=== PATIENT | female | born 1980 | race Caucasian/White ===

== ENCOUNTER 2016-06-08 21:18 | Emergency (ER) | payer MEDICARE, MEDICAID ==
[2016-02-28 06:45] VITALS: BMI 26.1
[~2016-06-08 21:18] MED LIST: ACETAMINOPHEN325 MG PO; COLACE100 MG PO; COZAAR50 MG PO; FERROUS SULFAT325 MG PO; FUROSEMIDE40 MG PO; LEVAQUIN250 MG PO; MACRODANTIN50 MG PO; METOPROLOL TAR100 M1 PO; METOPROLOL TART50 MG PO; NEURONTIN 300300 MG PO; NORCO 7.5/325 T1 TA1 PO; NORVASC10 MG PO; PROAIR HFA8.5 GM INH; PROZAC10 MG PO; PROZAC20 MG PO; RENVELA800 MG PO; SOMA350 MG PO; SYMBICORT 80-10.2 GM INH; TUMS500 MG PO; TYLENOL PM1 TAB PO; ULTRAM50 MG PO; ZESTORETIC 20-1 EACH PO
== END 2016-06-09 02:40 | disposition home or self-care (01) ==
LOC: D.ER 21:18
DX: M25.552 Pain in left hip (principal); F31.9 Bipolar disorder, unspecified; N18.9 Chronic kidney disease, unspecified

== ENCOUNTER 2016-08-01 19:16 | Inpatient (IN) | payer MEDICARE, MEDICAID ==
[~2016-08-01] VITALS: Ht 160 cm; Wt 75.6 kg
[2016-08-01 20:44] LABS: BASOPHILS 0.1 % (0-2); HEMATOCRIT 37.9 % (36.0-48.0); HEMOGLOBIN 12.6 g/dL (12-16); IMMATURE GRANULOCYTES 0.2 % (0-5); LYMPHOCYTES 10.1 % (15-50); MCH 33.8 pg (26.0-34.0); MCHC 33.2 g/dL (31.0-37.0); MCV 101.6 fL (80.0-100.0); MEAN PLATELET VOLUME 9.4 fL (7.4-10.4); MONOCYTES 6.6 % (2-11); PLATELET COUNT 221 10x3/uL (130-400); RBC 3.73 10x6/uL (4.00-5.40); WBC 10.8 10x3/uL (4.8-10.8)
[2016-08-01 20:58] LABS: ALBUMIN 2.5 g/dL (3.4-5.0); ANION GAP 15.9 mmol/L (8-16); BILIRUBIN - TOTAL 0.26 mg/dL (0.2-1.3); CALCIUM 8.1 mg/dL (8.5-10.1); CARBON DIOXIDE 28.2 mmol/L (21.0-32.0); CREATININE - SERUM 6.1 mg/dL (0.6-1.3); POTASSIUM - SERUM 3.1 mmol/L (3.5-5.1)
[2016-08-01 22:15] LABS: APPEARANCE HAZY (CLEAR); BILIRUBIN NEGATIVE (NEGATIVE); COLOR YELLOW (YELLOW); GLUCOSE NEGATIVE (NEGATIVE); KETONE NEGATIVE (NEGATIVE); LEUKOCYTE ESTERASE TRACE (NEGATIVE); NITRITE NEGATIVE (NEGATIVE); PROTEIN 1+ mg/dL (NEGATIVE); SPECIFIC GRAVITY 1.015 (1.005-1.020); UROBILINOGEN NORMAL (NORMAL)
[2016-08-01 22:16] LABS: AMORPHOUS SEDIMENT <1+ /lpf (NONE SEEN); BACTERIA FEW /hpf (NONE SEEN); EPITHELIAL CELLS 0-5 /hpf (0-5); RED CELLS - URINE 0-5 /hpf (0-5); WHITE CELLS - URINE 0-5 /hpf (0-5)
[2016-08-02 02:26] LABS: LYMPH - BF 58 %; NEUT - BF 42 %
--- NOTE | 2016-08-02 03:58 | NUR ---
RECIEVED TO 2111 FROM ER, AAOX3, SKIN WARM AND DRY, RESP UNLABORED, IV PATENT TO LEFT HAND, EATING TAKE OUT FOOD, VERY DEMANDING, NO DISTRESS NOTED
[2016-08-02 04:15] VITALS: BP 97/48
[2016-08-02 04:23] VITALS: BP 109/66; BMI 27.1
--- NOTE | 2016-08-02 06:00 | NUR ---
INSTILLED 2000CC OF 1.5% PD FLUID WITH 2000UNITS OF HEPARIN INTO PD CATH
[2016-08-02 07:23] VITALS: BP 106/60
[2016-08-02 12:09] VITALS: BP 120/55
[2016-08-02 16:10] VITALS: BP 104/54
--- NOTE | 2016-08-02 17:48 | NUR ---
ALERT AND ORIENTED X4. INITIATE PD ORDERED. PAIN MANAGEMENT CONTINUED. STANDING SCALE WEIGHT BEFORE PD 168.4lbs. DENIES ANY NEEDS. FAMILY AT BEDSIDE. CONTINUE PLAN OF CARE AND SAFETY PRECAUTIONS.
[2016-08-02 21:38] VITALS: BP 120/73
--- NOTE | 2016-08-02 22:55 | NUR ---
INITIAL ROUNDS COMPELTED AT 1914 HRS. PT IN SHOWER. PT'S CHILDREN DEMANDING TOWELS FOR MOTHER. OUT OF SHOWER AT 1930. PT DEMANDING IV BE CHECKED FOR PATENTCY AND NEW DRESSING APPLIED TO PD CATH. SUPPLIES GIVNE TO PT AND SHE APPLIED NEW DRESSING. IV FLUSHED AND PT STATED IT WAS VERY PAINFUL AND WANTED A NEW IV. ASSESSMETN COMPETED AT 2034 HRS. LUNGS CTA. VSS. ABD WITH PD DWELLING. UP AD ABISAI. IV TO L HAND DC'S WITH CATHETER INTACT. NEW IV STARTED #22 TO LFA WITH ATTEMPT X2. PT TOLERATED ACTIVITY WELL. PM MEDS GIVEN. WILL CONTINUE TO MONITOR. SR UP X2, CALL LIGHT WITHIN REACH.
--- NOTE | 2016-08-03 00:18 | NUR ---
PD EXCHANGE COMPLETED AT 2350 HRS WITH 1650CC RETURN. PT TOLERATED WEELL. WILL CONTINUE TO MONITOR.
--- NOTE | 2016-08-03 02:33 | NUR ---
BP RECHECKED PRIOR TO DILAUDID ADMINISTRATION. BP 126/78. PT AWAKWN AT THAT TIME AND PT STATES PAIN IS 10/10. DILAUDID 2MG SIVP GIVEN. IVAB ADMINISTERED ORDERED. WILL CONTINUE TO MONITOR. SR UP X2, CALL LIGHT WITHIN REACH.
[2016-08-03 03:13] VITALS: BP 98/56
--- NOTE | 2016-08-03 04:44 | NUR ---
PT RESTING WITH EYES CLOSED. RESP EVEN AND REGULAR. SR UP X2, CALL LIGHT WITHIN REACH.
--- NOTE | 2016-08-03 05:59 | NUR ---
PD EXCHANGE 1.5% 2000 CC COMPLETED BY 0535 HRS WITH 2450 CC RETURN. FLUID YELLOW AND SLIGHTY CLOUDY. BP 114/73. PT TOLERATED ACTIVITY WELL. WILL CONTINUE TO MONITOR.
[2016-08-03 06:46] VITALS: BP 127/82
[2016-08-03 08:25] VITALS: BP 95/60
[2016-08-03 12:18] VITALS: Ht 160 cm; Wt 75.6 kg
[2016-08-03 13:03] VITALS: BP 133/89
--- NOTE | 2016-08-03 14:36 | NUR ---
SPOKE WITH MICHAEL CORNELL AT [facility] PER . KRAIG STATES, "I WILL CALL FOR DIRECT ORDERS TO WHAT HE WANTS DONE." ALERT AND ORIENTED X4. PAIN MANAGEMENT CONTINUED. CONTINUE PLAN OF CARE AND SAFETY PRECAUTIONS.
[2016-08-03 17:08] VITALS: BP 130/80
--- NOTE | 2016-08-03 19:33 | NUR ---
LYING ON LEFT SIDE. OPENED EYES AND NODDED "NO" TO INQUIRY ABOUT ANY NEEDS OR DISCOMFORTS. IV IN LT FA INTACT SL. ORDERS FOR PD NOTED. BED IS LOW WITH SR UP X2. CALL LIGHT AND BEDSIDE TABLE WITH PERSONAL ITEMS IN REACH.
[2016-08-03 21:27] VITALS: BP 119/79
--- NOTE | 2016-08-03 23:15 | NUR ---
STARTED PD. RATES PAIN LEVEL DOWN TO A 5 ON NUMBER SCALE.
[2016-08-04 01:46] VITALS: BP 117/58
[2016-08-04 06:03] LABS: BASOPHILS 0.2 % (0-2); EOSINOPHILS 2.6 % (0-7); HEMATOCRIT 34.6 % (36.0-48.0); IMMATURE GRANULOCYTES 0.2 % (0-5); LYMPHOCYTES 24.5 % (15-50); MCHC 31.8 g/dL (31.0-37.0); MCV 103.9 fL (80.0-100.0); MEAN PLATELET VOLUME 9.1 fL (7.4-10.4); MONOCYTES 7.8 % (2-11); NEUTROPHILS 64.7 % (40-80); PLATELET COUNT 205 10x3/uL (130-400); RBC 3.33 10x6/uL (4.00-5.40); RDW 12.9 % (11.5-14.5)
--- NOTE | 2016-08-04 06:20 | NUR ---
ADMIN DILAUDID 4MG IV PER REQUEST FOR C/O ABD PAIN LEVEL 10 ON NUMBER SCALE. REQUESTED CUP OF ICE.
[2016-08-04 06:24] VITALS: BP 130/81
[2016-08-04 06:26] LABS: ANION GAP 11.8 mmol/L (8-16); CALCIUM 8.2 mg/dL (8.5-10.1); CARBON DIOXIDE 27.3 mmol/L (21.0-32.0); CREATININE - SERUM 4.6 mg/dL (0.6-1.3); PHOSPHOROUS 5.3 mg/dL (2.5-4.9); POTASSIUM - SERUM 4.1 mmol/L (3.5-5.1)
[2016-08-04 08:00] VITALS: BP 149/91
[2016-08-04 11:59] VITALS: BP 119/68
--- NOTE | 2016-08-04 15:27 | NUR ---
DIALYSIS COORDINATOR: PATHWAYS: [facility] Department. Patient is a PD patient. Medical records have been forwarded to the clinic for their records. Attempted to meet with the patient but was unable to wake her. NOVA ESPANA.
[2016-08-04 15:53] VITALS: BP 140/78
--- NOTE | 2016-08-04 19:45 | NUR ---
DENIES ANY NEEDS. IV IN L FA INTACT SL. BED IS LOW WITH SR UP X2. ORIENTED TO CALL LIGHT FOR ANY NEEDS.
[2016-08-04 21:07] VITALS: BP 117/77
--- NOTE | 2016-08-04 23:05 | NUR ---
ALERT/AWAKE SITTING UP IN BED. STARTED PD. ADDED 1000 UNITS HEPARIN TO PD BAG PER ORDER.
[2016-08-05 01:38] VITALS: BP 137/79
--- NOTE | 2016-08-05 04:35 | NUR ---
AWAKE DENIES ANY NEEDS. RATES PAIN LEVEL OF ABD AT 8 ON NUMBER SCALE.
[2016-08-05 04:39] LABS: BASOPHILS 0.4 % (0-2); HEMATOCRIT 35.5 % (36.0-48.0); HEMOGLOBIN 11.2 g/dL (12-16); IMMATURE GRANULOCYTES 0.2 % (0-5); LYMPHOCYTES 26.3 % (15-50); MCH 32.6 pg (26.0-34.0); MCHC 31.5 g/dL (31.0-37.0); MCV 103.2 fL (80.0-100.0); MEAN PLATELET VOLUME 9.2 fL (7.4-10.4); MONOCYTES 7.9 % (2-11); NEUTROPHILS 62.2 % (40-80); PLATELET COUNT 201 10x3/uL (130-400); RBC 3.44 10x6/uL (4.00-5.40); RDW 12.6 % (11.5-14.5); WBC 5.7 10x3/uL (4.8-10.8)
[2016-08-05 05:09] LABS: ANION GAP 11.4 mmol/L (8-16); CALCIUM 8.1 mg/dL (8.5-10.1); CARBON DIOXIDE 28.8 mmol/L (21.0-32.0); CREATININE - SERUM 4.3 mg/dL (0.6-1.3); PHOSPHOROUS 5.5 mg/dL (2.5-4.9); POTASSIUM - SERUM 4.2 mmol/L (3.5-5.1)
[2016-08-05 05:32] VITALS: BP 102/54
--- NOTE | 2016-08-05 06:28 | NUR ---
DID NOT ADMIN SCHED DILAUDID IV. PATIENT SLEEPING AND DOES NOT APPEAR IN ANY PAIN OR DISCOMFORT. RETURNING DILAUDID TO [facility].
--- NOTE | 2016-08-05 07:45 | NUR ---
PATIENT IS RESTING QUIETLY WITH EYES CLOSED. AWOKE TO MY VOICE. STATES THAT HER PAIN LEVEL REMAINS AT A 10 DESPITE THE IV DILAUDID. SUGGESTED THAT PERHAPS WE NEEDED TO TRY ANOTHER MEDICATION IF IT WASN'T WORKING. SHE QUICKLY REFUSED. STATES THAT MORPHINE MAKES HER CHEST TIGHT AND NOTHING ELSE WORKS FOR HER. ENCOURAGED HER TO REST. SHE DENIES OTHER NEEDS AT THIS TIME. DISCUSSED THE PLAN FOR THE DAY, INCLUDING HER PD.
[2016-08-05 08:00] VITALS: BP 105/59
--- NOTE | 2016-08-05 08:30 | NUR ---
PATIENT GIVEN HER MEDICATIONS. FRESH WATER GIVEN. SHE QUESTIONED WHEN SHE CAN HAVE MEDICATION AGAIN AND BECAME UPSET WHEN TOLD THERE IS A 6 HOUR WAIT BETWEEN DOSES. DISCUSSED DR. BAPTISTE'S NOTE REGARDING HER IMPROVEMENT AND NEED TO TAPER THE PAIN MEDICATION. SHE STATES THAT SHE DOESN'T UNDERSTAND THAT AND WANTS ME TO CALL THE PHYSICIAN OCCUPANCY SPECIALIST. WHEN I ENTERED THE ROOM SHE WAS ASLEEP AND REQUIRED A FEW MINUTES TO GET HER EYES FOCUSED ON MY FACE DURING CONVERSATION. SHE IS ABLE TO SIT UP IN HER BED TO TAKE MEDICATIONS INDEPENDENTLY. SHE IS NOT GUARDING HER ABDOMEN OR GRIMACING. WILL MONITOR CLOSELY.
--- NOTE | 2016-08-05 11:30 | NUR ---
PATIENT AGAIN ASLEEP WHEN I ENTERED HER ROOM. WE DISCUSSED THE PERITONEAL DIALYSIS AND HER COMPOUNDER FLAVORINGS AT HOME. SHE KEEPS HER OWN RECORDS FOR I/O'S.
[2016-08-05 12:00] VITALS: BP 110/68
--- NOTE | 2016-08-05 15:17 | NUR ---
RECEIVED CALL BACK FROM CHAN GRANT FOR THE NEPHROLOGY CLINIC. WE ARE TO DIRECT PATIENT TO DISCUSS HER PAIN MEDICATION NEEDS WITH DR. BAPTISTE IN THE MORNING.
--- NOTE | 2016-08-05 15:36 | NUR ---
ANSWERED CALL LIGHT AND REPORTED WHAT JUANITA SAID. SHE STATED THAT SHE WANTED TO GO HOME AND SHE WONT BE HERE TO TALK WITH DR. BAPTISTE TOMORROW. I OFFERED TO FETCH THE NANCY PAPERWORK AND REMOVE HER IV. DISCUSSED AMA BRIEFLY. SHE STATED THAT SHE WASNT LEAVING UNDER ANYONES MEDICAL ADVICE AND TURNED TO HER CELL PHONE. LEFT HER TO MAKE HER PHONE CALL.
--- NOTE | 2016-08-05 15:44 | NUR ---
ANSWERED CALL LIGHT. SHE HAS SPOKEN WITH SOMEONE AT DR. BAPTISTE'S OFFICE WHO TOLD HER THAT HE IS ON VACATION UNTIL WEDNESDAY. REQUESTS THAT I CALL THE PHYSICIAN FERMENTER HELPER. PAGED CHAN AGAIN TO RUN THIS BY HER BEFORE TALKING WITH A DIFFERENT PRESCRIBER.
[2016-08-05 15:59] VITALS: BP 112/64
[2016-08-05 20:44] VITALS: BP 106/70
--- NOTE | 2016-08-05 23:40 | NUR ---
PD EXCHANGE IN PROGRESS. NORCO FOR BREAKTHROUGH PAIN GIVEN.
--- NOTE | 2016-08-06 02:00 | NUR ---
PT WITH C/O FULLNESS IN HER BLADDER AND INABILITY TO VOID. STRAIGHT CATHED PATIENT AND HER OUTPUT WAS 500ML. NO FURTHER C/O. MEDICATED WITH REQUESTED DILAUDID IV FOR PAIN. MONITOR AND CPOC.
[2016-08-06 03:47] VITALS: BP 105/58
[2016-08-06 05:38] LABS: BASOPHILS 0.6 % (0-2); EOSINOPHILS 3.8 % (0-7); HEMATOCRIT 33.5 % (36.0-48.0); HEMOGLOBIN 10.5 g/dL (12-16); IMMATURE GRANULOCYTES 0.2 % (0-5); LYMPHOCYTES 35.7 % (15-50); MCH 32.5 pg (26.0-34.0); MCHC 31.3 g/dL (31.0-37.0); MCV 103.7 fL (80.0-100.0); MEAN PLATELET VOLUME 9.1 fL (7.4-10.4); MONOCYTES 6.9 % (2-11); NEUTROPHILS 52.8 % (40-80); PLATELET COUNT 183 10x3/uL (130-400); RBC 3.23 10x6/uL (4.00-5.40); RDW 12.6 % (11.5-14.5)
[2016-08-06 06:27] LABS: ANION GAP 14.5 mmol/L (8-16); CALCIUM 7.9 mg/dL (8.5-10.1); CARBON DIOXIDE 26.5 mmol/L (21.0-32.0); GENTAMICIN - TROUGH 2.7 ug/mL (0.5-2.0); PHOSPHOROUS 5.1 mg/dL (2.5-4.9)
[2016-08-06 08:34] VITALS: BP 111/67
--- NOTE | 2016-08-06 09:09 | NUR ---
AM ROUNDS - PT APPEARS TO BE SLEEPING WITH EQUAL AND NON LABORED BREATHS. WILL CONTINUE TO MONITOR
[2016-08-06 11:53] VITALS: BP 103/53
[2016-08-06 15:32] VITALS: BP 105/58
[2016-08-06 20:00] VITALS: BP 118/77
[2016-08-07] VITALS: BP 146/83
--- NOTE | 2016-08-07 02:07 | NUR ---
PD PERFORMED @ 00:45 - 2800 REMOVED, 2000 OF 2.5% REPLACED. PT DENIES ANY NEEDS OTHER THAN PRN PAIN MEDICATION AND ZOFRAN. CONTINUE TO MONITOR CLOSELY. BED LOW, CALL LIGHT IN REACH, SIDE RAILS X 2, HOB 15 DEGREES.
[2016-08-07 04:00] VITALS: BP 132/73
--- NOTE | 2016-08-07 06:05 | NUR ---
PT LYING IN BED ON LEFT SIDE, EYES CLOSED, RESPIRATIONS EVEN AND UNLABORED. CONTINUE TO MONITOR CLOSELY. WAITING FOR PD TO WARM UP FOR ADMINISTRATION.
[2016-08-07 08:03] VITALS: BP 114/61
--- NOTE | 2016-08-07 08:20 | NUR ---
AM ROUNDS - PT IS AWAKE IN BED. RESERVE RUE. LEFT FA, SL. NO NEEDS AT THIS TIME. WILL CONTINUE TO MONITOR.
[2016-08-07 11:48] VITALS: BP 110/66
--- NOTE | 2016-08-07 15:37 | NUR ---
Nutrition Follow Up: Pt is eating 67% meal avg on a renal diet. Wt gain since admit noted. +BM 08/07/16. Meds and labs reviewed. Rec continue current diet. RD following.
[2016-08-07 15:38] VITALS: BP 114/71
--- NOTE | 2016-08-07 19:35 | NUR ---
AWAKE TALKING TO FAMILY MEMBERS AND CHILDREN PRESENT IN ROOM. RATES PAIN LEVEL AT 9 ON 0-10 SCALE OF ABDOMEN. IV IN L FA INTACT SL. REQUESTED CUP OF ICE.
[2016-08-07 20:00] VITALS: BP 121/66
--- NOTE | 2016-08-07 20:10 | NUR ---
ADMIN NORCO PO PER REQUEST FOR C/O ABD PAIN LEVEL 9 ON 0-10 NUMBER SCALE.
--- NOTE | 2016-08-07 23:40 | NUR ---
PD FINISHED. TALKING ON PHONE. NO NEEDS VOICED.
[2016-08-08] VITALS: BP 126/89
--- NOTE | 2016-08-08 01:50 | NUR ---
RETURNING TO BED FROM BATHROOM. ADMIN NORCO PO AND SOMA PO PER REQUEST.
[2016-08-08 04:00] VITALS: BP 125/75
--- NOTE | 2016-08-08 05:40 | NUR ---
PD FINISHED. RATES PAIN LEVEL AT 6 ON 0-10 NUMBER SCALE AFTER GIVING DILAUDID 1MG IV 30 MIN AGO.
[2016-08-08 08:00] VITALS: BP 104/62
--- NOTE | 2016-08-08 08:03 | NUR ---
AM ROUNDS - PT APPEARS TO BE SLEEPING WITH EQUAL AND NON LABORED BREATHS. WILL CONTINUE TO MONITOR.
[2016-08-08 12:00] VITALS: BP 151/88
[2016-08-08 16:00] VITALS: BP 126/78
--- NOTE | 2016-08-08 18:41 | NUR ---
PT HAD FAMILY AT BEDSIDE. PD EXCHANGE FINNISHED. SHE IS EATING DINNER. WILL CONITUE TO MONITOR
--- NOTE | 2016-08-08 20:17 | NUR ---
RESTING IN BED WITH AND CHILD IN ROOM. ALERT/ORIENTED. C/O PAIN. HS MEDS PLUS PAIN PILL GIVEN. PT ALSO WANTING IV EVER. ADMINISTERED ZOFRAN VIA LFA PIV. MONITOR AND CPOC.
[2016-08-09] VITALS: BP 110/72
--- NOTE | 2016-08-09 00:48 | NUR ---
PD EXCHANGE COMPLETED. 2600 OUTPUT/CLEAR FLUID. LIDOCAINE AND HEPARIN ADDED TO 2.5% PD SOLUTION. PT THEN WANTING PAIN PILL, MUSCLE RELAXER AND IV NAUSEA MEDS. ADMINISTERED IV ZOFRAN, AND GAVE ONE NORCO AND ONE SOMA. MONITOR AND CPOC.
--- NOTE | 2016-08-09 02:36 | NUR ---
SPOKE WITH RAMÓN IN LAB. SHE STATES THE PD SPECIMEN WAS COLLECTED AND IS IN LAB AWAITING THE CYTOLOGY TEST TO BE DONE AND IT WILL NOT BE DONE UNTIL WEDNESDAY.
[2016-08-09 04:00] VITALS: BP 134/69
--- NOTE | 2016-08-09 06:12 | NUR ---
PT PERFORMED PD EXCHANGE. PT ALSO MEDICATED WITH SOMA, NORCO AND IV ZOFRAN. MONITOR AND CPOC.
[2016-08-09 08:00] VITALS: BP 121/71
[2016-08-09 12:00] VITALS: BP 151/98
--- NOTE | 2016-08-09 14:11 | NUR ---
ALERT AND ORIENTED X4. DISCHARGE INSTRUCTIONS GIVEN VERBALLY AND WRITTEN. DISCHARGE PAPERS SIGNED ON CHART. DC LT FA IV TIP INTACT. AMBULATES TO RIDE. REFUSES WHEELCHAIR. REMAINS FREE FROM INJURY.
== END 2016-08-09 14:12 | disposition home or self-care (01) | DRG 867 ==
LOC: D.ER 19:16 → D.M2 08-02 02:11
PROVIDERS: Emergency Medicine; ADMIT Internal Medicine Nephrology
DX: T80.29XA Infection following other infusion, transfusion and therapeutic injection, initial encounter (principal); K65.9 Peritonitis, unspecified; N18.6 End stage renal disease; Q61.3 Polycystic kidney, unspecified; I12.0 Hypertensive chronic kidney disease with stage 5 chronic kidney disease or end stage renal disease; Z99.2 Dependence on renal dialysis; I95.9 Hypotension, unspecified; B95.7 Other staphylococcus as the cause of diseases classified elsewhere

== ENCOUNTER 2017-02-13 07:21 | Inpatient (IN) | payer MEDICARE, MEDICAID ==
[~2017-02-13] VITALS: Ht 160 cm; Wt 79.4 kg
[2017-02-13 07:50] LABS: APPEARANCE HAZY (CLEAR); BILIRUBIN NEGATIVE (NEGATIVE); COLOR YELLOW (YELLOW); GLUCOSE NEGATIVE (NEGATIVE); KETONE NEGATIVE (NEGATIVE); NITRITE NEGATIVE (NEGATIVE); PROTEIN 1+ mg/dL (NEGATIVE); UROBILINOGEN NORMAL (NORMAL)
[2017-02-13 07:57] LABS: BACTERIA MODERATE /hpf (NONE SEEN); RED CELLS - URINE 0-5 /hpf (0-5); YEAST >1+ /hpf (NONE SEEN)
[2017-02-13 08:09] LABS: BASOPHILS 0.3 % (0-2); EOSINOPHILS 3.2 % (0-7); HEMATOCRIT 24.8 % (36.0-48.0); HEMOGLOBIN 8.4 g/dL (12-16); IMMATURE GRANULOCYTES 0.3 % (0-5); LYMPHOCYTES 22.3 % (15-50); MCH 32.4 pg (26.0-34.0); MCHC 33.9 g/dL (31.0-37.0); MCV 95.8 fL (80.0-100.0); MEAN PLATELET VOLUME 9.2 fL (7.4-10.4); MONOCYTES 9.1 % (2-11); NEUTROPHILS 64.8 % (40-80); PLATELET COUNT 285 10x3/uL (130-400); RBC 2.59 10x6/uL (4.00-5.40); RDW 11.8 % (11.5-14.5); WBC 10.9 10x3/uL (4.8-10.8)
[2017-02-13 08:28] LABS: ALBUMIN 2.5 g/dL (3.4-5.0); ANION GAP 18.2 mmol/L (8-16); BILIRUBIN - TOTAL 0.24 mg/dL (0.2-1.3); CALCIUM 8.7 mg/dL (8.5-10.1); CARBON DIOXIDE 25.2 mmol/L (21.0-32.0); CREATININE - SERUM 7.3 mg/dL (0.6-1.3); POTASSIUM - SERUM 3.4 mmol/L (3.5-5.1); PROTEIN - SERUM 7.1 g/dL (6.4-8.2)
--- NOTE | 2017-02-13 10:12 | NUR ---
transfer from er by w/c. crissyinted to room. call light in reach. will cont. plan of care.
[2017-02-13] MEDS ORDERED: AMITRIPTYLINE H50 MG PO (10:18)
[2017-02-13] MEDS ORDERED: RENVELA2.4 GM PO (10:18)
[2017-02-13 10:35] VITALS: BP 128/88; BMI 31.0
[2017-02-13 12:18] VITALS: Ht 160 cm; Wt 79.4 kg
[2017-02-13 12:30] VITALS: BP 122/81; BP 145/55
--- NOTE | 2017-02-13 14:18 | NUR ---
UNABLE TO ACCESS DIALYSIS CATHETER. EXTENTION DOES NOT FIT OUR PRODUCTS. RAUL JAIMES.
[2017-02-13 15:49] VITALS: BP 135/49
--- NOTE | 2017-02-13 16:00 | NUR ---
DIALYSIS ACCESED WITH EXTENTION TUBING USING STERILE TECHNIQE.
--- NOTE | 2017-02-13 16:45 | NUR ---
PD DIALYSIS COMPLETED WITH 950CC TOTAL OP. WILL CONT. PLAN OF CARE.
--- NOTE | 2017-02-13 17:58 | NUR ---
I&O CATH DONE WITH 600CC RESIDULE NOTED.
--- NOTE | 2017-02-13 19:35 | NUR ---
PT IN BED RESTING QUIELTY. BREATHING EVEN AND UNLABORED. BED IN LOW POSITION, CALL LIGHT WITHIN REACH. WILL CTM.
[2017-02-13 20:00] VITALS: BP 143/93
--- NOTE | 2017-02-13 21:00 | NUR ---
PD DIALYSIS COMPLETED WITH 1500 OP. VSS. BREATHING EVEN AND UNLABORED. DENIES ANY OTHER NEEDS AT THIS TIME WILL CTM.
[2017-02-14] VITALS: BP 138/85
--- NOTE | 2017-02-14 01:25 | NUR ---
IV INFILTRATED AND HAD TO BE RESITED TO UPPER RIGHT ARM. 22G. TWO ATTEMPTS. IV ABX NOW INFUSING. PRN PAIN MEDICATION GIVEN. PERITONEAL DIALYSIS COMPLETE WITH 2100 OP. DENIES ANY OTHER NEEDS AT THIS TIME. BED IN LOW POSITION, CALL LIGHT WITHIN REACH. WILL CTM.
[2017-02-14 04:00] VITALS: BP 109/62
[2017-02-14 04:06] LABS: BASOPHILS 0.5 % (0-2); EOSINOPHILS 3.5 % (0-7); IMMATURE GRANULOCYTES 0.1 % (0-5); MCH 32.2 pg (26.0-34.0); MCHC 33.1 g/dL (31.0-37.0); MCV 97.3 fL (80.0-100.0); MEAN PLATELET VOLUME 9.5 fL (7.4-10.4); MONOCYTES 10.8 % (2-11); NEUTROPHILS 65.1 % (40-80); RDW 11.8 % (11.5-14.5)
[2017-02-14 04:09] LABS: RBC 3.32 10x6/uL (4.00-5.40); WBC 7.7 10x3/uL (4.8-10.8)
[2017-02-14 04:10] LABS: HEMATOCRIT 32.3 % (36.0-48.0); HEMOGLOBIN 10.7 g/dL (12-16); PLATELET COUNT 181 10x3/uL (130-400)
[2017-02-14 04:24] LABS: CARBON DIOXIDE 26.2 mmol/L (21.0-32.0); CREATININE - SERUM 6.5 mg/dL (0.6-1.3); POTASSIUM - SERUM 3.2 mmol/L (3.5-5.1)
--- NOTE | 2017-02-14 04:30 | NUR ---
PD COMPLETED WITH 1800 OP. BREATHING EVEN AND UNLABORED. BED IN LOW POSITION, CALL LIGHT WITHIN REACH. WILL CTM.
--- NOTE | 2017-02-14 07:54 | NUR ---
AM ROUNDS - PT IN BED AND APPEARS TO BE SLEEPING WITH EQUAL AND NON LABORED BREATHING. LEFT UPPER FA, SL. BED AT LOWEST POSITION. CALL GALEANA IN USE/REACH. SIDE RAILS UP X2. WILL CONTINUE TO MONITOR
[2017-02-14 08:00] VITALS: BP 96/53
[2017-02-14 12:00] VITALS: BP 114/68
[2017-02-14 16:00] VITALS: BP 114/67
--- NOTE | 2017-02-14 19:10 | NUR ---
ASKING FOR DIDAULID, ADAM WAS GIVEN AT 1805, EXPLAINED NEEDS TO BE 2HRS IN BETWEEN PAIN MEDS
--- NOTE | 2017-02-14 19:46 | NUR ---
RECEIVED REPORT, WILL ASSUME CARE OF PT, COMPLAINS OF PAIN, WILL GIVE DILAUDID WHEN ITS TIME, FAMILY IN ROOM, BED IS LOW, SRX2, CALL LIGHT IN REACH, WILL CONTINUE PLAN OF CARE
--- NOTE | 2017-02-14 20:55 | NUR ---
COMPLAINS OF DIARRHEA, GAVE IMODIUM 2MG, SHE ASK COMMUNITY AFFAIRS MANAGER FOR 3 APPLE JUICE, WAS TOLD THAT WOULDN'T HELP HER DIARRHEA, SHE SAID I ALWAYS DRINK APPLE JUICE
[2017-02-14 21:01] VITALS: BP 159/98
--- NOTE | 2017-02-14 22:07 | NUR ---
COMPLAINS OF ABDOMEN PAIN 8 ON SCALE, GAVE NORCO 7.5 ORDER
--- NOTE | 2017-02-15 00:11 | NUR ---
STARTED PD, ASKING FOR PAIN MEDS, WILL GIVE DIDULID ORDER
[2017-02-15 00:52] VITALS: BP 123/92
[2017-02-15 05:04] LABS: BASOPHILS 0.5 % (0-2); EOSINOPHILS 6.2 % (0-7); HEMATOCRIT 32.7 % (36.0-48.0); IMMATURE GRANULOCYTES 0.3 % (0-5); LYMPHOCYTES 25.4 % (15-50); MCH 32.4 pg (26.0-34.0); MCHC 33.6 g/dL (31.0-37.0); MCV 96.2 fL (80.0-100.0); MEAN PLATELET VOLUME 9.2 fL (7.4-10.4); MONOCYTES 8.4 % (2-11); NEUTROPHILS 59.2 % (40-80); PLATELET COUNT 156 10x3/uL (130-400); RDW 11.8 % (11.5-14.5); WBC 6.6 10x3/uL (4.8-10.8)
[2017-02-15 05:35] LABS: ANION GAP 11.4 mmol/L (8-16); CARBON DIOXIDE 28.1 mmol/L (21.0-32.0); CREATININE - SERUM 5.9 mg/dL (0.6-1.3); POTASSIUM - SERUM 3.5 mmol/L (3.5-5.1)
[2017-02-15 05:36] VITALS: BP 110/74
--- NOTE | 2017-02-15 07:38 | NUR ---
ADMINISTERED NORCO 7.5 FOR PAIN LEVEL OF 8/10. PT ASKING WHEN SHE CAN HAVE HER DILAUDID, INFORMED PT THAT THE DOCTOR CHANGED IT TO Q6HR, SO SHE WILL NOT BE ABLE TO HAVE UNTIL ABOUT 1050. PT DENIES ANY OTHER NEEDS AT THIS TIME. CALL LIGHT IN REACH, NAD NOTED, WILL CONTINUE PLAN OF CARE.
[2017-02-15 08:42] VITALS: BP 142/71
--- NOTE | 2017-02-15 08:53 | NUR ---
AM MEDS GIVEN AT THIS TIME. PD STARTED AT THIS TIME. PT DENIES ANY NEEDS AT THIS TIME. STILL RATES HER PAIN 10/22 STATES THAT THE NORCO DOES NOT HELP AT ALL. CALL LIGHT IN REACH, NAD NOTED, WILL CONTINUE PLAN OF CARE.
--- NOTE | 2017-02-15 10:55 | NUR ---
ADMINISTERED 1MG OF DILAUDID FOR PAIN LEVEL OF 8/10. PT IN BED, WATCHING TV, DENIES ANY OTHER NEEDS AT THIS TIME. CALL LIGHT IN REACH, NAD NOTED.
--- NOTE | 2017-02-15 12:28 | NUR ---
Nutrition follow-up: Diet: Renal PO intake 100% of meals Labs reviewed RDN visited with pt during meal rounds. Pt is happy with meals being provided and is getting ordered foods. RDN following.
[2017-02-15 13:41] VITALS: BP 102/60
--- NOTE | 2017-02-15 14:12 | NUR ---
ADMINISTERED NORCO 7.5MG FOR PAIN LEVEL OF 8/10. PT IN BED, DENIES ANY OTHER NEEDS AT THIS TIME. CALL LIGHT IN REACH, NAD NOTED.
--- NOTE | 2017-02-15 17:03 | NUR ---
STARTED PD DIALYSIS. ALSO ADMINISTERED 1MG OF DIALUDID FOR PAIN LEVEL OF 8/10. PT DENIES ANY OTHER NEEDS AT THIS TIME. CALL LIGHT IN REACH, NAD NOTED.
[2017-02-15 17:42] VITALS: BP 112/70
--- NOTE | 2017-02-15 19:25 | NUR ---
RECEIVED REPORT, WILL ASSUME CARE OF PT, PT PULLED IV OUT WHILE SLEEPING, BED IS LOW, SRX2, CALL LIGHT IN REACH, WILL CONTINUE PLAN OF CARE
[2017-02-15 20:53] VITALS: BP 116/59
[2017-02-16 00:37] VITALS: BP 110/50
--- NOTE | 2017-02-16 02:44 | NUR ---
ASSESSMENT COMPLETE, SEE FLOWSHEET, BED IS LOW, SRX1, CALL LIGHT IN REACH, WILL CONTINUE PLAN OF CARE
[2017-02-16 04:20] VITALS: BP 103/63
[2017-02-16 05:09] LABS: BASOPHILS 0.4 % (0-2); EOSINOPHILS 5.3 % (0-7); HEMATOCRIT 35.6 % (36.0-48.0); IMMATURE GRANULOCYTES 0.1 % (0-5); MCH 32.4 pg (26.0-34.0); MCHC 33.7 g/dL (31.0-37.0); MCV 96.2 fL (80.0-100.0); MONOCYTES 8.9 % (2-11); NEUTROPHILS 67.3 % (40-80); PLATELET COUNT 187 10x3/uL (130-400); RDW 11.6 % (11.5-14.5)
[2017-02-16 05:13] LABS: WBC 8.3 10x3/uL (4.8-10.8)
[2017-02-16 05:22] LABS: ANION GAP 12.4 mmol/L (8-16); CALCIUM 8.6 mg/dL (8.5-10.1); CARBON DIOXIDE 28.2 mmol/L (21.0-32.0); CREATININE - SERUM 6.4 mg/dL (0.6-1.3); POTASSIUM - SERUM 3.6 mmol/L (3.5-5.1)
[2017-02-16 08:00] VITALS: BP 103/65
--- NOTE | 2017-02-16 08:40 | NUR ---
AM MEDS GIVEN AT THIS TIME. ALSO ADMINISTERED NORCO 7.5MG FOR PAIN LEVEL OF 8/10. PD DIALYSIS STARTED AT THIS TIME. PT DENIES ANY OTHER NEEDS AT THIS TIME. CALL LIGHT IN REACH, NAD NOTED, WILL CONTINUE PLAN OF CARE.
[2017-02-16 12:00] VITALS: BP 100/64
--- NOTE | 2017-02-16 12:50 | NUR ---
ADMINISRERED 1MG OF DILAUDID FOR PAIN LEVEL OF 8/10. PD DIALYSIS STARTED. PT REQUESTING APPLE JUICE, WILL PROVIDED PT WITH APPLE JUICE. PT DENIES ANY OTHER NEEDS AT THIS TIME. CALL LIGHT IN REACH, NAD NOTED, WILL CONTINUE PLAN OF CARE.
[2017-02-16 16:00] VITALS: BP 114/70
--- NOTE | 2017-02-16 19:23 | NUR ---
Patient Name: PARISH KWAN Admission Status: ER Accout number: [id number] Admission Date: 02-13-2017 : 1980 Admission Diagnosis: Attending: Romeo Murray Current LOS: 3 Anticipated DC Date: 02-17-2017 Planned Disposition: Home Primary Insurance: [employer] MEDICARE ADV Discharge Planning Comments: * Is the patient Alert and Oriented? Yes 0 * How many steps to enter\exit or inside your home? 3 0 * PCP DR. BAPTISTE 0 * Pharmacy [facility] IN [place] 0 * Preadmission Environment Home with Family 0 * ADLs Independent 0 * Equipment Other 0 * Other Equipment HOME DIALYSIS (PD) FROM [facility] 0 * List name and contact numbers for known caregivers / representatives who currently or will assist patient after discharge: BARON BURK, 0 * Community resources currently utilized None 0 * Please name any agencies selected above. NONE 0 * Additional services required to return to the preadmission environment? No 0 * Can the patient safely return to the preadmission environment? Yes 0 * Has this patient been hospitalized within the prior 30 days at any hospital? No 0 CM RECEIVED ORDER FOR DISCHARGE PLANNING. CM MET WITH PT IN ROOM TO DISCUSS DISCHARGE PLANNING AND NEEDS. PT REPORTS LIVING AT HOME INDEPENDENTLY WITH FIANCE AND CHILDREN. PT HAS HOME PD- DIALYSIS EQUIPMENT FROM [facility], HAS NO OUTSIDE SERVICES ASSISTING IN THE HOME. CM DISCUSSED AVAILABILITY OF HOME HEALTH, REHAB SERVICES AND MEDICAL EQUIPMENT. PT DENIES DISCHARGE NEEDS, REPORTS HER SPOUSE WILL PICK HER UP FOR DISCHARGE HOME. IMPORTANT MESSAGE FROM MEDICARE PROVIDED AND EXPLAINED. PT DENIES DISCHARGE NEEDS. CM TO FOLLOW AND ASSIST IF NEEDED. Calender Operator: Kaz Araya
[2017-02-16 20:00] VITALS: BP 99/63
--- NOTE | 2017-02-16 20:08 | NUR ---
PT IN BED RESTING AROUSES TO VOICE. DENIES NEEDS AT THIS TIME.
[2017-02-17] VITALS: BP 115/72
--- NOTE | 2017-02-17 03:53 | NUR ---
PT IN BED. PROVIDED PAIN MED PER REQUEST. DENIES FURTHER NEEDS AT THIS TIME.
[2017-02-17 04:00] VITALS: BP 91/53
--- NOTE | 2017-02-17 05:15 | NUR ---
PT RESTING COMFORTABLY, NO NEEDS AT THIS TIME. CONTINUE TO MONITOR CLOSELY.
[2017-02-17 05:37] LABS: BASOPHILS 0.3 % (0-2); EOSINOPHILS 3.3 % (0-7); HEMATOCRIT 38.6 % (36.0-48.0); HEMOGLOBIN 13.3 g/dL (12-16); IMMATURE GRANULOCYTES 0.3 % (0-5); LYMPHOCYTES 17.2 % (15-50); MCH 33.1 pg (26.0-34.0); MCHC 34.5 g/dL (31.0-37.0); MEAN PLATELET VOLUME 8.8 fL (7.4-10.4); MONOCYTES 8.8 % (2-11); NEUTROPHILS 70.1 % (40-80); RBC 4.02 10x6/uL (4.00-5.40); RDW 11.7 % (11.5-14.5); WBC 8.9 10x3/uL (4.8-10.8)
[2017-02-17 05:46] LABS: PLATELET COUNT 229 10x3/uL (130-400)
[2017-02-17 05:57] LABS: ANION GAP 15.3 mmol/L (8-16); CALCIUM 8.8 mg/dL (8.5-10.1); CARBON DIOXIDE 27.7 mmol/L (21.0-32.0); CREATININE - SERUM 6.2 mg/dL (0.6-1.3); PHOSPHOROUS 4.8 mg/dL (2.5-4.9)
--- NOTE | 2017-02-17 08:13 | NUR ---
AM ROUNDS COMPLETED. INTRODUCED MYSELF TO PT PRIMARY RN FOR TODAYS SHIFT BUT PT IS ANXIOUS TO BE DISCHARGED. REFUSED 800AM PD AND STATES SHE WILL DO IT AT HOME OUR SCHEDULE IS OFF ANYWAYS. SHIFT ASSESSMENT COMPLETED. PT HAS A L.FA PIV WITH DRSG CDI AND SWAB CAPS IN USE. D/C WITH CATH TIP FULLY INTACT. PT SITTING UP EATING BREAKFAST AND REQUESTED PRN PAIN MEDICATION AND WAS PROVIDED WITH IT. PT COLLECTING BELONGINGS AND WILL CALL HER FOR TRANSPORTATION. CL IN REACH, BED IN LOWEST, SIDE RAILS X2 AND WILL CPOC.
[2017-02-17] MEDS ORDERED: LINEZOLID600 MG PO (08:27)
--- NOTE | 2017-02-17 10:10 | NUR ---
PTS HERE TO PICK HER UP. DISCHARGE TEACHING PROVIDED AND PAPERS SIGNED. PT DENIES ANY FURTHER QUESTIONS OR NEEDS. HARD SCRIPT GIVEN FOR ANBX. PT VERBALIZED UNDERSTANDING. LEAVING UNIT NOW.
--- NOTE | 2017-02-17 13:30 | NUR ---
PTS PHONE EMBOSSING CALENDER OPERATOR WAS FOUND, PURPLE LINE WITH WHITE PLUG IN. CALLED NUMBER ON CHART HOWEVER NO ANSWER OR PLACE FOR VOICEMAIL. PLACED IN LOST AND FOUND DRAWER WITH NAME/NOTE.
--- NOTE | 2017-02-18 07:10 | DS ---
PATIENT:PARISH MILLER :[birth year] MEDICAL RECORD: [id number] DISCHARGE SUMMARY ADMISSION DATE: 02/13/17 DISCHARGE DATE: 02/17/17 HISTORY OF PRESENT ILLNESS: Ms. Miller is a 36-year-old white female with end-stage renal disease due to polycystic kidney disease, on home peritoneal dialysis, has had 1 previous episode of peritonitis, has been having cloudy fluid as an outpatient, unresponsive to antibiotic therapy. Due to increasing pain and cloudy peritoneal fluid was admitted for the above. HOSPITAL COURSE: Due to her ALLERGY TO VANCOMYCIN, was begun on Zyvox. Her cultures from outpatient eventually returned and the Staph epi that was present was sensitive to Zyvox, her fluid cleared. Her pain improved and at the time of discharge, she was back to baseline. Lab, blood pressure, etc., were stable and she will continue Zyvox as an outpatient. DISCHARGE DIAGNOSES: 1. Staphylococcus epidermidis peritonitis. 2. End-stage renal disease, on chronic dialysis. 3. Hypotension, on Midodrine therapy. 4. Chronic pain syndrome. PLAN: The patient will be discharged today. She will resume her home peritoneal dialysis schedule. Her peritoneal dialysis nurse is Al. Her home pain medications, I have signed them on a regular basis. I have not written her any today. She will be discharged on her home medications plus Zyvox 600 mg b.i.d. for 5 more days. She will resume her home medications, which are Midodrine 2.5 t.i.d., lactobacillus p.r.n., Imodium p.r.n., potassium chloride b.i.d. 10. She will have Renvela 2 t.i.d., Lasix p.r.n., Neurontin 300 t.i.d., Prozac 60 mg daily, Elavil 50 mg h.s., Soma q.i.d. I will see her in the office in the next 1-2 weeks. TRANSINT:[id number] Voice Confirmation ID: [id number] DOCUMENT ID: [id number] PEBBLES BAPTISTE MD at 0710 CC: [id number] DICTATION DATE: 02/17/17 0746 AUTOMATIC TELLER MACHINE SERVICER: 02/17/17 2246 DIS IN 02/17/17 [facility] [address] [facility] [place] [address]
== END 2017-02-17 10:12 | disposition home or self-care (01) | DRG 919 ==
LOC: D.ER 07:21 → D.M2 09:36
PROVIDERS: Emergency Medicine; ADMIT Internal Medicine Nephrology
DX: T85.71XA Infection and inflammatory reaction due to peritoneal dialysis catheter, initial encounter (principal); K65.9 Peritonitis, unspecified; N18.6 End stage renal disease; I12.0 Hypertensive chronic kidney disease with stage 5 chronic kidney disease or end stage renal disease; B95.7 Other staphylococcus as the cause of diseases classified elsewhere; Y83.8 Other surgical procedures as the cause of abnormal reaction of the patient, or of later complication, without mention of misadventure at the time of the procedure; Z99.2 Dependence on renal dialysis; E83.39 Other disorders of phosphorus metabolism; E87.6 Hypokalemia; G89.29 Other chronic pain; G62.9 Polyneuropathy, unspecified; R19.7 Diarrhea, unspecified

== ENCOUNTER 2017-02-18 18:00 | Inpatient (IN) | payer MEDICARE, MEDICAID ==
[~2017-02-18] VITALS: Ht 160 cm; Wt 84.9 kg
[~2017-02-18 18:00] MED LIST changes: +AMITRIPTYLINE H50 MG PO; +LINEZOLID600 MG PO; +RENVELA2.4 GM PO
--- NOTE | 2017-02-18 18:29 | NUR ---
RECEIVED PATIENT VIA EMS TRANSPORT FROM [facility]. NO COMPLAINTS OF PAIN OR DISCOMFORT AND NO SIGNS OF DISTRESS NOTED AT THIS TIME. ADMISSION ASSESSMENT PER RN.
[2017-02-18 18:57] VITALS: BP 128/73
--- NOTE | 2017-02-18 19:35 | NUR ---
PT IN BED. REQUESTS SANDWICH AND PAIN MED. EXPLAINED WHAT PAIN MEDS SHE WILL RECIEVE AND PT IS UNHAPPY ABOUT THIS. PT IS ALSO UNHAPPY WITH ADMITTING MD (EYAL) AND REQUESTS TO SEE WOOL GROWER.
[2017-02-18 22:42] VITALS: BP 123/82
--- NOTE | 2017-02-19 01:00 | NUR ---
PT IN BED. PROVIDED PAIN MEDICATION PER REQUEST. DENIES FURTHER NEEDS
--- NOTE | 2017-02-19 02:01 | NUR ---
LYING IN BED WITH EYES CLOSED, CALL LIGHT IN REACH. WILL CONTINUE WITH PLAN OF CARE.
[2017-02-19 05:19] VITALS: BP 100/69
[2017-02-19 05:53] LABS: BASOPHILS 0.2 % (0-2); EOSINOPHILS 1.5 % (0-7); HEMATOCRIT 31.6 % (36.0-48.0); HEMOGLOBIN 10.5 g/dL (12-16); IMMATURE GRANULOCYTES 0.3 % (0-5); LYMPHOCYTES 8.1 % (15-50); MCH 32.1 pg (26.0-34.0); MCHC 33.2 g/dL (31.0-37.0); MCV 96.6 fL (80.0-100.0); MEAN PLATELET VOLUME 9.1 fL (7.4-10.4); MONOCYTES 4.6 % (2-11); NEUTROPHILS 85.3 % (40-80); PLATELET COUNT 154 10x3/uL (130-400); RBC 3.27 10x6/uL (4.00-5.40); RDW 11.8 % (11.5-14.5); WBC 10.9 10x3/uL (4.8-10.8)
[2017-02-19 05:56] LABS: ANION GAP 14.9 mmol/L (8-16); CARBON DIOXIDE 24.7 mmol/L (21.0-32.0); CREATININE - SERUM 6.2 mg/dL (0.6-1.3); PHOSPHOROUS 4.3 mg/dL (2.5-4.9); POTASSIUM - SERUM 4.6 mmol/L (3.5-5.1)
--- NOTE | 2017-02-19 08:14 | NUR ---
AM ROUNDS - PT IN BED AND AWAKE AT THIS TIME. PT IS UP AD ABISAI. IV TO LEFT ARM, SL. BED AT LOWEST POSITION. CALL GALEANA IN USE/REACH. SIDE RAILS UP X2. WILL CONTINUE TO MONITOR
[2017-02-19 10:27] VITALS: BP 117/73
[2017-02-19 11:56] VITALS: BP 118/71
[2017-02-19 13:03] VITALS: Ht 160 cm; Wt 84.9 kg
--- NOTE | 2017-02-19 14:06 | NUR ---
IV TO LEFT UPPER ARM INFILRARATED. D/C, 2X2 DRESSING APPLIED AND SECURED WITH TAPE. CATH TIP INTACT. 20G IV PLACED TO RIGTH HAND, 1 STICK. WILL CONITNUE TO MONITOR
[2017-02-19 15:53] VITALS: BP 126/79
--- NOTE | 2017-02-19 17:33 | NUR ---
Patient Name: PARISH KWAN Admission Status: CO Accout number: [id number] Admission Date: 02-18-2017 : 1980 Admission Diagnosis: Attending: ANTONIO BIRCH Current LOS: 1 Anticipated DC Date: Planned Disposition: Primary Insurance: [employer] MEDICARE ADV Discharge Planning Comments: CM RECEIVED ORDER FOR OUTPATIENT DIALYSIS CLINIC ARRANGEMENT. CM SPOKE TO RENAL NURSE HENRY WHO ADVISED CM THAT SHE WILL CALL PATIENT PATHWAYS COORDINATOR SIXTO TO BEGIN ARRANGEMENT. CM TO ASSESS PT FOR DISCHARGE NEEDS AT A LATER TIME / DATE. Workers Compensation Administrator: Kaz Araya
--- NOTE | 2017-02-19 20:36 | NUR ---
PATIENT REPORTS JONY. CALLED DR FOR ZOFRAN. ORDER PLACED FOR 8MG ZOFRAN Q4.
[2017-02-19 21:46] VITALS: BP 113/69
[2017-02-20 01:22] VITALS: BP 110/66
--- NOTE | 2017-02-20 02:50 | NUR ---
PT RESTING COMFORTABLY, NO NEEDS AT THIS TIME. CONTINUE TO MONITOR CLOSELY.
[2017-02-20 04:54] VITALS: BP 123/76
[2017-02-20 05:25] LABS: BASOPHILS 0.1 % (0-2); EOSINOPHILS 2.9 % (0-7); HEMATOCRIT 28.3 % (36.0-48.0); HEMOGLOBIN 9.5 g/dL (12-16); IMMATURE GRANULOCYTES 0.3 % (0-5); LYMPHOCYTES 14.5 % (15-50); MCH 32.4 pg (26.0-34.0); MCHC 33.6 g/dL (31.0-37.0); MCV 96.6 fL (80.0-100.0); MEAN PLATELET VOLUME 8.2 fL (7.4-10.4); MONOCYTES 7.4 % (2-11); NEUTROPHILS 74.8 % (40-80); PLATELET COUNT 148 10x3/uL (130-400); RBC 2.93 10x6/uL (4.00-5.40); RDW 11.5 % (11.5-14.5)
[2017-02-20 05:40] LABS: WBC 7.2 10x3/uL (4.8-10.8)
[2017-02-20 05:45] LABS: ALBUMIN 1.6 g/dL (3.4-5.0); ANION GAP 12.7 mmol/L (8-16); BILIRUBIN - TOTAL 0.16 mg/dL (0.2-1.3); CALCIUM 8.3 mg/dL (8.5-10.1); CARBON DIOXIDE 27.8 mmol/L (21.0-32.0); CREATININE - SERUM 6.8 mg/dL (0.6-1.3); POTASSIUM - SERUM 4.5 mmol/L (3.5-5.1); PROTEIN - SERUM 5.3 g/dL (6.4-8.2)
[2017-02-20 05:48] LABS: PHOSPHOROUS 5.5 mg/dL (2.5-4.9)
[2017-02-20 07:57] VITALS: BP 104/63
--- NOTE | 2017-02-20 08:04 | NUR ---
AM ROUNDS COMPLETED. INTRODUCED MYSELF TO PT PRIMARY RN FOR TODAYS SHIFT. PT A&O AND IN SEVERE PAIN DILAUDID 1MG Q4H IS NOT RELIEVING PAIN AND SHE STATES TRAMADOL DOESNT EVEN TOUCH IT AND SHE'D LIKE IT D/C AND TO TRY SOMETHING ELSE. PT ALSO STATES THAT THE RENAL EPIC PRELUDE ANALYST SAID WE ARE NOT USING HER PD R/T THE YEAST INFECTION AND THAT THE FISTULA IS TO BE USED HOWEVER NOTE STATES TO USE IF AVAILABLE AND NEEDS A PD CX COLLECTION, WILL DISCUSS WITH RENAL AND CPOC, ALSO INQUIRE ABOUT ZYVOX NEEDING TO BE VIA IV VS ORAL THEIR NOTE STATES WELL. PT VOICED THANKS AND DENIES ANY FURTHER NEEDS AT THIS TIME. CL IN REACH, BED IN LOWEST, SIDE RAILS X2. WILL CPOC.
--- NOTE | 2017-02-20 11:26 | NUR ---
SPOKE WITH RENAL JUANITA FIGUEROA AND GOT PAIN MEDICATIONS INCREASED PT STATES NOTHING WAS RELIEVING IT. DISCUSSED WITH PT AND SHE VOICED THANKS AND VERBALIZED UNDERSTANDING.
[2017-02-20 11:44] VITALS: BP 97/54
--- NOTE | 2017-02-20 13:02 | NUR ---
PT C/O NAUSEA AND STATES ZOFRAN DOESNT HELP. SPOKE WITH HENRY GRANT AND VERBAL ORDERS GIVEN FOR ORAL PHENERGAN TO TRY TO SEE IF HELPS. PT VOICED THANKS AND WILL TRY IT.
[2017-02-20 13:30] VITALS: BP 118/88
--- NOTE | 2017-02-20 14:48 | NUR ---
AT BEDSIDE DISCUSSING SITUATION AND OPERATION PLANS. CURRENT PLAN IS REMOVAL OF PD CATHETER TOMORROW AROUND 10AM IN THE OR. SPOUSE AT BEDSIDE AND HIM AND PT VERBALIZED UNDERSTANDING AND DENY ANY QUESTIONS OR CONCERNS.
[2017-02-20 15:08] VITALS: BP 105/64
--- NOTE | 2017-02-20 17:18 | NUR ---
UPON GOING TO ADMINSTER PAIN MEDICATION I HAD DROPPED THE BOTTLE AND HAD TO WASTE THE MED. THEN PULLED A NEW ONE AND L.WRIST PIV INFILTRATED. NEW 20 GUAGE STARTED TO L.AC X2 STICKS. PAIN MEDICATION GIVEN, PT VOICED THANKS AND DENIES ANY FURTHER NEEDS AT THIS TIME. CL IN REACH. WILL CPOC.
--- NOTE | 2017-02-20 18:12 | NUR ---
PT BEING CALLED FOR DIALYSIS WILL TRANSPORT DOWN NOW. PT DENIES ANY CURRENT NEEDS.
--- NOTE | 2017-02-20 20:12 | NUR ---
PATIENT IS CURRENTLY DOWNSTAIRS RECIEVING DYALASIS. SHE WILL BE NOP AFTER MIDNIGHT, AND WILL BE GOING TO HAVE HER ABDOMINAL PERITONEAL DIALYSIS CATHETER REMOVED TOMORROW AROUND 10 AM.
--- NOTE | 2017-02-20 21:46 | NUR ---
PATIENT IS STILL HAVING DIALYSIS.
--- NOTE | 2017-02-20 21:47 | NUR ---
PAIN MEDICATIONS ADMINISTERED DURING DIALYSIS TREATMENT. OTHER MEDS WILL BE ADMINISTERED WHEN PATIENT RETURNS TO THE FLOOR.
--- NOTE | 2017-02-20 23:50 | NUR ---
PATIENT CAME BACK FROM DIALYSIS DURING WHICH 3 LITERS OF FLUID WERE PULLED OFF. PAIN MANAGEMENT REMAINS THE MAIN GOAL. RESING IN DARK ROOM, ALERT AND AWAKE. BED LOW, CALL LIGHT IN REACH.
[2017-02-21 00:19] VITALS: BP 108/66
[2017-02-21 05:16] VITALS: BP 106/71
--- NOTE | 2017-02-21 09:20 | NUR ---
PT NPO FOR PROCEDURE TODAY. CONSENTS OBTAINED FOR REMOVAL OF PD CATHETER PT VERBALIZED UNDERSTANDING AND DENIES ANY QUESTIONS OR CONCERNS. WILL WAIT FOR ANESTHESIA TO CALL FOR PRE-OP.
[2017-02-21 11:42] VITALS: BP 99/55
--- NOTE | 2017-02-21 11:52 | NUR ---
PRE-OP COMPLETED AND PT LEAVING FOR SURGERY WITH OR TEAM NOW. NO CURRENT NEEDS.
--- NOTE | 2017-02-21 13:34 | NUR ---
PT RECEIVED TO ROOM FROM PROCEDURE. 2L NC ON PT, VSS EXCEPT FOR HR WHICH IS SLIGHTLY ELEVATED. BP 120/78, SPO2 96% ON 2L, HR 116, T - 98.2 TEMPORAL. PT AROUSES EASILY TO VOICE, SLIGHTLY DROWSY. DENIES NEEDS AT THIS TIME. PLACED ON FREQUENT VS. WILL CTM PT CONDITION POST OP.
--- NOTE | 2017-02-21 14:00 | NUR ---
VSS AND BEING MONITERED. PT SITTING UP IN BED RESTING QUIETLY WITH FAMILY AT BEDSIDE. 4X4 TO ABDOMEN CDI, NO S/S OF BLEEDING OR DRAINAGE NOTED. PT DENIES ANY CURRENT NEEDS. WILL CPOC.
--- NOTE | 2017-02-21 15:37 | NUR ---
PT C/O PAIN AND REQUESTED HER PRN DILAUDID. PROVIDED PT WITH PRN MED. PT VOICED THANKS AND DENIES ANY FURTHER NEEDS AT THIS TIME. CL IN REACH. WILL CPOC.
[2017-02-21 16:07] VITALS: BP 120/78
[2017-02-21 20:00] VITALS: BP 116/68
--- NOTE | 2017-02-21 20:17 | NUR ---
PATIENT IS RESTING ON LEFT SIDE IN DARK ROOM.
[2017-02-22] VITALS: BP 132/63
--- NOTE | 2017-02-22 01:00 | NUR ---
IV IN LEFT FOREARM HAS BECOME OCCLUDED.
--- NOTE | 2017-02-22 01:44 | NUR ---
TWO ATTEMPTS BY DANA, AND ONE ATTEMPT BY YOUSUF TO START A NEW IV WERE UNSUCCESSFUL. CALLED ICU TO SEND A NURSE OVER TO ATTEMPT IV START. PATIENT IS TOLERATING.
--- NOTE | 2017-02-22 02:51 | NUR ---
ICU NURSE UNSUCCESSFUL AT STARTING IV AFTER 2 STICKS. MARGARETTE OBTAINED IV IN LEFT WRIST AFTER ONE STICK. PAIN MED ADMINISTERED. PATIENT HAS A LOW TEMP OF 99.5 F ORALLY. HER ABDOMEN IS TIGHT AND DISTENDED AND SHE REPORTS ABDOMINAL PAIN. BED IN LOW POSITION, CALL LIGHT IN REACH.
[2017-02-22 04:00] VITALS: BP 117/80
[2017-02-22 06:06] LABS: BASOPHILS 0.3 % (0-2); EOSINOPHILS 2.1 % (0-7); HEMATOCRIT 27.3 % (36.0-48.0); HEMOGLOBIN 9.2 g/dL (12-16); IMMATURE GRANULOCYTES 0.3 % (0-5); LYMPHOCYTES 14.9 % (15-50); MCH 32.6 pg (26.0-34.0); MCHC 33.7 g/dL (31.0-37.0); MCV 96.8 fL (80.0-100.0); MEAN PLATELET VOLUME 8.2 fL (7.4-10.4); NEUTROPHILS 73.4 % (40-80); PLATELET COUNT 157 10x3/uL (130-400); RBC 2.82 10x6/uL (4.00-5.40); RDW 11.6 % (11.5-14.5); WBC 7.9 10x3/uL (4.8-10.8)
[2017-02-22 06:25] LABS: ANION GAP 15.5 mmol/L (8-16); CALCIUM 8.3 mg/dL (8.5-10.1); CARBON DIOXIDE 27.1 mmol/L (21.0-32.0); CREATININE - SERUM 5.8 mg/dL (0.6-1.3); POTASSIUM - SERUM 4.6 mmol/L (3.5-5.1)
--- NOTE | 2017-02-22 07:28 | NUR ---
REPORT RECEIVED ON PATIENT. MORNING ROUNDS CHECKED. PATIENT LAYING IN BED, EYES CLOSED. SHE OPENED EYES WHEN SPOKEN TO. PATIENT ASKED WHEN SHE WOULD BE GETTING A MIDLINE OR PICC LINE PUT IN, SHE'D LIKE IT IN SOON POSSIBLE SINCE THEY HAD SUCH A HARD TIME GETTING IV PLACEMENT LAST NIGHT. ADVISED I WOULD CONSULT HER MD. VOICED UNDERSTANDING. PT ALSO ASKED WHEN SHE WAS SCHEDULED FOR DIALYSIS. INFORMED THEY HAVE HER SCHEDULED FOR TTS. SHE STATES THOSE DAYS WILL NOT WORK FOR HER ONCE SHE IS RELEASED DUE TO HER 6 CHILDREN. STATES SHE NEEDS MWF. ADVISED I WOULD CHECK IN TO THAT AND SEE HOW WE CAN CHANGE IT. VOICED UNDERSTANDING. SHE C/O PAIN, "8" ON 0-10 SCALE AT ABD. NORCO GIVEN. BED IN LOWEST POSITION, SR UP X 2, CL IN REACH. WILL CONTINUE TO MONITOR. CPOC. WILL CONTINUE TO MONITOR.
[2017-02-22 08:18] VITALS: BP 134/87
--- NOTE | 2017-02-22 10:35 | NUR ---
PATIENT LAYING IN BED, EYES CLOSED. OPENED EYES WHEN I CAME IN THE ROOM. C/O PAIN, "10" ON 0-10 SCALE IN HER ABD. ASKED IF SHE WAS DUE TO HAVE DILAUDID. ADVISED IT HAS BEEN 4 HOURS SINCE LAST DONE. 4MG OF DILAUDID GIVEN IVP. DENIES ANY OTHER NEEDS AT THIS TIME. ASKED IF I'VE HEARD ABOUT THE CENTRAL LINE, ADVISED IT IS BEING SCHEDULED AND I'LL LET HER KNOW SOON I FIND OUT MORE. VOICED UNDERSTANDING. CPOC.
--- NOTE | 2017-02-22 11:06 | NUR ---
RECIEVED CALL FROM DR. BLANKENSHIP. ADVISED PATIENT IS SCHEDULED FOR CVL AT 1230 IN OR. HE ORDERED FOR HER TO HAVE 1MG ATIVAN PO AT NOON. REPEATED BACK INSTRUCTIONS AND HE AGREED. WILL PREOP PATIENT.
--- NOTE | 2017-02-22 12:00 | NUR ---
PATIENT RESTING IN BED, WATCHING TV. ADVISED SHE WAS SCHEDULED TO HAVE CVL AT 1230. GAVE 1MG ATIVAN PO. ALL QUESTIONS ANSWERED. CONSENT SIGNED AND PLACED IN CHART. ALL NEEDS MET. CPOC.
[2017-02-22 12:27] VITALS: BP 110/84
--- NOTE | 2017-02-22 12:27 | NUR ---
PATIENT TRANSPORTED TO OR VIA STRETCHER BY OR TRANSPORT. SHE TOOK HER CELL PHONE WITH HER AND GAVE ME 2 RINGS; ONE IS GOLD IN COLOR WITH A SMALL BACK STONE IN THE MIDDLE AND SIX SMALL CLEAR STONES AROUND IT & THE SECOND RING IS SILVER IN COLOR WITH THREE CLEAR ROUND STONES AND SIX SMALLER STONES GOING DOWN THE SIDES. I HAVE PLACED THEM IN A SMALL CLEAR PLASTIC BAG WITH HER PATIENT LABEL ON THEM. SHE ASKED ME TO PLACE HER TABLET IN THE TOP DRAWER OF THE BEDSIDE TABLE.
--- NOTE | 2017-02-22 12:40 | NUR ---
PATIENT IS GONE FOR PROCEDURE AT THIS TIME. CPOC
--- NOTE | 2017-02-22 12:56 | NUR ---
RECEIVED CALL FROM PREOP AREA IN OR. STATES THEY DO NOT HAVE AN ANESTHESIA CONSENT OR BLOOD TRANSFUSION CONSENT. PAPERWORK FILLED OUT AND TAKEN TO PATIENT IN PREOP HOLDING AREA. PATIENT SIGNED ALL PAPERWORK AND PAPERWORK GIVEN TO DR. CONTRERAS AT BEDSIDE.
--- NOTE | 2017-02-22 13:22 | NUR ---
NS AT [facility] STARTED TO IV IN LEFT WRIST FLUSH PATENT NO SWELLING. BRUSING AND SWELLING NOTED ON UPPER ARM. ANESTHESIA CONSTENT SIGNED. GOWN PROVIDED. NURSE HEALTH AND FITNESS PROFESSOR FROM FLOOR TOOK PHONE AND CLOTHS BACK TO PT. ROOM WELL AT [facility]. ALLERGY BAND PLACED. PATIENT STATES HOME MED METOPOROL HAS NOT TAKEN IN TWO WEEKS OR SO.
--- NOTE | 2017-02-22 13:50 | NUR ---
Patient Name: PARISH KWAN Encounter No: [id number] : 1980 Primary Insurance: [employer] ADV Anticipated DC Date: 02-23-2017 Planned Disposition: Home DCP follow-up note: * Is the patient Alert and Oriented? Yes 0 * How many steps to enter\exit or inside your home? 3 0 * PCP DR. BAPTITSE 0 * Pharmacy [facility] IN [place] 0 * Preadmission Environment Home with Family 0 * ADLs Independent 0 * Equipment None 0 * Other Equipment WAS DOING HOME DIALYSIS - TRANSITION TO OUTPATIENT CLINIC HEMODILAYSIS 0 * List name and contact numbers for known caregivers / representatives who currently or will assist patient after discharge: BARBARA BURK, 0 * Community resources currently utilized None 0 * Please name any agencies selected above. NONE 0 * Additional services required to return to the preadmission environment? Yes * Can the patient safely return to the preadmission environment? Yes 0 * Has this patient been hospitalized within the prior 30 days at any hospital? Yes 0 CM MET WITH PT IN ROOM TO DISCUSS DISCHARGE PLANNING AND NEEDS. PT REPORTS LIVING AT HOME INDEPENDENTLY WITH BARON. PT HAS BEEN DOING HOME PERITNEAL DIALYSIS BUT HAD YEAST IN HER BELLY TUBE; THE TUBE WAS REMOVED, THEY ARE PUTTING AND ACCESS IN HER NECK AND WILL SEND HER HOME ON CLINIC DIALYSIS. PT REQUESTING DIALYSIS ON MWF IF AT ALL POSSIBLE SHE HAS SIX KIDS AND NO ONE TO WATCH THEM ON SATURDAYS. PT HAS NO MEDICAL EQUIPMENT AND NO OUTSIDE SERVICES ASSISTING IN THE HOME. CM DISCUSSED AVAILABILITY OF HOME HEALTH, REHAB SERVICES AND MEDICAL EQUIPMENT. PT DENIES DISCHARGE NEEDS OTHER THAN HAVING OUTPATIENT DIALYSIS SET UP. PT REPORTS HER FIANCE WILL PICK HER UP FOR DISCHARGE HOME. IMPORTANT MESSAGE FROM MEDICARE PROVIDED AND EXPLAINED. CM CALLED PATIENT PATHWAYS COORDINATOR, ROSIBEL, AT [phone], NOTIFIED OF ORDER FOR OUTPATIENT CLINIC ARRANGEMENT AT [facility] ALONG WITH PT REQUEST FOR MWF SCHEDULE. ROSIBEL WILL WORK ON THE ORDER FOR PLACEMENT AND INFORMED CM THAT THERE IS NO GUARANTEE THAT SHE CAN SECURE PT'S DESIRED SCHEDULE. CM NOTIFIED PT. CM WAITING OUTPATIENT DIALYSIS CLINIC SCHEDULE FOR [facility]. Kaz Araya, CASE MANAGEMENT
--- NOTE | 2017-02-22 14:31 | NUR ---
RECEIVED REPORT FROM OR. PATIENT HAD CENTRAL LINE PLACED IN RIGHT NECK. THEY HAVE APPLIED ICE, NEEDS TO STAY ON 30 MINUTES. PATIENT C/O PAIN. STATES MD SAID SHE COULD HAVE REGULAR SCHEDULED PAIN MEDS ONCE SHE GOT BACK TO THE FLOOR. HOB NEEDS TO STAY ELEVATED FOR THE NEXT HOUR. NO MEDS GIVEN IN OR.
--- NOTE | 2017-02-22 14:47 | NUR ---
RECEIVED PATIENT FROM POST OP VIA STRETCHER. SHE COMPLAINS OF PAIN, "10" ON A 0-10 SCALE IN HER NECK AND ABN. 4MG DILAUDID GIVEN IVP. REMOVED ICE PACK FROM NECK TO ASSESS IJ CL. BIO PATCH IN PLACE, DRESSING CLEAN & DRY. CALL LIGHT IN REACH & SR UP X 2. CPOC.
[2017-02-22 16:38] VITALS: BP 146/98
--- NOTE | 2017-02-22 17:03 | NUR ---
PATIENT RESTING IN BED, WATCHING TV. C/O PAIN, "9" ON A 0-10 SCALE. NORCO 10MG GIVEN PO. CHANGED DRESSING ON LOWER ABDOMEN. SHE HAS ONE VERTICLE INCISION WITH 5 FLAQUITA PRESENT AND ONE SMALL HORIZONTAL INCISION, NO FLAQUITA OR SUTURES. FOLDED ABN IN HALF AND LAID ACROSS INCISION, COVERED WITH MEDIPORE TAPE, DATED & INITIALED DRESSING. PATIENT STATES DR. BLANKENSHIP TOLD HER THE DRESSING NEEDED TO BE CHANGED DAILY. ADVISED I WILL PASS THAT ALONG AND MAKE A NOTE IN HER CHART. CPOC.
--- NOTE | 2017-02-22 17:19 | NUR ---
PATIENT LAYING IN BED, EYES CLOSED. SHE OPENED EYES WHEN SPOKEN TO. RETURNED BOTH OF HER RINGS TO HER AND WATCHED HER PUT THEM ON HER FINGERS.
--- NOTE | 2017-02-22 19:21 | NUR ---
EVENING ROUNDS MADE. PATIENT LAYING IN BED, EYES CLOSED. OPENED EYES WHEN SPOKEN TO. DENIES ANY NEEDS AT THIS TIME. BED IN LOWEST POSITION, CL IN REACH, SR UP X 2. REPORT GIVEN.
[2017-02-22 21:06] VITALS: BP 131/92
[2017-02-23 00:58] VITALS: BP 130/86
--- NOTE | 2017-02-23 05:08 | NUR ---
PT RESTING WELL IN BED, CALL LIGHT IN REACH. RESPIRATIONS EVEN AND UNLABORED, WILL CONTINUE TO MONITOR.
[2017-02-23 06:25] LABS: BASOPHILS 0.5 % (0-2); EOSINOPHILS 3.3 % (0-7); HEMATOCRIT 26.4 % (36.0-48.0); HEMOGLOBIN 8.5 g/dL (12-16); IMMATURE GRANULOCYTES 0.3 % (0-5); LYMPHOCYTES 20.5 % (15-50); MCH 31.4 pg (26.0-34.0); MCHC 32.2 g/dL (31.0-37.0); MCV 97.4 fL (80.0-100.0); MEAN PLATELET VOLUME 8.1 fL (7.4-10.4); NEUTROPHILS 66.4 % (40-80); PLATELET COUNT 154 10x3/uL (130-400); RBC 2.71 10x6/uL (4.00-5.40); RDW 11.8 % (11.5-14.5); WBC 6.3 10x3/uL (4.8-10.8)
[2017-02-23 06:32] VITALS: BP 124/79
[2017-02-23 06:36] LABS: ANION GAP 14.9 mmol/L (8-16); CALCIUM 8.8 mg/dL (8.5-10.1); CARBON DIOXIDE 25.8 mmol/L (21.0-32.0); PHOSPHOROUS 5.6 mg/dL (2.5-4.9); POTASSIUM - SERUM 4.7 mmol/L (3.5-5.1)
[2017-02-23 06:37] LABS: CREATININE - SERUM 7.3 mg/dL (0.6-1.3)
--- NOTE | 2017-02-23 07:15 | NUR ---
RECEIVED BEDSIDE REPORT. PATIENT RESTING IN BED WITH EYES CLOSED. EASILY AROUSED. RESP EVEN AND UNLABORED. PATIENT REQUESTING PAIN MEDICATION AT THIS TIME. CALL LIGHT WITHIN REACH. INFORMED PATIENT IS WAS TOO EARLY FOR DILAUDID BUT NORCO WAS AVAILABLE. PATIENT STATES SHE WILL WAIT UNTIL TIME FOR HER DILAUDID. NO DISTRESS.
--- NOTE | 2017-02-23 07:52 | NUR ---
MEDICATED FOR PAIN AT THIS TIME. NO DISTRESS.
--- NOTE | 2017-02-23 07:58 | NUR ---
CALLED DIALYSIS AND SPOKE TO MICHA. PER APPLY EMULA CREAM ONE HOUR PRIOR TO AV FISTULA BEING ACCESSED. INSTRUCTED MICHA TO CALL ONE HOUR PRIOR TO PATIENTS TREATMENT TIME.
[2017-02-23 08:22] VITALS: BP 130/98
--- NOTE | 2017-02-23 10:03 | NUR ---
MEDICATED FOR PAIN AT THIS TIME. NO DISTRESS.
--- NOTE | 2017-02-23 11:44 | NUR ---
SHENG BUSTAMANTE TO RENEW PATIENTS ORDER FOR DILAUDID AT IT FELL OFF THE MAR AT 1129.
--- NOTE | 2017-02-23 12:00 | OP ---
PATIENT NAME: PARISH MILLER MEDICAL RECORD: [id number] :84 LOCATION:D. D.2137 ADMISSION DATE:02/19/17 SURGEON: ABRAHAM BLANKENSHIP MD DATE OF OPERATION: 02/22/2017 REFERRED BY: Dr. Conteh. PREOPERATIVE DIAGNOSES: Yeast peritonitis secondary to infected peritoneal dialysis catheter, also end-stage renal disease and dependence on hemodialysis. POSTOPERATIVE DIAGNOSES: Yeast peritonitis secondary to infected peritoneal dialysis catheter, also end-stage renal disease and dependence on hemodialysis. OPERATION PERFORMED: Insertion of right internal jugular triple lumen ARROWgard central venous line non-tunneled. ANESTHESIA: Local and monitoring per Dr. Hraris. SURGEON: Abraham Blankenship MD PREOPERATIVE NOTE: Ms. Miller is a 36-year-old white female patient with end-stage renal disease due to polycystic kidneys and now yeast peritonitis from complication of peritoneal dialysis. I removed her peritoneal dialysis catheter yesterday. She continues to have abdominal pain, though it is slowly abating. She continues to require parenteral antibiotics and analgesics as well as other medications and Dr. Conteh asked that I provide a central venous line due to paucity of venous access sites. With the patient monitored by Dr. Harris and administered oxygen, she was placed in supine position and the neck and chest were prepped and draped in a sterile manner. I used ultrasound to locate the right internal jugular vein which was of normal caliber and fully compressible with no abnormalities sonographically. I infiltrated local anesthetic 1% lidocaine without epinephrine into the overlying skin and subcutaneous tissues, made a small incision with an 11-blade knife at the base of the neck on the right and then with continuous ultrasound guidance, inserted a needle and subsequently a guidewire directly into the internal jugular vein and under fluoroscopy advanced the guidewire into the inferior vena cava. The dilator was passed under fluoroscopy over the wire and lastly the ARROWgard triple lumen catheter was inserted with its tip reaching into the inferior vena cava. All 3 lumens were accessed and aspirated, free return of blood confirmed. They were then flushed with saline and then heparin lock solution, clamped and capped. The catheter was sutured to the skin near the entry site with 2-0 Prolene and a sterile dressing applied. The patient was then placed in a reverse Trendelenburg position and taken from the operating room back to her room on med 2. She is to keep the head of the bed elevated and will use ice on the base of her neck for a little while. She will resume her preoperative orders, meds, diet, etc., all per Dr. Conteh. TRANSINT:[id number] Voice Confirmation ID: [id number] DOCUMENT ID: [id number] OPERATIVE REPORT [id number] PARISH MILLER JAMES MD at 1200 CC: PEBBLES CONTEH MD [id number] DICTATION DATE: 02/22/17 1417 APPLICATION SUPPORT ADMINISTRATOR: 02/22/17 1614 ADM IN [facility] [address] [place] [address]
--- NOTE | 2017-02-23 12:00 | NUR ---
RAUL PAGED FOR MEDICATION ORDERS. AWAITING CALL BACK.
--- NOTE | 2017-02-23 12:00 | OP ---
PATIENT NAME: PARISH MILLER MEDICAL RECORD: [id number] :84 LOCATION:D. D.2137 ADMISSION DATE:02/19/17 SURGEON: ABRAHAM BLANKENSHIP MD DATE OF OPERATION: 02/21/2017 REFERRED BY: Dr. Bates. PREOPERATIVE DIAGNOSES: Peritonitis and infected peritoneal dialysis catheter. POSTOPERATIVE DIAGNOSES: Peritonitis and infected peritoneal dialysis catheter. ADDITIONAL DIAGNOSIS: End-stage renal disease and dependence on hemodialysis. OPERATION PERFORMED: Removal of peritoneal dialysis catheter. ANESTHESIA: General with LMA per FRONT SERVICES AGENT. PREOPERATIVE NOTE: Ms. Miller is a 36-year-old white female patient with end-stage renal disease, who fortunately has a functioning AV fistula in her right arm. She has been on peritoneal dialysis for about a year, but now has peritonitis with persistent abdominal pain, which has not resolved with antibiotic therapy. Dr. Bates has requested that I remove the catheter. Under general anesthesia in supine position, the patient's abdomen was prepped and draped in sterile manner. The peritoneal catheter exit site was located in the right lower quadrant just below the level of the umbilicus. I freed the superficial cuff by blunt dissection with a hemostat through the exit site. I then made a vertical incision medially over the palpable catheter and dissected down to the deeper Dacron felt cuff and freed it from the surrounding tissue with electrocautery dissection. The catheter was then removed and a section of the tip of the catheter was sent for culture for aerobic and anaerobic organisms. The patient's wound was irrigated with Ancef/gentamicin solution and infiltrated with 0.5% Marcaine with epinephrine. The hemostasis was obtained with electrocautery. The skin was closed with irwin and a sterile dry dressing applied. She was then awakened and taken to the recovery room. Blood loss during the procedure was insignificant and unreplaced and all sponges, instruments, and needles were accounted for. No drain was used. No surgical specimen was submitted for histopathology. PLAN: The patient will likely be able to go home within the next day or two. Continue her antibiotic course. Resume her outpatient routine hemodialysis schedule. She can have her irwin removed at dialysis in [place] in about a week or she can return to see me or my nurse in my office for that. TRANSINT:[id number] Voice Confirmation ID: [id number] DOCUMENT ID: [id number] ABRAHAM BLANKENSHIP MD at 1200 CC: ANTONIO BATES MD [id number] DICTATION DATE: 02/21/17 1241 COMB WINDER: 02/21/17 1421 ADM IN [facility] [address] [place] [address]
--- NOTE | 2017-02-23 12:09 | NUR ---
SPOKE WITH RAUL AND RECEIVED NEW ORDERS FOR DILAUDID BUT RAUL CHANGED THE FREQUENCY FROM EVERY 4 HOURS TO EVERY 6 HOURS. THANKED RAUL FOR THE MEDICATION ORDERS.
--- NOTE | 2017-02-23 12:19 | NUR ---
MEDICATED FOR PAIN AT THIS TIME. NO DISTRESS.
[2017-02-23 12:37] VITALS: BP 114/84
--- NOTE | 2017-02-23 13:30 | NUR ---
EMLA CREAM APPLIED TO RIGHT AV FISTULA SITE AT THIS TIME AND PATIENT ARM IS WRAPPED IN CLEAR TEGADERM. PATIENT TO GO TO DIALYSIS SUIT ABOUT 220.
--- NOTE | 2017-02-23 14:10 | NUR ---
CENTRAL LINE DRESSING CHANGED AT THIS TIME VIA STERILE TECHNIQUE. BIOPATCH VISIBLE IN WINDOW OF DRESSING. SUTURES IN TACT. PATIENT TOLERATED DRESSING CHANGE WELL.
--- NOTE | 2017-02-23 14:33 | NUR ---
1425 PATIENT LEFT UNIT VIA WHEELCHAIR AT THIS TIME FOR DILAYSIS. NO DISTRESS UPON LEAVING UNIT.
--- NOTE | 2017-02-23 15:56 | NUR ---
PATIENT RETURNED FROM DIALYSIS DUE TO INFILTRATION OF FISTULA. NO DISTRESS UPON RETURNING. CALL LIGHT WITHIN REACH.
[2017-02-23 16:28] VITALS: BP 123/78
--- NOTE | 2017-02-23 16:55 | NUR ---
MEDICATED FOR PAIN AT THIS TIME. ICE TO RIGHT ARM FISTULA. NO DISTRESS.
[2017-02-23 17:11] LABS: HEPATITIS C ANTIBODY <0.1 (0.0-0.9)
[2017-02-23 21:26] VITALS: BP 132/85
[2017-02-24] VITALS: BP 138/86
--- NOTE | 2017-02-24 01:41 | NUR ---
PT RESTING WELL IN BED, RESPIRATIONS EVEN AND UNLABORED. CALL LIGHT IN REACH, WILL CONTINUE PLAN OF CARE.
--- NOTE | 2017-02-24 03:23 | NUR ---
PT IN BED RESTING QUIETLY. BREATHING EVEN AND UNLABORED. BED IN LOW POSITION, CALL LIGHT WITHIN REACH. WILL CTM.
[2017-02-24 04:39] LABS: BASOPHILS 0.3 % (0-2); EOSINOPHILS 4.7 % (0-7); HEMATOCRIT 27.1 % (36.0-48.0); HEMOGLOBIN 8.9 g/dL (12-16); IMMATURE GRANULOCYTES 0.4 % (0-5); LYMPHOCYTES 27.5 % (15-50); MCHC 32.8 g/dL (31.0-37.0); MCV 97.5 fL (80.0-100.0); MEAN PLATELET VOLUME 8.2 fL (7.4-10.4); MONOCYTES 8.1 % (2-11); PLATELET COUNT 184 10x3/uL (130-400); RBC 2.78 10x6/uL (4.00-5.40); RDW 11.9 % (11.5-14.5)
[2017-02-24 05:05] LABS: CALCIUM 8.7 mg/dL (8.5-10.1); CARBON DIOXIDE 27.3 mmol/L (21.0-32.0); CREATININE - SERUM 7.7 mg/dL (0.6-1.3); PHOSPHOROUS 5.8 mg/dL (2.5-4.9); POTASSIUM - SERUM 5.3 mmol/L (3.5-5.1)
[2017-02-24 06:27] VITALS: BP 125/93
--- NOTE | 2017-02-24 07:15 | NUR ---
REPORT RECEIVED. PT RESTING QUILETY, DENIES NEEDS AT THIS TIME. RR EVEN AND UNLABORED. WILL CTM.
[2017-02-24 07:31] VITALS: BP 132/89
--- NOTE | 2017-02-24 08:30 | NUR ---
SPOKE TO MATERIALS ABOUT KPAD ORDER. WILL INTIATE WHEN AVAILABLE FROM CENTRAL SUPPLY.
--- NOTE | 2017-02-24 09:04 | NUR ---
MORNING MEDS GIVEN. KPAD THERAPY INTIATED TO RIGHT ARM PER ORDERS. EDUCATED PT ON KPAD THERAPY.
[2017-02-24 11:41] VITALS: BP 101/66
--- NOTE | 2017-02-24 13:34 | NUR ---
ADMINISTERED NORCO 10MG FOR PAIN LEVEL OF 8/10.
--- NOTE | 2017-02-24 14:30 | NUR ---
PT VERY AGITATED REGARDING CARE. SPOKE TO PT ABOUT REQUESTING A NEW NURSE. VERBALIZED THAT SHE DID NOT WANT A NEW NURSE, BUT JUST WANTED HER DRESSING CHANGED. WILL CHANGE DRESSING. PT ALSO REQUESTED THAT HER PAIN MEDICINE BE INCREASED TO Q6HRS HOURS. WILL SPEAK TO GREENHOUSE WORKER ABOUT PT REQUEST.
--- NOTE | 2017-02-24 15:24 | NUR ---
CHANGED PTS CENTRAL LINE DRESSING AND ABDOMINAL DRESSING. SPOKE TO RENAL BACK END WEB DEVELOPER ABOUT PT REQUEST, GAVE NO ORDER TO INCREASE TIME OF PRN PAIN MEDS. WILL CTM.
[2017-02-24 16:37] VITALS: BP 132/88
--- NOTE | 2017-02-24 18:34 | NUR ---
PT RESTING QUILETY, RR EVEN AND UNLABORED. REQUESTED PRN HYDROCODONE AT 1900. WILL GIVE PRIOR TO END OF SHIFT. WILL GIVE REPORT ON PT CONDITION FOR THE DAY.
[2017-02-24 21:03] VITALS: BP 142/93
--- NOTE | 2017-02-25 04:40 | NUR ---
LINING CLEANER AT BEDSIDE TO OBTAIN VITALS, CALL LIGHT IN REACH. WILL CONTINUE WITH PLAN OF CARE.
[2017-02-25 05:40] VITALS: BP 139/93
[2017-02-25 06:00] LABS: BASOPHILS 0.5 % (0-2); EOSINOPHILS 3.6 % (0-7); IMMATURE GRANULOCYTES 0.3 % (0-5); LYMPHOCYTES 27.3 % (15-50); MCH 32.6 pg (26.0-34.0); MCHC 33.3 g/dL (31.0-37.0); MCV 97.8 fL (80.0-100.0); MONOCYTES 7.9 % (2-11); NEUTROPHILS 60.4 % (40-80); PLATELET COUNT 201 10x3/uL (130-400); RBC 2.76 10x6/uL (4.00-5.40); RDW 12.1 % (11.5-14.5); WBC 6.3 10x3/uL (4.8-10.8)
[2017-02-25 06:38] LABS: ANION GAP 16.7 mmol/L (8-16); CALCIUM 8.7 mg/dL (8.5-10.1); CARBON DIOXIDE 24.2 mmol/L (21.0-32.0); CREATININE - SERUM 8.4 mg/dL (0.6-1.3); PHOSPHOROUS 5.7 mg/dL (2.5-4.9); POTASSIUM - SERUM 5.9 mmol/L (3.5-5.1)
--- NOTE | 2017-02-25 07:30 | NUR ---
REPORT RECIEVED. RR EVEN AND UNLABORED, PT REQUESTING PRN NORCO. WILL GIVE. PT ALSO REQUESTED THAT HER SOMA BE CHANGED TO QID INSTEAD OF BID. SPOKE TO DR. BAPTISTE ABOUT PT REQUEST, GAVE ORDER TO INCREASE TO QID. WILL CTM.
[2017-02-25 08:34] VITALS: BP 130/80
--- NOTE | 2017-02-25 09:54 | NUR ---
CALLED [facility] ABOUT EMLA CREAM NOT BEING AVAILABLE. WILL APPLY WHEN AVAILABLE PRIOR TO DIALYSIS.
--- NOTE | 2017-02-25 11:06 | NUR ---
Nutrition Follow Up: Pt is eating 94% meal avg on a renal diet. +BM 02/24/17. Wt stable. Meds and labs reviewed. Rec continue current diet. RD following.
--- NOTE | 2017-02-25 11:15 | NUR ---
PT TRANSFERRED TO DIALYSIS.
--- NOTE | 2017-02-25 15:00 | NUR ---
PT BACK FROM DIALYSIS. REQUESTING PRN PAIN MEDS, WILL GIVE. RR EVEN AND UNLABORED. WILL CTM.
[2017-02-25 16:35] VITALS: BP 119/82
--- NOTE | 2017-02-25 17:00 | NUR ---
PT CALLED REQUESTING PRN PAIN MEDS. WILL GIVE AND CTM.
--- NOTE | 2017-02-25 17:39 | NUR ---
Patient Name: PARISH KWAN Encounter No: [id number] : 1980 Primary Insurance: [employer]IC[employer] ADV Anticipated DC Date: 02-23-2017 Planned Disposition: Home DCP follow-up note: CM SPOKE TO SIXTO OF PATIENT PATHWAYS, PT HAS DIALYSIS SCHEDULE AT [facility], TTS, 1130, FIRST APPOINTMENT AT 1100, PT CAN ADMIT 02-27-17. CM MET WITH PT IN ROOM, PROVIDED WELCOME LETTER, DISCUSSED SCHEDULE. PT REPORTED UNDERSTANDING, FAMILY TO TRANSPORT HOME AT DISCHARGE, IMPORTANT MESSAGE FROM MEDICARE PROVIDED AND DISCUSSED. PT DENIES FURTHER DISCHARGE NEEDS. Kaz Araya, CASE MANAGEMENT
--- NOTE | 2017-02-25 18:30 | NUR ---
PT RESTING QUIETLY, RR EVEN AND UNLABORED, PT DENIES NEEDS AT THIS TIME. WILL GIVE REPORT ON PT CONDITION FOR THE DAY.
[2017-02-25 21:56] VITALS: BP 107/69
--- NOTE | 2017-02-26 00:41 | NUR ---
PT IS ALERT, ASKING FOR PAIN MEDICATION. NORCO 10 MG GIVEN, RESPIRATIONS EVEN AND UNLABORED. CALL LIGHT IN REACH, WILL CONTINUE PLAN OF CARE.
[2017-02-26 05:55] LABS: BASOPHILS 0.3 % (0-2); EOSINOPHILS 2.4 % (0-7); HEMATOCRIT 29.9 % (36.0-48.0); HEMOGLOBIN 9.8 g/dL (12-16); IMMATURE GRANULOCYTES 0.4 % (0-5); LYMPHOCYTES 24.9 % (15-50); MCH 32.1 pg (26.0-34.0); MCHC 32.8 g/dL (31.0-37.0); MONOCYTES 9.4 % (2-11); NEUTROPHILS 62.6 % (40-80); PLATELET COUNT 220 10x3/uL (130-400); RBC 3.05 10x6/uL (4.00-5.40); RDW 12.2 % (11.5-14.5); WBC 7.5 10x3/uL (4.8-10.8)
[2017-02-26 06:09] VITALS: BP 117/78
[2017-02-26 06:21] LABS: ANION GAP 14.8 mmol/L (8-16); CALCIUM 8.9 mg/dL (8.5-10.1); CARBON DIOXIDE 27.7 mmol/L (21.0-32.0); CREATININE - SERUM 6.5 mg/dL (0.6-1.3); POTASSIUM - SERUM 5.5 mmol/L (3.5-5.1)
--- NOTE | 2017-02-26 07:33 | NUR ---
AM ROUNDING- RECEIVED REPORT FROM MANAGER METROLOGY NURSE HALIE. PT IS CURRENTLY LAYING IN BED ON LEFT SIDE WITH EYES OPEN RESTING. ON ROOM AIR. NO MONITOR. IV SEEN TO RIGHT NECK CVL THAT IS CURRENTLY SALINE LOCKED. RESERVE RIGHT ARM FOR AVF. NO NEED AT THIS CURRENT TIME. WILL CONTINUE TO MONITOR AND CONTINUE WITH PLAN OF CARE.
[2017-02-26 08:43] VITALS: BP 110/60
[2017-02-26] MEDS ORDERED: DIFLUCAN100 MG PO (08:56)
[2017-02-26] MEDS ORDERED: EMLA CREAM 30 G30 G1 TOPICAL (08:56)
--- NOTE | 2017-02-26 09:48 | NUR ---
SPOKE WITH PATIENT REGARDING SUTURES TO ADVISE PER DR. BLANKENSHIP THE SUTURES MAY BE REMOVED BY DIALYSIS NURSE ON WEDNESDAY. VERBAL ACKNOWLEDGEMENT RETURNED
--- NOTE | 2017-02-26 10:13 | NUR ---
AM MEDICATIONS GIVEN AND SHIFT ASSESSMENT DONE. PT HAS D/C ORDERS. PT IS AWARE AND HAS CALLED TO COME GET HER. WILL CONTINUE TO MONITOR AND D/C PT ONCE GETS HERE.
--- NOTE | 2017-02-26 11:20 | NUR ---
D/C INSTRUCTIONS EXPLAINED TO PT. D/C PAPERWORK SIGNED BY PT AND PLACED IN CHART. PT GIVEN SUPPLIES TO CHANGE ABDOMINAL DRESSING. THIS NURSE ASKED PT IF SHE WOULD LIKE ME TO GO AHEAD AND CHANGE DRESSING NOW AND PT STATES SHE WILL DO IT WHEN SHE GETS HOME. RIGHT SUBCLAVIAN CVL REMOVED TO PTS RIGHT NECK AREA. STITCHES REMOVED AND CATH TIP INTACT. HELD FIRM PRESSURE FOR APPRX 5 MIN. PRESSURE DRESSING (TEGADERM) PLACED ON SITE. PT INSTRUCTED TO LIE FLAT FOR 15 MIN. PT AGREES. IS AT BEDSIDE. WILL CONTINUE TO MONITOR.
--- NOTE | 2017-02-26 11:32 | NUR ---
CHECKED ON PTS CVL SITE. DRESSING IS CLEAN, DRY, AND INTACT WITH SCANT AMOUNT OF BLOOD ON DRESSING. PT INSTRUCTED TO HOLD SITE OVER SITE IF BLEEDING OCCURS AND CALL 911. PT AGREES.
--- NOTE | 2017-02-26 11:41 | NUR ---
PT D/C VIA WHEELCHAIR.
--- NOTE | 2017-03-01 07:09 | DS ---
PATIENT:PARISH MILLER :[birth year] MEDICAL RECORD: [id number] DISCHARGE SUMMARY ADMISSION DATE: 02/19/17 DISCHARGE DATE: 02/26/17 HOSPITAL COURSE: Ms. Miller is a 36-year-old white female with a recent admission with end-stage renal disease, chronic peritoneal dialysis with a recent admission due to peritonitis that was a Staph epi. She was discharged on Zyvox therapy p.o. since she is allergic to VANCOMYCIN. At home, did fine for the first 48 hours and then developed a cloudy fluid and abdominal pain, readmitted with culture result done as an outpatient revealing yeast, which was confirmed here in this hospitalization, taken to surgery by Dr. Narvaez where PD catheter was removed and she was switched to hemodialysis. Her PD catheter grew Deena also. She was begun on fluconazole, continued on Zyvox, but with removal of her catheter, antibiotic therapy, her abdominal pain improved and she was stable on hemo at the time of discharge and her wound was also stable. She will now be maintained on outpatient hemodialysis. At the time of discharge, she was ambulatory and eating and was otherwise back to baseline. DISCHARGE DIAGNOSES: 1. Fungal peritonitis requiring peritoneal dialysis catheter removal. 2. Status post staph peritonitis with ongoing oral antibiotic therapy. 3. End-stage renal disease. 4. Polycystic kidney disease. 5. Chronic abdominal pain due to polycystic kidney disease. 6. History of hypertension. PLAN: The patient will be discharged today. She will be in [place] dialysis tomorrow. She will see me in the office in 2-4 weeks. She will continue her renal diet, ambulation as tolerated. Follow up with Dr. Narvaez for staple removal. DISCHARGE MEDICATIONS: Will be Soma 350 q.i.d. She will be on Diflucan 100 mg daily for 2 weeks, Nephro-Luly 1 daily, Lasix 40 mg on nondialysis days, Emla cream to her access, Zyvox 600 b.i.d. for 7 days. She will receive Epogen as an outpatient, Prozac 20 mg daily, Elavil 20 mg h.s., hydrocodone APAP 10/325 one q.6 hours p.r.n. with no refills. She will be on Renvela 2.4 t.i.d. No smoking. TRANSINT:[id number] Voice Confirmation ID: [id number] DOCUMENT ID: [id number] CC: [facility] PEBBLES BAPTISTE MD at 0709 CC: [id number] DICTATION DATE: 02/26/17806 SAFETY ENGINEER: 02/26/17 1230 DIS IN 02/26/17 [facility] [address] [id number]
== END 2017-02-26 11:42 | disposition home or self-care (01) | DRG 356 ==
LOC: D.M2 18:00 → OBSVTIME 18:00 → D.M2 18:00 → D.SDCHOLD 02-25 15:23 → D.M2 02-25 15:27
PROVIDERS: Internal Medicine Nephrology; Surgery; ADMIT Internal Medicine
PROC: 5A1D70Z Performance of Urinary Filtration, Intermittent, Less than 6 Hours Per Day (ICD-10-PCS; 2017-02-20)
PROC: 0WPG03Z Removal of Infusion Device from Peritoneal Cavity, Open Approach (ICD-10-PCS; principal; 2017-02-21 10:00)
PROC: 02H633Z Insertion of Infusion Device into Right Atrium, Percutaneous Approach (ICD-10-PCS; 2017-02-22)
PROC: B244ZZZ Ultrasonography of Right Heart (ICD-10-PCS; 2017-02-22)
DX: K65.9 Peritonitis, unspecified (principal); N18.6 End stage renal disease; T85.71XA Infection and inflammatory reaction due to peritoneal dialysis catheter, initial encounter; B37.89 Other sites of candidiasis; Q61.3 Polycystic kidney, unspecified; I12.0 Hypertensive chronic kidney disease with stage 5 chronic kidney disease or end stage renal disease; Y84.1 Kidney dialysis as the cause of abnormal reaction of the patient, or of later complication, without mention of misadventure at the time of the procedure; Z99.2 Dependence on renal dialysis; F41.8 Other specified anxiety disorders; D63.1 Anemia in chronic kidney disease; E83.39 Other disorders of phosphorus metabolism

== ENCOUNTER 2017-04-27 20:36 | Emergency (ER) | payer MEDICARE, MEDICAID ==
[2017-02-19 13:03] VITALS: BMI 34.9
[~2017-04-27 20:36] MED LIST changes: +DIFLUCAN100 MG PO; +EMLA CREAM 30 G30 G1 TOPICAL
[2017-04-27 23:51] LABS: HEMATOCRIT 32.9 % (36.0-48.0); LYMPHOCYTES 22.8 % (15-50); MCH 32.2 pg (26.0-34.0); MCHC 33.4 g/dL (31.0-37.0); MCV 96.2 fL (80.0-100.0); MEAN PLATELET VOLUME 8.3 fL (7.4-10.4); NEUTROPHILS 66.7 % (40-80); PLATELET COUNT 245 10x3/uL (130-400); RBC 3.42 10x6/uL (4.00-5.40); RDW 12.4 % (11.5-14.5); WBC 10.3 10x3/uL (4.8-10.8)
[2017-04-27 23:58] LABS: ALBUMIN 3.3 g/dL (3.4-5.0); ANION GAP 18.9 mmol/L (8-16); BILIRUBIN - TOTAL 0.38 mg/dL (0.2-1.3); CALCIUM 9.2 mg/dL (8.5-10.1); CARBON DIOXIDE 25.1 mmol/L (21.0-32.0); CREATININE - SERUM 9.1 mg/dL (0.6-1.3); PROTEIN - SERUM 7.4 g/dL (6.4-8.2)
[2017-04-28 00:33] LABS: HCG URINE NEGATIVE (NEGATIVE)
[2017-04-28 00:35] LABS: APPEARANCE HAZY (CLEAR); BILIRUBIN NEGATIVE (NEGATIVE); COLOR YELLOW (YELLOW); GLUCOSE NEGATIVE (NEGATIVE); KETONE NEGATIVE (NEGATIVE); NITRITE NEGATIVE (NEGATIVE); PROTEIN 2+ mg/dL (NEGATIVE); SPECIFIC GRAVITY 1.005 (1.005-1.020); UROBILINOGEN NORMAL (NORMAL)
[2017-04-28 00:37] LABS: BACTERIA MODERATE /hpf (NONE SEEN); EPITHELIAL CELLS 0-5 /hpf (0-5); RED CELLS - URINE 0-5 /hpf (0-5)
== END 2017-04-28 01:51 | disposition home or self-care (01) ==
LOC: D.ER 20:36
PROVIDERS: Emergency Medicine
DX: R19.7 Diarrhea, unspecified (principal); N39.0 Urinary tract infection, site not specified; I12.0 Hypertensive chronic kidney disease with stage 5 chronic kidney disease or end stage renal disease; N18.6 End stage renal disease; F17.200 Nicotine dependence, unspecified, uncomplicated

== ENCOUNTER 2017-04-29 16:55 | Emergency (ER) | payer MEDICARE, MEDICAID | END 2017-04-29 20:30 | disposition home or self-care (01) | LOC: D.ER 16:55 | DX: R11.10 Vomiting, unspecified (principal); N39.0 Urinary tract infection, site not specified; Z20.828 Contact with and (suspected) exposure to other viral communicable diseases; Z99.2 Dependence on renal dialysis ==

== ENCOUNTER 2017-05-29 12:53 | Emergency (ER) | payer MEDICARE, MEDICAID ==
[2017-02-19 13:03] VITALS: BMI 34.9
== END 2017-05-29 15:38 | disposition home or self-care (01) ==
LOC: D.ER 12:53
DX: S82.831D Other fracture of upper and lower end of right fibula, subsequent encounter for closed fracture with routine healing (principal); X58.XXXD Exposure to other specified factors, subsequent encounter; N18.9 Chronic kidney disease, unspecified; Z99.2 Dependence on renal dialysis

== ENCOUNTER 2017-06-25 17:17 | Emergency (ER) | payer MEDICARE, MEDICAID ==
[2017-02-19 13:03] VITALS: BMI 34.9
== END 2017-06-25 19:03 | disposition home or self-care (01) ==
LOC: D.ER 17:17
DX: S16.1XXA Strain of muscle, fascia and tendon at neck level, initial encounter (principal); V43.52XA Car driver injured in collision with other type car in traffic accident, initial encounter; Y93.89 Activity, other specified; Y92.410 Unspecified street and highway as the place of occurrence of the external cause; S33.5XXA Sprain of ligaments of lumbar spine, initial encounter; R51 Headache; I12.0 Hypertensive chronic kidney disease with stage 5 chronic kidney disease or end stage renal disease; N18.6 End stage renal disease

== ENCOUNTER 2017-10-25 19:10 | Emergency (ER) | payer MEDICARE, MEDICAID ==
[~2017-10-25] VITALS: Ht 160 cm; Wt 88.5 kg
[2017-10-25 19:56] VITALS: Ht 160 cm; Wt 88.5 kg
[2017-10-25] MEDS ORDERED: [UNRECOGNIZED DRUG - REMARK] (19:59)
[2017-10-25] MEDS ORDERED: NORCO 7.5/325 T1 TA1 PO (19:59)
[2017-10-25 23:09] LABS: APPEARANCE CLEAR (CLEAR); BILIRUBIN NEGATIVE (NEGATIVE); COLOR YELLOW (YELLOW); GLUCOSE NEGATIVE (NEGATIVE); KETONE NEGATIVE (NEGATIVE); NITRITE NEGATIVE (NEGATIVE); PROTEIN TRACE mg/dL (NEGATIVE); UROBILINOGEN NORMAL (NORMAL)
[2017-10-25 23:10] LABS: BACTERIA FEW /hpf (NONE SEEN); EPITHELIAL CELLS 0-5 /hpf (0-5); RED CELLS - URINE 0-5 /hpf (0-5)
[2017-10-25] MEDS ORDERED: MACROBID100 MG PO (23:30)
[2017-10-25 23:48] VITALS: BP 144/93
== END 2017-10-26 02:49 | disposition home or self-care (01) ==
LOC: D.ER 19:10
PROVIDERS: Family Medicine
DX: R10.9 Unspecified abdominal pain (principal); Q61.3 Polycystic kidney, unspecified; I12.0 Hypertensive chronic kidney disease with stage 5 chronic kidney disease or end stage renal disease; N18.5 Chronic kidney disease, stage 5

== ENCOUNTER 2017-11-08 18:59 | Emergency (ER) | payer MEDICARE, MEDICAID ==
[~2017-11-08] VITALS: Ht 160 cm; Wt 72.7 kg
[~2017-11-08 18:59] MED LIST changes: +MACROBID100 MG PO; +[UNRECOGNIZED DRUG - REMARK]
[2017-11-08 19:20] VITALS: Ht 160 cm; Wt 72.7 kg
[2017-11-08 20:50] LABS: APPEARANCE CLEAR (CLEAR); BACTERIA MODERATE /hpf (NONE SEEN); BILIRUBIN NEGATIVE (NEGATIVE); COLOR YELLOW (YELLOW); GLUCOSE NEGATIVE (NEGATIVE); KETONE NEGATIVE (NEGATIVE); NITRITE NEGATIVE (NEGATIVE); PROTEIN TRACE mg/dL (NEGATIVE); RED CELLS - URINE 0-5 /hpf (0-5); SPECIFIC GRAVITY 1.005 (1.005-1.020); UROBILINOGEN NORMAL (NORMAL); WHITE CELLS - URINE 0-5 /hpf (0-5)
[2017-11-08 22:34] VITALS: BP 159/90
== END 2017-11-08 21:30 | disposition home or self-care (01) ==
LOC: D.ER 18:59
PROVIDERS: Family Medicine
DX: G43.909 Migraine, unspecified, not intractable, without status migrainosus (principal); I12.0 Hypertensive chronic kidney disease with stage 5 chronic kidney disease or end stage renal disease; N18.5 Chronic kidney disease, stage 5; J45.909 Unspecified asthma, uncomplicated

== ENCOUNTER 2018-01-03 10:50 | Day surgery (SDC) | payer MEDICARE, MEDICAID ==
[~2018-01-03] VITALS: Ht 160 cm; Wt 87.0 kg
--- NOTE | ~2018-01-03 | OP ---
PATIENT NAME: PARISH KWAN MEDICAL RECORD: [id number] :84 LOCATION:DOG ADMISSION DATE: SURGEON: EPIFANIO HERNANDEZ DO DATE OF OPERATION: 01/03/2018 PROCEDURE: EGD with biopsies. INDICATIONS FOR PROCEDURE: GERD, nausea with vomiting, generalized abdominal tenderness. SCOPE: Vuze video gastroscope. MEDICATIONS: Propofol 350 mg IV per anesthesia. ESTIMATED BLOOD LOSS: Minimal. COMPLICATIONS: None. FINDINGS: Informed consent was given. The patient was made comfortable with the above medication. After reaching an adequate level of sedation by slow IV push, the patient was placed on her left side. The endoscope was then advanced under direct visualization through the mouth to the third portion of the duodenum. The upper, middle, and lower thirds of the esophagus appeared normal. At the GE junction, there were minor changes from reflux, consistent with LA class A reflux-induced esophagitis. The endoscope was advanced beyond the GE junction into the stomach where a small amount of bilious fluid was present in the fundus. The endoscope was retroflexed to view the cardia and fundus. There was a small sliding type hiatal hernia present. The mucosa of the cardia and fundus appeared normal. In the antrum and prepyloric region, there was some patchy erythema and granularity consistent with gastritis. Cold forceps biopsies were taken to submit for histopathology and to rule out the presence of H. pylori. The endoscope was advanced beyond the pylorus into the duodenum where the entire examined duodenum appeared normal. The endoscope was then withdrawn from the patient. The patient tolerated the procedure well and there were no complications. IMPRESSION: 1. LA class A reflux-induced esophagitis. 2. Small sliding hiatal hernia. 3. Gastritis involving the antrum and prepyloric regions of the stomach. Biopsies pending. PLAN AND RECOMMENDATIONS: 1. Discharge home when recovery parameters are met. 2. Follow up biopsy specimen results. 3. Continue current medications. 4. Add omeprazole 40 mg daily times 30 days, then may reduce to 20 mg of Pepcid daily if antacids are helping symptoms. 5. Schedule gastric emptying scan. 6. Consider a right upper quadrant ultrasound and PIPIDA pending results of gastric emptying scan. 7. Proceed with colonoscopy as scheduled. TRANSINT:[id number] Voice Confirmation ID: [id number] DOCUMENT ID: [id number] OPERATIVE REPORT [id number] PARISH KWAN NATHAN A DO at 1600 CC: [id number] DICTATION DATE: 01/03/18 1244 EXPERIMENTAL PREFLIGHT MECHANIC: 01/03/18 1316 [facility] 01/03/18 [facility] [address] [place] [address]
[2018-01-03 11:04] LABS: HEMATOCRIT 38.5 % (36.0-48.0); HEMOGLOBIN 12.8 g/dL (12-16); MCH 32.9 pg (26.0-34.0); MCHC 33.2 g/dL (31.0-37.0); MEAN PLATELET VOLUME 8.7 fL (7.4-10.4); RBC 3.89 10x6/uL (4.00-5.40); RDW 12.6 % (11.5-14.5); WBC 8.2 10x3/uL (4.8-10.8)
[2018-01-03 11:16] LABS: ANION GAP 11.9 mmol/L (8-16); CALCIUM 9.1 mg/dL (8.5-10.1); CARBON DIOXIDE 32.9 mmol/L (21.0-32.0); CREATININE - SERUM 4.5 mg/dL (0.6-1.3); POTASSIUM - SERUM 3.8 mmol/L (3.5-5.1)
[2018-01-03 12:08] VITALS: BP 143/96; Ht 160 cm; Wt 87.0 kg
[2018-01-03] MEDS ORDERED: TOPROL XL50 MG PO (12:12)
[2018-01-03] MEDS ORDERED: PHENERGAN25 M1 PO (12:12)
== END 2018-01-03 13:30 | disposition home or self-care (01) ==
LOC: D.OPS 10:50
PROVIDERS: Anesthesiology
DX: K21.0 Gastro-esophageal reflux disease with esophagitis (principal); K44.9 Diaphragmatic hernia without obstruction or gangrene; K29.70 Gastritis, unspecified, without bleeding; Z01.812 Encounter for preprocedural laboratory examination

== ENCOUNTER 2018-01-10 10:58 | Day surgery (SDC) | payer MEDICARE, MEDICAID ==
[~2018-01-10] VITALS: Ht 160 cm; Wt 86.8 kg
--- NOTE | ~2018-01-10 | OP ---
PATIENT NAME: PARISH KWAN MEDICAL RECORD: [id number] :84 LOCATION:D.OPS ADMISSION DATE: SURGEON: EPIFANIO HERNANDEZ DO DATE OF OPERATION: 01/10/2018 PROCEDURE: Colonoscopy. INDICATIONS FOR PROCEDURE: Chronic constipation, generalized abdominal tenderness, and nausea and vomiting. SCOPE: Olympus video pediatric colonoscope. MEDICATIONS: Propofol 600 mg IV per anesthesia. WITHDRAWAL TIME: 6 minutes. ESTIMATED BLOOD LOSS: None. COMPLICATIONS: None. FINDINGS: Informed consent was given. The patient was made comfortable with the above medication. After reaching an adequate level of sedation by slow IV push, the patient was placed on her left side. A digital rectal examination was performed and it was normal. The endoscope was then advanced under direct visualization through the rectum to the cecum, confirmed by the presence of the appendiceal orifice. The endoscope was slowly withdrawn and the mucosa was carefully examined. The prep quality was inadequate. There was still a significant amount of stool throughout the majority of the colon, which limited visualization. That being said, there were no obvious masses or polyps visualized. Retroflexion was performed in the rectum with visualization of a normal appearing rectal wall. The endoscope was then withdrawn from the patient. The patient tolerated the procedure well and there were no complications. IMPRESSION: Normal colonoscopy other than a moderate amount of stool still within the colon that could not be removed through the endoscope channel. This limited visualization. PLAN AND RECOMMENDATIONS: 1. Discharge home when recovery parameters are met. 2. High fiber diet. 3. Supplement diet with 1 tablespoon of fiber daily. 4. Okay to use MiraLax 1 cap daily p.r.n. constipation. 5. Can repeat colonoscopy at the patient's convenience if wished. TRANSINT:[id number] Voice Confirmation ID: [id number] DOCUMENT ID: [id number] OPERATIVE REPORT [id number] PARISH KWAN EPIFANIO HERNANDEZ DO at 1300 CC: [id number] DICTATION DATE: 01/10/18 1411 REAL ESTATE FINANCIAL ANALYST: 01/10/18 1527 [facility] 01/10/18 [place] [address]
[~2018-01-10 10:58] MED LIST changes: +PHENERGAN25 M1 PO; +TOPROL XL50 MG PO
[2018-01-10 11:20] LABS: HEMATOCRIT 35.6 % (36.0-48.0); HEMOGLOBIN 11.8 g/dL (12-16); MCH 32.7 pg (26.0-34.0); MCHC 33.1 g/dL (31.0-37.0); MCV 98.6 fL (80.0-100.0); MEAN PLATELET VOLUME 9.3 fL (7.4-10.4); RBC 3.61 10x6/uL (4.00-5.40); RDW 12.4 % (11.5-14.5); WBC 6.7 10x3/uL (4.8-10.8)
[2018-01-10 11:39] LABS: INR 1.04 (0.85-1.17); PROTIME 13.2 SECONDS (11.6-15.0)
[2018-01-10 11:41] LABS: ANION GAP 15.5 mmol/L (8-16); CALCIUM 9.3 mg/dL (8.5-10.1); CARBON DIOXIDE 29.3 mmol/L (21.0-32.0); CREATININE - SERUM 3.6 mg/dL (0.6-1.3); POTASSIUM - SERUM 3.8 mmol/L (3.5-5.1)
[2018-01-10 12:53] VITALS: BP 137/86; Ht 160 cm; Wt 86.8 kg
== END 2018-01-10 14:50 | disposition home or self-care (01) ==
LOC: D.OPS 10:58
PROVIDERS: Anesthesiology
DX: K59.00 Constipation, unspecified (principal); R10.9 Unspecified abdominal pain; R11.2 Nausea with vomiting, unspecified

== ENCOUNTER 2018-03-21 16:11 | Emergency (ER) | payer MEDICARE, MEDICAID ==
[~2018-03-21] VITALS: Ht 160 cm; Wt 85.9 kg
[2018-03-21 16:23] VITALS: Ht 160 cm; Wt 85.9 kg
[2018-03-21 18:45] LABS: APPEARANCE CLEAR (CLEAR); BILIRUBIN NEGATIVE (NEGATIVE); COLOR STRAW (YELLOW); EPITHELIAL CELLS 0-5 /hpf (0-5); GLUCOSE 100 mg/dL (NEGATIVE); KETONE NEGATIVE (NEGATIVE); NITRITE NEGATIVE (NEGATIVE); PROTEIN TRACE mg/dL (NEGATIVE); RED CELLS - URINE 0-5 /hpf (0-5); UROBILINOGEN NORMAL (NORMAL); WHITE CELLS - URINE 0-5 /hpf (0-5)
[2018-03-21 19:34] LABS: BASOPHILS 0.4 % (0-2); EOSINOPHILS 2.8 % (0-7); HEMATOCRIT 29.9 % (36.0-48.0); HEMOGLOBIN 9.7 g/dL (12-16); IMMATURE GRANULOCYTES 0.2 % (0-5); MCH 32.3 pg (26.0-34.0); MCHC 32.4 g/dL (31.0-37.0); MCV 99.7 fL (80.0-100.0); MONOCYTES 7.2 % (2-11); NEUTROPHILS 63.4 % (40-80); PLATELET COUNT 214 10x3/uL (130-400); WBC 5.7 10x3/uL (4.8-10.8)
[2018-03-21 19:47] LABS: ALBUMIN 3.1 g/dL (3.4-5.0); ANION GAP 16.3 mmol/L (8-16); BILIRUBIN - TOTAL 0.54 mg/dL (0.2-1.3); CARBON DIOXIDE 27.1 mmol/L (21.0-32.0); POTASSIUM - SERUM 4.4 mmol/L (3.5-5.1); PROTEIN - SERUM 6.8 g/dL (6.4-8.2)
[2018-03-21] MEDS ORDERED: PHENERGAN25 M1 PO (20:27)
[2018-03-21 20:56] VITALS: BP 161/99
== END 2018-03-21 20:56 | disposition home or self-care (01) ==
LOC: D.ER 16:11
PROVIDERS: Family Medicine
DX: R31.9 Hematuria, unspecified (principal); R10.9 Unspecified abdominal pain; Z99.2 Dependence on renal dialysis; Q61.3 Polycystic kidney, unspecified

== ENCOUNTER 2018-04-27 15:45 | Emergency (ER) | payer MEDICARE, MEDICAID ==
[~2018-04-27] VITALS: Ht 160 cm; Wt 80.9 kg
[2018-04-27 15:52] VITALS: Ht 160 cm; Wt 80.9 kg
[2018-04-27 17:04] LABS: BASOPHILS 0.5 % (0-2); EOSINOPHILS 3.6 % (0-7); HEMATOCRIT 41.5 % (36.0-48.0); HEMOGLOBIN 13.6 g/dL (12-16); IMMATURE GRANULOCYTES 0.2 % (0-5); LYMPHOCYTES 34.7 % (15-50); MCH 33.4 pg (26.0-34.0); MCHC 32.8 g/dL (31.0-37.0); MEAN PLATELET VOLUME 9.7 fL (7.4-10.4); MONOCYTES 9.2 % (2-11); NEUTROPHILS 51.8 % (40-80); RBC 4.07 10x6/uL (4.00-5.40); RDW 14.1 % (11.5-14.5); WBC 5.9 10x3/uL (4.8-10.8)
[2018-04-27 17:05] LABS: PLATELET COUNT 163 10x3/uL (130-400)
[2018-04-27 17:28] LABS: ALBUMIN 3.3 g/dL (3.4-5.0); ANION GAP 14.7 mmol/L (8-16); BILIRUBIN - TOTAL 0.27 mg/dL (0.2-1.3); CARBON DIOXIDE 27.5 mmol/L (21.0-32.0); CREATININE - SERUM 4.7 mg/dL (0.6-1.3); POTASSIUM - SERUM 4.2 mmol/L (3.5-5.1); PROTEIN - SERUM 7.1 g/dL (6.4-8.2)
[2018-04-27] MEDS ORDERED: AMOXICILLIN500 M1 PO (20:41)
[2018-04-27] MEDS ORDERED: PHENERGAN DM SYR5 ML PO (20:41)
[2018-04-27 21:30] VITALS: BP 141/86
== END 2018-04-27 21:30 | disposition home or self-care (01) ==
LOC: D.ER 15:45
PROVIDERS: Family Medicine
DX: J06.9 Acute upper respiratory infection, unspecified (principal); J40 Bronchitis, not specified as acute or chronic; R09.89 Other specified symptoms and signs involving the circulatory and respiratory systems; M79.18 Myalgia, other site

== ENCOUNTER 2018-05-11 14:50 | Inpatient (IN) | payer MEDICARE, MEDICAID ==
[~2018-05-11] VITALS: Ht 160 cm; Wt 80.6 kg
[~2018-05-11 14:50] MED LIST changes: +AMOXICILLIN500 M1 PO; +HYDROCODON-ACE1 EA10 PO; +PHENERGAN DM SYR5 ML PO
[2018-05-13] VITALS (14 sets, daily range): BP systolic 97–170; BP diastolic 52–109; BMI 31.9; BMI 34.4
[2018-05-13 06:34] LABS: BASOPHILS 0.6 % (0-2); EOSINOPHILS 1.5 % (0-7); HEMATOCRIT 39.7 % (36.0-48.0); HEMOGLOBIN 12.6 g/dL (12-16); IMMATURE GRANULOCYTES 0.2 % (0-5); MCH 32.9 pg (26.0-34.0); MCHC 31.7 g/dL (31.0-37.0); MCV 103.7 fL (80.0-100.0); MEAN PLATELET VOLUME 10.6 fL (7.4-10.4); MONOCYTES 10.3 % (2-11); NEUTROPHILS 56.4 % (40-80); PLATELET COUNT 147 10x3/uL (130-400); RBC 3.83 10x6/uL (4.00-5.40); RDW 13.3 % (11.5-14.5); WBC 5.4 10x3/uL (4.8-10.8)
[2018-05-13 07:03] LABS: ANION GAP 14.3 mmol/L (8-16); CALCIUM 9.1 mg/dL (8.5-10.1); CARBON DIOXIDE 27.9 mmol/L (21.0-32.0); CREATININE - SERUM 5.1 mg/dL (0.6-1.3); INR 1.02 (0.85-1.17); POTASSIUM - SERUM 4.2 mmol/L (3.5-5.1); PROTIME 12.9 SECONDS (11.6-15.0)
[2018-05-13] MEDS ORDERED: ULTRAM50 MG PO (07:34)
[2018-05-13] MEDS ORDERED: PROZAC40 MG PO (07:35)
[2018-05-13 13:00] LABS: BASOPHILS 0.1 % (0-2); EOSINOPHILS 0.1 % (0-7); HEMATOCRIT 35.1 % (36.0-48.0); HEMOGLOBIN 11.2 g/dL (12-16); IMMATURE GRANULOCYTES 0.2 % (0-5); LYMPHOCYTES 7.9 % (15-50); MCH 32.3 pg (26.0-34.0); MCHC 31.9 g/dL (31.0-37.0); MEAN PLATELET VOLUME 10.7 fL (7.4-10.4); MONOCYTES 6.6 % (2-11); NEUTROPHILS 85.1 % (40-80); PLATELET COUNT 138 10x3/uL (130-400); RBC 3.47 10x6/uL (4.00-5.40); RDW 14.9 % (11.5-14.5)
[2018-05-13 13:02] LABS: MCV 101.2 fL (80.0-100.0); WBC 13.9 10x3/uL (4.8-10.8)
--- NOTE | 2018-05-13 13:08 | NUR ---
AT 1145 EMPTIED 50ML OR BLOOD FROM TEODORA #1 AND 50ML FROM TEODORA #2. WILL CONTINUE TO MONITOR.
[2018-05-13 13:22] LABS: ALBUMIN 2.5 g/dL (3.4-5.0); ANION GAP 14.1 mmol/L (8-16); BILIRUBIN - TOTAL 0.42 mg/dL (0.2-1.3); CALCIUM 7.4 mg/dL (8.5-10.1); CARBON DIOXIDE 23.1 mmol/L (21.0-32.0); CREATININE - SERUM 5.2 mg/dL (0.6-1.3); POTASSIUM - SERUM 4.2 mmol/L (3.5-5.1)
--- NOTE | 2018-05-13 13:58 | NUR ---
DR TRIPLETT GIVEN UDPATE REGAURDING PT STATUS H&H ORDER TO CANCEL 1 U PRBC.
--- NOTE | 2018-05-13 14:48 | NUR ---
AT BEDSIDE UPDATE GIVEN.
--- NOTE | 2018-05-13 15:40 | NUR ---
PRN ULTRAM ADM FOR 10/10 PAIN RADIATING FROM STOMACH.
--- NOTE | 2018-05-13 16:20 | NUR ---
DR TRIPLETT CALLED GIVEN UDPATE PT AGGITATED STATING SHE WANTED TO LEAVE AT THIS TIME AND WOULD REMOVE EPIDURAL AND WALK OUT R/T PAIN MEDICATION NOT WORKING AND UNABLE TO EAT. NPO AT THIS TIME REMAINS WITH ICE CHIPS AND HARD CANDY, WILL REASSESS WITH DR CHUNG IN AM. T ORDER FOR BUPRENEX VIA SCRAP BURNER ORDERED. PHARMACY CALLED DOSING ADJUSTED. WILL ADM.
--- NOTE | 2018-05-13 17:16 | NUR ---
OT NOTE : PT COMPLETED GROOMING TASKS WITH SET UP IN BED. THANK YOU, PRASAD DILLON
--- NOTE | 2018-05-13 17:51 | NUR ---
PT AT BEDSIDE GIVEN UDPATE. PT DENIES NEEDS WILL CONTINUE TO MNITOR
--- NOTE | 2018-05-13 19:09 | NUR ---
PATIENT CARE RECEIVED PATIENT REQUESTED PRN ATIVAN - SEE EMAR FOR ADMINISTRATION, SHIFT ASSESSMENT COMPLETED SEE FLOWSHEET. CPOC
--- NOTE | 2018-05-13 20:45 | NUR ---
DR BLANKENSHIP AT BEDSIDE, RT TEODORA DRAINED AND COMPRESSED. PT ENCOURAGED TO DEEP BREATHE AND COUGH, WEAK EFFORT CPOC
[2018-05-13 20:51] LABS: BASOPHILS 0.1 % (0-2); EOSINOPHILS 0 % (0-7); HEMATOCRIT 31.3 % (36.0-48.0); IMMATURE GRANULOCYTES 0.2 % (0-5); LYMPHOCYTES 8.1 % (15-50); MCH 32.3 pg (26.0-34.0); MCHC 31.9 g/dL (31.0-37.0); MEAN PLATELET VOLUME 10.9 fL (7.4-10.4); MONOCYTES 4.8 % (2-11); NEUTROPHILS 86.8 % (40-80); PLATELET COUNT 130 10x3/uL (130-400); RDW 15.6 % (11.5-14.5); WBC 13.8 10x3/uL (4.8-10.8)
--- NOTE | 2018-05-13 23:02 | NUR ---
REASSESSMENT COMPLETED SEE FLOWSHEET. PT DENIES NEEDS, CPOC
--- NOTE | 2018-05-13 23:50 | NUR ---
PAGED ANESTHESIA REGARDING PATIENT EPIDURAL - HE IS GOING TO COME CHANGE THE BAG
[2018-05-14] VITALS (21 sets, daily range): BP systolic 99–180; BP diastolic 57–111; Ht 160 cm; Wt 80.6 kg
--- NOTE | 2018-05-14 01:10 | NUR ---
ADMINISTRATIVE COORDINATOR AT BEDSIDE TO CHANGE EPIDURAL BAG.
--- NOTE | 2018-05-14 03:52 | NUR ---
PATIENT HAVING BREAK THROUGH PAIN, PATIENT CRYING, HR 135 - BP 155/92 PAGED ANESTHESIA, CALL BACK RECEIVED. NO NEW ORDERS AT THIS TIME. TOLD TO PAGE ANESTHESIOLOGIST PAPER TESTER
--- NOTE | 2018-05-14 04:06 | NUR ---
DR. BRET JAIMES GAVE PERMISSION TO GIVE EXSISTING PAIN MED ORDERS ,SEE EMAR FOR ADMINISTATION - CALL BACK IF PT CONTINUES TO EXPERIENCE SEVERE PAIN.
--- NOTE | 2018-05-14 05:37 | NUR ---
PAGED DR QUEEN REGARDING PAIN MANAGEMENT. HE WILL COME IN TO SEE THE PATIENT
--- NOTE | 2018-05-14 05:45 | NUR ---
DR QUEEN AT BEDSIDE
[2018-05-14 06:30] LABS: BASOPHILS 0.1 % (0-2); EOSINOPHILS 0.1 % (0-7); HEMATOCRIT 32.1 % (36.0-48.0); HEMOGLOBIN 10.1 g/dL (12-16); IMMATURE GRANULOCYTES 0.2 % (0-5); LYMPHOCYTES 13.9 % (15-50); MCH 32.2 pg (26.0-34.0); MCHC 31.5 g/dL (31.0-37.0); MCV 102.2 fL (80.0-100.0); MEAN PLATELET VOLUME 11.2 fL (7.4-10.4); MONOCYTES 7.6 % (2-11); NEUTROPHILS 78.1 % (40-80); PLATELET COUNT 121 10x3/uL (130-400); RBC 3.14 10x6/uL (4.00-5.40); RDW 15.6 % (11.5-14.5); WBC 11.4 10x3/uL (4.8-10.8)
[2018-05-14 06:47] LABS: ANION GAP 18.1 mmol/L (8-16); CALCIUM 8.2 mg/dL (8.5-10.1); CARBON DIOXIDE 20.7 mmol/L (21.0-32.0); CREATININE - SERUM 6.5 mg/dL (0.6-1.3); POTASSIUM - SERUM 4.8 mmol/L (3.5-5.1)
--- NOTE | 2018-05-14 08:06 | NUR ---
ASSESSMENT COMPLETE - PT C/O PAIN - WINDOW AIR CONDITIONER INSTALLER/EPIDURAL IN PLACE - PUC IN PT'S REACH - SLIGHT EXUDATE NOTED ON BANDAGE - MARKED FOR MD'S REVIEW. CPOC
--- NOTE | 2018-05-14 08:27 | NUR ---
PATIENT ASKED FOR WATER - REIVEWED CHART - DIET NPO EXCEPT ICE CHIPS - TOOK ICE CHIPS TO PT - HOB ~ 10 DEGREES - EXPLAINED TO PATIETN THE NEED TO PULL PT UP IN BED AND RAISE HOB TO 30 DEGREES - PT STATED SHE DID NOT WANT TO BE MOVED DUE TO PAIN - INSTRUCTED PT TO HIT PAIN MED PUCK PRIOR TO MOVEMENT - PT REFUSED TO BE MOVED - EXCLAINED PATIENT COULD NOT HAVE ICE CHIPS UNTIL WHE WAS REPOSSIONED. PATIENT STATED SHE DID NOT WANT ICE CHIPS AND "I WANT ANOTHER NURSE. GET THE FUCK OUT OF MY ROOM." INFORMED CHARGE NURSE OF ABOVE PATIENT CONCERNS. CONTINUE TO MONITOR AND REPORT FINDINGS
--- NOTE | 2018-05-14 09:00 | NUR ---
PER RN - DR. BLANKENSHIP ORDERD NPO UNTIL KUB COMPLETE - MICHAEL BANG INFORMED PT OF ABOVE. CPOC
--- NOTE | 2018-05-14 09:54 | NUR ---
DR. BLANKENSHIP AT BEDSIDE FOR ASSESSMENT - ODERS TO PROVIDE CHEWING GUM AND LIFESAVERS FOR PT - CONTACT DIEATARY TO INFORM OF REQUEST - TOV - CPOC
--- NOTE | 2018-05-14 09:58 | NUR ---
MR. CLARKE, CCRN, ON UNIT TO REFILL BURPRENEX TOWER ERECTOR HELPER. INSTRUCTED ANY PAIN MEDICATION ODERS must COME FROM DR. QUEEN (ANESTHEOLOGIST) AND not TO CALL mR. CLARKE. MD IS THE CORRECT DISCIPLINE TO ADDRESS PT'S PAIN CONCERNS. WILL NOTIFY John RODRIGUEZ OF ABOVE. CPOC
--- NOTE | 2018-05-14 10:30 | NUR ---
PATED DR. QUEEN TO DISCUSS PLAN OF CARE TO CONTROL PT' PAIN. dR. QUEEN ASKED TO SPEAK TO RENAL AND SURGERY TO DISCUSS IF MD AGREED TO CHANGE OF PAIN MEDICATION. CPOC
--- NOTE | 2018-05-14 10:47 | NUR ---
PAGED DR. MARQUIS - WHO AGREED TO CHANGE OF PAIN PRESCRIPTIONS PER DR. QUENE RECOMMENDATION - CPOC
--- NOTE | 2018-05-14 10:56 | NUR ---
INFORMED DR. QUEEN OF AGREED PLAN OF CARE FROM DR. MARQUIS - ORDERS RECIEVED & TOV INSTUCTED not TO GIVE ATIVAN WITH DILAUDID.
--- NOTE | 2018-05-14 11:00 | NUR ---
X-RAY TECH CALLED TO ASK IF 2ND KUB AND CXR IS NEEDED - INFORMED THE REPEAT KUB IS AFTER NG TUBE PLACEMENT TO CONFIRM CORRECT PLACEMENT AND CXR FOR HTN AND TACHYCARDIA. VERBALIZED UNDERSTANDING.
--- NOTE | 2018-05-14 12:10 | NUR ---
PLACED RIGHT ARM RESERVE SIGN ON DOOR AND OVER PT'S BED - PT RESTING WITH EYES CLOSED - RESPIRATIONS REG RATE AND RHYTHM
--- NOTE | 2018-05-14 13:54 | NUR ---
CALLED DIETARY - WAS TOLD DIETARY SUPERVIORKOFFI INFORMED STAFF, LIFESAVERS AND GUM IS NOT PROVIDED BY DIETARY. THIS WAS COMMUNITCATED TO ICU STAFF - HOWEVER, NEITHER FURNACE LINER/FIELD IRRIGATION WORKER, NOR THIS RN WAS NOTIFIED OF ABOVE.
--- NOTE | 2018-05-14 14:25 | NUR ---
PT AWAKE ATTEMPTED TO PULL OUT NGT. PT IS EASILY ACCLIMATED TO TO SITUATION AND AGREED TO LEAVE NGT IN PLACE. PT'S FAMILY CALLED - ASKED FAMILY TO BRING LIFESAVERS AND GUM FOR PT. FAMILY AGREED TO BRING TO HOSPIAL. ICE CHIPS GIVEN TO PT.
--- NOTE | 2018-05-14 15:00 | NUR ---
ASSESSMENT COMPLETE - PT AWAKEN - ASKED TO TAKE OUT NG TUBE - REMINDED PATIENT THE NEED FOR NG TUBE TO EXPELL AIR IN STOMACH - PT AGREED TO LEAVE IN A LITTLE LONGER. PT TOOK CALL FROM FAMILY - ASKED FAMILY TO BRING LIFE SAVERS AND GUM - PT FELL ASLEEP SHORTLY AFTER ABOVE - RESTING WITH EYES CLOSED - RESPIRATIONS REGULAR RATE AND RH YTHM
--- NOTE | 2018-05-14 15:52 | NUR ---
PT RESTING WITH EYES CLOSED - RESPIRATIONS REG RATE AND RHYTHM
--- NOTE | 2018-05-14 16:23 | NUR ---
DIALYSIS NURSE AT BEDSIDE FOR TREATMENT
--- NOTE | 2018-05-14 19:50 | NUR ---
RECEIVED PATIENT CARE, SHIFT ASSESSMENT COMPLETED SEE FLOWSHEET. VSS, DIALYSIS NURSE AT BEDSIDE, CPOC
--- NOTE | 2018-05-14 19:56 | NUR ---
PATIENT REQUESTING NG TUBE REMOVAL, EXPLAINED THAT THE NG TUBE COULD BE HELPING TO DECREASE THE ABDOMINAL PAIN SHE IS EXPERIENCING, SHE STATED "IT'S TIME TO COME OUT" I INFORMED HER THAT I WILL TAKE IT OUT SOON POSSIBLE THAT I NEEDED TO CHECK ON ONE OTHER PATIENT AND WOULD BE RIGHT WITH HER. PATIENT WENT BACK TO SLEEP. WILL REMOVE NG TUBE ONCE PATIENT REQUESTS AND IS AWAKE ALERT AND ORIENTED
--- NOTE | 2018-05-14 20:44 | NUR ---
PT TX COMPLETE. 2.5L FLUID OFF. PT DROWSY, BUT DID WELL. B/P DID DROP TO 99/59, SO UF GOAL WAS DECREASED.
--- NOTE | 2018-05-14 21:45 | NUR ---
DR QUEEN AT BEDSIDE - PT REPOSITIONED FOR COMFORT AND SKIN INTEGRITY. RECEIVED ICE CHIPS PER REQUEST. SYSTOLIC BP ELEVATED AND TACHYCARDIA NOTED AT THIS TIME. DR. QUEEN AWARE - CPOC
--- NOTE | 2018-05-14 23:00 | NUR ---
REASSESSMENT COMPLETED. PT TEMP 100.3 - DECREASED ROOM TEMPERATURE AND REMOVED LAYERS OF BLANKETS, WILL CONTINUE TO MONITOR SEE FLOWSHEET FOR ASSESSMENT
[2018-05-15] VITALS (20 sets, daily range): BP systolic 135–184; BP diastolic 85–101
--- NOTE | 2018-05-15 00:23 | NUR ---
PT REQUESTING PRN DILUADID - SEE EMAR FOR ADMINISTRATION
--- NOTE | 2018-05-15 03:12 | NUR ---
REASSESSMENT COMPLETED SEE FLOWSHEET TEMP HAS DECREASED ELEVATED SYSTOLIC BP AND TACHYCARDIC AT THIS TIME. CPOC
--- NOTE | 2018-05-15 07:00 | NUR ---
REC'ED REPORT FROM OUT GOING RN - PT RESTING WITH EYES CLOSED EAASILY AWAKENED BY VERBAL STIMULI - ASKED FOR PAIN MEDICATION - CPOC
--- NOTE | 2018-05-15 07:01 | NUR ---
PATIENT RECEIVED ICE CHIPS PER REQUEST
--- NOTE | 2018-05-15 07:45 | NUR ---
ASSESSMENT COMPLETE - C/O BACK ITCHING - WILL BATHE THIS A.M.
--- NOTE | 2018-05-15 09:00 | NUR ---
BATHED PT WITH ASSISTANCE X 2 - PT NOT ABLE TO MOVE BLE (EPIDURAL) - CHANGED BED LINENS AND CLOTHES - PT REFUSED SHAMPOO - ART LINE IS NOT FUNCIONING - INFORMED DONAL CARTER, RENAL - AGREED TO REMOVE - CPOC
--- NOTE | 2018-05-15 09:15 | NUR ---
INFORMED DONAL CARTER, JARON OF ELEVATED H.R. AT 120+ - ORDER FOR HYDRALIZINE RECIEVED FOR H.R. GREATER THAN 160 - CPOC
[2018-05-15 10:08] LABS: BASOPHILS 0.2 % (0-2); EOSINOPHILS 1.3 % (0-7); HEMATOCRIT 29.1 % (36.0-48.0); HEMOGLOBIN 9.3 g/dL (12-16); IMMATURE GRANULOCYTES 0.3 % (0-5); LYMPHOCYTES 11.3 % (15-50); MCH 32.2 pg (26.0-34.0); MCV 100.7 fL (80.0-100.0); MEAN PLATELET VOLUME 10.4 fL (7.4-10.4); MONOCYTES 8.5 % (2-11); NEUTROPHILS 78.4 % (40-80); PLATELET COUNT 117 10x3/uL (130-400); RBC 2.89 10x6/uL (4.00-5.40); RDW 14.3 % (11.5-14.5); WBC 10.8 10x3/uL (4.8-10.8)
[2018-05-15 10:39] LABS: ALBUMIN 2.2 g/dL (3.4-5.0); ANION GAP 15.4 mmol/L (8-16); BILIRUBIN - TOTAL 0.42 mg/dL (0.2-1.3); CALCIUM 8.4 mg/dL (8.5-10.1); CARBON DIOXIDE 23.6 mmol/L (21.0-32.0); CREATININE - SERUM 5.4 mg/dL (0.6-1.3); PROTEIN - SERUM 5.6 g/dL (6.4-8.2)
--- NOTE | 2018-05-15 10:58 | NUR ---
ANSWERED CALL LIGHT - PT EAGER TO GET ART LINE REMOVED - INFORMED PT WILL DO AFTER THE NEXT ASSESSMENT -PT VERBALIZED UNDERSTANDING
--- NOTE | 2018-05-15 12:15 | NUR ---
ANSWERED CALL LIGHT. PT FEELS LIKE HER FEET ARE TOUCHING THE BED FOOT BOARD - ASSURED PT HER FEET WAS SIXTO NO BORAD - PULLED PT UP IN BED HOB UP TO 40 DEGREES - CPOUC
--- NOTE | 2018-05-15 14:10 | NUR ---
CALLED DIETARY FOR CHANGE FROM NPO TO CLEAR LIQUID DIET - ICE GIVEN TO PT
--- NOTE | 2018-05-15 15:00 | NUR ---
REMOVED ART LINE WITH TIP INTACT - HELD FOR 5 MINTUES - DRESSING C/D/I - CPOC
--- NOTE | 2018-05-15 16:00 | NUR ---
FAMILY IN PT' ROOM - PT CONTINUES TO BE MORE ANXIOUS - ANSWERED ALL QUESTION TO FAMILY'S STATISFATCTION - CPOC
--- NOTE | 2018-05-15 18:16 | NUR ---
PT RESTING WITH EYES CLOSED - RESPIRATIONS REG RATE AND RHYTHM - CPOC
--- NOTE | 2018-05-15 18:45 | NUR ---
ASWERED CALL LIGHT - PT STATED SHE IS HALLUCIATING - ASKED TO D/C ONE OF THE TWO PAIN MEDICATIONS. - INFORMED PT THIS RN WOULD NOTIFY DOCTOR - PAGED DR. QUEEN. AWAITING CALL BACK
--- NOTE | 2018-05-15 19:15 | NUR ---
Pt resting in bed - upright position, said she has been having problems, seeing things every time she closes her eyes, dreams are too vivid and she gets confused when she wakes up. patient is agitated stating she "wants us to reverse the pain meds so she can get right." pulling at ecg leads. i explained to her that she is experiencing side effects from the amount of medications she is on and we will speak with dr. tyler about side effects. she requested we not speak with the dr. off going nurse has already paged dr tyler at this time. reoriented patient to time and situation. provided patient bible per request. suggested patient to write scriptures for diversional activity. vss cpoc
--- NOTE | 2018-05-15 19:56 | NUR ---
Reserve CONFERENCE SERVICE COORDINATOR at bedside for eipidural bag change, informed of patient status - he is going to call Dr. Harris and notify of mental status change. patient continues to pull at central line and ecg leads patient room in sight of nurses station, door is open for close observation
--- NOTE | 2018-05-15 20:12 | NUR ---
Mr. Epperson SHIP PROPELLER FINISHER AT BEDSIDE, SPOKE WITH AND RECEIVED ORDERS FROM DR. QUEEN. EPIDURAL CONTINUOUS RATE DECREASED AT THIS TIME.
--- NOTE | 2018-05-15 20:44 | NUR ---
DR. TRIPLETT PAGED REGARDING ALTERED MENTAL STATUS, ORDERS RECEIVED FOR RESTRAINTS IF NEEDED
--- NOTE | 2018-05-15 23:58 | NUR ---
BILAT SOFT WRIST RESTRAINTS PLACED ON PATIENT AT THIS TIME. PT INCREASINGLY AGITATED, ATTEMPTING TO PULL CORDS FROM THE WALL AND MONITORS, PULLING ON CENTRAL LINE AND DRESSING, WILL CHANGE DRESSING WHEN PATIENT IS CALM AND ABLE TO FOLLOW COMMANDS
[2018-05-16] VITALS (20 sets, daily range): BP systolic 133–173; BP diastolic 76–114
--- NOTE | 2018-05-16 00:53 | NUR ---
PT AWAKE, ORIENTED TO PERSON, PLACE, TIME, AND SITUATION. VERBALLY DISRUPTIVE AND DEMANDING. PATIENT ALTERNATES BETWEEN CUSSING STAFF AND APOLOGIZING. SHE STATES "I DON'T WANT TO FEEL LIKE THIS ANYMORE" PATIENT IS RESTRAINED AT THIS TIME FOR SAFETY. HOOKED UP TO ICU MONITORS. VSS CPOC
--- NOTE | 2018-05-16 01:12 | NUR ---
FOUND PATIENT UNRESTRAINED - PT CALM, COOPERATIVE. RESTRAINTS REMAIN OFF AT THIS TIME.
--- NOTE | 2018-05-16 02:28 | NUR ---
PT CALLING OUT FOR HELP. UPON ENTERING ROOM, PATIENT OPENS EYES AND ASKS FOR HELP, UNABLE TO COMMUNICATE NEEDS AT THIS TIME. PT BECAME INCREASINGLY AGITATED, PULLING ON CENTRAL LINE AND DRESSING. ATTEMPTED TO REORIENT PATIENT. BILAT SOFT WRIST RESTRAINTS PLACED ON PATIENT AT THIS TIME.
--- NOTE | 2018-05-16 03:03 | NUR ---
REASSESSMENT COMPLETED SEE FLOWSHEET
[2018-05-16 06:30] LABS: BASOPHILS 0.2 % (0-2); HEMATOCRIT 26.3 % (36.0-48.0); HEMOGLOBIN 8.6 g/dL (12-16); IMMATURE GRANULOCYTES 0.2 % (0-5); LYMPHOCYTES 11.2 % (15-50); MCH 32.6 pg (26.0-34.0); MCHC 32.7 g/dL (31.0-37.0); MCV 99.6 fL (80.0-100.0); MEAN PLATELET VOLUME 11.2 fL (7.4-10.4); MONOCYTES 8.6 % (2-11); NEUTROPHILS 77.8 % (40-80); PLATELET COUNT 117 10x3/uL (130-400); RBC 2.64 10x6/uL (4.00-5.40); RDW 14.1 % (11.5-14.5); WBC 8.4 10x3/uL (4.8-10.8)
[2018-05-16 07:08] LABS: ANION GAP 17.6 mmol/L (8-16); BILIRUBIN - TOTAL 0.32 mg/dL (0.2-1.3); CALCIUM 8.6 mg/dL (8.5-10.1); CARBON DIOXIDE 23.4 mmol/L (21.0-32.0); PROTEIN - SERUM 5.5 g/dL (6.4-8.2)
[2018-05-16 07:10] LABS: CREATININE - SERUM 7.1 mg/dL (0.6-1.3)
--- NOTE | 2018-05-16 08:00 | NUR ---
REPORT RECEIVED AND CARE ASSUMED. PATIENT AWAKE CALLING FOR HELP. SHE WANTS RESTRAINTS REMOVE. REORIENTED AND REASSURED HER. RESTRAINTS CHECKED ND LOOSENED FOR COMFORT AND RESECURED. ABDOMINAL INCISION CLEAN AND DRY WITH SMALL AMOUNT OF DRIED DRAINAGE ON UPPER PORTION. TEODORA DRAINS X 2 ON RIGHT AND LEFT LOWER SIDES COMPRESSED WITH SMALL AMONT OF SEROUS DRAINAGE. EPIDURAL IN USE WITH LINES SECURED AND BAND LEADER BUPRENEX IN USE WITH BUTTONS IN EASY REACH. WILL CONTINUE TO MONITOR.
--- NOTE | 2018-05-16 09:25 | NUR ---
NUTRITION F/U PT TOLERATING CLEAR LIQUID DIET PER NURSING REPORT. WILL CONTINUE TO MONITOR DIET ADVANCEMENT, PO INTAKE. RD FOLLOWING
--- NOTE | 2018-05-16 11:00 | NUR ---
REASSESSMENT COMPLETED PER FLOW SHEET.
--- NOTE | 2018-05-16 14:30 | NUR ---
COMPLETE BEDBATH AND LINEN CHANGE DONE PER NURSE AND STUDENT NURSE. TOLERATED WELL.
--- NOTE | 2018-05-16 15:12 | NUR ---
COMPLAINING OF GENERALIZED PAIN ND IN ABDOMINAL AREA. DILAUDID 2 MG IVP GIVEN.
[2018-05-17] VITALS (11 sets, daily range): BP systolic 125–167; BP diastolic 84–104
[2018-05-17 04:15] LABS: BASOPHILS 0.2 % (0-2); HEMATOCRIT 28.2 % (36.0-48.0); HEMOGLOBIN 9.4 g/dL (12-16); IMMATURE GRANULOCYTES 0.2 % (0-5); LYMPHOCYTES 16.7 % (15-50); MCHC 33.3 g/dL (31.0-37.0); MCV 98.9 fL (80.0-100.0); MEAN PLATELET VOLUME 10.2 fL (7.4-10.4); MONOCYTES 6.4 % (2-11); NEUTROPHILS 70.5 % (40-80); RBC 2.85 10x6/uL (4.00-5.40); RDW 13.8 % (11.5-14.5); WBC 8.4 10x3/uL (4.8-10.8)
[2018-05-17 04:28] LABS: PLATELET COUNT 148 10x3/uL (130-400)
[2018-05-17 04:54] LABS: ANION GAP 14.4 mmol/L (8-16); BILIRUBIN - TOTAL 0.37 mg/dL (0.2-1.3); CALCIUM 8.4 mg/dL (8.5-10.1); POTASSIUM - SERUM 3.4 mmol/L (3.5-5.1); PROTEIN - SERUM 5.8 g/dL (6.4-8.2)
[2018-05-17 05:06] LABS: CREATININE - SERUM 5.1 mg/dL (0.6-1.3)
--- NOTE | 2018-05-17 07:00 | NUR ---
REC'D RPORT AND RESUMED CARE, AAO, UP IN CHAIR, WATCHING TV, ASSESSMENT COMPLETED PER FLOWSHEET, VSS, AWAITING BREAKFAST TRAY, DENIES ANY OTHER NEEDS AT THIS TIME, CALL LIGHT IN REACH
--- NOTE | 2018-05-17 07:30 | NUR ---
CL BREAKFAST TRAY TO CHAIR SIDE, INDEPENDENT WITH SET UP AND DRINKING
--- NOTE | 2018-05-17 09:00 | NUR ---
MORNING MEDS GIVEN PER MAY FLOWSHEET, BTB WITH STAND BY ASSIST, TOLERATED TRANSFER WITHOUT DIFFICULTY, NO OTHER NEEDS AT THIS TIME, CALL LIGHT IN REACH
--- NOTE | 2018-05-17 10:30 | NUR ---
CALLED TO ROOM, C/O OF PAIN /10 IN ABDOMEN, BACK TO BEDSIDE TO GIVE DILAUDID 2MG, HELD, PATIENT SLEEPING WITH NO SIGN OF DISTRESS, VSS WILL CONTINUE TO MONITOR
--- NOTE | 2018-05-17 11:00 | NUR ---
SLEEING WITH NO SIGN OF DISTRESS, VSS, NO ACUTE CHANGE FROM PREVIOUS ASSESSMENT
--- NOTE | 2018-05-17 13:30 | NUR ---
KUB COMPLETED, OOB TO CHAIR WITH STANDBY ASSIST, TOLERATED WITHOUT DIFFICULTY
--- NOTE | 2018-05-17 15:00 | NUR ---
TRANSFERRED TO 2138 VIA WHEELCHAIR, DENA, PRIMARTY NURSE AT BEDSIDE
--- NOTE | 2018-05-17 15:08 | NUR ---
ARRIVE TO ROOM VIA WHEELCHAIR FROM ICU. REPORT FROM MICHAEL DELGADO. AMBULATES FROM WHEELCHAIR TO BED. GAIT STEADY. BILATERAL ABDOMEN TEODORA DRAINS EMPTIED BEFORE ARRIVING TO UNIT. RT IJ TRIPLE LUMEN CLEAN DRY INTACT WITH SWAB CAPS ON. WAITING FOR TO CALL BACK REGARDING ADVANCING DIET. KUB COMPLETE BEFORE ARRIVING TO UNIT. CONTINUE PLAN OF CARE. BED LOCKED AND LOW. CALL LIGHT IN REACH. TWO SIDERAILS UP.
--- NOTE | 2018-05-18 03:56 | NUR ---
RN NOTE: PATIENT RESTING COMFORTABLY. RESPIRATIONS ARE EVEN AND UNLABORED.NO S/S OF DISTRESS. NO C/O PAIN. CALL LIGHT WITHIN REACH. WILL CPOC.
[2018-05-18 04:00] VITALS: BP 150/76
[2018-05-18 06:48] LABS: BASOPHILS 0.3 % (0-2); EOSINOPHILS 7.6 % (0-7); HEMOGLOBIN 8.7 g/dL (12-16); IMMATURE GRANULOCYTES 0.4 % (0-5); LYMPHOCYTES 20.4 % (15-50); MCH 32.2 pg (26.0-34.0); MCHC 32.2 g/dL (31.0-37.0); MEAN PLATELET VOLUME 10.4 fL (7.4-10.4); MONOCYTES 10.6 % (2-11); NEUTROPHILS 60.7 % (40-80); PLATELET COUNT 176 10x3/uL (130-400); RDW 13.7 % (11.5-14.5); WBC 7.1 10x3/uL (4.8-10.8)
--- NOTE | 2018-05-18 06:51 | NUR ---
BILATERAL TEODORA DRAINS DC'D.DRAIN SITES COVERED WITH 4X4'S CASA. WELL. WILL CONTINUE TO MONITOR AND FOLLOW CURRENT PLAN OF CARE.
[2018-05-18 07:22] LABS: ALBUMIN 1.9 g/dL (3.4-5.0); ANION GAP 15.4 mmol/L (8-16); BILIRUBIN - TOTAL 0.27 mg/dL (0.2-1.3); CALCIUM 8.1 mg/dL (8.5-10.1); CARBON DIOXIDE 25.5 mmol/L (21.0-32.0); POTASSIUM - SERUM 3.9 mmol/L (3.5-5.1); PROTEIN - SERUM 5.1 g/dL (6.4-8.2)
[2018-05-18 07:33] LABS: CREATININE - SERUM 7.6 mg/dL (0.6-1.3)
--- NOTE | 2018-05-18 07:43 | NUR ---
ROUNDING DONE WITH PATIENT LAYING ON RIGHT SIDE ON ROOM AIR. IN REPORT, PATIENT WATCHES THE CLOCK ON PAIN MEDS. RIGHT TRIPLE LUMEN IJ SEEN WITH C/D/I DRESSING. RESEV. RIGHT ARM WITH AVF, + BRUIT AND THRILL. FOR DIALYSIS TODAY. PATIENT IS REQUESTING PAIN AND NAUSEA MEDS, IT IS NOT TIME FOR PAIN MEDS YET. SHE IS TO BE UP IN CHAIR FOR MEALS.
--- NOTE | 2018-05-18 08:19 | NUR ---
SITTING IN CHAIR FOR BREAKFAST. DILAUDID AND PHENERGAN GIVEN PER REQUEST.
--- NOTE | 2018-05-18 08:52 | NUR ---
PATIENT IS BACK IN THE BED LAYING ON LEFT SIDE. MIDLINE ABDOMNIAL DRESSING DATED 04/18/18 AND DRY DRESSINGS SEEN ON EITHER SIDE OF ABDOMEN WHERE TEODORA SITES WERE. INFORMED PATIENT THAT ALL DRESSINGS AND RIGHT IJ WILL BE CHANGED TODAY PAST DIALYSIS.
[2018-05-18 09:34] VITALS: BP 156/94
--- NOTE | 2018-05-18 10:34 | NUR ---
PATIENT TO FINSIH UP HER SHOWER, REFUSES BED LINEN CHANGE WHEN ASKED.
--- NOTE | 2018-05-18 10:53 | NUR ---
MIDLINE ABDOMINAL DRESSING CHANGED. INCISION IS SEEN WITH FLAQUITA INTACT. HEALING. COVERED WITH CLEAN AIRSTIP DRESSING AND DATED. BILATERAL TEODORA DRAIN SITE HOLES COVERED WITH CLEAN 2 X 2 AND TAPE. DID NOT CHANGE RIGHT IJ DRESSING YET PATIENT MAY BE DISCHARGED.
--- NOTE | 2018-05-18 10:54 | NUR ---
TRYING TO CALL DIALYSIS SUITE TO SEE WHEN SHE WILL HAVE TREATEMENT. LINE IS BUSY EACH TIME.
[2018-05-18 12:13] VITALS: BP 141/90
--- NOTE | 2018-05-18 12:13 | NUR ---
INFORMED AILYN THAT SHE IS BEING DISCHARGED. SHE IS ASKING FOR SOMETHING FOR PAIN, I TOLD HER THAT I CAN NOT GIVE HER THE DIALUDID. I CALLED AND SPOKE WITH HENRY MACE APN FOR NEW ORDERS.
--- NOTE | 2018-05-18 13:07 | NUR ---
SPOKE WITH MICHAEL AMBROSE, AT DR. BLANKENSHIP'S OFFICE. THEY WILL SEE HER WEDNESDAY AT 3:30 FOR POST OP AND STAPLE REMOVAL. WILL HAVE PT CONTINUE DAILY DRESSING CHANGE TO ABDOMINAL DRESSING.
--- NOTE | 2018-05-18 13:37 | NUR ---
TO DIALYSIS VIA BED.
--- NOTE | 2018-05-18 14:33 | NUR ---
STILL OFF FLOOR IN DIALYSIS.
--- NOTE | 2018-05-18 15:41 | NUR ---
DIALYSIS TO CALL AND ASK ME FOR PAIN MEDICATION FOR LETYT. I TOLD OSEI THAT HER NORCO WAS GIVEN AT 1220 AND IT WAS EVERY 6 HOURS. HE SAID OKAY.
--- NOTE | 2018-05-18 16:32 | NUR ---
1630-TO RETURN FROM DIALYSIS VIA BED. RIGHT IJ REMOVED WITH TIP INTACT. TO LAY FLAT X 15 MIN. CLEAN 2 X 2 AND OPSITE PLACED. CALL LIGHT IS IN USE.
--- NOTE | 2018-05-18 17:06 | MORECARE ---
CASE MANAGEMENT DISCHARGE SUMMARY PATIENT: PARISH KWAN UNIT: [id number] ADM DATE: 05/13/18 AGE: 37 : [birth year] SEX: F ROOM/BED: D.5786 AUTHOR: JOHN,DOC PHYSICIAN: REFERRING PHYSICIAN: PEBBLES BAPTISTE MD DATE OF SERVICE: 05/18/18 Discharge Plan Patient Name: PARISH KWAN Facility: [facility]:[place] : 1980 Planned Disposition: Home Anticipated Discharge Date: 05/18/18 Discharge Date: Expected LOS: 5 Initial Reviewer: [email or web address] Initial Review Date: 05/18/2018 Generated: 05/18/18 6:05 pm Comments DCP- Discharge Planning Updated by [email or web address]: Kaz Araya on 05/18/18 4:[address] Patient Name: PARISH KWAN Admission Status: Elective Accout number: [id number] Admission Date: 05-13-2018 : 1980 Admission Diagnosis:POLYCYSTIC KIDNEY, UNSPECIFIED Attending: PEBBLES BAPTISTE Current LOS: 5 Anticipated DC Date: 05-18-2018 Planned Disposition: Home Primary Insurance: [email or web address] MEDICARE ADV Discharge Planning Comments: CM MET WITH PT AND FIANCE IN ROOM TO DISCUSS DISCHARGE PLANNING AND NEEDS. PARISH KWAN provided verbal consent to discuss current and ongoing needs with/in the presence of: BARON BRANTLEY. PT REPORTS LIVING AT HOME INDEPENDENTLY WITH HER FIHEVER. PT HAS NO MEDICAL EQUIPMENT AND NO OUTSIDE SERVICES ASSISTING IN THE HOME. PT HAS OUTPATIENT DIALYSIS IN [place] ON MWF, 0600 AM SCHEDULE AND DRIVES SELF. CM DISCUSSED AVAILABILITY OF HOME HEALTH, REHAB SERVICES AND MEDICAL EQUIPMENT. PT DENIES DISCHARGE NEEDS, REPORTS HER FIANCE IS HERE TO PICK HER UP FOR DISCHARGE HOME TONIGHT. IMPORTANT MESSAGE FROM MEDICARE PROVIDED AND EXPLAINED. Mold Filling Operator: Kaz Araya DCPIA - Discharge Planning Initial Assessment Updated by [email or web address]: Kaz Araya on 05/18/18 5:05 pm * Is the patient Alert and Oriented? Yes * How many steps to enter\exit or inside your home? * PCP DR. BAPTISTE * Pharmacy [facility] IN [place] * Preadmission Environment Home with Family * ADLs Independent * Equipment None * Other Equipment NO MEDICAL EQUIPMENT PROVIDER PREFERENCE * List name and contact numbers for known caregivers / representatives who currently or will assist patient after discharge: BARON BRANTLEY, * Verbal permission to speak to the caregivers and representatives has been obtained from the patient. Yes * Community resources currently utilized Other * Please name any agencies selected above. OUTPATIENT DIALYSIS, [facility], MWF, 0600AM, PT DRIVES SELF * Additional services required to return to the preadmission environment? No * Can the patient safely return to the preadmission environment? Yes * Has this patient been hospitalized within the prior 30 days at any hospital? No Coverage Notice Reviewer: [email or web address] Kalani Araya Notice Issued Date-Time: 05/18/2018 16:58 Notice Type: IM Discharge Notice Notice Delivered To: Patient Relationship to Patient: French Professor Name: Delivery Method: HAND - Hand Delivered Magda Days: Prior Verbal Notification: Recipient Understood Notice: Yes Recipient Signature: Yes Med Rec Note Co-signed by Attending: Coverage Notice Comment: Patient Name: PARISH KWAN Page [phone] at 1706 All edits/amendments must be made on the electronic document DICTATION DATE: 05/18/18 170 RADIATOR SPECIALIST: DIAMANTE 05/18/18 170 RPT#: [id number] DC DATE: STATUS: ADM IN [facility] [address] [place] [address] END OF REPORT
--- NOTE | 2018-05-18 17:24 | NUR ---
VERBAL AND WRITTEN DISCHARGE INSTRUCIONS GIVEN TO PATIENT ALONG WITH WRITTEN SCRIPT FOR NORCO 10 MG #60 WITH NO REFILLS. VERBAL AND WRITTEN DISCHARGE INSTRUCTIONS GIVEN TO PATIENT. DISCHARGED HOME VIA WHEELCHAIR.
--- NOTE | 2018-05-20 11:03 | OP ---
PATIENT NAME: PARISH KWAN MEDICAL RECORD: [id number] :[birth year] LOCATION:D.M2 D.2139 ADMISSION DATE:05/13/18 SURGEON: PEBBLES CARMONA MD DATE OF OPERATION: 05/13/2018 PREOPERATIVE DIAGNOSES: 1. Pain secondary to huge bilateral polycystic kidneys. 2. End-stage renal disease. POSTOPERATIVE DIAGNOSES: 1. Pain secondary to huge bilateral polycystic kidneys. 2. End-stage renal disease. PROCEDURE: Bilateral open simple nephrectomies. This is an assistance note. Dr. Blankenship was the operative surgeon. I was the care team assistant. DESCRIPTION OF PROCEDURE: My involvement in the operation included scrubbing in during the midline exposure. Some dissection over the convexity of both kidneys after releasing the white line of Toldt on the right and the left. Some isolation of blood vessels. Ligation of some vascular structures as well as division of some vascular structures. Some assistance with isolation of ureters. Irrigation and suctioning. Packing the cavities. Some assistance with removal of the operative specimen. I was present throughout the entire operation. I was present for the closure as well. I assisted Dr. Blankenship with the fascial closure as well as with the cutaneous closure. It was necessary for 2 attending operative surgeons be presence throughout this operation due to the complexity of the procedure. TRANSINT:[id number] Voice Confirmation ID: [id number] DOCUMENT ID: [id number] PEBBLES CARMONA MD at 1103 CC: ABRAHAM BLANKENSHIP and PEBBLES BAPTISTE MD [id number] DICTATION DATE: 05/16/18 1323 FORM PRESSER: 05/16/18 1503 DIS IN 05/18/18 [place] [id number] [place] [id number]
--- NOTE | 2018-05-20 15:51 | OP ---
PATIENT NAME: VA MILLER MEDICAL RECORD: [id number] :[birth year] LOCATION:D.M2 D.2139 ADMISSION DATE:05/13/18 SURGEON: ABRAHAM BLANKENSHIP MD DATE OF OPERATION: 05/13/2018 REFERRING PHYSICIAN: Pebbles Conteh MD PREOPERATIVE DIAGNOSES: Polycystic kidney disease, end-stage renal disease on dialysis and dependence on hemodialysis. POSTOPERATIVE DIAGNOSES: Polycystic kidney disease, end-stage renal disease on dialysis and dependence on hemodialysis. OPERATION PERFORMED: Open bilateral nephrectomy with partial ureterectomy. SURGEON: Abraham Blankenship MD INDUSTRIAL PAINTER: Pebbles Foley MD ANESTHESIA: General endotracheal. PREOPERATIVE NOTE: Va Miller is a 37-year-old white female patient from [place], [place]. Her date of is 1980. She has chronic pain due to her polycystic kidney disease and is already on hemodialysis with an AV fistula in her right arm. She requires bilateral nephrectomy for pain control and is brought to the operating room to have that done. She has had an epidural catheter placed by RADIATION CONTROL HEALTH PHYSICIST and the operation will be conducted under general endotracheal anesthesia. With the patient under anesthesia in supine position, she was prepped and draped in a sterile manner. First, using ultrasound guidance and micropuncture technique, I accessed percutaneously her right internal jugular vein. I noted on ultrasound that the vein was quite large, though not turgid. Obviously, her central venous vasculature is full. I made a small incision and inserted a guidewire and dilator and lastly a triple lumen Arrowg+fabby central venous line. It was sutured in place with 2-0 Prolene and a standard CVL dressing applied. The golf ball molder utilized the central line for monitoring of central venous pressures, as well as IV access throughout the procedure. A midline incision was made from xiphoid to umbilicus and hemostasis obtained with electrocautery. The abdomen was explored and other than very large polycystic kidneys and multiple cysts in both right and left lobes of the liver, there really was no other abnormality. The left side was approached first. The splenic flexure was mobilized and blunt and sharp and electrocautery dissection used to free the kidney from attachments. The ureter was exposed and multiply clipped and divided. The ovarian vein was exposed and multiply clipped and divided and the renal vein exposed and multiple ligated with 0 silk clipped and divided. The renal artery lateral to the origin of the adrenal artery was multiply ligated with 0 silk, clipped and divided and the adrenal gland from the kidney and the kidney removed. Hemostasis was obtained with additional use of clips and electrocautery and the wound was packed with dry laparotomy sponges. The right side was then approached. The colon was mobilized and the duodenum mobilized in a generous Julia maneuver. The kidney was dissected free from the OPERATIVE REPORT [id number] [place] A surrounding structures primarily with blunt dissection. The ureter was identified and multiply clipped and divided. The renal vein was identified and ligated multiply with 0 silk and clipped and divided. The artery was then exposed and multiply clipped, ligated, and divided as well. The adrenal gland was bluntly dissected from the cystic kidney and that kidney was removed. Both kidneys were sent to pathology for routine histopathology. The right side was packed with dry laparotomy sponges. Then, both sides were again examined and irrigated with saline. Hemostasis was found to be adequate. We left two 19-[place] Citizen closed suction Bard fluted drains in the retroperitoneum brought out through lateral stab incisions and attached to suction. The viscera were replaced in normal anatomic position. Repeated sponge count was correct and the abdominal wound was then closed with a running looped 0 PDS. The skin was closed with irwin and a sterile dressing applied. She was awakened and successfully extubated and taken to the recovery room. Blood loss during the procedure was brisk, especially initially. Blood loss was estimated about 700 cc. She was given 1 unit of packed red blood cells intraoperatively. She was also given 20 mcg of DDAVP intravenously. We will keep the patient in the ICU postop and she will continue to have postoperative pain management per anesthesia utilizing her epidural catheter. I anticipate that she will have dialysis tomorrow or perhaps Wednesday and be in the hospital about a week. Dr. Foley was present throughout the operation acting as bilingual administrative assistant and was especially helpful. TRANSINT:[id number] Voice Confirmation ID: [id number] DOCUMENT ID: [id number] cc: [facility] ABRAHAM BLANKENSHIP MD at 1557 CC: [facility] and PEBBLES CONTEH MD [id number] DICTATION DATE: 05/13/18 1125 HOG RAISER: 05/13/18 1245 DIS IN 05/18/18 [facility] [address] [place] [address]
== END 2018-05-18 17:25 | disposition home or self-care (01) | DRG 660 ==
LOC: D.ICU 05-13 06:11 → D.SDCHOLD 05-13 06:11 → D.ICU 05-13 11:33 → D.M2 05-17 14:59
PROVIDERS: Internal Medicine Nephrology; Surgery; ADMIT Internal Medicine Nephrology; ATTEND Internal Medicine Nephrology
PROC: 0TT20ZZ Resection of Bilateral Kidneys, Open Approach (ICD-10-PCS; principal; 2018-05-13 08:00)
PROC: 0TB60ZZ Excision of Right Ureter, Open Approach (ICD-10-PCS; 2018-05-13 08:00)
DX: Q61.3 Polycystic kidney, unspecified (principal); I12.0 Hypertensive chronic kidney disease with stage 5 chronic kidney disease or end stage renal disease; K56.7 Ileus, unspecified; N18.6 End stage renal disease; Z99.2 Dependence on renal dialysis; R10.9 Unspecified abdominal pain; K31.89 Other diseases of stomach and duodenum

== ENCOUNTER 2018-06-15 18:55 | Emergency (ER) | payer MEDICARE, MEDICAID ==
[~2018-06-15] VITALS: Ht 160 cm; Wt 77.3 kg
[~2018-06-15 18:55] MED LIST changes: +PROZAC40 MG PO
[2018-06-15 19:10] VITALS: Ht 160 cm; Wt 77.3 kg
[2018-06-15 20:38] LABS: BASOPHILS 0.4 % (0-2); EOSINOPHILS 3.4 % (0-7); HEMATOCRIT 31.6 % (36.0-48.0); HEMOGLOBIN 9.8 g/dL (12-16); IMMATURE GRANULOCYTES 0.2 % (0-5); LYMPHOCYTES 22.1 % (15-50); MCH 32.9 pg (26.0-34.0); MONOCYTES 6.1 % (2-11); NEUTROPHILS 67.8 % (40-80); RBC 2.98 10x6/uL (4.00-5.40); RDW 14.7 % (11.5-14.5); WBC 5.3 10x3/uL (4.8-10.8)
[2018-06-15 20:41] LABS: PLATELET COUNT 124 10x3/uL (130-400)
[2018-06-15 20:48] LABS: ALKALINE PHOSPHATASE 80 U/L (46-116); ALT (SGPT) 13 U/L (10-68); APTT 28.5 SECONDS (22.8-39.4); BILIRUBIN - TOTAL 0.27 mg/dL (0.2-1.3); CALC OSMOLALITY 280 mosm/kg (275-300); CALCIUM 8.5 mg/dL (8.5-10.1); CARBON DIOXIDE 28.8 mmol/L (21.0-32.0); CHLORIDE - SERUM 102 mmol/L (98-107); GLUCOSE 106 mg/dL (74-106); INR 1.18 (0.85-1.17); POTASSIUM - SERUM 4.2 mmol/L (3.5-5.1); PROTEIN - SERUM 6.8 g/dL (6.4-8.2); PROTIME 14.5 SECONDS (11.6-15.0); SODIUM 139 mmol/L (136-145); UREA NITROGEN 21 mg/dL (7-18); eGFR NON AFRICAN AMERICAN 10 mL/min (90-120)
[2018-06-15 20:50] LABS: D-DIMER-QUANTITATIVE 1.86 ug/mLFEU (0.20-0.54)
[2018-06-15 20:59] LABS: CKMB 0.6 U/L (0.0-3.6); CREATINE KINASE 53 UL (21-215); MAGNESIUM - SERUM 1.8 mg/dL (1.8-2.4); TROPONIN-I 0.052 ng/mL (0.000-0.060)
[2018-06-16 00:11] VITALS: BP 125/74
== END 2018-06-16 00:12 | disposition home or self-care (01) ==
LOC: D.ER 18:55
PROVIDERS: Emergency Medicine
DX: R07.9 Chest pain, unspecified (principal); I12.0 Hypertensive chronic kidney disease with stage 5 chronic kidney disease or end stage renal disease; N18.6 End stage renal disease; Z99.2 Dependence on renal dialysis

== ENCOUNTER 2018-11-20 21:01 | Observation (INO) | payer MEDICARE, MEDICAID ==
[~2018-11-20] VITALS: Ht 160 cm; Wt 69.9 kg
--- NOTE | 2018-11-20 21:42 | NUR ---
TRANSFER FROM [facility] IN [place] FOR ELEVATED LAB. K+ LEVEL WAS 6.7. STATES THAT SHE LAST RECEIVED DIALYSIS ON WEDNESDAY. NORMAL DAYS ARE M-W-. C/O ABD DISTENSION FOR 1 MONTH. GENERALIZED TENEDERNESS. BS+.
--- NOTE | 2018-11-20 21:45 | NUR ---
MIDLINE CATH NOTED UPON ARRIVAL TO [facility]. DRSG INTACT.
[2018-11-20 22:16] LABS: ALBUMIN 3.1 g/dL (3.4-5.0); BILIRUBIN - TOTAL 0.72 mg/dL (0.2-1.3); CARBON DIOXIDE 21.7 mmol/L (21.0-32.0); PROTEIN - SERUM 6.8 g/dL (6.4-8.2)
[2018-11-20 22:19] LABS: ANION GAP 19.6 mmol/L (8-16)
[2018-11-20 22:22] LABS: POTASSIUM - SERUM 6.3 mmol/L (3.5-5.1)
--- NOTE | 2018-11-21 00:45 | NUR ---
RECIEVED TO FLOOR ACCOMPANIED BY STAFF. A&O X 4. AMBULATES AD ABISAI. REPORTS 9/10 PAIN IN HEAD, ABDOMEN, AND CHEST. REPORTS MORPHINE DID NOT AFFECT HER AT ALL IN ER. INFORMED OF NPO STATUS. PT DENIES FURTHER NEEDS OTHER THAN DIFFERENT PAIN MEDICATION.
[2018-11-21 00:46] VITALS: BP 162/100; BMI 27.3
[2018-11-21 01:51] VITALS: BP 189/119
[2018-11-21 04:00] VITALS: BP 181/112
[2018-11-21 06:45] LABS: BASOPHILS 0.2 % (0-2); HEMATOCRIT 32.3 % (36.0-48.0); HEMOGLOBIN 10.4 g/dL (12-16); IMMATURE GRANULOCYTES 0.4 % (0-5); MCHC 32.2 g/dL (31.0-37.0); MCV 102.5 fL (80.0-100.0); MONOCYTES 6.8 % (2-11); NEUTROPHILS 80.6 % (40-80); PLATELET COUNT 138 10x3/uL (130-400); RBC 3.15 10x6/uL (4.00-5.40); RDW 15.7 % (11.5-14.5); WBC 12.3 10x3/uL (4.8-10.8)
[2018-11-21 07:07] LABS: ANION GAP 22.3 mmol/L (8-16); BILIRUBIN - TOTAL 0.64 mg/dL (0.2-1.3); CALCIUM 10.3 mg/dL (8.5-10.1); CARBON DIOXIDE 19.5 mmol/L (21.0-32.0); CREATININE - SERUM 7.5 mg/dL (0.6-1.3); MAGNESIUM - SERUM 2.1 mg/dL (1.8-2.4); PHOSPHOROUS 4.8 mg/dL (2.5-4.9); PROTEIN - SERUM 6.4 g/dL (6.4-8.2)
[2018-11-21 07:12] LABS: POTASSIUM - SERUM 6.8 mmol/L (3.5-5.1)
[2018-11-21 08:00] VITALS: BP 146/91
--- NOTE | 2018-11-21 10:28 | NUR ---
PT RESTING IN BED. NO SIGNS OF DISTRESS. IV TO LEFT UPPER ARM PATENT NO REDNESS OR TENDERNESS. COMPLAINS ON NAUSEA AND PAIN. MEDICATIONS GIVEN. HAS FISTLA TO RIGHT ARM. DENIES ANY FURTHER NEED AT THIS TIME. CALL LIGHT IN REACH. BED LOW POSITION. NO FAMILY AT BEDSIDE AT THIS TIME.
[2018-11-21 15:05] VITALS: Ht 160 cm; Wt 69.9 kg
[2018-11-21 16:00] VITALS: BP 149/89
--- NOTE | 2018-11-21 17:24 | NUR ---
I have reviewed this patient and I concur with the Shift Assessment completed by the Licensed Practical Nurse today this shift.
[2018-11-21 17:35] LABS: ALBUMIN 2.8 g/dL (3.4-5.0); BILIRUBIN - TOTAL 0.81 mg/dL (0.2-1.3); PROTEIN - SERUM 5.8 g/dL (6.4-8.2)
[2018-11-21 17:36] LABS: ANION GAP 17.8 mmol/L (8-16); CARBON DIOXIDE 26.5 mmol/L (21.0-32.0); CREATININE - SERUM 4.1 mg/dL (0.6-1.3); POTASSIUM - SERUM 4.3 mmol/L (3.5-5.1)
[2018-11-21 20:18] VITALS: BP 130/75
--- NOTE | 2018-11-21 21:16 | NUR ---
PT FINISHED HER SHOWER AND REST IN BED.
[2018-11-22] VITALS: BP 144/87
--- NOTE | 2018-11-22 01:12 | NUR ---
REST IN BED. CALL LIGHT IN REACH.
[2018-11-22 04:00] VITALS: BP 144/98
--- NOTE | 2018-11-22 05:40 | NUR ---
REST IN BED. CALL LIGHT IN REACH.
[2018-11-22 07:13] LABS: BASOPHILS 0.2 % (0-2); EOSINOPHILS 3.3 % (0-7); HEMATOCRIT 33.5 % (36.0-48.0); HEMOGLOBIN 10.8 g/dL (12-16); IMMATURE GRANULOCYTES 0.2 % (0-5); LYMPHOCYTES 15.3 % (15-50); MCH 32.9 pg (26.0-34.0); MCHC 32.2 g/dL (31.0-37.0); MCV 102.1 fL (80.0-100.0); MEAN PLATELET VOLUME 10.2 fL (7.4-10.4); MONOCYTES 7.8 % (2-11); NEUTROPHILS 73.2 % (40-80); PLATELET COUNT 120 10x3/uL (130-400); RBC 3.28 10x6/uL (4.00-5.40); RDW 15.5 % (11.5-14.5)
[2018-11-22 07:17] LABS: WBC 8.9 10x3/uL (4.8-10.8)
[2018-11-22 07:18] LABS: APTT 29.2 SECONDS (22.8-39.4); INR 1.25 (0.85-1.17); PROTIME 15.1 SECONDS (11.6-15.0)
[2018-11-22 07:26] LABS: ALBUMIN 2.8 g/dL (3.4-5.0); BILIRUBIN - DIRECT 0.29 mg/dL (0.00-0.30); BILIRUBIN - INDIRECT 0.43 mg/dL (0.00-1.00); BILIRUBIN - TOTAL 0.72 mg/dL (0.2-1.3); CALCIUM 9.2 mg/dL (8.5-10.1); CARBON DIOXIDE 27.1 mmol/L (21.0-32.0); PHOSPHOROUS 5.4 mg/dL (2.5-4.9); PROTEIN - SERUM 6.1 g/dL (6.4-8.2)
[2018-11-22 07:32] LABS: ANION GAP 15.4 mmol/L (8-16); CREATININE - SERUM 5.6 mg/dL (0.6-1.3); POTASSIUM - SERUM 5.5 mmol/L (3.5-5.1)
--- NOTE | 2018-11-22 07:57 | NUR ---
IR-- PARACENTESIS CANCELLED DUE TO TRACE AMOUNT OF FLUID NOTED ON ABD US PER DR HAZEL.
--- NOTE | 2018-11-22 08:00 | NUR ---
PATIENT LYING ON LEFT SIDE IN BED. NO DISTRESS NOTED. DENIES ANY NEEDS. RIGHT ARM FISTULA HAS GOOD BRUIT AND THRILL.
[2018-11-22 10:05] VITALS: BP 142/86
--- NOTE | 2018-11-22 11:15 | NUR ---
TO RADIOLOGY FOR CT OF ABDOMEN AND PELVIS VIA W/C.
--- NOTE | 2018-11-22 15:12 | MORECARE ---
CASE MANAGEMENT DISCHARGE SUMMARY PATIENT: PARISH KWAN UNIT: [id number] ADM DATE: 11/21/18 AGE: 37 : 84 SEX: F ROOM/BED: D.1212 AUTHOR: JOHN,DOC PHYSICIAN: REFERRING PHYSICIAN: TORTSEN TRIPLETT MD DATE OF SERVICE: 11/22/18 Discharge Plan Patient Name: PARISH KWAN Facility: [facility]:[place] : 1980 Planned Disposition: Home Anticipated Discharge Date: 11/22/18 Discharge Date: Expected LOS: 1 Initial Reviewer: [email or web address] Initial Review Date: 11/22/2018 Generated: 11/22/18 4:12 pm Comments DCP- Discharge Planning Updated by [email or web address]: Kaz Araya on 11/22/18 2:[address] Patient Name: PARISH KWAN Admission Status: ER Accout number: [id number] Admission Date: 11-21-2018 : 1980 Admission Diagnosis: Attending: TORSTEN TRIPLETT Current LOS: 1 Anticipated DC Date: 11-22-2018 Planned Disposition: Home Primary Insurance: [employer] MEDICARE ADV Discharge Planning Comments: CM MET WITH PT IN ROOM TO DISCUSS DISCHARGE PLANNING AND NEEDS. PT REPORTS LIVING AT HOME INDEPENDENTLY WITH HER FRIEND. PT HAS NO MEDICAL EQUIPMENT AND NO OUTSIDE SERVICES ASSISTING IN THE HOME. CM DISCUSSED AVAILABILITY OF HOME HEALTH, REHAB SERVICES AND MEDICAL EQUIPMENT. PT DENIES DISCHARGE NEEDS, REPORTS HER FRIEND WILL PICK HER UP FOR DISCHARGE HOME. Bisque Tile Burner: Kaz Araya DCPIA - Discharge Planning Initial Assessment Updated by [email or web address]: Kaz Araya on 11/22/18 3:08 pm * Is the patient Alert and Oriented? Yes * How many steps to enter\exit or inside your home? NONE * PCP DR. BAPTISTE * Pharmacy [facility] IN [place] * Preadmission Environment Home with Family * ADLs Independent * Equipment None * Other Equipment NO MEDICAL EQUIPMENT PROVIDER PREFERENCE * List name and contact numbers for known caregivers / representatives who currently or will assist patient after discharge: GARY VÁZQUEZ, FRIEND, * Verbal permission to speak to the caregivers and representatives has been obtained from the patient. N/A * Community resources currently utilized Other * Please name any agencies selected above. OUTPATIENT DIALYSIS, [facility], 0600AM, DRIVES SELF * Additional services required to return to the preadmission environment? No * Can the patient safely return to the preadmission environment? Yes * Has this patient been hospitalized within the prior 30 days at any hospital? No Patient Name: PARISH KWAN Page [id number] at 1512 All edits/amendments must be made on the electronic document DICTATION DATE: 11/22/181511 VISITING NURSE: DIAMANTE 11/22/181511 RPT#: [id number] DC DATE: STATUS: ADM IN [facility] [address] [place] [address] END OF REPORT
--- NOTE | 2018-11-22 16:00 | NUR ---
TO IR FOR PARACENTESIS PROCEDURE VIA BED.
--- NOTE | 2018-11-22 17:20 | NUR ---
RETURNED TO ROOM VIA BED. NO DISTRESS NOTED.
--- NOTE | 2018-11-22 18:40 | NUR ---
DISCHARGED VIA W/C PER CAR WITH . DISCHARGE INSTRUCTIONS REVIEWED AND VERBALIZES UNDERSTANDING. IV MID-LINE CATHETER D/C AND PRESSURE APPLIED. PRESSURE DRESSING IN PLACE.
== END 2018-11-22 18:40 | disposition home or self-care (01) ==
LOC: D.ER 21:01 → OBSVTIME 22:48 → D.M3 22:48 → D.SDCHOLD 11-21 09:26 → D.M3 11-21 09:29
PROVIDERS: Family Medicine; General Practice; Internal Medicine Nephrology; ADMIT Internal Medicine Nephrology; ATTEND Internal Medicine Nephrology
DX: E87.5 Hyperkalemia (principal); N18.6 End stage renal disease; I12.0 Hypertensive chronic kidney disease with stage 5 chronic kidney disease or end stage renal disease; R18.8 Other ascites; Z99.2 Dependence on renal dialysis; D63.1 Anemia in chronic kidney disease; Z91.15 Patient's noncompliance with renal dialysis; G89.4 Chronic pain syndrome

== ENCOUNTER 2018-12-20 06:19 | Outpatient (CLI) | payer MEDICARE, MEDICAID ==
--- NOTE | 2018-12-19 09:46 | NUR ---
ATTEMPTED TO CALL PATIENT NO ANSWER.
[~2018-12-20] VITALS: Ht 160 cm; Wt 70.5 kg
[2018-12-20 06:43] LABS: BASOPHILS 0.3 % (0-2); EOSINOPHILS 4.6 % (0-7); HEMATOCRIT 35.3 % (36.0-48.0); HEMOGLOBIN 11.1 g/dL (12-16); IMMATURE GRANULOCYTES 0.3 % (0-5); LYMPHOCYTES 15.8 % (15-50); MCH 32.9 pg (26.0-34.0); MCHC 31.4 g/dL (31.0-37.0); MCV 104.7 fL (80.0-100.0); MEAN PLATELET VOLUME 9.1 fL (7.4-10.4); MONOCYTES 5.6 % (2-11); NEUTROPHILS 73.4 % (40-80); PLATELET COUNT 143 10x3/uL (130-400); RBC 3.37 10x6/uL (4.00-5.40); RDW 15.5 % (11.5-14.5); WBC 9.8 10x3/uL (4.8-10.8)
[2018-12-20 06:58] LABS: ANION GAP 15.5 mmol/L (8-16); CALCIUM 9.1 mg/dL (8.5-10.1); CARBON DIOXIDE 28.8 mmol/L (21.0-32.0); CREATININE - SERUM 5.1 mg/dL (0.6-1.3); POTASSIUM - SERUM 4.3 mmol/L (3.5-5.1)
[2018-12-20 06:59] LABS: APTT 28.5 SECONDS (22.8-39.4); INR 1.29 (0.85-1.17); PROTIME 15.6 SECONDS (11.6-15.0)
[2018-12-20] MEDS ORDERED: HYDROCODONE-A1 UDTA2 PO (07:02)
[2018-12-20 07:07] VITALS: BP 160/112; Ht 160 cm; Wt 70.5 kg
--- NOTE | 2018-12-20 07:17 | NUR ---
INFORMED MICHAEL MOJICA OF PT/INR LEVELS, THE CHART HAD NO H&P, AND THAT THE SERUM DRUG SCREEN HAD NOT BEEN DONE YET (HOWEVER LAB ON WAY TO DRAW BLOOD).
[2018-12-20 07:30] LABS: ALBUMIN 3.1 g/dL (3.4-5.0); BILIRUBIN - TOTAL 0.59 mg/dL (0.2-1.3); PROTEIN - SERUM 6.6 g/dL (6.4-8.2)
[2018-12-20 08:39] LABS: HCG SERUM NEGATIVE (NEGATIVE)
--- NOTE | 2018-12-20 10:17 | NUR ---
1000 RECIEVED REPORT FROM VAHE RODRIGUEZ. PT AWAKE TOLERATED FULL LIQ BREAKFAST. INCISION SITE WITH DURABOND, DRY AND INTACT. ELEVATED HR AND B/P CONSISTANT WITH PRE OP BUT LOWER. NO COMPLAINTS NOTED. INSTRUCTED PT TO TAKE B/P MEDICATION WHEN SHE GETS HOME. INSTRUCTIONS GIVEN.
--- NOTE | 2018-12-20 10:45 | NUR ---
1045 IV REMOVED AND DRESSING APPLIED
[2018-12-20 11:36] LABS: MACROPHAGES BF 45 %; NEUT - BF 2 %
--- NOTE | 2018-12-20 11:58 | NUR ---
1145 PT WAITING FOR FRIEND TO PICK HER UP
== END 2018-12-20 12:20 | disposition home or self-care (01) ==
LOC: D.OPS 06:19 → D.RAD 06:19 → D.OPS 12:20
PROVIDERS: General Practice; ATTEND Internal Medicine Nephrology
DX: R18.8 Other ascites (principal)

== ENCOUNTER 2019-01-01 16:08 | Inpatient (IN) | payer MEDICARE, MEDICAID ==
[~2019-01-01] VITALS: Ht 160 cm; Wt 73.9 kg
--- NOTE | ~2019-01-01 | HEMODYNAMI ---
PATIENT:PARISH KWAN MEDICAL RECORD: [id number] : 84 LOCATION:[facility] D.2113 ADMISSION DATE: 01/02/19 Generatedon:01/10/201910:52 Patient name: PARISH KWAN Patient #: [id number] SSN: [id number] : 1980 Date of study: 01/10/2019 Page: Of Hemodynamic Procedure Report Patient Data Patient Demographics Procedure consent was obtained First Name: PARISH Gender: Female Last Name: AQUILES : 1980 Middle Initial: A Age: 38 year(s) Patient #: [id number] Race: SSN: [id number] Additional ID: [id number] Contact details [address]: [address] [place] [address] State: [place] City: [place] Zip code: [address] Past Medical History Allergies Allergen Reaction Date Comments Reported Stings 01/05/2019 STADOL, TORADOL, VACOMYCIN Other allergy 01/06/2019 STADOL, TORADOL, VANCOMYCIN Stadol 01/10/2019 Toradol 01/10/2019 Vancomycin 01/10/2019 Admission Admission Data Admission Date: 01/02/2019 Admission Time: 16:14 Arrival Date: 01/06/2019 Arrival Time: 0:00 Room #: [facility] Height (in.): 62.99 BSA: 1.77 (m2) Height (cm.): 160 BMI: 28.91 (kg/m2) Weight (lbs.): 163.14 Weight (kg.): 74 Lab Results Lab Result Date: 01/06/2019 Lab Result Time: 0:00 Biochemistry Name Units Result Min Max BUN mg/dl 62 --(----)-* 7 18 Creatinine mg/dl 7.3 --(----)-* 0.6 1.3 eGFR ml/min 7.213473 *-(----)-- 90 120 NONAFRICAN CBC Name Units Result Min Max Hematocrit % 31.5 *-(----)-- 42 54 Hemoglobin g/dl 9.9 *-(----)-- 13.5 17.5 Procedure Procedure Types Cath Procedure Peripheral Cath Diagnostic Procedure Cli[place] Turner Peripheral Procedures Miscellaneous Pleurex Pleurex Cath Place w/ Imaging Procedure Description Procedure Date Procedure Date: 01/10/2019 Procedure Start Time: 10:11 Procedure Staff Name Function Ky Blas MD Performing Physician Bhumika Johnson RT Elevator Dispatcher Yumiko bAraham RN Nurse NATHALIE FAN RT Scrub Procedure Medications Medication Administration Route Dosage Ancef (1Gm/50ml NS) I.V.P.B 2 g Heparin Flush Bag added to field 1 bags (1000units/500ml NS) Lidocaine 1% added to field 20 Hemodynamics Rest BSA: 1.77 (m2) O2 Consumption: Estimated: 190.35 (ml/min) O2 Consumption indexed : Estimated:107.54 (ml/min/m) Heart Rate: 81 (bpm) Snapshots Pre Cath Intra NCS Post Cath Vital Signs Time Heart Resp SPO2 etCO2 NIBP (mmHg) Rhythm Pain Sedation Rate (ipm) (%) (mmHg) Status Level (bpm) 9:51:23 78 26 94 2.2 Measuring NSR 0 (11) 10(A) , No pain 9:51:37 80 26 94 30.8 114/89(106) NSR 0 (11) 10(A) , No pain 9:55:39 80 10 94 0.7 118/79(100) NSR 0 (11) 10(A) , No pain 10:00:36 81 14 96 9.8 121/82(103) NSR 0 (11) 10(A) , No pain 10:05:35 76 12 100 33.1 Measuring NSR 0 (11) 8(A) , No pain 10:05:37 77 12 100 33.1 113/82(96) NSR 0 (11) 8(A) , No pain 10:09:43 79 12 0 108/75(96) NSR 0 (11) 8(A) , No pain 10:13:40 82 8 95 24.1 119/97(109) NSR 0 (11) 8(A) , No pain 10:18:37 78 7 100 30.9 117/79(102) NSR 0 (11) 8(A) , No pain 10:22:45 75 7 100 36.2 113/72(94) NSR 0 (11) 8(A) , No pain 10:26:51 75 8 100 42.2 111/71(90) NSR 0 (11) 8(A) , No pain 10:30:59 74 7 100 39.2 110/68(87) NSR 0 (11) 8(A) , No pain 10:35:02 77 8 100 39.9 115/78(89) NSR 0 (11) 8(A) , No pain 10:39:10 74 6 100 40.7 113/71(90) NSR 0 (11) 8(A) , No pain 10:43:18 73 11 100 39.1 108/69(89) NSR 0 (11) 8(A) , No pain 10:47:24 72 10 100 38.5 104/67(80) NSR 0 (11) 8(A) , No pain 10:51:28 75 12 100 34.6 104/68(84) NSR 0 (11) 8(A) , No pain Medications Time Medication Route Dose Verified Delivered Reason Notes Eff ectiveness by by 10:01:23 Ancef (1Gm/50ml I.V.P.B 2 g Ky Yumiko Per NS) Wan Abraham RN physician 10:01:39 Heparin Flush added 1 Ky Calderon used for Bag to bags Wan Abraham town marshal (1000units/500ml field [facility] NS) 10:01:52 Lidocaine 1% added 20ml Ky Mcpherson for local to vial Wan Blas anesthetic field MD [facility] Procedure Log Time Note 9:22:44 Patient Height : 62.99 inches 9:22:44 Patient Weight : 163.14 lbs 9:39:31 Time tracking: Regular hours (M-F 7:00 - 5:00) 9:40:30 Plan of Care:Hemodynamics will remain stable., Cardiac rhythm will remain stable., Comfort level will be maintained., Respiratory function will remain adequate., Patient/ family verbilizes understanding of procedure., Procedure tolerated without complication., Recovers from procedure without complications.. 9:40:39 Patient received from Med II to IR Alert and oriented. Tansferred to table in Supine position. 9:40:44 Signed procedure consent form obtained from patient. 9:40:49 H&P Date Dictated: 01/10/2019 Within 30 days and on chart.. 9:40:55 Pre-procedure instructions explained to patient. 9:40:55 Pre-op teaching completed and patient verbalized understanding. 9:40:59 Family unavailable. 9:41:03 Patient NPO since Midnight. 9:41:36 Patient allergic to Stadol 9:41:47 Patient allergic to Toradol 9:41:55 Patient allergic to Vancomycin 9:42:01 Is patient on blood thinner?No 9:42:38 - 9:42:39 ----Pre-sedation anethsthesia assessment.----see anesthesia notes for monitoring of patient during procedure 9:42:44 Previous problem with sedation/anesthesia? No ? 9:43:21 - 9:43:32 IV patent on arrival in left hand with D5/.45%NaCl at KVO. 9:43:39 Use device set IR Diagnostic 9:43:41 Tegaderm 4 x 4 (1626W) opened to sterile field. 9:43:42 Sterile Angiographic Pack opened to sterile field. 9:43:43 Bag Decanter () opened to sterile field. 9:43:51 - 9:44:08 Right abdomen area was prepped with chlora-prep and draped in sterile fashion 9:44:12 - 9:49:32 Vital chart was started 10:01:23 Ancef (1Gm/50ml NS) 2 g I.V.P.B was administered by Yumiko Abraham RN; Per physician; Verbal order read back and verified. 10:01:39 Heparin Flush Bag (1000units/500ml NS) 1 bags added to field was administered by Yumiko Abraham RN; used for procedure; Verbal order read back and verified. 10:01:52 Lidocaine 1% 20ml vial added to field was administered by Ky sal MD; for local anesthetic; Verbal order read back and verified. 10:10:39 ECG and BP/O2 sat monitors applied to patient. 10:10:41 Baseline sample Acquired. 10:10:44 Full Disclosure recording started 10:10:44 - 10:10:49 Physician arrived 10:10:51 --------ALL STOP TIME OUT------ 10:10:52 Final Timeout: patient, procedure, and site verified with staff and physician. All members of the team are in agreement. 10:11:06 Fire Safety Assessment: A--An alcohol-based skin anteseptic being used preoperatively., C--Open oxygen or nitrous oxide is being used. 10:11:28 Procedure started. 10:11:36 Local anesthetic to Abdominal area with Lidocaine 1% by Ky Blas MD.INITIAL ACCESS ONLY 10:33:01 Dermabond Pen opened to sterile field. 10:43:48 SUTURE SILK 2-0 BLK BR FS 18 I opened to sterile field. 10:44:47 aspira peritoneal drainage catheter placed. 1500 cc's drained 10:46:53 Procedure ended.(Physican Out) 10:49:21 Procedure and supply charges have been captured, reviewed, submitted an d are correct. 10:49:28 Report given to Med II. 10:52:50 Vital chart was stopped Device Usage Item Name Manufacture Quantity Catalog Hospital Part Current Minimal Lot# / Number Charge Number Stock Stock Serial# Code Tegaderm 4 x 3M 1 [id number] 4 (1626W) Sterile Cardinal 1 [id number] 5 Angiographic Health Pack Bag Decanter Microtek 1 [id number] [id number] [id number] 5 (2001S) [employer] Dermabond Ethicon 1 [id number] 544572 5 Pen SUTURE SILK Ethicon 1 [id number] [id number] 5 2-0 BLK BR FS 18 I Signature Audit [place] Stage Time Signature Unsigned Intra-Procedure 01/10/2019 Bhumika Johnson 10:52:46 AM RT(R) [facility] [address] [place] [address]
--- NOTE | ~2019-01-01 | HEMODYNAMI ---
PATIENT:PARISH KWAN MEDICAL RECORD: [id number] : 84 LOCATION:[facility] D.211 ADMISSION DATE: 01/02/19 Generatedon:01/05/201913:54 Patient name: PARISH KWAN Patient #: [id number] SSN: [id number] OB: 1980 Date of study: 01/05/2019 Page: Of Hemodynamic Procedure Report Patient Data Patient Demographics Procedure consent was obtained First Name: PARISH Gender: Female Last Name: AQUILES : 1980 Middle Initial: A Age: 38 year(s) Patient #: [id number] Race: Unknown Additional ID: [id number] Contact details Address: [address] [place] [address] State: [place] City: [place] Zip code: [address] Past Medical History Allergies Allergen Reaction Date Comments Reported Stings 01/05/2019 STADOL, TORADOL, VACOMYCIN Admission Admission Data Admission Date: 01/02/2019 Admission Time: 16:14 Room #: [facility] Weight (lbs.): 163.14 Weight (kg.): 74 Procedure Procedure Types Cath Procedure Diagnostic Procedure JUDD Procedure Description Procedure Date Procedure Date: 01/05/2019 Procedure Start Time: 13:34 Procedure End Time: 13:53 Procedure Staff Name Function Jewel Soria MD Performing Physician Berhane Sinha MD Additional personnel Inge Sierra RT Monitor Shannon Rodriguez RN Nurse Vladimir Monique Nutrition Intern Procedure Data Cath Procedure Estimated blood loss: 0 ml Procedure Complications No complications Procedure Medications Medication Administration Route Dosage Oxygen etCO2 Nasal cannula 4 l/min Hurricaine [place] P.O. 1 Sprays Refer to Anesthesia Notes for Sedation Medications Hemodynamics Rest Heart Rate: 84 (bpm) Snapshots Pre Cath Intra NCS Post Cath Vital Signs Time Heart Resp SPO2 etCO2 NIBP (mmHg) Rhythm Pain Sedation Rate (ipm) (%) (mmHg) Status Level (bpm) 13:31:25 82 22 97 0 129/95(121) NSR 0 (11) 10(A) , No pain 13:35:37 87 23 98 32.3 129/78(100) NSR 0 (11) 9(A) , No pain 13:39:45 81 21 95 0 102/74(88) NSR 0 (11) 9(A) , No pain 13:43:47 80 18 92 24.7 114/76(94) NSR 0 (11) 9(A) , No pain 13:47:52 77 12 92 31.5 114/75(90) NSR 0 (11) 9(A) , No pain 13:51:01 74 14 94 22.5 109/67(93) NSR 0 (11) 10(A) , No pain Medications Time Medication Route Dose Verified Delivered Reason Notes Effectiv eness by by 13:25:31 Oxygen etCO2 4 Jewel Ortega used for Nasal l/min [facility] Joe Rodriguez RN procedure cannula 13:30:42 Hurricaine P.O. 1 Jewel Ortega Per [place] Sprays [facility] Joe Rodriguez RN physician 13:30:46 Refer to Jewel Ortega Anesthesia [facility] Joe Rodriguez RN Notes for MD Sedation Medications Procedure Log Time Note 13:15:01 Informed consent obtained and on chart 13:15:39 Procedure Status Urgent Heart Cath (IP). 13:15:41 Shannon Rodriguez RN sent for patient. Start room use. 13:15:42 Time tracking: Regular hours (M-F 7:00 - 5:00) 13:15:44 Plan of Care:Hemodynamics will remain stable., Cardiac rhythm will remain stable., Comfort level will be maintained., Respiratory function will remain adequate., Patient/ family verbilizes understanding of procedure., Procedure tolerated without complication., Recovers from procedure without complications.. 13:15:49 H&P Date Dictated: 01/05/2019 New H&P dictated by physician.. 13:20:45 Patient Weight : 163.14 lbs 13:22:05 Patient allergic to StingsSTADOL, TORADOL, VACOMYCIN 13:22:18 Berhane Sinha MD present and monitoring patient for TIVA. 13:23:48 Patient arrived from Med II to CCL 1. Patient remains on bed/stretcher for procedure. 13:23:50 Warm blankets applied, and kia hugger turned on for patient comfort. 13:23:50 Correct patient and procedure confirmed by team. 13:23:51 ECG and BP/O2 sat monitors applied to patient. 13:24:07 Pre-procedure instructions explained to patient. 13:25:31 Oxygen 4 l/min etCO2 Nasal cannula was administered by Shannon Rodriguez RN; used for procedure; Verbal order read back and verified. 13:30:20 Vital chart was started 13:30:22 Baseline sample Acquired. 13:30:28 Rhythm: sinus rhythm 13:30:30 Full Disclosure recording started 13:30:32 Pre-op teaching completed and patient verbalized understanding. 13:30:34 Family in patients room. 13:30:36 Patient NPO since Midnight. 13:30:41 Is the patient allergic to Iodine/contrast media? No. 13:30:42 Hurricaine [place] 1 Sprays P.O. was administered by Shannon Rodriguez RN; Per physician; Verbal order read back and verified. 13:30:42 Is patient on blood thinner?No 13:30:43 Patient diabetic? No. 13:30:45 Patient not . Patient has had tubal. 13:30:46 Refer to Anesthesia Notes for Sedation Medications was administered by Shannon Rodriguez RN; ; Verbal order read back and verified. 13:30:49 Previous problem with sedation/anesthesia? No ? 13:30:54 Snore? Yes 13:30:56 Sleep apnea? No 13:30:58 Deviated septum? No 13:30:59 Opens mouth fully? Yes 13:31:00 Sticks out tongue? Yes 13:31:07 Airway obstruction? Yes ASTHMA 13:31:10 Dentures? No ? 13:31:17 IV patent on arrival in left wrist with 0.9% NaCl at [facility]. 13:31:21 Lab results completed and on chart. 13:31:26 Alarms reviewed by R. N. 13:31:26 Sharps counted by scrub and verified by R.N. 13:31:37 Vladimir Eneida Cement Cutter present for JUDD. 13:31:44 --------ALL STOP TIME OUT------ 13:31:47 Final Timeout: patient, procedure, and site verified with staff and physician. All members of the team are in agreement. 13:31:53 Physical assessment completed. ASA score P 4 - A patient with severe systemic disease that is a constant threat to life as per Jewel Soria MD. 13:31:57 Sedation plan: TIVA Medication:Propofol 13:34:03 Procedure started. 13:35:29 JUDD started. 13:42:59 JUDD completed. 13:43:05 Procedure ended.(Physican Out) 13:45:44 Post procedure rhythm: sinus rhythm 13:45:47 Estimated blood loss: 0 ml 13:45:49 Post procedure instruction explained to patient.Patient verbalizes understanding. 13:45:49 Patient needs reinforcement of post procedure teaching. 13:46:37 Procedure and supply charges have been captured, reviewed, submitted and are correct. 13:46:42 Procedure Complication : No complications 13:48:55 JUDD Findings: other - CARDIOMYOPTHY 13:49:39 Operative report dictated upon procedure completion. 13:49:39 See physician's report for complete and final results. 13:49:41 Report given to [facility] II. 13:49:44 Patient transfered to [facility] II with Bed. 13:53:43 Vital chart was stopped 13:53:46 Procedure ended. 13:53:46 Full Disclosure recording stopped 13:53:52 End room use (Document Last) 13:54:04 End room use (Document Last) 13:54:29 End room use (Document Last) Signature Audit [place] Stage Time Signature Unsigned Intra-Procedure 01/05/2019 Inge Sierra 1:54:04 PM RT(R) Intra-Procedure 01/05/2019 Shannon Rodriguez RN 1:54:29 PM Intra-Procedure 01/05/2019 Jewel Cameron 1:54:51 PM Joe [facility] [address] [address]
--- NOTE | ~2019-01-01 | HEMODYNAMI ---
PATIENT:PARISH KWAN MEDICAL RECORD: [id number] : 84 LOCATION:[facility] D.211 ADMISSION DATE: 01/02/19 Generatedon:01/06/201912:25 Patient name: PARISH KWAN Patient #: [id number] SSN: [id number] : 1980 Date of study: 01/06/2019 Page: Of Hemodynamic Procedure Report Patient Data Patient Demographics Procedure consent was obtained First Name: PARISH Gender: Female Last Name: AQUILES : 1980 Middle Initial: A Age: 38 year(s) Patient #: [id number] Race: SSN: [id number] Additional ID: [id number] Contact details [address]: [address] [place] [address] State: [place] City: [place] Zip code: [address] Past Medical History Allergies Allergen Reaction Date Comments Reported Stings 01/05/2019 STADOL, TORADOL, VACOMYCIN Other allergy 01/06/2019 STADOL, TORADOL, VANCOMYCIN Admission Admission Data Admission Date: 01/02/2019 Admission Time: 16:14 Arrival Date: 01/06/2019 Arrival Time: 0:00 Room #: [facility] Height (in.): 62.99 BSA: 1.77 (m2) Height (cm.): 160 BMI: 28.91 (kg/m2) Weight (lbs.): 163.14 Weight (kg.): 74 Lab Results Lab Result Date: 01/06/2019 Lab Result Time: 0:00 Biochemistry Name Units Result Min Max BUN mg/dl 62 --(----)-* 7 18 Creatinine mg/dl 7.3 --(----)-* 0.6 1.3 eGFR ml/min 7.251921 *-(----)-- 90 120 NONAFRICAN CBC Name Units Result Min Max Hematocrit % 31.5 *-(----)-- 42 54 Hemoglobin g/dl 9.9 *-(----)-- 13.5 17.5 Procedure Procedure Types Cath Procedure Diagnostic Procedure Right Heart RHC and LHC w/Coronaries Sedation Charges Moderate Sedation up to 30 minutes Procedure Description Procedure Date Procedure Date: 01/06/2019 Procedure Start Time: 11:52 Procedure End Time: 12:20 Procedure Staff Name Function Mike Sarah MD Performing Physician Inge Sierra RT Monitor Ирина Song RT Scrub Shannon Rodriguez RN Nurse Procedure Data Cath Procedure Fluoroscopy Diagnostic fluoroscopy Total fluoroscopy Time: 3 time: 3 min min Diagnostic fluoroscopy Total fluoroscopy dose: 313 dose: 313 mGy mGy Contrast Material Contrast Material Type Amount (ml) Isovue 300 59 Entry Location Entry Primary Successful Side Size Upsize Upsize Entry Closure Whiting ccessful Closure Location (Fr) 1 (Fr) 2 (Fr) Remarks Device Remarks Femoral Right 7 Fr Manual vein Short Compression Femoral Right 5 Fr Exoseal artery Estimated blood loss: 5 ml Diagnostic catheters Device Type Used For End Catheter Placement SWAN 7Fr Thermodilution Procedure cather (131F7P) MULTIPACK Pigtail 5 Fr Procedure catheter MULTIPACK JL 4.0 5Fr Procedure catheter MULTIPACK 3DRC 5Fr Procedure catheter Procedure Complications No complications Procedure Medications Medication Administration Route Dosage Oxygen etCO2 Nasal cannula 2 l/min Lidocaine 2% added to field 20 Heparin Flush Bag added to field 2 bags (1000units/500ml NS) 0.9% NaCl I.V. Versed I.V. 2 mg Fentanyl I.V. 50 mcg Versed I.V. 1 mg Fentanyl I.V. 50 mcg Fentanyl I.V. 50 mcg Adenosine IV 3mg/ml I.V. 50 mcg/kg/min Adenosine IV 3mg/ml I.V. 100 mcg/kg/min Adenosine IV 3mg/ml I.V. 200 mcg/kg/min Adenosine (mcg) Hemodynamics Rest BSA: 1.77 (m2) HGB: 9.9 (g/dl) O2 Consumption: Estimated: 199.34 (ml/min) O2 Con sumption indexed: Estimated:112.62 (ml/min/m) Heart Rate: 94 (bpm) Pressure Samples Time Site Value (mmHg) Purpose Heart Use Rate(bpm) 11:55 PCW 49/47(46) Snapshot 90 11:56 PA 71/40(51) Snapshot 85 11:56 PA 76/44(59) Snapshot 94 12:04 PA 74/49(58) Snapshot 93 12:04 PA 74/48(59) Snapshot 92 12:07 PA 58/36(45) Snapshot 91 12:08 RV 67/31,35 Snapshot 92 12:08 RA 31/34(30) Snapshot 92 12:08 RA 33/36(31) Snapshot 91 12:10 LV 123/24,35 Snapshot 100 Snapshots Pre Cath Intra NCS Post Cath Vital Signs Time Heart Resp SPO2 etCO2 NIBP (mmHg) Rhythm Pain Sedation Rate (ipm) (%) (mmHg) Status Level (bpm) 11:30:06 95 28 100 0 143/100(130) NSR 0 (11) 10(A) , No pain 11:34:16 93 22 100 28.5 138/96(118) NSR 0 (11) 10(A) , No pain 11:38:30 95 18 92 13.5 136/96(122) NSR 0 (11) 10(A) , No pain 11:43:12 95 11 92 8.2 144/94(116) NSR 0 (11) 10(A) , No pain 11:47:31 97 11 94 11.2 146/85(119) NSR 0 (11) 10(A) , No pain 11:51:49 93 11 93 12 138/90(112) NSR 0 (11) 9(A) , No pain 11:56:03 93 11 93 11.2 134/85(127) NSR 0 (11) 9(A) , No pain 12:00:13 94 11 92 14.3 137/102(119) NSR 0 (11) 9(A) , No pain 12:04:20 91 10 91 25.5 128/85(99) NSR 0 (11) 9(A) , No pain 12:08:32 91 12 93 33 129/72(105) NSR 0 (11) 9(A) , No pain 12:12:49 90 12 95 12.7 119/73(88) NSR 0 (11) 9(A) , No pain 12:17:00 90 12 92 12 122/72(93) NSR 0 (11) 10(A) , No pain 12:21:10 88 12 92 9.7 119/70(92) NSR 0 (11) 10(A) , No pain Medications Time Medication Route Dose Verified Delivered Reason Notes Effectiveness by by 11:31:05 Oxygen etCO2 2 l/min Mike Mckeon Nasal Keara Sarah MD cannula 11:31:15 Lidocaine 2% added 20ml vial Mike Mckeon for local to Keara Sarah MD anesthetic field 11:31:21 0.9% NaCl I.V. kvo ml/hr Mike Ortega Per pt is on Keara Rodriguez RN physician dialysis. reserve rt arm. 11:31:21 Heparin Flush added 2 bags Mike Mckeon used for Bag to Keara Sarah MD procedure (1000units/500ml field NS) 11:44:14 Versed I.V. 2 mg Mike Ortega for Keara Rodriguez RN sedation 11:44:20 Fentanyl I.V. 50 mcg Mike Ortega for Keara Rodriguez RN sedation 11:47:40 Versed I.V. 1 mg Mike Ortega for Keara Rodriguez RN sedation 11:47:45 Fentanyl I.V. 50 mcg Mike Ortega for Keara Rodriguez RN sedation 11:53:16 Fentanyl I.V. 50 mcg Mike Ortega for Keara Rodriguez RN sedation 12:02:30 Adenosine IV I.V. 50 Mike Ortega Per 3mg/ml mcg/kg/min Keara Rodriguez RN physician 12:04:52 Adenosine IV I.V. 100 Mike Ortega Per 3mg/ml mcg/kg/min Keara Rodriguez RN physician 12:07:11 Adenosine IV I.V. 200 Mike Ortega Per 3mg/ml mcg/kg/min Keara Rodriguez RN physician 12:08:27 Adenosine (mcg) stopped Mike Ortega due t o Keara Rodriguez RN increase in PVC's Procedure Log Time Note 11:00:00 Informed consent obtained and on chart 11:00:21 Patient Weight : 163.14 lbs 11:00:27 Procedure Status Urgent Heart Cath (IP). 11:00:36 Time tracking: Regular hours (M-F 7:00 - 5:00) 11:00:40 Plan of Care:Hemodynamics will remain stable., Cardiac rhythm will remain stable., Comfort level will be maintained., Respiratory function will remain adequate., Patient/ family verbilizes understanding of procedure., Procedure tolerated without complication., Recovers from procedure without complications.. 11:00:54 H&P Date Dictated: 01/06/2019 Within 30 days and on chart.. 11:01:21 Patient allergic to Other allergySTADOL, TORADOL, VANCOMYCIN 11:02:16 Lab Result : BUN 62 mg/dl 11:02:16 Lab Result : Creatinine 7.3 mg/dl 11:02:16 Lab Result : eGFR NONAFRICAN 7.318392 ml/min 11:02:16 Lab Result : Hemoglobin 9.9 g/dl 11:02:16 Lab Result : Hematocrit 31.5 % 11:02:24 Patient Height : 62.99 inches 11:02:30 Arrival Date: 01/06/2019 12:00:00 AM 11:05:40 Inge Sierra RT(R) sent for patient. Start room use. 11:29:03 Patient received from Med II to CCL 1 Alert and oriented. Tansferred to table in Supine position. 11:29:04 Warm blankets applied, and kia hugger turned on for patient comfort. 11:29:05 Correct patient and procedure confirmed by team. 11:29:05 ECG and BP/O2 sat monitors applied to patient. 11:29:06 Vital chart was started 11:29:07 Baseline sample Acquired. 11:29:09 Rhythm: sinus rhythm 11:29:10 Full Disclosure recording started 11:29:10 Pre-procedure instructions explained to patient. 11:29:11 Pre-op teaching completed and patient verbalized understanding. 11:29:12 Family unavailable. 11:29:13 Patient NPO since Midnight. 11:29:37 Is the patient allergic to Iodine/contrast media? No. 11:29:38 Is patient on blood thinner?No 11:29:40 Patient diabetic? No. 11:29:41 Patient not . Patient has had tubal. 11:29:45 Previous problem with sedation/anesthesia? No ? 11:29:48 Snore? Yes 11:29:49 Sleep apnea? No 11:29:50 Deviated septum? No 11:29:51 Opens mouth fully? Yes 11:29:51 Sticks out tongue? Yes 11:29:55 Airway obstruction? Yes ASTHMA 11:29:58 Dentures? No ? 11:30:01 Pre procedure: right dorsailis pedis pulse 1+ Palpable, but thready & weak; easily obliterated 11:30:03 Patient pain scale 0/10 ?. 11:30:08 IV patent on arrival in left wrist with 0.9% NaCl at KVO. 11:30:11 Lab results completed and on chart. 11:30:16 Right groin area was prepped with chlora-prep and draped in sterile fashion 11:30:16 Alarms reviewed by R. N. 11:30:17 Sharps counted by scrub and verified by R.N. 11:31:05 Oxygen 2 l/min etCO2 Nasal cannula was administered by Mike Sarah MD; ; Verbal order read back and verified. 11:31:15 Lidocaine 2% 20ml vial added to field was administered by Mike Sarah MD; for local anesthetic; Verbal order read back and verified. 11:31:19 Use device set Femoral Dx 11:31:20 ACIST Syringe (55789) opened to sterile field. 11:31:20 Bag Decanter (2002) opened to sterile field. 11:31:21 0.9% NaCl kvo ml/hr I.V. was administered by Shannon Rodriguez RN; Per physician; pt is on dialysis. reserve rt arm. Verbal order read back and verified. 11:31:21 Heparin Flush Bag (1000units/500ml NS) 2 bags added to field was administered by Mike Sarah MD; used for procedure; Verbal order read back and verified. 11:34:23 ACIST Hand Control (66650) opened to sterile field. 11:34:23 ACIST Manifold (03848) opened to sterile field. 11:34:25 Tegaderm 4 x 4 (1626W) opened to sterile field. 11:34:26 Medline Cath Pack ([id number]) opened to sterile field. 11:34:27 DIAGNOSTIC Multipack 5Fr catheter set ([id number]) opened to sterile field. 11:34:29 SHEATH 5FR [place] (AAB837) opened to sterile field. 11:34:29 EMERALD Guide Wire (823-912) opened to sterile field. 11:34:46 SHEATH 7FR [place] (AGY260) opened to sterile field. 11:38:50 Risk of Mortality: .8 11:38:53 Risk of blood transfusion: 7.7 11:38:57 Risk of TATYANA: 19.1 11:43:31 --------ALL STOP TIME OUT------ ::31 Final Timeout: patient, procedure, and site verified with staff and physician. All members of the team are in agreement. 11:43:33 Right groin site verified by team. 11:43:36 Fire Safety Assessment: A--An alcohol-based skin anteseptic being used preoperatively., C--Open oxygen or nitrous oxide is being used., D--An ESU, laser, or fiber-optic light is being used. 11:43:44 Physical assessment completed. ASA score P 4 - A patient with severe systemic disease that is a constant threat to life as per Mike Sarah MD. 11:43:47 5) <15 or on dialysis Very severe, or end stage kidney failure. 11:43:50 Maximum allowable contrast dose (3.7 X eGFR X 0.75)19 ml. 11:43:53 Sedation plan: IV Moderate Sedation Medication:Versed, Fentanyl 11:44:14 Versed 2 mg I.V. was administered by Shannon Rodriguez RN; for sedation; Verbal order read back and verified. 11:44:20 Fentanyl 50 mcg I.V. was administered by Shannon Rodriguez RN; for sedation; Verbal order read back and verified. 11:47:40 Versed 1 mg I.V. was administered by Shannon Rodriguez RN; for sedation; Verbal order read back and verified. 11:47:45 Fentanyl 50 mcg I.V. was administered by Shannon Rodrigeuz RN; for sedation; Verbal order read back and verified. 11:49:00 Zero performed for pressure channel P1 11:52:04 Procedure started. 11:52:41 Local anesthetic to right femoral artery with Lidocaine 2% by Mike Sarah MD.INITIAL ACCESS ONLY 11:53:09 A 7 Fr Short sheath was inserted into the Right Femoral vein 11:53:16 Fentanyl 50 mcg I.V. was administered by Shannon Rodriguez RN; for sedation; Verbal order read back and verified. 11:53:38 A 5 Fr sheath was inserted into the Right Femoral artery 11:54:09 A SWAN 7Fr Thermodilution cather (131F7P) was advanced over the wire and used for Procedure. 12:02:30 Adenosine IV 3mg/ml 50 mcg/kg/min I.V. was administered by Shannon Rodriguez RN; Per physician; Verbal order read back and verified. 12:04:52 Adenosine IV 3mg/ml 100 mcg/kg/min I.V. was administered by Shannon Rodriguez RN; Per physician; Verbal order read back and verified. 12:07:11 Adenosine IV 3mg/ml 200 mcg/kg/min I.V. was administered by Shannon Rodriguez RN; Per physician; Verbal order read back and verified. 12:08:03 Timer 1 started at 12:02 PM, stopped at 12:08 PM, duration 00:05:36 sec. 12:08:27 Adenosine (mcg) stopped was administered by Shannon Rodriguez RN; ; due to increase in PVC's Verbal order read back and verified. 12:09:21 Right heart pressures obtained. 12:09:23 Catheter removed. 12:09:42 A MULTIPACK Pigtail 5 Fr catheter was advanced over the wire and used for Procedure. 12:10:18 LV gram done using WAGGONER 12::21 Injector settings: Ml/sec: 10, Volume: 20, 12:10:22 LV hemodynamics recorded. 12:11:17 EF : 25 % 12:11:26 A MULTIPACK JL 4.0 5Fr catheter was advanced over the wire and used for Procedure. 12:12:13 LCA angiography performed. 12:12:52 Catheter removed. 12:12:58 A MULTIPACK 3DRC 5Fr catheter was advanced over the wire and used for Procedure. 12:14:05 RCA angiography performed. 12:14:06 Catheter removed. 12:14:22 EXOSEAL 5Fr (EX500) opened to sterile field. 12:15:01 Sheath removed intact; hemostasis achieved with Exoseal to the Right Femoral artery. 12:15:11 Sheath removed intact; hemostasis achieved with Manual Compression to the Right Femoral vein. 12:15:13 Procedure ended.(Physican Out) 12:15:26 Fluoroscopy time 03.00 minutes. 12:15:30 Fluoroscopy dose: 313 mGy 12:15:30 Flurop Dose total: 313 12:15:36 Dose Area Product 82974 mGy/cm. 12:15:49 Contrast amount:Isovue 300 59ml. 12:15:59 Maximum allowable dose exceeded? Yes. 12:16:01 Sharps counted by scrub and verified by R.N. 12:16:08 Post-op/insertion site Right Femoral artery dressed using a 4 x 4 and Tegaderm. 12:16:13 Post-procedure physical assessment completed. ASA score P 4 - A patient with severe systemic disease that is a constant threat to life as per Mike Sarah MD. 12:16:17 Post procedure rhythm: unchanged. 12:16:19 Estimated blood loss: 5 ml 12:16:20 Post procedure instruction explained to patient.Patient verbalizes understanding. 12:16:20 Patient needs reinforcement of post procedure teaching. 12:17:12 Procedure type changed to Cath procedure, Diagnostic procedure, Right Heart, RHC and LHC w/Coronaries, Sedation Charges, Moderate Sedation up to 30 minutes 12:18:06 Procedure and supply charges have been captured, reviewed, submitted and are correct. 12:18:10 Procedure Complication : No complications 12:18:14 LHC Findings: mild to moderate CAD (<70%) 12:18:38 RHC Findings: PHTN: see procedure notes for sats and pressures 12:18:42 Operative report dictated upon procedure completion. 12:18:43 See physician's report for complete and final results. 12:18:46 Report given to Med II. 12:18:49 Patient transfered to Med II with Bed. 12:20:13 Procedure ended. 12:20:13 Full Disclosure recording stopped 12:20:22 End room use (Document Last) 12:25:15 Vital chart was stopped Device Usage Item Name Manufacture Quantity Catalog Hospital Part Current Minima l Lot# / Number Charge Number Stock Stock Serial# Code ACIST Syringe Acist 1 76554 085709 697909 499395 20 (48334) Medical Systems Inc Bag Decanter Microtek 1 2001S 752586 05874 274499 5 (2001S) Medical Inc. ACIST Hand Acist 1 91186 127434 418903 497153 5 Control Medical (33347) Systems Inc ACIST Manifold Acist 1 60215 595425 199976 410132 5 (63574) Medical Systems Inc Tegaderm 4 x 4 3M 1 1626W 025008 110016 070306 5 (1626W) Medline Cath Medline 1 [id number] 684141 80196 173871 5 Pack ([id number]) DIAGNOSTIC Cardinal 1 MQ2457 920559 49044 129767 30 Multipack 5Fr Health catheter set (SE7073) SHEATH 5FR Terumo 1 DBV118 823672 944669 289495 5 [place] (PHF040) EMERALD Guide Cardinal 1 502-455 994418 770364 991516 5 Wire (502-455) Health SHEATH 7FR Terumo 1 LZH717 544072 613468 345649 5 [place] (GNU974) SWAN 7Fr López 1 131F7P 545025 22915 462344 3 Thermodilution Lifesciences cather (131F7P) MULTIPACK Cardinal 1 314572 5 Pigtail 5 Fr Health catheter MULTIPACK JL Cardinal 1 [id number] 5 4.0 5Fr Health catheter MULTIPACK 3DRC Cardinal 1 416159 5 5Fr catheter Health EXOSEAL 5Fr Cardinal 1 EX500 401718 748409 991529 10 (EX500) Health Signature Audit [place] Stage Time Signature Unsigned Intra-Procedure 01/06/2019 Inge Sierra 12:23:59 PM RT(R) Intra-Procedure 01/06/2019 Shannon Rodriguez RN 12:24:44 PM Intra-Procedure 01/06/2019 Mike Sarah 12:25:13 PM [facility] [address] [place] [address]
[~2019-01-01 16:08] MED LIST changes: +HYDROCODONE-A1 UDTA2 PO
[2019-01-01 16:39] LABS: BASOPHILS 0.5 % (0-2); EOSINOPHILS 5.7 % (0-7); HEMATOCRIT 31.1 % (36.0-48.0); HEMOGLOBIN 9.4 g/dL (12-16); IMMATURE GRANULOCYTES 0.1 % (0-5); LYMPHOCYTES 15.7 % (15-50); MCH 32.3 pg (26.0-34.0); MCHC 30.2 g/dL (31.0-37.0); MCV 106.9 fL (80.0-100.0); MEAN PLATELET VOLUME 9.9 fL (7.4-10.4); MONOCYTES 6.7 % (2-11); NEUTROPHILS 71.3 % (40-80); PLATELET COUNT 146 10x3/uL (130-400); RBC 2.91 10x6/uL (4.00-5.40); RDW 15.4 % (11.5-14.5); WBC 8.5 10x3/uL (4.8-10.8)
[2019-01-01 16:47] LABS: ANION GAP 13.4 mmol/L (8-16); CALCIUM 9.2 mg/dL (8.5-10.1); CARBON DIOXIDE 25.4 mmol/L (21.0-32.0); CREATININE - SERUM 6.5 mg/dL (0.6-1.3); POTASSIUM - SERUM 4.8 mmol/L (3.5-5.1)
[2019-01-01 16:52] LABS: BILIRUBIN - TOTAL 0.59 mg/dL (0.2-1.3); PROTEIN - SERUM 6.6 g/dL (6.4-8.2)
--- NOTE | 2019-01-01 18:25 | NUR ---
RECEIVED PT FROM ER TO ROOM 2112 VIA W/C RESP SLIGHTLY SOB ABDOMEN DISTENDED AND TIGHT SKIN W/D COLOR WNL AAOX4 REFUSES O2 AT THIS TIME STATES I'M HUNGRY I TOLD HER WE WOULD CHECK KARIN ORDERS WILL CONTINUE TO MONITOR
[2019-01-01 20:00] VITALS: BP 168/109
[2019-01-01] MEDS ORDERED: NORVASC10 MG PO (20:06)
[2019-01-01 20:10] VITALS: BP 150/107; BMI 30.5
--- NOTE | 2019-01-01 20:15 | NUR ---
EVENING ROUNDS COMPLETED. PATIENT RESTING IN BED WITH EYES OPEN. C/O ABDOMINAL PAIN. WILL FOLLOW UP WITH PAIN MEDICINE. PATIENT COUGHING UP PINK TINGED SPUTUM. ADMISSION ASSESSMENTS COMPLETED. DENIES HAVING ANY OTHER NEEDS AT THIS TIME. BED IN LOWEST POSITION. SIDE RAILS UP. CALL LIGHT IN REACH. WILL CONTINUE TO MONITOR.
--- NOTE | 2019-01-01 23:45 | NUR ---
PATIENTS BLOOD PRESSURE 150/107. ANGEL GILES RENAL OSTOMY CARE NURSE, NOTIFIED. ORDER RECEIVED FOR ONE TIME DOSE OF NORVASC 10 MG.
[2019-01-02] VITALS (13 sets, daily range): BP systolic 113–150; BP diastolic 53–104; BMI 30.1
--- NOTE | 2019-01-02 04:30 | NUR ---
PATIENT RESTING IN BED WITH EYES CLOSED. NO SIGNS OF DISTRESS. BED IN LOWST POSITION. SIDE RAILS UP. CALL LIGHT IN REACH. WILL CONTINUE TO MONITOR.
[2019-01-02 08:39] LABS: APTT 30.2 SECONDS (22.8-39.4); INR 1.36 (0.85-1.17); PROTIME 16.2 SECONDS (11.6-15.0)
--- NOTE | 2019-01-02 11:14 | NUR ---
PATIENT STATES SHE IS STILL AN 8 OUT OF 10 ON THE PAIN SCALE. NPO AT THIS TIME. CONSENTS SIGNED FOR PARACENTESIS. STATES NORCO 5 Q 8 WILL NOT BE ENOUGH FOR HER PAIN. CL IN REACH. WCTM
--- NOTE | 2019-01-02 13:12 | NUR ---
CALLED [facility] TO SEE IF PATIENT COULD HAVE MORE PAIN MED. SHE GAVE ME NORCO 10-325 TO GIVE PT Q 6 HR INSTEAD OF THE 5-325 Q 8 HR. TOLD PT AND SHE REPLIED "THATS STILL NOT GOOD ENOUGH." UPDATED THE TIME PT WOULD HAVE AVAILABILITY TO MED. CL IN REACH. WCTM
--- NOTE | 2019-01-02 13:28 | NUR ---
PATIENT GONE WITH VAISHALI KHAN. I CALLED LUZMA RODRIGUEZ TO SEE WHEN PT PARACENTESIS WOULD BE SHE SAID IF SHE NEEDED TO GO TO DIALYSIS TO SEND HER THERE. HOWEVER, PT IS REALLY DISTENDED AND WOULD BENEFIT FROM THE PARACENTESIS TODAY. LUZMA RODRIGUEZ SAID SHE WOULD TRY AND DO THE PARACENTESIS AFTER VAISHALI KHAN GOT FINISHED.
--- NOTE | 2019-01-02 19:10 | NUR ---
PATIENT IN DIALYSIS AT THIS TIME.
--- NOTE | 2019-01-03 04:00 | NUR ---
PATIENT RESTING IN BED WITH EYES CLOSED. NO SIGNS OF DISTRESS. BED IN LOWEST POSITON. SIDE RAILS UP. CALL LIGHT IN REACH. WILL CONTINUE TO MONITOR.
[2019-01-03 04:48] VITALS: BP 139/91
[2019-01-03 06:07] LABS: BASOPHILS 0.2 % (0-2); EOSINOPHILS 6.1 % (0-7); HEMATOCRIT 33.2 % (36.0-48.0); HEMOGLOBIN 10.1 g/dL (12-16); IMMATURE GRANULOCYTES 0.2 % (0-5); LYMPHOCYTES 16.4 % (15-50); MCHC 30.4 g/dL (31.0-37.0); MCV 105.1 fL (80.0-100.0); MEAN PLATELET VOLUME 10.3 fL (7.4-10.4); NEUTROPHILS 69.1 % (40-80); PLATELET COUNT 135 10x3/uL (130-400); RBC 3.16 10x6/uL (4.00-5.40); RDW 14.9 % (11.5-14.5); WBC 8.7 10x3/uL (4.8-10.8)
[2019-01-03 06:46] LABS: ALBUMIN 2.8 g/dL (3.4-5.0); BILIRUBIN - TOTAL 0.58 mg/dL (0.2-1.3); CALCIUM 9.1 mg/dL (8.5-10.1); CREATININE - SERUM 5.7 mg/dL (0.6-1.3); PROTEIN - SERUM 6.1 g/dL (6.4-8.2)
[2019-01-03 09:04] VITALS: BP 137/95
[2019-01-03 12:59] VITALS: BP 133/88
[2019-01-03 16:07] VITALS: Ht 160 cm; Wt 73.9 kg
[2019-01-03 16:50] VITALS: BP 146/100
--- NOTE | 2019-01-03 19:05 | NUR ---
EVENING ROUNDS COMPLETE. PT LAYING IN BED. NO SIGNS OF DISTRESS. PT DENIES ANY PAIN OR NEEDS AT THIS TIME. CL IN REACH, BED IN LOWEST POSITION.
[2019-01-03 20:00] VITALS: BP 147/97
[2019-01-04] VITALS: BP 123/75
[2019-01-04 04:00] VITALS: BP 126/93
[2019-01-04 06:00] LABS: BASOPHILS 0.3 % (0-2); HEMOGLOBIN 10.3 g/dL (12-16); IMMATURE GRANULOCYTES 0.2 % (0-5); LYMPHOCYTES 23.3 % (15-50); MCH 32.2 pg (26.0-34.0); MCHC 31.2 g/dL (31.0-37.0); MEAN PLATELET VOLUME 10.7 fL (7.4-10.4); MONOCYTES 8.9 % (2-11); NEUTROPHILS 61.3 % (40-80); PLATELET COUNT 157 10x3/uL (130-400); RDW 14.4 % (11.5-14.5); WBC 8.7 10x3/uL (4.8-10.8)
[2019-01-04 06:25] LABS: ALBUMIN 2.8 g/dL (3.4-5.0); ANION GAP 18.9 mmol/L (8-16); BILIRUBIN - DIRECT 0.33 mg/dL (0.00-0.30); BILIRUBIN - INDIRECT 0.32 mg/dL (0.00-1.00); BILIRUBIN - TOTAL 0.65 mg/dL (0.2-1.3); CARBON DIOXIDE 24.3 mmol/L (21.0-32.0); CREATININE - SERUM 7.3 mg/dL (0.6-1.3); PHOSPHOROUS 7.4 mg/dL (2.5-4.9)
[2019-01-04 06:26] LABS: POTASSIUM - SERUM 6.2 mmol/L (3.5-5.1)
[2019-01-04 06:37] LABS: MCV 103.1 fL (80.0-100.0)
--- NOTE | 2019-01-04 08:25 | NUR ---
PT RESTING, EYES CLOSED. RR EVEN AND UNLABORED. NO DISTRESS NOTED. WILL CONTINUE TO MONITOR.
[2019-01-04 11:06] VITALS: BP 123/89
--- NOTE | 2019-01-04 12:45 | NUR ---
PT TO DIALYSIS VIA WHEELCHAIR
[2019-01-04 15:09] VITALS: BP 135/91
--- NOTE | 2019-01-04 16:46 | NUR ---
I have reviewed this patient and I concur with the Shift Assessment completed by the Licensed Practical Nurse today this shift.
[2019-01-04 18:26] VITALS: BP 147/99
--- NOTE | 2019-01-04 19:10 | NUR ---
EVENING ROUNDS COMPLETE. PT LAYING IN BED RESTING. NO SIGNS OF DISTRESS. PT DENIES ANY NEEDS AT THIS TIME. CL IN REACH, BED IN LOWEST POSITION.
[2019-01-04 20:00] VITALS: BP 137/87
[2019-01-05] VITALS (7 sets, daily range): BP systolic 104–143; BP diastolic 72–96
[2019-01-05 04:41] LABS: CALCIUM 8.9 mg/dL (8.5-10.1); CARBON DIOXIDE 27.9 mmol/L (21.0-32.0); CREATININE - SERUM 5.6 mg/dL (0.6-1.3); PHOSPHOROUS 5.9 mg/dL (2.5-4.9)
[2019-01-05 04:42] LABS: POTASSIUM - SERUM 4.9 mmol/L (3.5-5.1)
--- NOTE | 2019-01-05 07:47 | NUR ---
PATIENT HAS BEEN NPO SINCE MIDNIGHT. CONSENTS FOR JUDD ARE SIGNED AND IN THE CHART.
--- NOTE | 2019-01-05 12:23 | NUR ---
Nutrition Follow-up: Per RN, NPO for JUDD. PO intake: 67% avg x 6 meals Wt: 163# (170# on 01/02) -BM Labs noted: K+ 4.9, PO4 5.9, Glu 91 Meds noted: Dulcolax, Colace, Renagel Rec resume Renal diet following procedure. RD following.
--- NOTE | 2019-01-05 12:37 | NUR ---
ATTEMPTED IV IN PATIENT AND WAS UNSUCCESSFUL. ASKED TUBE KNITTER, AND SHE IS ATTEMPTING NOW.
[2019-01-05 13:10] LABS: MITOCHONDRIAL ANTIBODY <20.0 Units (0.0-20.0)
--- NOTE | 2019-01-05 13:58 | NUR ---
PATIENT WENT TO HER JUDD, IV WAS PLACED BY VASCULAR ACCESS BEFORE SHE WENT TO PROCEDURE. JUST RECIEVED REPORT, SHE WILL STAY NPO FOR 1 HOUR WHEN HER THROAT REGAINS FEELING.
--- NOTE | 2019-01-05 14:07 | NUR ---
PATIENT WANTS TO EAT IN 40 MINUTES, SO AT 1440. B/P IS 119/77 AND PATIENT REPORTS HER PAIN IS AT A 9, HIGHER THEN BEFORE HER PAIN MEDICATION. SHE IS RESTING IN HER SIDE IN BED. IV IN LEFT FOREARM IS SALINE LOCKED.
[2019-01-05 15:09] LABS: SMOOTH MUSCLE ABS (ACTIN) 6 Units (0-19)
[2019-01-05 16:37] LABS: CHOL - HDL RATIO 5.4 ratio (2.3-4.1); LDL-HDL RATIO 3.4 ratio (1.5-3.5)
--- NOTE | 2019-01-05 18:29 | NUR ---
PATIENT IS GOING FOR A HEART CATH TOMORROW. CONSENTS ARE SIGNED AND IN THE CHARTS. PATIENT WEIGHT AND HEIGHT IS WRITTEN ON THE FRONT OF THE CHART. NPO SIGN ON DOOR. WEIGHT IS 160 LB. HER GROIN AREA IS CLIPPED, AND SHE NEEDS ANOTHER BATH AND LINEN CHANGE TONIGHT. DIRECTOR OF TEENAGE ACTIVITIES HAS BEEN INFORMED. PATIENT HAS HAD A TUBAL, AND A HYSTERECTOMY SO NO SERUM NEEDED.
--- NOTE | 2019-01-05 19:36 | NUR ---
DR CULVER NOTIFIED OF CREATININE 5.6
[2019-01-06 04:30] VITALS: BP 109/71
[2019-01-06 04:32] LABS: BASOPHILS 0.5 % (0-2); EOSINOPHILS 6.6 % (0-7); HEMATOCRIT 31.5 % (36.0-48.0); HEMOGLOBIN 9.9 g/dL (12-16); IMMATURE GRANULOCYTES 0.2 % (0-5); LYMPHOCYTES 24.4 % (15-50); MCH 31.8 pg (26.0-34.0); MCHC 31.4 g/dL (31.0-37.0); MCV 101.3 fL (80.0-100.0); MEAN PLATELET VOLUME 10.3 fL (7.4-10.4); MONOCYTES 10.5 % (2-11); NEUTROPHILS 57.8 % (40-80); PLATELET COUNT 177 10x3/uL (130-400); RBC 3.11 10x6/uL (4.00-5.40); RDW 14.6 % (11.5-14.5)
[2019-01-06 04:43] LABS: WBC 6.1 10x3/uL (4.8-10.8)
[2019-01-06 04:57] LABS: ANION GAP 10.2 mmol/L (8-16); CALCIUM 8.9 mg/dL (8.5-10.1); POTASSIUM - SERUM 5.2 mmol/L (3.5-5.1)
[2019-01-06 05:07] LABS: CREATININE - SERUM 7.3 mg/dL (0.6-1.3); PHOSPHOROUS 7.5 mg/dL (2.5-4.9)
--- NOTE | 2019-01-06 06:20 | NUR ---
ALL NEEDED SUPPLIES PROVIDED FOR SHOWER THIS AM BEFORE PROCEDURE. PT VOICED UNDERSTANDING ON HOW TO PERFORM SHOWER.
--- NOTE | 2019-01-06 09:07 | TEE ---
PATIENT:PARISH KWAN MEDICAL RECORD: [id number] LOCATION:D.M2 D.211 AGE OF PATIENT: 38 ADMISSION DATE: 01/02/19 SEX: F REFERRING PHYSICIAN: INTERPRETING PHYSICIAN: ZOILA MARIANO MD TRANSESOPHAGEAL ECHOCARDIOGRAM Date: 01/05/19 JUDD CHARGE Y INDICATIONS: MR PREMEDICATIONS: PATIENT'S RESPONSE PROCEDURE DOPPLER MEASUREMENTS: LVIT LA PA 78 RA LVOT 93 RVOT 53 Asc. Ao 145 AV Gradient Peak 8.5 AV Mean 5.2 AV Area 1.4 MV Gradient Peak 7.1 MV Mean 2.5 MV Area INTERPRETATION: Doppler: 2-D: COLOR FLOW DOPPLER NORMAL SALINE STUDY: MISCELLANOUS: DIAGNOSIS: PLAN: Homicide Investigator:3 Dr. Calderón Party Plan Demonstrator: 1 NAIF ONTIVEROS COMMENTS: DATE OF SERVICE: 01/05/2019 PROCEDURE: Transesophageal note. DESCRIPTION OF PROCEDURE: After general sedation via TIVA via anesthesia, transesophageal Omniplane probe was placed in the distal esophagus and proximal stomach without difficulty. FINDINGS: As follows; LVH is present. LV internal dimension is normal. LV TRANSESOPHAGEAL ECHOCARDIOGRAM REPORT [id number] DORA KWAN appears to be globally hypokinetic with reduced EF, estimated EF 20% to 25%. Aortic valve is tricuspid with good valve excursion and no significant AI. Left atrium appears normal. Left atrial appendage appears normal with good contractility. Mitral valve appears normal with moderate MR by color-flow imaging. Right-sided chambers, both RV and RA internal dimensions are dilated. There is severe TR by color flow imaging. At the end of procedure, transesophageal Omniplane probe was turned posteriorly and this showed minimal atherosclerotic debris in the descending aorta. IMPRESSION: These findings are most consistent with primary pulmonary hypertension. No evidence of endocarditis. No evidence of intracardiac shunt. TRANSINT:[id number] Voice Confirmation ID: [id number] DOCUMENT ID: [id number] at 0907 CC: [id number] DICTATION DATE: 01/05/19 1404 SOFTWARE SALES CONSULTANT: 01/05/19 1420 ADM IN [facility] [address] [place] [address]
[2019-01-06 09:17] VITALS: BP 120/81
[2019-01-06 13:26] VITALS: BP 119/83
--- NOTE | 2019-01-06 16:11 | MORECARE ---
CASE MANAGEMENT DISCHARGE SUMMARY PATIENT: PARISH KWAN UNIT: [id number] ADM DATE: 01/02/19 AGE: 38 : [birth year] SEX: F ROOM/BED: D.9093 AUTHOR: MIGUE LOPEZ PHYSICIAN: REFERRING PHYSICIAN: PEBBLES BAPTISTE MD DATE OF SERVICE: 01/06/19 Discharge Plan Patient Name: PARISH KWAN Facility: [facility]:[place] : 1980 Planned Disposition: Anticipated Discharge Date: Discharge Date: Expected LOS: Initial Reviewer: [email or web address] Initial Review Date: 01/06/2019 Generated: 01/06/19 5:10 pm Comments DCP- Discharge Planning Updated by [email or web address]: Rima Martinez on 01/06/19 3:[address] Patient Name: PARISH KWAN Admission Status: ER Accout number: [id number] Admission Date: 01-02-2019 : 1980 Admission Diagnosis: Attending: PEBBLES BAPTISTE Current LOS: 4 Anticipated DC Date: Planned Disposition: Primary Insurance: [employer] ADV Discharge Planning Comments: CM MET WITH PATIENT ABOUT DC PLANNING/NEEDS. [facility] PLANS TO DC TO HOME BUT WILL BE AFTER WEDNESDAY. [facility] HAS A PROCEDURE WEDNESDAY. SAYS SHE WILL NEED O2. BOAZ SIGNED FOR ANY [facility] THAT SERVICES [place]. WILL NEED WALK TEST CLOSER TO DC. DENIES NEED FOR REHAB OR HH AT THIS TIME. CM TO FOLLOW. Canal Structure Operator: Rima Martinez DCPIA - Discharge Planning Initial Assessment Updated by [id number]: Rima Martinez on 01/06/19 4:06 pm * Is the patient Alert and Oriented? Yes * PCP OLIVA [facility] Preadmission Environment Home with Family * ADLs Independent * Other Equipment NONE * Please name any agencies selected above. NONE * Additional services required to return to the preadmission environment? No * Can the patient safely return to the preadmission environment? Yes * Has this patient been hospitalized within the prior 30 days at any hospital? No Patient Name: PARISH KWAN Page [phone] at 1611 All edits/amendments must be made on the electronic document DICTATION DATE: 01/06/191609 CLINICAL TRIAL EDUCATOR: DIAMANTE 01/06/191609 RPT#: [id number] [place] DATE: STATUS: ADM IN [facility] [address] [place] [address] END OF REPORT
[2019-01-06 17:19] VITALS: BP 138/90
--- NOTE | 2019-01-06 18:34 | NUR ---
I HAVE REVIEWED THIS PATIENT AND I CONCUR WITH THE SHIFT ASSESSMENT COMPLETED BY THE INSPECTOR RAG SORTING TODAY THIS SHIFT
--- NOTE | 2019-01-06 19:17 | NUR ---
RECEIVED REPORT, WILL ASSUME CARE OF PT, PT IS IN DIALYSIS NOW
--- NOTE | 2019-01-06 21:01 | NUR ---
WILL GIVE PM MEDS WHEN BACK FROM DIALYSIS
--- NOTE | 2019-01-06 22:04 | NUR ---
RECEIVED BACK FROM DIALYSIS, GAVE PM MEDS, HELD [facility]
[2019-01-07] VITALS: BP 132/84
--- NOTE | 2019-01-07 03:20 | NUR ---
I have reviewed this patient and I concur with the Shift Assessment completed by the Licensed Practical Nurse today this shift.
[2019-01-07 04:00] VITALS: BP 113/80
[2019-01-07 04:57] LABS: BASOPHILS 0.4 % (0-2); EOSINOPHILS 5.5 % (0-7); HEMATOCRIT 28.3 % (36.0-48.0); HEMOGLOBIN 8.9 g/dL (12-16); IMMATURE GRANULOCYTES 0.4 % (0-5); LYMPHOCYTES 20.6 % (15-50); MCH 32.2 pg (26.0-34.0); MCHC 31.4 g/dL (31.0-37.0); MCV 102.5 fL (80.0-100.0); MEAN PLATELET VOLUME 9.8 fL (7.4-10.4); MONOCYTES 10.4 % (2-11); NEUTROPHILS 62.7 % (40-80); PLATELET COUNT 152 10x3/uL (130-400); RBC 2.76 10x6/uL (4.00-5.40); RDW 14.7 % (11.5-14.5); WBC 5.7 10x3/uL (4.8-10.8)
[2019-01-07 05:10] LABS: ANION GAP 12.1 mmol/L (8-16); CALCIUM 8.8 mg/dL (8.5-10.1); CARBON DIOXIDE 30.1 mmol/L (21.0-32.0)
[2019-01-07 05:13] LABS: CREATININE - SERUM 4.9 mg/dL (0.6-1.3); PHOSPHOROUS 5.4 mg/dL (2.5-4.9); POTASSIUM - SERUM 4.2 mmol/L (3.5-5.1)
--- NOTE | 2019-01-07 07:45 | NUR ---
PT KITCHEN SUPERVISOR LIGHT FOR PAIN MEDICATION. NO OTHER COMPLAINTSS/CONCERNS AT THIS TIME.
[2019-01-07 09:20] VITALS: BP 138/91
--- NOTE | 2019-01-07 10:42 | NUR ---
PT CALLED ME INTO ROOM TO MAKE ABSOLUTE SURE IT WAS A NORCO 10 SHE TOOK AND NOT A NORCO 5 BECAUSE SHE'S IN PAIN AND HAS TO HAVE THE 10. PT TOOK BUPERNEX 2 HOURS AGO EVEN THOUGH SHE STATES IT DOESNT' WORK.
[2019-01-07 14:37] VITALS: BP 125/70
--- NOTE | 2019-01-07 14:51 | NUR ---
I have reviewed this patient and I concur with the Shift Assessment completed by the Licensed Practical Nurse today this shift.
[2019-01-07 16:20] VITALS: BP 136/93
--- NOTE | 2019-01-07 19:20 | NUR ---
RECEIVED REPORT, WILL ASSUME CARE OF PT, COMPLAINS OF ABDOMEN PAIN, WILL GIVE BUPRENEX ORDER, BED IS LOW, SRX2, CALL LIGHT IN REACH, WILL CONTINUE PLAN OF CARE
[2019-01-07 20:00] VITALS: BP 154/98
--- NOTE | 2019-01-07 20:49 | NUR ---
PT ASK FOR ME TO HEAT UP HER SOUP, AND TOLD ME TO BRING HER PHENERGAN, I EXPLAINED IF SHE WAS [place] SHE MIGHT WANT TO HOLD OFF ON EATING THE SOUP, SHE SAID JUST BRING ME THE PHENERGAN
--- NOTE | 2019-01-07 20:59 | NUR ---
PAGED CONDITIONING MACHINE OPERATOR ABOUT PAIN MEDS, PT SAID IF I DIDNT CALL SHE WOULD
--- NOTE | 2019-01-07 21:05 | NUR ---
SPOKE WITH DR. TRIPLETT, HE SAID PT HAS HER PAIN MEDS, TOLD PT SHE SAID OK AND SHOOK HER HEAD
[2019-01-08] VITALS (7 sets, daily range): BP systolic 110–141; BP diastolic 70–98
--- NOTE | 2019-01-08 02:28 | NUR ---
I have reviewed this patient and I concur with the Shift Assessment completed by the Licensed Practical Nurse today this shift.
--- NOTE | 2019-01-08 07:41 | NUR ---
PT RESTING PEACFULLY. EYES CLOSED, BREATHS EVEN, REGULAR AND UNLABORED. NO SIGNS OR SYMTPOMS OF ACUTE DISTRESS OR PAIN NOTED AT THIS TIME. CL IN REACH, SRX2, NAME WROTE ON THE BOARD.
--- NOTE | 2019-01-08 08:30 | NUR ---
PT REQUESTED 2 APPLUJUICES AND A LARGE CUP OF ICE. AID BROUGHT IN ONE APPLEJUICE AND A SMALL CUP PER MY ORDER D/T PTS 1000CC FLUID RESTRICTION AND NO FREE WATER ORDERS. PT BEGAN TO CUS OUT THE AID AND DEMAND TO SPEAK TO ME. I WENT IN ROOM AND PT WAS VISABLLY ANGRY STATING "I WANT MY OTHER APPLEJUICE NOW" I INFORMED THE PT THAT SHE WAS ON THE FLUID RESTRICTION AND THAT ONE JUICE IS ALREDY 120CC, THAT I DIDNT WANT HER TO GO OVER. PT ANGRILY STATES THAT SHE WAS ALREADY AWARE OF THAT AND THAT SHE WANTS HER APPLEJUICE REGARDLESS AND WANTS IT NOW. PT SATES SHE DOESN'T GO OVER AND NEVER DRINKS FREE WATER, THAT SHE ONLY POORS THE APPLE JUICE IN HER LARGE SILVER CUP. PT HAS 3 CANS OF CHICKEN SOUP IN HER ROOM, ONE POURED INTO HER SILVER CUP (NOT THE APPLEJUICE SHE HAD STATED) AND 2 MORE CANS OF CHICKEN NOODLE SOUP AT BEDSIDE. ONE CAN = 240CC. THE CANS ALSO CONTAIN HIGH SODIUM COUNT. PT IS ANGRY AND DEMANDS TO SPEAK TO MY LOG HAULER. CALLED GOLF SALES MANAGER.
--- NOTE | 2019-01-08 09:30 | NUR ---
SPOKE WITH PT IN ROOM, DONAL PATRICIO IN ROOM. PT STATES SHE IS SORRY FOR BEING RUDE AND WILL TRY TO GET ALONG BETTER IN THE FUTURE. I VOICED AN APPOLOGY TO THE PT IF I CAME OFF POORLY TO HER. PT'S I/V IS INFILTRATED, WILL REPLACE AGFTER HER SHOWER
--- NOTE | 2019-01-08 11:29 | NUR ---
I have reviewed this patient and I concur with the Shift Assessment completed by the Licensed Practical Nurse today this shift.
--- NOTE | 2019-01-08 13:43 | NUR ---
RIGHT AFTER I WENT TO LUNCH, PT CALLED AID IN ROOM FOR PAIN PILL. AID INFORMED HER I WAS CURRENTLY GETTING FOOD, BUT I'D BE BACK SHORTLY. (OTHERS NURSES WERE UNAVALIABLE), PT STATED "WELL WHY IS SHE EATING IF I'M IN PAIN"
--- NOTE | 2019-01-08 17:20 | NUR ---
PT I/V INFULTRATED, WAS UNABELT TO GIVE MORPHINE. PT VERY UNHAPPY. TIRED AND FAILED TO PLACE ONE, ICU CURRENTLY TRYING.
--- NOTE | 2019-01-08 18:34 | NUR ---
PT REQUESTED MORPHINE "SHOT". UPON BRINGING IT, I WENT TO FLUSH THE I/V AND DISCOVERED IT WAS INFULTRATED AND LEAKING. PT COMPLAINED THAT SHE WAS UNABLE TO GET PAIN SHOT IMMEDIATELY. I WAS UNABLE TO PLACE THE I/V (SHE'S HAS MULTIPLE TODAY), CALLED ICU AND THREE OF THEIR NURSES TRIED. CALLED DONAL FIGUEROA, SHE GAVE ORDER FOR P.O MORPHINE 25MG Q6 PRN. PT IS NOT THRILLED BUT ACCPETS THIS. CL IN REACH, SRX2. PT HAS SHOWERED TODAY, ROOM HAS BAD ODOR D/T PTS FLATULANCE, UNABLE TO FIX THAT.
--- NOTE | 2019-01-08 19:20 | NUR ---
RECEIVED REPORT, WILL ASSUME CARE OF PT, SLEEPING, NO DISTRESS NOTICED AT THIS TIME, BED IS LOW, SRX2, CALL LIGHT IN REACH, WILL CONTINUE PLAN OF CARE
--- NOTE | 2019-01-08 21:10 | NUR ---
PAGED MEDICAID ELIGIBILITY SPECIALIST ABOUT PHENERGAN ORDER PER PT REQUEST
--- NOTE | 2019-01-08 21:15 | NUR ---
HENRY GRANT RETURNED CALL, SO NO TO IM PHENERGAN, ALSO CHANGE MORPHINE AND NORCO q8 WITH 4HRS BETWEEN, DISCUSSED WITH PT, VERY UPSET, SAID SHE WAS LEAVING, I SAID IF YOU ARE LEAVING, THEN I CANT GIVE YOU THESE MEDS, SHE SAID YES YOU CAN, I SAID NO I CANT, SHE THEN SAID IM NOT LEAVING, THEN CUSSING SAYING SHE WAS GOING TO CALL CHAN GRANT, I TOLD HER CHAN IS NOT PHOTOENGRAVING SUPERVISOR, SHE SAID IT DOESNT MATTER I HAVE HER NUMBER
[2019-01-09 04:35] LABS: BASOPHILS 0.3 % (0-2); EOSINOPHILS 5.5 % (0-7); HEMATOCRIT 29.2 % (36.0-48.0); HEMOGLOBIN 8.9 g/dL (12-16); IMMATURE GRANULOCYTES 0.3 % (0-5); LYMPHOCYTES 11.2 % (15-50); MCH 32.2 pg (26.0-34.0); MCHC 30.5 g/dL (31.0-37.0); MCV 105.8 fL (80.0-100.0); MEAN PLATELET VOLUME 10.1 fL (7.4-10.4); MONOCYTES 10.5 % (2-11); NEUTROPHILS 72.2 % (40-80); PLATELET COUNT 145 10x3/uL (130-400); RBC 2.76 10x6/uL (4.00-5.40); RDW 14.9 % (11.5-14.5)
[2019-01-09 04:37] LABS: ANION GAP 16.3 mmol/L (8-16); CALCIUM 8.7 mg/dL (8.5-10.1); CARBON DIOXIDE 27.7 mmol/L (21.0-32.0); CREATININE - SERUM 7.3 mg/dL (0.6-1.3)
[2019-01-09 04:38] VITALS: BP 110/65
--- NOTE | 2019-01-09 06:55 | NUR ---
REPORT RECEIVED. SHE IS LYING SUPINE IN BED. HER ABDOMEN IS FLUID FILLED AND TIGHT. SHE IS ALERT AND ABLE TO VOICE NEEDS. RESP EVEN WITHOUT LABOR. RIGHT RESERVE ARM. CL IN REACH. BED IN LOWEST POSITION AND LOCKED. CAREPLAN REVIEW DONE WITH SAFETY PRECAUTIONS NOTED.
[2019-01-09 09:25] VITALS: BP 111/74
--- NOTE | 2019-01-09 11:40 | MORECARE ---
CASE MANAGEMENT DISCHARGE SUMMARY PATIENT: PARISH KWAN UNIT: [id number] ADM DATE: 01/02/19 AGE: 38 : 82 SEX: F ROOM/BED: D.0473 AUTHOR: JOHN,DOC PHYSICIAN: REFERRING PHYSICIAN: PEBBLES BAPTISTE MD DATE OF SERVICE: 01/09/19 Discharge Plan Patient Name: PARISH KWAN Facility: [facility]:[place] : 1980 Planned Disposition: Anticipated Discharge Date: Discharge Date: Expected LOS: Initial Reviewer: [id number] Initial Review Date: 01/06/2019 Generated: 01/09/19 12:39 pm Comments DCP- Discharge Planning Updated by [id number]: Dianne Mahoney on 01/09/19 10:[address] RECEIVED A CASEMANAGEMENT CONSULT FROM DR BAPTISTE WANTING PD SET UP Q3 WEEKS AT [facility]. I PLACED A CALL TO SIXTO @ [facility]. [facility] STATED SHE WILL CALL [facility] AND WILL LET ME KNOW SOMETHING WHEN SHE GETS HERE LATER TODAY. DCP- Discharge Planning Updated by [id number]: Rima Martinez on 01/06/19 3:[address] Patient Name: PARISH KWAN Admission Status: ER Accout number: [id number] Admission Date: 01-02-2019 : 1980 Admission Diagnosis: Attending: PEBBLES BAPTISTE Current LOS: 4 Anticipated DC Date: Planned Disposition: Primary Insurance: WELLCARE MEDICARE ADV Discharge Planning Comments: CM MET WITH PATIENT ABOUT DC PLANNING/NEEDS. [facility] PLANS TO DC TO HOME BUT WILL BE AFTER WEDNESDAY. [facility] HAS A PROCEDURE WEDNESDAY. SAYS SHE WILL NEED O2. [facility] SIGNED FOR ANY [employer] THAT SERVICES [place]. WILL NEED WALK TEST CLOSER TO DC. DENIES NEED FOR REHAB OR HH AT THIS TIME. CM TO FOLLOW. Fishing Instructor: Rima Martinez DCPIA - Discharge Planning Initial Assessment Updated by [id number]: Rima Martinez on 01/06/19 4:06 pm * Is the patient Alert and Oriented? Yes * PCP OLIVA * Pharmacy [facility] * Preadmission Environment Home with Family * ADLs Independent * Other Equipment NONE * Please name any agencies selected above. NONE * Additional services required to return to the preadmission environment? No * Can the patient safely return to the preadmission environment? Yes * Has this patient been hospitalized within the prior 30 days at any hospital? No Last DP export: 01/06/19 3:11 Patient Name: PARISH KWAN Page 26428 at 1140 All edits/amendments must be made on the electronic document DICTATION DATE: 01/09/191138 TALENT ACQUISITION PROJECT MANAGER: DIAMANTE 01/09/19 113 RPT#: [id number] DC DATE: STATUS: ADM IN [facility] [address] [place] [address] END OF REPORT
[2019-01-09 12:00] VITALS: BP 116/78
[2019-01-09 12:09] LABS: ANA REFLEX - DIRECT Negative (Negative)
[2019-01-09 15:09] LABS: ANTI-CENTROMERE B ANTIBODIES <0.2 AI (0.0-0.9); SCLERODERMA AB (SCL-70) <0.2 AI (0.0-0.9)
--- NOTE | 2019-01-09 15:25 | MORECARE ---
CASE MANAGEMENT DISCHARGE SUMMARY PATIENT: PARISH KWAN UNIT: [id number] ADM DATE: 01/02/19 AGE: 38 : 84 SEX: F ROOM/BED: D.3743 AUTHOR: JOHN,DOC PHYSICIAN: REFERRING PHYSICIAN: PEBBLES BAPTISTE MD DATE OF SERVICE: 01/09/19 Discharge Plan Patient Name: PARISH KWAN Facility: [facility]:[place] : 1980 Planned Disposition: Home Anticipated Discharge Date: 01/10/19 Discharge Date: Expected LOS: 8 Initial Reviewer: [email or web address] Initial Review Date: 01/06/2019 Generated: 01/09/19 4:24 pm DCP- Discharge Planning Updated by [email or web address]: Dianne Mahoney on 01/09/19 10:[address] RECEIVED A CASEMANAGEMENT CONSULT FROM DR BAPTISTE WANTING PD SET UP Q3 WEEKS AT [facility]. I PLACED A CALL TO SIXTO @ [facility]. [facility] STATED SHE WILL CALL [facility] AND WILL LET ME KNOW SOMETHING WHEN SHE GETS HERE LATER TODAY. DCP- Discharge Planning Updated by [id number]: Rima Martinez on 01/06/19 3:[address] Patient Name: PARISH KWAN Admission Status: ER Accout number: [id number] Admission Date: 01-02-2019 : 1980 Admission Diagnosis: Attending: PEBBLES BAPTISTE Current LOS: 4 Anticipated DC Date: Planned Disposition: Primary Insurance: WELLCARE MEDICARE ADV Discharge Planning Comments: CM MET WITH PATIENT ABOUT DC PLANNING/NEEDS. [facility] PLANS TO DC TO HOME BUT WILL BE AFTER WEDNESDAY. [facility] HAS A PROCEDURE WEDNESDAY. SAYS SHE WILL NEED O2. [facility] SIGNED FOR ANY [employer] THAT SERVICES [place]. WILL NEED WALK TEST CLOSER TO DC. DENIES NEED FOR REHAB OR HH AT THIS TIME. CM TO FOLLOW. Oil Processing Technician: Rima Martinez DCPIA - Discharge Planning Initial Assessment Updated by [id number]: Rima Martinez on 01/06/19 4:06 pm * Is the patient Alert and Oriented? Yes * PCP OLIVA * [facility] * Preadmission Environment Home with Family * ADLs Independent * Other Equipment NONE * Please name any agencies selected above. NONE * Additional services required to return to the preadmission environment? No * Can the patient safely return to the preadmission environment? Yes * Has this patient been hospitalized within the prior 30 days at any hospital? No Last DP export: 01/09/19 10:40 Patient Name: PARISH KWAN Page 79488 at 1525 All edits/amendments must be made on the electronic document DICTATION DATE: 01/09/191523 CABINET MAKER: DIAMANTE 01/09/191523 RPT#: [id number] DC DATE: STATUS: ADM IN [facility] [address] [place] [address] END OF REPORT
--- NOTE | 2019-01-09 17:04 | MORECARE ---
CASE MANAGEMENT DISCHARGE SUMMARY PATIENT: PARISH KWAN UNIT: [id number] ADM DATE: 01/02/19 AGE: 38 : 84 SEX: F ROOM/BED: D.5133 AUTHOR: JOHN,DOC PHYSICIAN: REFERRING PHYSICIAN: PEBBLES BAPTISTE MD DATE OF SERVICE: 01/09/19 Discharge Plan Patient Name: PARISH KWAN Facility: [facility]:[place] : 1980 Planned Disposition: Home Anticipated Discharge Date: 01/10/19 Discharge Date: Expected LOS: 8 Initial Reviewer: [email or web address] Initial Review Date: 01/06/2019 Generated: 01/09/19 6:03 pm Comments DCP- Discharge Planning Updated by [id number]: Kaz Araya on 01/09/19 3:[address] Patient Name: PARISH KWAN Encounter No: [id number] : 1980 Primary Insurance: WELLCARE MEDICARE ADV Anticipated DC Date: 01-10-2019 Planned Disposition: Home DCP follow-up note: CM RECEIVED ORDER FOR DISCHARGE PLANNING AND ARRANGEMENT OF HAVING PERITENEAL DRAIN MANAGED EVERY THREE WEEKS AT [facility]. CM MET WITH PT IN ROOM, DISCUSSED ORDER AND DISCHARGE PLANNING NEEDS. PT DENIES NEEDS, STATES THE DRAIN IS SUPPOSED TO BE MANAGED BY HER AT HOME AND IF NOT, SHE DOES NOT WANT IT. PT WANTS ALSO TO TALK TO MEDICAL RECORDS REGARDING A PREVIOUS STAY HERE. PT STATES SHE NEEDS PD SUPPLIES TO USE AT HOME. CM CALLED AND SPOKE TO RENAL JUANITA ROSARIO AND ASKED ABOUT THE ORDER. JUANITA ROSARIO LATER CALLED CM BACK AND INFORMED CM THAT PT WILL BE TAUGHT TO SELF MANAGE THE DRAIN, [facility]ANCI WILL ORDER THE DRAIN SUPPLIES FOR PT AND PT WILL CONTINUE HEMODIALYSIS FOR NOW. PT NOTIFIED. CM PROVIDED PT WITH THE PHONE NUMBER TO MEDICAL RECORDS AT HER REQUEST AND ALSO FORM TO FILL OUT TO REQUEST RECORDS THAT SHE WANTS. PT DENIES FURTHER NEEDS, DENIES NEED OF HOME HEALTH AND REPORTS A FRIEND WILL TRANSPORT HER HOME AT DISCHARGE. IMPORTANT MESSAGE FROM MEDICARE PROVIDED AND EXPLAINED. CM TO CONTINUE TO FOLLOW AND ASSIST NEEDED. Kaz Araya, CASE MANAGEMENT DCP- Discharge Planning Updated by [id number]: Dianne Mahoney on 01/09/19 10:[address] RECEIVED A CASEMANAGEMENT CONSULT FROM DR BAPTISTE WANTING PD SET UP Q3 WEEKS AT [facility]. I PLACED A CALL TO SIXTO @ 0956. STATED SHE WILL CALL [facility] AND WILL LET ME KNOW SOMETHING WHEN SHE GETS HERE LATER TODAY. DCP- Discharge Planning Updated by [id number]: Rima Michelle on 01/06/19 3:[address] Patient Name: PARISH KWAN Admission Status: ER Accout number: [id number] Admission Date: 01-02-2019 : 1980 Admission Diagnosis: Attending: PEBBLES BAPTISTE Current LOS: 4 Anticipated DC Date: Planned Disposition: Primary Insurance: WELLCARE MEDICARE ADV Discharge Planning Comments: CM MET WITH PATIENT ABOUT DC PLANNING/NEEDS. [facility] PLANS TO DC TO HOME BUT WILL BE AFTER WEDNESDAY. [facility] HAS A PROCEDURE WEDNESDAY. SAYS SHE WILL NEED O2. [facility] SIGNED FOR ANY alike THAT SERVICES [place]. WILL NEED WALK TEST CLOSER TO DC. DENIES NEED FOR REHAB OR HH AT THIS TIME. CM TO FOLLOW. Nursing Service Administrator: Rima Martinez DCPIA - Discharge Planning Initial Assessment Updated by [id number]: Rimaisabel Martinez on 01/06/19 4:06 pm * Is the patient Alert and Oriented? Yes * PCP OLIVA * [facility] * Preadmission Environment Home with Family * ADLs Independent * Other Equipment NONE * Please name any agencies selected above. NONE * Additional services required to return to the preadmission environment? No * Can the patient safely return to the preadmission environment? Yes * Has this patient been hospitalized within the prior 30 days at any hospital? No Coverage Notice Reviewer: [email or web address] Kalani Araya Notice Issued Date-Time: 01/09/2019 14:30 Notice Type: IM Discharge Notice Notice Delivered To: Patient Relationship to Patient: Cold Mill Supervisor Name: Delivery Method: HAND - Hand Delivered Magda Days: Prior Verbal Notification: Recipient Understood Notice: Yes Recipient Signature: Yes Med Rec Note Co-signed by Attending: Coverage Notice Comment: Last DP export: 01/09/19 2:25 Patient Name: PARISH KWAN Page 26001 at 1704 All edits/amendments must be made on the electronic document DICTATION DATE: 01/09/191702 TURNING MACHINE SET UP OPERATOR: DM 01/09/191702 RPT#: [id number] DC DATE: STATUS: ADM IN [facility] [address] [place] [address] END OF REPORT
--- NOTE | 2019-01-09 19:12 | NUR ---
OUT TO DIALYSIS AT THIS TIME. WILL ASSESS WHEN RETURNS.
[2019-01-09 20:48] VITALS: BP 120/88
--- NOTE | 2019-01-09 21:15 | NUR ---
RECIEVED REPORT FROM DIALYSIS. REMOVED 3 LITERS. UP AND IN SHOWER AT THIS TIME. DIALYSIS REPORTED V/S'S 128/83,97.9,83,17.
--- NOTE | 2019-01-09 21:45 | NUR ---
REPORT RECIEVED AND ROUNDING COMPLETE. PATINET LAYING IN BED IN LOW FOWLERS, EYES CLOSED. PATINET IS A RIGHT ARM RESEVER. PATIENTS BREATHING EVEN AND SHALLOW, NO S/SX OF DISTRESS AT THIS TIME. PATIENT HAS A LEFT FOREARM PIV THAT IS SALINE LOCKED, PIV SHOWING NO S/SX OF INFILTRATION OR INFECTION AT THIS TIME. CALL LIGHT WITHIN REACH AND BED IN LOWEST LOCKED POSITION.
--- NOTE | 2019-01-09 23:33 | NUR ---
PATIENT ASKED FOR PAIN MEDICATION BECAUSE OF PAIN IN HER ABD, TREATED PER MAY.
[2019-01-10 00:02] VITALS: BP 112/74
[2019-01-10 04:30] VITALS: BP 95/64
[2019-01-10 05:40] LABS: BASOPHILS 0.3 % (0-2); HEMATOCRIT 31.2 % (36.0-48.0); HEMOGLOBIN 9.3 g/dL (12-16); IMMATURE GRANULOCYTES 0.2 % (0-5); LYMPHOCYTES 16.7 % (15-50); MCH 31.4 pg (26.0-34.0); MCHC 29.8 g/dL (31.0-37.0); MCV 105.4 fL (80.0-100.0); MEAN PLATELET VOLUME 10.1 fL (7.4-10.4); MONOCYTES 14.3 % (2-11); NEUTROPHILS 62.5 % (40-80); PLATELET COUNT 148 10x3/uL (130-400); RBC 2.96 10x6/uL (4.00-5.40); RDW 14.6 % (11.5-14.5); WBC 6.5 10x3/uL (4.8-10.8)
[2019-01-10 06:05] LABS: ANION GAP 11.8 mmol/L (8-16); CALCIUM 8.9 mg/dL (8.5-10.1); CARBON DIOXIDE 29.9 mmol/L (21.0-32.0); CREATININE - SERUM 5.1 mg/dL (0.6-1.3); PHOSPHOROUS 5.3 mg/dL (2.5-4.9); POTASSIUM - SERUM 4.7 mmol/L (3.5-5.1)
[2019-01-10 06:15] LABS: INR 1.3 (0.85-1.17); PROTIME 15.7 SECONDS (11.6-15.0)
--- NOTE | 2019-01-10 07:00 | NUR ---
REPORT RECEIVED. SHE IS ALERT ABLE TO VOICE NEEDS. RESP EVEN WITHOUT LABOR. ABDOMEN REMAINS SWOLLEN AND TIGHT. CL IN REACH. BED IN LOWEST POSITION AND LOCKED. SHE HAS BEEN NPO [place] FOR PROCEDURE THIS AM. CAREPLAN REVIEW DONE WITH SAFETY PRECAUTIONS IN PLACE
[2019-01-10 08:00] VITALS: BP 123/82
--- NOTE | 2019-01-10 11:10 | NUR ---
RETURN FROM PROCEDURE. SHE IS DROWSY BUT WILL AROUSE. DRESSING D/I TO RIGHT UPPER QUAD WHERE TUBE IS FOR DRAINING ABDOMEN. HER ABDOMEN IS SMALLER BUT STILL HAS SOME FLUID. VSS 107/89, 18 RESP, TEMP 97.9, O2 SAT IS 95% ON 2 L/M PER N/C. SHE HAS SOME OLD DRIED BLOOD ON LIPS.
--- NOTE | 2019-01-10 11:40 | EC ---
PATIENT:PARISH KWAN DATE OF SERVICE: 01/02/19 SEX: F MEDICAL RECORD: [id number] DATE OF : [birth year] LOCATION:D. D.211 AGE OF PATIENT: 38 ADMISSION DATE: 01/02/19 REFERRING PHYSICIAN: INTERPRETING PHYSICIAN: TOMMY SARAH MD ECHOCARDIOGRAM REPORT ECHO CHARGES 4 ECHO COMPLETE Date: 01/02/19 CLINICAL DIAGNOSIS: ASCITES ECHOCARDIOGRAPHIC MEASUREMENTS (adult normal given) AC root (d.<3.7cm) 2.3 cm LV Septum d (<1.2 cm> 1.1 cm Valve Excursion 1.8 cm LV Septum (systole) 1.4 cm Left Atria (s.<4.0cm> 5.2 cm LVPW d(<1.2cm) 1.4 cm RV (d.<2.3cm) 4.4 cm LVPW (sytole) 1.5 cm LV diastole(<5.6CM) 6.3 cm MV E-F(>70mm/sec) cm LV systole 5.1 cm LVOT Diameter 1.8 cm MV exc.(>10mm) cm Est.ejection fraction (50-75%) % DOPPLER: LVIT cm/sec A 29 cm/sec E 113 cm/sec LA cm/sec RVSP 51.5 mmHg LVOT 93 cm/sec AOP1/2T m/s Asc. Ao 145 cm/sec RVOT 53 cm/sec RA cm/sec PA 78 cm/sec AV Gradient Peak 8.5 mmHg AV Mean 5.2 mmHg AV Area 1.4 cm MV Gradient Peak 7.1 mmHg MV Mean 2.5 mmHg MV Area cm COMMENTS: Director Of Outpatient Services: Robbi [facility] Software Reliability Engineer: 1 Dr. Sarah TAPE# PACS Pericardial Effusion Y DATE OF SERVICE: PROCEDURE: Echocardiogram. FINDINGS: 1. Left ventricular chamber size is mildly dilated. Left ventricular systolic function is normal. Overall ejection fraction estimated at 50%. 2. Left atrium is enlarged at 5.2 cm. Right atrium and right ventricular chamber sizes are as well mildly dilated. 3. Valvular structures have normal structure and motion. ECHOCARDIOGRAM REPORT [id number] PARISH KWAN 4. Doppler interrogation reveals moderate mitral regurgitation, moderate tricuspid regurgitation, no other valvular insufficiency or stenosis. Pulmonary systolic pressure is estimated at 51 mmHg. 5. A moderate pericardial effusion is present. No evidence of tamponade. 6. No evidence of left ventricular thrombus. TRANSINT:[id number] Voice Confirmation ID: [id number] DOCUMENT ID: [id number] TOMMY SARAH MD at 1140 CC: [id number] DICTATION DATE: 01/03/19 1057 GLASS MECHANIC: 01/03/19 1102 ADM IN [place] [id number] [place] [id number]
--- NOTE | 2019-01-10 11:41 | OP ---
PATIENT NAME: PARISH KWAN MEDICAL RECORD: [id number] :[birth year] LOCATION:D.M2 D.2113 ADMISSION DATE:01/02/19 SURGEON: TOMMY CULVER MD DATE OF OPERATION: 01/06/2019 DATE OF SERVICE: 01/06/2019 PROCEDURES: 1. Right heart catheterization. 2. Left heart catheterization. 3. Selective coronary angiography. 4. Left ventriculogram. INDICATION: Pulmonary hypertension, mitral and tricuspid regurgitation. PROCEDURE IN DETAIL: After informed consent was obtained and after a detailed description of risks, benefits as well as alternative therapies, the patient elected to proceed with angiogram and heart catheterization. FINDINGS: 1. Right atrial pressure is elevated a mean of 25 mmHg. 2. Right ventricular pressure is elevated at 75/25. 3. Pulmonary pressure is elevated at 80/35. 4. Pulmonary capillary wedge is elevated at 35 mmHg. 5. Adenosine was infused starting at 50 mcg going to 100 mcg and 200 mcg. There was no discernible change in the pulmonary pressure with infusion of the adenosine, it was limited by systemic hypotension. 6. Left ventriculogram was performed in standard 30-degree WAGGONER view, reveals global hypokinesis throughout all segments. Overall ejection fraction 25%, mild mitral regurgitation is present. SELECTIVE CORONARY ANGIOGRAPHY: Left main, left anterior descending, left circumflex, right coronary artery are all smooth-walled vessels with no angiographic evidence of coronary artery disease. OVERALL IMPRESSION: 1. Cardiomyopathy, ejection fraction 20% to 25%. 2. Mild mitral regurgitation. 3. Severe pulmonary hypertension, nonresponsive to adenosine infusion. TRANSINT:[id number] Voice Confirmation ID: [id number] DOCUMENT ID: [id number] TOMMY CULVER MD at 1141 CC: [id number] DICTATION DATE: 01/06/19 1221 PRODUCTION GRADER: 01/06/19 1248 ADM IN [place] [id number] [place] [address]
[2019-01-10 12:00] VITALS: BP 125/68
--- NOTE | 2019-01-10 13:36 | NUR ---
UPON ADMIT DOERAULITO HAS NOT HAD A FLU SHOT THIS YEAR. PER RENAL BOW MAKER CUSTOM THEY CAN GET THEM IN DIALYSIS.
--- NOTE | 2019-01-10 15:00 | MORECARE ---
CASE MANAGEMENT DISCHARGE SUMMARY PATIENT: PARISH KWAN UNIT: [id number] ADM DATE: 01/02/19 AGE: 38 : 84 SEX: F ROOM/BED: D.0553 AUTHOR: JOHN,DOC PHYSICIAN: REFERRING PHYSICIAN: PEBBLES BAPTISTE MD DATE OF SERVICE: 01/10/19 Discharge Plan Patient Name: PARISH KWAN Facility: [facility]:[place] : 1980 Planned Disposition: Home Anticipated Discharge Date: 01/10/19 Discharge Date: Expected LOS: 8 Initial Reviewer: [id number] Initial Review Date: 01/06/2019 Generated: 01/10/19 4:00 pm Comments DCP- Discharge Planning Updated by [id number]: Kaz Araya on 01/09/19 3:[address] Patient Name: PARISH KWAN Encounter No: [id number] : 1980 Primary Insurance: WELL[employer] MEDICARE ADV Anticipated DC Date: 01-10-2019 Planned Disposition: Home DCP follow-up note: CM RECEIVED ORDER FOR DISCHARGE PLANNING AND ARRANGEMENT OF HAVING PERITENEAL DRAIN MANAGED EVERY THREE WEEKS AT [facility]. CM MET WITH PT IN ROOM, DISCUSSED ORDER AND DISCHARGE PLANNING NEEDS. PT DENIES NEEDS, STATES THE DRAIN IS SUPPOSED TO BE MANAGED BY HER AT HOME AND IF NOT, SHE DOES NOT WANT IT. PT WANTS ALSO TO TALK TO MEDICAL RECORDS REGARDING A PREVIOUS STAY HERE. PT STATES SHE NEEDS PD SUPPLIES TO USE AT HOME. CM CALLED AND SPOKE TO RENAL JUANITA ROSARIO AND ASKED ABOUT THE ORDER. JUANITA ROSARIO LATER CALLED CM BACK AND INFORMED CM THAT PT WILL BE TAUGHT TO SELF MANAGE THE DRAIN, FRANCI WILL ORDER THE DRAIN SUPPLIES FOR PT AND PT WILL CONTINUE HEMODIALYSIS FOR NOW. PT NOTIFIED. CM PROVIDED PT WITH THE PHONE NUMBER TO MEDICAL RECORDS AT HER REQUEST AND ALSO FORM TO FILL OUT TO REQUEST RECORDS THAT SHE WANTS. PT DENIES FURTHER NEEDS, DENIES NEED OF HOME HEALTH AND REPORTS A FRIEND WILL TRANSPORT HER HOME AT DISCHARGE. IMPORTANT MESSAGE FROM MEDICARE PROVIDED AND EXPLAINED. CM TO CONTINUE TO FOLLOW AND ASSIST NEEDED. Kaz Araya, CASE MANAGEMENT DCP- Discharge Planning Updated by [id number]: Dianne Mahoney on 01/09/19 10:[address] RECEIVED A CASEMANAGEMENT CONSULT FROM DR BAPTISTE WANTING PD SET UP Q3 WEEKS AT [facility]. I PLACED A CALL TO SIXTO @ [email or web address]. STATED SHE WILL CALL [facility] AND WILL LET ME KNOW SOMETHING WHEN SHE GETS HERE LATER TODAY. DCP- Discharge Planning Updated by [id number]: Rima Martinez on 01/06/19 3:[address] Patient Name: PARISH KWAN Admission Status: ER Accout number: [id number] Admission Date: 01-02-2019 : 1980 Admission Diagnosis: Attending: PEBBLES BAPTISTE Current LOS: 4 Anticipated DC Date: Planned Disposition: Primary Insurance: WELLC[employer] MEDICARE ADV Discharge Planning Comments: CM MET WITH PATIENT ABOUT DC PLANNING/NEEDS. [facility] PLANS TO DC TO HOME BUT WILL BE AFTER WEDNESDAY. [facility] HAS A PROCEDURE WEDNESDAY. SAYS SHE WILL NEED O2. BOAZ SIGNED FOR ANY [employer] THAT SERVICES [place]. WILL NEED WALK TEST CLOSER TO DC. DENIES NEED FOR REHAB OR HH AT THIS TIME. CM TO FOLLOW. Sueding Machine Tender: Rima Martinez DCPIA - Discharge Planning Initial Assessment Updated by [email or web address]: Kaz Araya on 01/10/19 2:58 pm * Is the patient Alert and Oriented? Yes * PCP OLIVA * [facility] * Preadmission Environment Home with Family * ADLs Independent * Other Equipment NONE * Community resources currently utilized Other * Please name any agencies selected above. OUTPATIENT DIALYSIS, MWF, 0600AM, [facility], [facility] * Additional services required to return to the preadmission environment? No * Can the patient safely return to the preadmission environment? Yes * Has this patient been hospitalized within the prior 30 days at any hospital? No Coverage Notice Reviewer: [id number] - Kaz Araya Notice Issued Date-Time: 01/09/2019 14:30 Notice Type: IM Discharge Notice Notice Delivered To: Patient Relationship to Patient: Corporate Development Manager Name: Delivery Method: HAND - Hand Delivered Magda Days: Prior Verbal Notification: Recipient Understood Notice: Yes Recipient Signature: Yes Med Rec Note Co-signed by Attending: Coverage Notice Comment: Last DP export: 01/09/19 4:04 Patient Name: PARISH KWAN Page [id number] at 1500 All edits/amendments must be made on the electronic document DICTATION DATE: 01/10/191499 TICKET PULLER: DIAMANTE 01/10/191499 RPT#: [id number] [place] DATE: STATUS: ADM IN [facility] [address] [place] [address] END OF REPORT
--- NOTE | 2019-01-10 15:48 | NUR ---
PATIENT ON RA WITH 02 SAT OF 94% WITH AMBULATION O2 SAT OF 91%
--- NOTE | 2019-01-10 15:52 | MORECARE ---
CASE MANAGEMENT DISCHARGE SUMMARY PATIENT: PARISH KWAN UNIT: [id number] ADM DATE: 01/02/19 AGE: 38 : 84 SEX: F ROOM/BED: D.2003 AUTHOR: JOHN,DOC PHYSICIAN: REFERRING PHYSICIAN: PEBBLES BAPTISTE MD DATE OF SERVICE: 01/10/19 Discharge Plan Patient Name: PARISH KWAN Facility: [facility]:[place] : 1980 Planned Disposition: Home with Home Health Anticipated Discharge Date: 01/10/19 Discharge Date: Expected LOS: 8 Initial Reviewer: [id number] Initial Review Date: 01/06/2019 Generated: 01/10/19 4:51 pm Comments DCP- Discharge Planning Updated by [id number]: Kaz Araya on 01/09/19 3:[address] Patient Name: PARISH KWAN Encounter No: [id number] : 1980 Primary Insurance: WELLCARE MEDICARE ADV Anticipated DC Date: 01-10-2019 Planned Disposition: Home DCP follow-up note: CM RECEIVED ORDER FOR DISCHARGE PLANNING AND ARRANGEMENT OF HAVING PERITENEAL DRAIN MANAGED EVERY THREE WEEKS AT [facility]. CM MET WITH PT IN ROOM, DISCUSSED ORDER AND DISCHARGE PLANNING NEEDS. PT DENIES NEEDS, STATES THE DRAIN IS SUPPOSED TO BE MANAGED BY HER AT HOME AND IF NOT, SHE DOES NOT WANT IT. PT WANTS ALSO TO TALK TO MEDICAL RECORDS REGARDING A PREVIOUS STAY HERE. PT STATES SHE NEEDS PD SUPPLIES TO USE AT HOME. CM CALLED AND SPOKE TO RENAL JUANITA ROSARIO AND ASKED ABOUT THE ORDER. JUANITA ROSARIO LATER CALLED CM BACK AND INFORMED CM THAT PT WILL BE TAUGHT TO SELF MANAGE THE DRAIN, FRANCI WILL ORDER THE DRAIN SUPPLIES FOR PT AND PT WILL CONTINUE HEMODIALYSIS FOR NOW. PT NOTIFIED. CM PROVIDED PT WITH THE PHONE NUMBER TO MEDICAL RECORDS AT HER REQUEST AND ALSO FORM TO FILL OUT TO REQUEST RECORDS THAT SHE WANTS. PT DENIES FURTHER NEEDS, DENIES NEED OF HOME HEALTH AND REPORTS A FRIEND WILL TRANSPORT HER HOME AT DISCHARGE. IMPORTANT MESSAGE FROM MEDICARE PROVIDED AND EXPLAINED. CM TO CONTINUE TO FOLLOW AND ASSIST NEEDED. Kaz Araya, CASE SHANIQUA DCP- Discharge Planning Updated by [id number]: Dianne Mahoney on 01/09/19 10:[address] RECEIVED A CASEMANAGEMENT CONSULT FROM DR BAPTISTE WANTING PD SET UP Q3 WEEKS AT [facility]. I PLACED A CALL TO SIXTO @ [employer]. [facility] STATED SHE WILL CALL [facility] AND WILL LET ME KNOW SOMETHING WHEN SHE GETS HERE LATER TODAY. DCP- Discharge Planning Updated by [id number]: Rima Martinez on 01/06/19 3:[address] Patient Name: PARISH KWAN Admission Status: ER Accout number: [id number] Admission Date: 01-02-2019 : 1980 Admission Diagnosis: Attending: PEBBLES BAPTISTE Current LOS: 4 Anticipated DC Date: Planned Disposition: Primary Insurance[facility] Discharge Planning Comments: CM MET WITH PATIENT ABOUT DC PLANNING/NEEDS. [facility] PLANS TO DC TO HOME BUT WILL BE AFTER WEDNESDAY. [facility] HAS A PROCEDURE WEDNESDAY. SAYS SHE WILL NEED O2. BOAZ SIGNED FOR ANY [employer] THAT SERVICES [place]. WILL NEED WALK TEST CLOSER TO DC. DENIES NEED FOR REHAB OR HH AT THIS TIME. CM TO FOLLOW. Motor Analyst: Rima Martinez DCPIA - Discharge Planning Initial Assessment Updated by [id number]: Kaz Araya on 01/10/19 2:58 pm * Is the patient Alert and Oriented? Yes * PCP OLIVA * [facility]acy [facility] * Preadmission Environment Home with Family * ADLs Independent * Other Equipment NONE * Community resources currently utilized Other * Please name any agencies selected above. OUTPATIENT DIALYSIS, MWF, 0600AM, [facility], [facility] * Additional services required to return to the preadmission environment? No * Can the patient safely return to the preadmission environment? Yes * Has this patient been hospitalized within the prior 30 days at any hospital? No External Providers External Provider: [employer] [facility] Next Contact Date: 01/10/2019 Service Request Date: Service Type: Resolution: Reviewer: Comments: Coverage Notice Reviewer: [id number] - Kaz Araya Notice Issued Date-Time: 01/09/2019 14:30 Notice Type: IM Discharge Notice Notice Delivered To: Patient Relationship to Patient: Registered Nurse Teacher Name: Delivery Method: HAND - Hand Delivered Magda Days: Prior Verbal Notification: Recipient Understood Notice: Yes Recipient Signature: Yes Med Rec Note Co-signed by Attending: Coverage Notice Comment: Last DP export: 10/29/19 2:00 Patient Name: PARISH KWAN Page [id number] at 1552 All edits/amendments must be made on the electronic document DICTATION DATE: 01/10/191550 SYNTHETIC CLOTH BINDING CUTTER: DIAMANTE 01/10/191550 RPT#: [id number] DC DATE: STATUS: ADM IN [facility] [address] [place] [address] END OF REPORT
--- NOTE | 2019-01-10 16:01 | MORECARE ---
CASE MANAGEMENT DISCHARGE SUMMARY PATIENT: PARISH KWAN UNIT: [id number] ADM DATE: 01/02/19 AGE: 38 : 84 SEX: F ROOM/BED: D.3953 AUTHOR: JOHN,DOC PHYSICIAN: REFERRING PHYSICIAN: PEBBLES BAPTISTE MD DATE OF SERVICE: 01/10/19 Discharge Plan Patient Name: PARISH KWAN Facility: [facility]:[place] : 1980 Planned Disposition: Home with Home Health Anticipated Discharge Date: 01/10/19 Discharge Date: Expected LOS: 8 Initial Reviewer: [id number] Initial Review Date: 01/06/2019 Generated: 01/10/19 5:01 pm Comments DCP- Discharge Planning Updated by [email or web address]: Kaz Araya on 01/10/19 3:[address] Patient Name: PARISH KWAN Encounter No: [id number] : 1980 Primary Insurance: [employer] MED[employer]ARE ADV Anticipated DC Date: 01-10-2019 Planned Disposition: Home with Home Health External Planned Provider: [facility] DCP follow-up note: CM RECEIVED HOME HEALTH ORDER, SPOKE TO FRANCI OF , DISCUSSED DRAIN CARE. ORDER RECEIVED FOR DRAIN CARE. CM SPOKE TO PT IN ROOM, DISCUSSED HOME HEALTH AVAILABILITY AND PROVIDERS. LISTING OF PROVIDERS GIVEN. PT STATES THAT SHE WOULD LIKE HOME HEALTH, BUT THINKS SHE CAN MANAGE DRAIN HERSELF. CHOICE SIGNED FOR [facility] OR ANY PROVIDER. PT DENIES FURTHER NEEDS, REPORTS FRIENDS TO PICK HER UP TODAY. CM SPOKE TO DR. CHRISTENSEN, RECEIVED ORDER TO FIND OUT WHAT DIALYSIS UNIT ORDERED OXYGEN FOR PT AND DETERMINE STATUS OF HOME OXYGEN. CM CALLED [facility], SPOKE TO NINO WHO INFORMED CM THAT HE THINKS THEY CAN ACCEPT. FRANCI OF IR CALLED AND SPOKE TO NINO OF [facility]. FRANCI INFORMED CM THAT NINO INFORMED THAT THEY WILL NOT DO [facility] DUE TO COSTS OF DRAIN BAGS. FRANCI SUGGESTED [facility]. CM CALLED [facility], , SPOKE TO ERNESTO WHO WILL REVIEW AND CALL CM BACK SHORTLY. CM FAXED REFERRAL TO [facility] WITH DISCHARGE INFORMATION TO [phone]. CM CALLED [facility], , SPOKE TO YAEL WHO INFORMED CM THAT DR. MARQUIS ORDERED THE OXYGEN TESTING AT THE DIALYSIS UNIT, THEY HAVE NOT SENT IT OFF TO ANY COMPANY TO ARRANGE THE TESTING. CM RECEIVED OXYGEN TESTING ORDERED BY DR. CHRISTENSEN, PT'S LOWEST SAT WAS 91% DURING AMBULATION. PT DOES NOT QUALIFY FOR OXYGEN. CM NOTIFIED YAEL. CM SPOKE TO PT IN ROOM, DISCUSSED NOT QUALFYING FOR OXYGEN. PT ASKED CM TO CALL COUNTS INCLUDE 234 BEDS AT THE [facility] MEDICAID BUS TO PICK HER UP FOR DISCHARGE HOME HER FRIEND WILL NOT BE ABLE TO PICK HER UP TODAY. CM WAITING ON RETURN CALL FROM [facility] TO DETERMINE IF THEY WILL ACCEPT OR NOT FOR DRAIN CARE. CM EXPLAINED DELAY TO PT. Kaz Araya, CASE MANAGEMENT DCP- Discharge Planning Updated by [id number]: Kaz Araya on 01/09/19 3:[address] Patient Name: PARISH KWAN Encounter No: [id number] : 1980 Primary Insurance: WELL[employer] MEDICARE ADV Anticipated DC Date: 01-10-2019 Planned Disposition: Home DCP follow-up note: CM RECEIVED ORDER FOR DISCHARGE PLANNING AND ARRANGEMENT OF HAVING PERITENEAL DRAIN MANAGED EVERY THREE WEEKS AT [facility]. CM MET WITH PT IN ROOM, DISCUSSED ORDER AND DISCHARGE PLANNING NEEDS. PT DENIES NEEDS, STATES THE DRAIN IS SUPPOSED TO BE MANAGED BY HER AT HOME AND IF NOT, SHE DOES NOT WANT IT. PT WANTS ALSO TO TALK TO MEDICAL RECORDS REGARDING A PREVIOUS STAY HERE. PT STATES SHE NEEDS PD SUPPLIES TO USE AT HOME. CM CALLED AND SPOKE TO RENAL JUANITA ROSARIO AND ASKED ABOUT THE ORDER. JUANITA ROSARIO LATER CALLED CM BACK AND INFORMED CM THAT PT WILL BE TAUGHT TO SELF MANAGE THE DRAIN, FRANCI WILL ORDER THE DRAIN SUPPLIES FOR PT AND PT WILL CONTINUE HEMODIALYSIS FOR NOW. PT NOTIFIED. CM PROVIDED PT WITH THE PHONE NUMBER TO MEDICAL RECORDS AT HER REQUEST AND ALSO FORM TO FILL OUT TO REQUEST RECORDS THAT SHE WANTS. PT DENIES FURTHER NEEDS, DENIES NEED OF HOME HEALTH AND REPORTS A FRIEND WILL TRANSPORT HER HOME AT DISCHARGE. IMPORTANT MESSAGE FROM MEDICARE PROVIDED AND EXPLAINED. CM TO CONTINUE TO FOLLOW AND ASSIST NEEDED. Kaz Araya, CASE MANAGEMENT DCP- Discharge Planning Updated by [id number]: Dianne Mahoney on 01/09/19 10:[address] RECEIVED A CASEMANAGEMENT CONSULT FROM DR BAPTISTE WANTING PD SET UP Q3 WEEKS AT [facility]. I PLACED A CALL TO SIXTO @ 0935. [facility] STATED SHE WILL CALL [facility] AND WILL LET ME KNOW SOMETHING WHEN SHE GETS HERE LATER TODAY. DCP- Discharge Planning Updated by [id number]: Rima Michelle on 01/06/19 3:[address] Patient Name: PARISH KWAN Admission Status: ER Accout number: [id number] Admission Date: 01-02-2019 : 1980 Admission Diagnosis: Attending: PEBBLES BAPTISTE Current LOS: 4 Anticipated DC Date: Planned Disposition: Primary Insurance: WE[employer] MEDICARE ADV Discharge Planning Comments: CM MET WITH PATIENT ABOUT DC PLANNING/NEEDS. [facility] PLANS TO DC TO HOME BUT WILL BE AFTER WEDNESDAY. [facility] HAS A PROCEDURE WEDNESDAY. SAYS SHE WILL NEED O2. BOAZ SIGNED FOR ANY [employer] THAT SERVICES [place]. WILL NEED WALK TEST CLOSER TO DC. DENIES NEED FOR REHAB OR HH AT THIS TIME. CM TO FOLLOW. Hot Top Liner: Rimaisabel Martinez DCPIA - Discharge Planning Initial Assessment Updated by [id number]: Kaz Araya on 01/10/19 2:58 pm * Is the patient Alert and Oriented? Yes * PCP OLIVA * [facility] * Preadmission Environment Home with Family * ADLs Independent * Other Equipment NONE * Community resources currently utilized Other * Please name any agencies selected above. OUTPATIENT DIALYSIS, MWF, 0600AM, [facility], [facility] * Additional services required to return to the preadmission environment? No * Can the patient safely return to the preadmission environment? Yes * Has this patient been hospitalized within the prior 30 days at any hospital? No Coverage Notice Reviewer: [id number] - Kaz Araya Notice Issued Date-Time: 01/09/2019 14:30 Notice Type: IM Discharge Notice Notice Delivered To: Patient Relationship to Patient: Rails Developer Name: Delivery Method: HAND - Hand Delivered Magda Days: Prior Verbal Notification: Recipient Understood Notice: Yes Recipient Signature: Yes Med Rec Note Co-signed by Attending: Coverage Notice Comment: Last DP export: 01/10/19 2:52 Patient Name: PARISH KWAN Page [id number] at 1601 All edits/amendments must be made on the electronic document DICTATION DATE: 01/10/191600 DINKEY ENGINE FIRER/FIREMAN: DM 01/10/191600 RPT#: [id number] DC DATE: STATUS: ADM IN [facility] [address] [place] [address] END OF REPORT
--- NOTE | 2019-01-10 16:10 | NUR ---
TALKED TO JEREMY ROSARIO APN TO CLARIFY MEDS FOR DISCHARGE. SHE STATES TO CONTINUE WITH HOSPITAL DOSE OF B/P MEDS.
[2019-01-10] MEDS ORDERED: COLACE100 MG PO (16:12)
[2019-01-10] MEDS ORDERED: LOPRESSOR25 MG PO (16:12)
[2019-01-10] MEDS ORDERED: NORVASC2.5 MG PO (16:13)
[2019-01-10] MEDS ORDERED: SYNTHROID50 MCG PO (16:13)
[2019-01-10] MEDS ORDERED: CELEXA20 MG PO (16:13)
[2019-01-10] MEDS ORDERED: FAMOTIDINE10 MG PO (16:13)
[2019-01-10] MEDS ORDERED: VELTASSA8.4 GM PO (16:14)
[2019-01-10] MEDS ORDERED: IMODIUM2 MG PO (16:14)
--- NOTE | 2019-01-10 17:00 | MORECARE ---
CASE MANAGEMENT DISCHARGE SUMMARY PATIENT: PARISH KWAN UNIT: [id number] ADM DATE: 01/02/19 AGE: 38 : 84 SEX: F ROOM/BED: D.6903 AUTHOR: JOHN,DOC PHYSICIAN: REFERRING PHYSICIAN: PEBBLES BAPTISTE MD DATE OF SERVICE: 01/10/19 Discharge Plan Patient Name: PARISH KWAN Facility: [facility]:[place] : 1980 Planned Disposition: Home with Home Health Anticipated Discharge Date: 01/10/19 Discharge Date: Expected LOS: 8 Initial Reviewer: [id number] Initial Review Date: 01/06/2019 Generated: 01/10/19 6:00 pm Comments DCP- Discharge Planning Updated by [id number]: Isaura Petit on 01/10/19 3:[address] Patient Name: PARISH KWAN Encounter No: [id number] : 1980 Primary Insurance: [employer] MEDICARE ADV Anticipated DC Date: 01-10-2019 Planned Disposition: Home with Home Health External Planned Provider: [facility] DCP follow-up note: CM RECEIVED HOME HEALTH ORDER, SPOKE TO FRANCI OF , DISCUSSED DRAIN CARE. ORDER RECEIVED FOR DRAIN CARE. CM SPOKE TO PT IN ROOM, DISCUSSED HOME HEALTH AVAILABILITY AND PROVIDERS. LISTING OF PROVIDERS GIVEN. PT STATES THAT SHE WOULD LIKE HOME HEALTH, BUT THINKS SHE CAN MANAGE DRAIN HERSELF. CHOICE SIGNED FOR [facility] OR ANY PROVIDER. PT DENIES FURTHER NEEDS, REPORTS FRIENDS TO PICK HER UP TODAY. CM SPOKE TO DR. CHRISTENSEN, RECEIVED ORDER TO FIND OUT WHAT DIALYSIS UNIT ORDERED OXYGEN FOR PT AND DETERMINE STATUS OF HOME OXYGEN. CM CALLED [facility], SPOKE TO NINO WHO INFORMED CM THAT HE THINKS THEY CAN ACCEPT. FRANCI OF IR CALLED AND SPOKE TO NINO OF [facility]. FRANCI INFORMED CM THAT NINO INFORMED THAT THEY WILL NOT DO [facility] DUE TO COSTS OF DRAIN BAGS. FRANCI SUGGESTED [facility]. CM CALLED [facility], , SPOKE TO ERNESTO WHO WILL REVIEW AND CALL CM BACK SHORTLY. CM FAXED REFERRAL TO [facility] WITH DISCHARGE INFORMATION TO [phone]. CM CALLED [facility], , SPOKE TO YAEL WHO INFORMED CM THAT DR. MARQUIS ORDERED THE OXYGEN TESTING AT THE DIALYSIS UNIT, THEY HAVE NOT SENT IT OFF TO ANY COMPANY TO ARRANGE THE TESTING. CM RECEIVED OXYGEN TESTING ORDERED BY DR. CHRISTENSEN, PT'S LOWEST SAT WAS 91% DURING AMBULATION. PT DOES NOT QUALIFY FOR OXYGEN. CM NOTIFIED YAEL. CM SPOKE TO PT IN ROOM, DISCUSSED NOT QUALFYING FOR OXYGEN. PT ASKED CM TO CALL [facility] MED[facility] BUS TO PICK HER UP FOR DISCHARGE HOME HER FRIEND WILL NOT BE ABLE TO PICK HER UP TODAY. CM WAITING ON RETURN CALL FROM [facility] TO DETERMINE IF THEY WILL ACCEPT OR NOT FOR DRAIN CARE. CM EXPLAINED DELAY TO PT. Isaura Petit, CASE MANAGEMENT Appended by Isaura Petit on 01/10/2019 16:56 CDT: CM CALLED [facility] AT ABOUT 1630 HOURS, , ASKED ANSWERING SERVICE TO HAVE PROCESS OWNER NURSE CALL CM CM HAS NOT RECEIVED ANY RETURN CALL REGARING ACCEPTANCE OF DECLINE OF HOME HEALTH SERVICES FOR PT TO DISCHARGE HOME TODAY. CM CALLED [facility] [facility], , IT WAS CLOSED AND CM WAS NOT ABLE TO SCHEDULE DISCHARGE TRANSPORTATION FOR PT TODAY. CM NOTIFIED PT. CM WAITING CALL FROM [facility] WITH HOME HEALTH ACCEPTANCE OR REJECTION OF PT FOR HOME HEALTH. ISAURA PETIT, CASE MANAGEMENT DCP- Discharge Planning Updated by [id number]: Isaura Petit on 01/09/19 3:[address] Patient Name: PARISH KWAN Encounter No: [id number] : 1980 Primary Insurance: [employer] MEDICARE ADV Anticipated DC Date: 01-10-2019 Planned Disposition: Home DCP follow-up note: CM RECEIVED ORDER FOR DISCHARGE PLANNING AND ARRANGEMENT OF HAVING PERITENEAL DRAIN MANAGED EVERY THREE WEEKS AT [facility]. CM MET WITH PT IN ROOM, DISCUSSED ORDER AND DISCHARGE PLANNING NEEDS. PT DENIES NEEDS, STATES THE DRAIN IS SUPPOSED TO BE MANAGED BY HER AT HOME AND IF NOT, SHE DOES NOT WANT IT. PT WANTS ALSO TO TALK TO MEDICAL RECORDS REGARDING A PREVIOUS STAY HERE. PT STATES SHE NEEDS PD SUPPLIES TO USE AT HOME. CM CALLED AND SPOKE TO RENAL JUANITA ROSARIO AND ASKED ABOUT THE ORDER. JUANITA ROSARIO LATER CALLED CM BACK AND INFORMED CM THAT PT WILL BE TAUGHT TO SELF MANAGE THE DRAIN, FRANCI WILL ORDER THE DRAIN SUPPLIES FOR PT AND PT WILL CONTINUE HEMODIALYSIS FOR NOW. PT NOTIFIED. CM PROVIDED PT WITH THE PHONE NUMBER TO MEDICAL RECORDS AT HER REQUEST AND ALSO FORM TO FILL OUT TO REQUEST RECORDS THAT SHE WANTS. PT DENIES FURTHER NEEDS, DENIES NEED OF HOME HEALTH AND REPORTS A FRIEND WILL TRANSPORT HER HOME AT DISCHARGE. IMPORTANT MESSAGE FROM MEDICARE PROVIDED AND EXPLAINED. CM TO CONTINUE TO FOLLOW AND ASSIST NEEDED. Isaura Petit, CASE MANAGEMENT DCP- Discharge Planning Updated by [id number]: Dianne Mahoney on 01/09/19 10:[address] RECEIVED A CASEMANAGEMENT CONSULT FROM DR BAPTISTE WANTING PD SET UP Q3 WEEKS AT [facility]. I PLACED A CALL TO SIXTO @ [employer]. [facility] STATED SHE WILL CALL [facility] AND WILL LET ME KNOW SOMETHING WHEN SHE GETS HERE LATER TODAY. DCP- Discharge Planning Updated by [id number]: Rima Mihcelle on 01/06/19 3:[address] Patient Name: PARISH KWAN Admission Status: ER Accout number: [id number] Admission Date: 01-02-2019 : 1980 Admission Diagnosis: Attending: PEBBLES BAPTISTE Current LOS: 4 Anticipated DC Date: Planned Disposition: Primary Insurance: [employer] MEDICARE ADV Discharge Planning Comments: CM MET WITH PATIENT ABOUT DC PLANNING/NEEDS. [facility] PLANS TO DC TO HOME BUT WILL BE AFTER WEDNESDAY. [facility] HAS A PROCEDURE WEDNESDAY. SAYS SHE WILL NEED O2. BOAZ SIGNED FOR ANY [employer] THAT SERVICES [place]. WILL NEED WALK TEST CLOSER TO DC. DENIES NEED FOR REHAB OR HH AT THIS TIME. CM TO FOLLOW. Health Service Worker: Rima Martinez DCPIA - Discharge Planning Initial Assessment Updated by [id number]: Isaura Petit on 01/10/19 2:58 pm * Is the patient Alert and Oriented? Yes * PCP OLIVA * [facility] * Preadmission Environment Home with Family * ADLs Independent * Other Equipment NONE * Community resources currently utilized Other * Please name any agencies selected above. OUTPATIENT DIALYSIS, MWF, 0600AM, [facility], [facility] * Additional services required to return to the preadmission environment? No * Can the patient safely return to the preadmission environment? Yes * Has this patient been hospitalized within the prior 30 days at any hospital? No Coverage Notice Reviewer: [id number] - Isaura Petit Notice Issued Date-Time: 01/09/2019 14:30 Notice Type: IM Discharge Notice Notice Delivered To: Patient Relationship to Patient: Rfid Manager Name: Delivery Method: HAND - Hand Delivered Magda Days: Prior Verbal Notification: Recipient Understood Notice: Yes Recipient Signature: Yes Med Rec Note Co-signed by Attending: Coverage Notice Comment: Reviewer: [id number] - Isaura Petit Notice Issued Date-Time: 01/10/2019 14:20 Notice Type: Patient Choice Letter Notice Delivered To: Patient Relationship to Patient: Rfid Manager Name: Delivery Method: HAND - Hand Delivered Magda Days: Prior Verbal Notification: Recipient Understood Notice: Yes Recipient Signature: Yes Med Rec Note Co-signed by Attending: Coverage Notice Comment: [facility] OR NO PREFERENCE ON HOME HEALTH PROVIDER Last DP export: 01/10/19 3:01 Patient Name: PARISH KWAN Page 33318 at 1700 All edits/amendments must be made on the electronic document DICTATION DATE: 01/10/191699 VERIFYING SPECIALIST: DIAMANTE 01/10/191699 RPT#: [id number] DC DATE: STATUS: ADM IN [facility] [address] [place] [address] END OF REPORT
--- NOTE | 2019-01-10 17:11 | NUR ---
SPOKE WITH PATIENT REGARDING DISCHARGE TODAY. ADVISED THAT HOME HEALTH HAS NOT RETURNED CM CALL REGARDING SUPPLIES NEEDED FOR DISCHARGE. I ADVISED SHE SHOULD NOT DISCHARGE UNTIL ALL SUPPLIES HAVE BEEN COVERED OR RECEIVED AND THAT HOME HEALTH IS ABLE TO ARRANGE CARE FOR PATIENT AFTER DISCHARGE. PATIENT VERBALLY ACKNOWLEDGED UNDERSTANDING BUT DID NOT ADVISE TO ME WHETHER SHE WILL DISCHARGE OR NOT.
--- NOTE | 2019-01-10 18:19 | NUR ---
SHE IS COUGHING UP SOME BLOODY SPUTUM AFTER COUGHING FORCEFUL. I TOLD HER SHE HAD SURGERY TODAY AND SOMETIMES THAT HAPPENS
--- NOTE | 2019-01-10 19:15 | NUR ---
REPORT RECEIVED, WILL CONTINUE POC. PATIENT IS AAOX4, UP AD ABISAI. PATIENT C/O PAIN REQUESTING NORCO, INFORMED PATIENT SHE COULD HAVE IT @2126. NO S/S OF DISTRESS OBSERVED. RR EVEN AND UNLABORED ON ROOM AIR. PATIENT REQUESTS SOUP, EDUCATED PATIENT ON 100OCC FLUID RESTRICTION. PATIENT STATES, "THATS OVER WITH AND I'M STARVING". SOUP GIVEN. PATIENT DENIES FURTHER NEEDS AT THIS TIME. CL IN REACH, BED LOCKED AND LOWERED. WILL CTM.
[2019-01-10 21:04] VITALS: BP 94/63
--- NOTE | 2019-01-10 21:30 | NUR ---
PATIENT STATES, "WHERE MY PAIN PILL". PRN NORCO ADMINISTERED PER ORDERS.
[2019-01-11 00:24] VITALS: BP 107/64
[2019-01-11 04:30] VITALS: BP 109/68
[2019-01-11 05:19] LABS: BASOPHILS 0.1 % (0-2); EOSINOPHILS 4.3 % (0-7); HEMATOCRIT 28.3 % (36.0-48.0); HEMOGLOBIN 8.6 g/dL (12-16); IMMATURE GRANULOCYTES 0.1 % (0-5); LYMPHOCYTES 18.8 % (15-50); MCH 31.5 pg (26.0-34.0); MCHC 30.4 g/dL (31.0-37.0); MCV 103.7 fL (80.0-100.0); MEAN PLATELET VOLUME 10.2 fL (7.4-10.4); MONOCYTES 11.7 % (2-11); PLATELET COUNT 136 10x3/uL (130-400); RBC 2.73 10x6/uL (4.00-5.40); RDW 14.3 % (11.5-14.5); WBC 6.8 10x3/uL (4.8-10.8)
--- NOTE | 2019-01-11 05:29 | NUR ---
PATIENT C/O ABD PAIN 10/10, PRN NORCO ADMINISTERED PER ORDERS.
[2019-01-11 05:54] LABS: ANION GAP 13.7 mmol/L (8-16); CALCIUM 8.5 mg/dL (8.5-10.1); CARBON DIOXIDE 29.7 mmol/L (21.0-32.0); POTASSIUM - SERUM 5.4 mmol/L (3.5-5.1)
[2019-01-11 05:55] LABS: CREATININE - SERUM 6.6 mg/dL (0.6-1.3)
--- NOTE | 2019-01-11 07:00 | NUR ---
REPORT RECEVIED. SHE IS RESTING WITH EASE. RESP EVEN WITHOUT LABOR. CL IN REACH BED IN LOWEST POSITION AND LOCKED. CAREPLAN REVIEW DONE WITH SAFETY PRECAUTINS IN PLACE
--- NOTE | 2019-01-11 07:29 | DS ---
PATIENT:PARISH MILLER :84 MEDICAL RECORD: [id number] DISCHARGE SUMMARY ADMISSION DATE: 01/02/19 DISCHARGE DATE: HISTORY OF PRESENT ILLNESS: Ms. Miller is a 38-year-old white female with end-stage renal disease due to polycystic kidney disease. She dialyzes at [facility]. She has had a bilateral nephrectomy done at [facility] within the last 6 months for enlarged kidneys and increasing abdominal pain. She is now admitted with increasing abdominal girth and found to have ascites, which has had recurrent paracentesis on CT of the abdomen and is admitted for workup of the above. HOSPITAL COURSE: The patient was seen by the GI, Dr. Gonzalez and pulmonary and cardiology, Dr. Sarah and her workup GI amado as a cause of her ascites was negative for cirrhosis, with a negative abdominal CT, and a negative liver and spleen scan with no colloid shift. She had an echocardiogram that revealed evidence of pulmonary artery hypertension and tricuspid regurgitation. Subsequently, underwent a cardiac cath that revealed once again severe pulmonary hypertension and severe tricuspid regurgitation. These were felt by consultants to be the etiology of her recurrent ascites. She underwent recurrent paracentesis and at the latter part of her hospitalization had placement of a PleurX drainage cath and she will accomplish this on a weekly basis. She was otherwise stable for discharge. DISCHARGE DIAGNOSES: 1. Cardiac ascites due to severe pulmonary artery hypertension and tricuspid regurgitation. 2. End-stage renal disease due to polycystic kidney disease. 3. Chronic dialysis. 4. Chronic anemia. 5. Analgesic usage. PLAN: The patient will be discharged today. She has her hydrocodone and clonazepam at home. She will continue her Celexa 20 mg daily, Imodium p.r.n., amlodipine 2.5 b.i.d., Dulcolax and Colace p.r.n., Pepcid 20 b.i.d., Elavil 75 at bedtime, calcium carbonate 2 every 6 hours, Synthroid 50 mcg daily, Veltassa 8.4 grams daily, metoprolol 25 b.i.d., Renagel 1600 t.i.d. p.o. with meals. She will be in [facility] in [place] on Wednesday for her dialysis. TRANSINT:[id number] Voice Confirmation ID: [id number] DOCUMENT ID: [id number] cc: PEBBLES Pagan MD at 0729 CC: [id number] DICTATION DATE: 01/10/1936 SUPERVISOR EVAPORATOR: 01/10/19 0813 ADM IN [facility] [address] [id number]
--- NOTE | 2019-01-11 08:08 | MORECARE ---
CASE MANAGEMENT DISCHARGE SUMMARY PATIENT: PARISH KWAN UNIT: [id number] ADM DATE: 01/02/19 AGE: 38 : [birth year] SEX: F ROOM/BED: D.6517 AUTHOR: JOHN,MIGUE PHYSICIAN: REFERRING PHYSICIAN: PEBBLES BAPTISTE MD DATE OF SERVICE: 01/11/19 Discharge Plan Patient Name: PARISH KWAN Facility: [facility]:[place] : 1980 Planned Disposition: Home with Home Health Anticipated Discharge Date: 01/10/19 Discharge Date: Expected LOS: 8 Initial Reviewer: [email or web address] Initial Review Date: 01/06/2019 Generated: 01/11/19 9:07 am Comments DCP- Discharge Planning Updated by [id number]: Isaura Petit on 01/11/19 7:[address] Patient Name: PARISH KWAN Encounter No: [id number] : 1980 Primary Insurance: WELLCARE MEDICARE ADV Anticipated DC Date: 01-10-2019 Planned Disposition: Home with Home Health External Planned Provider: [facility] DCP follow-up note: CM CALLED [facility], , SPOKE TO NIKKY AND ASKED FOR DETERMINATION REGARING ACCEPTANCE OR DECLINE OF HOME HEALTH SERVICES FOR PT TO DISCHARGE HOME. NIKKY ADVISED THEY ARE WAITING FOR RIMA OF [facility] TO REVIEW FOR ACCEPTANCE AND WILL CALL SOON POSSIBLE. CM EMPHASIZED THAT WE HAVE BEEN WAITING SINCE LATE YESTERDAY FOR DECISION. NIKKY ASSURED CM THAT [facility]IMA WOULD LOOK AT IT SOON SHE ARRIVES THIS MORNING AND CALL CM WITH DETERMINATION. LAB AID NURSE NOTIFIED. CM WAITING CALL FROM [facility] WITH HOME HEALTH ACCEPTANCE OR REJECTION OF PT FOR HOME HEALTH. ISAURA PETIT CASE MANAGEMENT DCP- Discharge Planning Updated by [id number]: Isaura Petit on 01/10/19 3:[address] Patient Name: PARISH KWAN Encounter No: [id number] : 1980 Primary Insurance: WELLCARE MEDICARE ADV Anticipated DC Date: 01-10-2019 Planned Disposition: Home with Home Health External Planned Provider: [facility] DCP follow-up note: CM RECEIVED HOME HEALTH ORDER, SPOKE TO FRANCI MCCLELLAND , DISCUSSED DRAIN CARE. ORDER RECEIVED FOR DRAIN CARE. CM SPOKE TO PT IN ROOM, DISCUSSED HOME HEALTH AVAILABILITY AND PROVIDERS. LISTING OF PROVIDERS GIVEN. PT STATES THAT SHE WOULD LIKE HOME HEALTH, BUT THINKS SHE CAN MANAGE DRAIN HERSELF. CHOICE SIGNED FOR [facility] OR ANY PROVIDER. PT DENIES FURTHER NEEDS, REPORTS FRIENDS TO PICK HER UP TODAY. CM SPOKE TO DR. CHRISTENSEN, RECEIVED ORDER TO FIND OUT WHAT DIALYSIS UNIT ORDERED OXYGEN FOR PT AND DETERMINE STATUS OF HOME OXYGEN. CM CALLED [facility], SPOKE TO NINO WHO INFORMED CM THAT HE THINKS THEY CAN ACCEPT. FRANCI OF CALLED AND SPOKE TO NINO OF [facility]. FRANCI INFORMED CM THAT NINO INFORMED THAT THEY WILL NOT DO [facility] DRAIN CARE DUE TO COSTS OF DRAIN BAGS. FRANCI SUGGESTED [facility]. CM CALLED [facility], , SPOKE TO ERNESTO WHO WILL REVIEW AND CALL CM BACK SHORTLY. CM FAXED REFERRAL TO [facility] WITH DISCHARGE INFORMATION TO [phone]. CM CALLED [facility], , SPOKE TO YAEL WHO INFORMED CM THAT DR. MARQUIS ORDERED THE OXYGEN TESTING AT THE DIALYSIS UNIT, THEY HAVE NOT SENT IT OFF TO ANY COMPANY TO ARRANGE THE TESTING. CM RECEIVED OXYGEN TESTING ORDERED BY DR. CHRISTENSEN, PT'S LOWEST SAT WAS 91% DURING AMBULATION. PT DOES NOT QUALIFY FOR OXYGEN. CM NOTIFIED YAEL. CM SPOKE TO PT IN ROOM, DISCUSSED NOT QUALFYING FOR OXYGEN. PT ASKED CM TO CALL [facility] BUS TO PICK HER UP FOR DISCHARGE HOME HER FRIEND WILL NOT BE ABLE TO PICK HER UP TODAY. CM WAITING ON RETURN CALL FROM [facility] TO DETERMINE IF THEY WILL ACCEPT OR NOT FOR DRAIN CARE. CM EXPLAINED DELAY TO PT. Isaura Petit, CASE MANAGEMENT Appended by Isaura Petit on 01/10/2019 16:56 CDT: CM CALLED [facility] AT ABOUT 1630 HOURS, , ASKED ANSWERING SERVICE TO HAVE FERTILIZER LOADER NURSE CALL CM CM HAS NOT RECEIVED ANY RETURN CALL REGARING ACCEPTANCE OF DECLINE OF HOME HEALTH SERVICES FOR PT TO DISCHARGE HOME TODAY. CM CALLED [facility] [facility], , IT WAS CLOSED AND CM WAS NOT ABLE TO SCHEDULE DISCHARGE TRANSPORTATION FOR PT TODAY. CM NOTIFIED PT. CM WAITING CALL FROM [facility] WITH HOME HEALTH ACCEPTANCE OR REJECTION OF PT FOR HOME HEALTH. ISAURA PETIT, CASE MANAGEMENT DCP- Discharge Planning Updated by [email or web address]: Isaura Petit on 01/09/19 3:[address] Patient Name: PARISH KWAN Encounter No: [id number] : 1980 Primary Insurance: WELLCARE MEDICARE ADV Anticipated DC Date: 01-10-2019 Planned Disposition: Home DCP follow-up note: CM RECEIVED ORDER FOR DISCHARGE PLANNING AND ARRANGEMENT OF HAVING PERITENEAL DRAIN MANAGED EVERY THREE WEEKS AT [facility]. CM MET WITH PT IN ROOM, DISCUSSED ORDER AND DISCHARGE PLANNING NEEDS. PT DENIES NEEDS, STATES THE DRAIN IS SUPPOSED TO BE MANAGED BY HER AT HOME AND IF NOT, SHE DOES NOT WANT IT. PT WANTS ALSO TO TALK TO MEDICAL RECORDS REGARDING A PREVIOUS STAY HERE. PT STATES SHE NEEDS PD SUPPLIES TO USE AT HOME. CM CALLED AND SPOKE TO RENAL WEB MARKETING ANALYSTFroy ROSARIO AND ASKED ABOUT THE ORDER. JUANITA ROSARIO LATER CALLED CM BACK AND INFORMED CM THAT PT WILL BE TAUGHT TO SELF MANAGE THE DRAIN, [facility] WILL ORDER THE DRAIN SUPPLIES FOR PT AND PT WILL CONTINUE HEMODIALYSIS FOR NOW. PT NOTIFIED. CM PROVIDED PT WITH THE PHONE NUMBER TO MEDICAL RECORDS AT HER REQUEST AND ALSO FORM TO FILL OUT TO REQUEST RECORDS THAT SHE WANTS. PT DENIES FURTHER NEEDS, DENIES NEED OF HOME HEALTH AND REPORTS A FRIEND WILL TRANSPORT HER HOME AT DISCHARGE. IMPORTANT MESSAGE FROM MEDICARE PROVIDED AND EXPLAINED. CM TO CONTINUE TO FOLLOW AND ASSIST NEEDED. Isaura Petit, CASE MANAGEMENT DCP- Discharge Planning Updated by [id number]: Dianneisabel Mahoney on 01/09/19 10:[address] RECEIVED A CASEMANAGEMENT CONSULT FROM DR BAPTISTE WANTING PD SET UP Q3 WEEKS AT [facility]. I PLACED A CALL TO [facility] @ [employer]. [facility] STATED SHE WILL CALL [facility] AND WILL LET ME KNOW SOMETHING WHEN SHE GETS HERE LATER TODAY. DCP- Discharge Planning Updated by [id number]: Rima Michelle on 01/06/19 3:[address] Patient Name: PARISH KWAN Admission Status: ER Accout number: [id number] Admission Date: 01-02-2019 : 1980 Admission Diagnosis: Attending: PEBBLES BAPTISTE Current LOS: 4 Anticipated DC Date: Planned Disposition: Primary Insurance: WELLCARE MEDICARE ADV Discharge Planning Comments: CM MET WITH PATIENT ABOUT DC PLANNING/NEEDS. STATES PLANS TO DC TO HOME BUT WILL BE AFTER WEDNESDAY. STATES HAS A PROCEDURE WEDNESDAY. SAYS SHE WILL NEED O2. BOAZ SIGNED FOR ANY COMPANY THAT SERVICES SAHIL. WILL NEED WALK TEST CLOSER TO DC. DENIES NEED FOR REHAB OR HH AT THIS TIME. CM TO FOLLOW. Scrap Metal Processing Worker: Rima Martinez DCPIA - Discharge Planning Initial Assessment Updated by JENNIE: Isaura Petit on 01/10/19 2:58 pm * Is the patient Alert and Oriented? Yes * PCP OLIVA * Pharmacy [facility] * Preadmission Environment Home with Family * ADLs Independent * Other Equipment NONE * Community resources currently utilized Other * Please name any agencies selected above. [facility], MWF, 0600AM, [facility], [facility] * Additional services required to return to the preadmission environment? No * Can the patient safely return to the preadmission environment? Yes * Has this patient been hospitalized within the prior 30 days at any hospital? No Coverage Notice Reviewer: JENNIE Petit Notice Issued Date-Time: 01/09/2019 14:30 Notice Type: IM Discharge Notice Notice Delivered To: Patient Relationship to Patient: Shoe Cementer Name: Delivery Method: HAND - Hand Delivered Magda Days: Prior Verbal Notification: Recipient Understood Notice: Yes Recipient Signature: Yes Med Rec Note Co-signed by Attending: Coverage Notice Comment: Reviewer: JENNIE Petit Notice Issued Date-Time: 01/10/2019 14:20 Notice Type: Patient Choice Letter Notice Delivered To: Patient Relationship to Patient: Shoe Cementer Name: Delivery Method: HAND - Hand Delivered Magda Days: Prior Verbal Notification: Recipient Understood Notice: Yes Recipient Signature: Yes Med Rec Note Co-signed by Attending: Coverage Notice Comment: [facility] OR NO PREFERENCE ON HOME HEALTH PROVIDER Last DP export: 01/10/19 4:00 Patient Name: PARISH KWAN Page [phone] at 0808 All edits/amendments must be made on the electronic document DICTATION DATE: 01/11/19806 DENTAL TECH: DIAMANTE 01/11/19806 RPT#: [id number] DC DATE: STATUS: ADM IN [facility] [address] [place] [address] END OF REPORT
--- NOTE | 2019-01-11 08:21 | NUR ---
ELLA WITH HELENE TAKED TO PATIENT WHO KNOW STATES THAT [facility] WILL NEED TO GET HERE AND THAT TODAY IS NORMAL DIALYSIS DAY AT [facility]. NO ANSWER TO DIALYSIS SUITE DOWNSTAIRS. I CALLED [facility]ACE [facility] TO ASK FOR HER TO CONTACT DIALYSIS UNIT HERE SO THAT SHE CAN BE DONE AND THEN DISCHARGED. STATES THAT SHE WILL NOTIFY THEM.
--- NOTE | 2019-01-11 08:32 | NUR ---
HENRY MACE [facility] TO CALL BACK AND STATE, "SHE CAN DIALYSIS AT HER HOME UNIT THIS AFTERNOON SO [facility] CAN COME AND PICK HER UP". THIS IS RELAYED TO ELLA OBRIEN
--- NOTE | 2019-01-11 08:41 | MORECARE ---
CASE MANAGEMENT DISCHARGE SUMMARY PATIENT: PARISH KWAN UNIT: [id number] ADM DATE: 01/02/19 AGE: 38 : [birth year] SEX: F ROOM/BED: D.5084 AUTHOR: JOHN,MIGUE PHYSICIAN: REFERRING PHYSICIAN: PEBBLES BAPTISTE MD DATE OF SERVICE: 01/11/19 Discharge Plan Patient Name: PARISH KWAN Facility: [facility]:[place] : 1980 Planned Disposition: Home with Home Health Anticipated Discharge Date: 01/10/19 Discharge Date: Expected LOS: 8 Initial Reviewer: [email or web address] Initial Review Date: 01/06/2019 Generated: 01/11/19 9:41 am Comments DCP- Discharge Planning Updated by [email or web address]: Isaura Petit on 01/11/19 7:[address] Patient Name: PARISH KWAN Encounter No: [id number] : 1980 Primary Insurance: WELLCARE MEDICARE ADV Anticipated DC Date: 01-10-2019 Planned Disposition: Home with Home Health External Planned Provider: [facility] DCP follow-up note: CM CALLED [facility], , SPOKE TO NIKKY AND ASKED FOR DETERMINATION REGARING ACCEPTANCE OR DECLINE OF HOME HEALTH SERVICES FOR PT TO DISCHARGE HOME. NIKKY ADVISED THEY ARE WAITING FOR RIMA OF [facility] TO REVIEW FOR ACCEPTANCE AND WILL CALL SOON POSSIBLE. CM EMPHASIZED THAT WE HAVE BEEN WAITING SINCE LATE YESTERDAY FOR DECISION. NIKKY ASSURED CM THAT [facility]A WOULD LOOK AT IT SOON SHE ARRIVES THIS MORNING AND CALL CM WITH DETERMINATION. FLOORING MACHINE OPERATOR NURSE NOTIFIED. CM WAITING CALL FROM [facility] WITH HOME HEALTH ACCEPTANCE OR REJECTION OF PT FOR HOME HEALTH. ISAURA PETIT CASE MANAGEMENT DCP- Discharge Planning Updated by [id number]: Isaura Petit on 01/10/19 3:[address] Patient Name: PARISH KWAN Encounter No: [id number] : 1980 Primary Insurance: WELLCARE MEDICARE ADV Anticipated DC Date: 01-10-2019 Planned Disposition: Home with Home Health External Planned Provider: [facility] DCP follow-up note: CM RECEIVED HOME HEALTH ORDER, SPOKE TO FRANCI MCCLELLAND , DISCUSSED DRAIN CARE. ORDER RECEIVED FOR DRAIN CARE. CM SPOKE TO PT IN ROOM, DISCUSSED HOME HEALTH AVAILABILITY AND PROVIDERS. LISTING OF PROVIDERS GIVEN. PT STATES THAT SHE WOULD LIKE HOME HEALTH, BUT THINKS SHE CAN MANAGE DRAIN HERSELF. CHOICE SIGNED FOR [facility] OR ANY PROVIDER. PT DENIES FURTHER NEEDS, REPORTS FRIENDS TO PICK HER UP TODAY. CM SPOKE TO DR. CHRISTENSEN, RECEIVED ORDER TO FIND OUT WHAT DIALYSIS UNIT ORDERED OXYGEN FOR PT AND DETERMINE STATUS OF HOME OXYGEN. CM CALLED [facility], SPOKE TO NINO WHO INFORMED CM THAT HE THINKS THEY CAN ACCEPT. FRANCI OF CALLED AND SPOKE TO NINO OF [facility]. FRANCI INFORMED CM THAT NINO INFORMED THAT THEY WILL NOT DO [facility] DRAIN CARE DUE TO COSTS OF DRAIN BAGS. FRANCI SUGGESTED [facility]. CM CALLED [facility], , SPOKE TO ERNESTO WHO WILL REVIEW AND CALL CM BACK SHORTLY. CM FAXED REFERRAL TO [facility] WITH DISCHARGE INFORMATION TO [phone]. CM CALLED [facility], , SPOKE TO YAEL WHO INFORMED CM THAT DR. MARQUIS ORDERED THE OXYGEN TESTING AT THE DIALYSIS UNIT, THEY HAVE NOT SENT IT OFF TO ANY COMPANY TO ARRANGE THE TESTING. CM RECEIVED OXYGEN TESTING ORDERED BY DR. CHRISTENSEN, PT'S LOWEST SAT WAS 91% DURING AMBULATION. PT DOES NOT QUALIFY FOR OXYGEN. CM NOTIFIED YAEL. CM SPOKE TO PT IN ROOM, DISCUSSED NOT QUALFYING FOR OXYGEN. PT ASKED CM TO CALL [facility] BUS TO PICK HER UP FOR DISCHARGE HOME HER FRIEND WILL NOT BE ABLE TO PICK HER UP TODAY. CM WAITING ON RETURN CALL FROM [facility] TO DETERMINE IF THEY WILL ACCEPT OR NOT FOR DRAIN CARE. CM EXPLAINED DELAY TO PT. Isaura Petit, CASE MANAGEMENT Appended by Isaura Petit on 01/10/2019 16:56 CDT: CM CALLED [facility] AT ABOUT 1630 HOURS, , ASKED ANSWERING SERVICE TO HAVE POLITICAL SCIENTIST NURSE CALL CM CM HAS NOT RECEIVED ANY RETURN CALL REGARING ACCEPTANCE OF DECLINE OF HOME HEALTH SERVICES FOR PT TO DISCHARGE HOME TODAY. CM CALLED [facility], , IT WAS CLOSED AND CM WAS NOT ABLE TO SCHEDULE DISCHARGE TRANSPORTATION FOR PT TODAY. CM NOTIFIED PT. CM WAITING CALL FROM [facility] WITH HOME HEALTH ACCEPTANCE OR REJECTION OF PT FOR HOME HEALTH. ISAURA PETIT, CASE MANAGEMENT DCP- Discharge Planning Updated by [id number]: Isaura Petit on 01/09/19 3:[address] Patient Name: PARISH KWAN Encounter No: [id number] : 1980 Primary Insurance: WELLCARE MEDICARE ADV Anticipated DC Date: 01-10-2019 Planned Disposition: Home DCP follow-up note: CM RECEIVED ORDER FOR DISCHARGE PLANNING AND ARRANGEMENT OF HAVING PERITENEAL DRAIN MANAGED EVERY THREE WEEKS AT [facility]. CM MET WITH PT IN ROOM, DISCUSSED ORDER AND DISCHARGE PLANNING NEEDS. PT DENIES NEEDS, STATES THE DRAIN IS SUPPOSED TO BE MANAGED BY HER AT HOME AND IF NOT, SHE DOES NOT WANT IT. PT WANTS ALSO TO TALK TO MEDICAL RECORDS REGARDING A PREVIOUS STAY HERE. PT STATES SHE NEEDS PD SUPPLIES TO USE AT HOME. CM CALLED AND SPOKE TO RENAL DIRECTOR STAFFINGFroy ROSARIO AND ASKED ABOUT THE ORDER. JUANITA ROSARIO LATER CALLED CM BACK AND INFORMED CM THAT PT WILL BE TAUGHT TO SELF MANAGE THE DRAIN, [facility] WILL ORDER THE DRAIN SUPPLIES FOR PT AND PT WILL CONTINUE HEMODIALYSIS FOR NOW. PT NOTIFIED. CM PROVIDED PT WITH THE PHONE NUMBER TO MEDICAL RECORDS AT HER REQUEST AND ALSO FORM TO FILL OUT TO REQUEST RECORDS THAT SHE WANTS. PT DENIES FURTHER NEEDS, DENIES NEED OF HOME HEALTH AND REPORTS A FRIEND WILL TRANSPORT HER HOME AT DISCHARGE. IMPORTANT MESSAGE FROM MEDICARE PROVIDED AND EXPLAINED. CM TO CONTINUE TO FOLLOW AND ASSIST NEEDED. Isaura Petit, CASE MANAGEMENT DCP- Discharge Planning Updated by [id number]: Dianneisabel Mahoney on 01/09/19 10:[address] RECEIVED A CASEMANAGEMENT CONSULT FROM DR BAPTISTE WANTING PD SET UP Q3 WEEKS AT [facility]. I PLACED A CALL TO [facility] @ [employer]. [facility] STATED SHE WILL CALL [facility] AND WILL LET ME KNOW SOMETHING WHEN SHE GETS HERE LATER TODAY. DCP- Discharge Planning Updated by [id number]: Rima Michelle on 01/06/19 3:[address] Patient Name: PARISH KWAN Admission Status: ER Accout number: [id number] Admission Date: 01-02-2019 : 1980 Admission Diagnosis: Attending: PEBBLES BAPTISTE Current LOS: 4 Anticipated DC Date: Planned Disposition: Primary Insurance: WELLCARE MEDICARE ADV Discharge Planning Comments: CM MET WITH PATIENT ABOUT DC PLANNING/NEEDS. STATES PLANS TO DC TO HOME BUT WILL BE AFTER WEDNESDAY. STATES HAS A PROCEDURE WEDNESDAY. SAYS SHE WILL NEED O2. BOAZ SIGNED FOR ANY COMPANY THAT SERVICES SAHIL. WILL NEED WALK TEST CLOSER TO DC. DENIES NEED FOR REHAB OR HH AT THIS TIME. CM TO FOLLOW. Property Handler: Rima Martinez DCPIA - Discharge Planning Initial Assessment Updated by JENNIE: Isaura Petit on 01/10/19 2:58 pm * Is the patient Alert and Oriented? Yes * PCP OLIVA * Pharmacy [facility] * Preadmission Environment Home with Family * ADLs Independent * Other Equipment NONE * Community resources currently utilized Other * Please name any agencies selected above. OUTPATIENT DIALYSIS, MWF, 0600AM, [facility], [facility] * Additional services required to return to the preadmission environment? No * Can the patient safely return to the preadmission environment? Yes * Has this patient been hospitalized within the prior 30 days at any hospital? No Coverage Notice Reviewer: JENNIE Petit Notice Issued Date-Time: 01/09/2019 14:30 Notice Type: IM Discharge Notice Notice Delivered To: Patient Relationship to Patient: Junior Underwriter Name: Delivery Method: HAND - Hand Delivered Magda Days: Prior Verbal Notification: Recipient Understood Notice: Yes Recipient Signature: Yes Med Rec Note Co-signed by Attending: Coverage Notice Comment: Reviewer: JENNIE Petit Notice Issued Date-Time: 01/10/2019 14:20 Notice Type: Patient Choice Letter Notice Delivered To: Patient Relationship to Patient: Junior Underwriter Name: Delivery Method: HAND - Hand Delivered Magda Days: Prior Verbal Notification: Recipient Understood Notice: Yes Recipient Signature: Yes Med Rec Note Co-signed by Attending: Coverage Notice Comment: [facility] OR NO PREFERENCE ON HOME HEALTH PROVIDER Last DP export: 01/11/19 7:08 Patient Name: PARISH KWAN Page [id number] at 0841 All edits/amendments must be made on the electronic document DICTATION DATE: 01/11/19840 SLINGER SEQUINS: DIAMANTE 01/11/19840 RPT#: [id number] DC DATE: STATUS: ADM IN [facility] [address] [place] [address] END OF REPORT
--- NOTE | 2019-01-11 09:21 | MORECARE ---
CASE MANAGEMENT DISCHARGE SUMMARY PATIENT: PARISH KWAN UNIT: [id number] ADM DATE: 01/02/19 AGE: 38 : [birth year] SEX: F ROOM/BED: D.7415 AUTHOR: JOHN,DOC PHYSICIAN: REFERRING PHYSICIAN: PEBBLES BAPTISTE MD DATE OF SERVICE: 01/11/19 Discharge Plan Patient Name: PARISH KWAN Facility: [facility]:[place] : 1980 Planned Disposition: Home with Home Health Anticipated Discharge Date: 01/10/19 Discharge Date: Expected LOS: 8 Initial Reviewer: [id number] Initial Review Date: 01/06/2019 Generated: 01/11/19 10:21 am Comments DCP- Discharge Planning Updated by [id number]: Isaura Petit on 01/11/19 8:[address] Patient Name: PARISH KWAN Encounter No: [id number] : 1980 Primary Insurance: [employer] MEDICARE ADV Anticipated DC Date: 01-10-2019 Planned Disposition: Home with Home Health External Planned Provider: [facility] DCP follow-up note: CM CALLED [facility], , SPOKE TO NIKKY AND ASKED FOR DETERMINATION REGARING ACCEPTANCE OR DECLINE OF HOME HEALTH SERVICES FOR PT TO DISCHARGE HOME. NIKKY ADVISED THEY ARE WAITING FOR RIMA OF [facility] TO REVIEW FOR ACCEPTANCE AND WILL CALL SOON POSSIBLE. CM EMPHASIZED THAT WE HAVE BEEN WAITING SINCE LATE YESTERDAY FOR DECISION. NIKKY ASSURED CM THAT RIMA WOULD LOOK AT IT SOON SHE ARRIVES THIS MORNING AND CALL CM WITH DETERMINATION. LACROSSE PLAYER NURSE NOTIFIED. CM WAITING CALL FROM [facility] WITH HOME HEALTH ACCEPTANCE OR REJECTION OF PT FOR HOME HEALTH. ISAURA PETIT, CASE MANAGEMENT Appended by Isaura Petit on 01/11/2019 9:19 CDT: CM RECEIVED CALL FROM ERNESTO OF [facility], THEY WILL ACCEPT PT FOR HOME HEALTH ADMIT TOMORROW. PT, LACROSSE PLAYER AND FRANCI OF INTERVENTIONAL RADIOLOGY NOTIFIED. CM NOTIFIED THAT PT CAN HAVE DIALYSIS TODAY AT HER OUTPATIENT UNIT THIS AFTERNOON. PT ASKED FOR [facility] HOME STATING SHE HAS TRANPORT TO DIALYSIS TODAY. CM CALLED [employer], WAS ADVISED PT HAS "[place]" MEDICAID AND IS NOT QUALIFIED FOR MEDICAID TRANSPORT. PT PROVIDED CM WITH [employer] [facility] PHONE NUMBER, ; CM CALLED AND SPOKE TO HENRY WHO INFORMED CM THAT THEY WILL DIRECTOR CALL CENTER SALES PT WITHIN THE NEXT 4 HOURS. PT, BEDSIDE NURSE AND LACROSSE PLAYER NURSE NOTIFIED. ISAURA PETIT, CASE MANAGEMENT DCP- Discharge Planning Updated by [id number]: Isaura Petit on 01/10/19 3:[address] Patient Name: PARISH KWAN Encounter No: [id number] : 1980 Primary Insurance: [employer] MEDICARE ADV Anticipated DC Date: 01-10-2019 Planned Disposition: Home with Home Health External Planned Provider: [facility] DCP follow-up note: CM RECEIVED HOME HEALTH ORDER, SPOKE TO FRANCI OF IR, DISCUSSED DRAIN CARE. ORDER RECEIVED FOR DRAIN CARE. CM SPOKE TO PT IN ROOM, DISCUSSED HOME HEALTH AVAILABILITY AND PROVIDERS. LISTING OF PROVIDERS GIVEN. PT STATES THAT SHE WOULD LIKE HOME HEALTH, BUT THINKS SHE CAN MANAGE DRAIN HERSELF. CHOICE SIGNED FOR [facility] OR ANY PROVIDER. PT DENIES FURTHER NEEDS, REPORTS FRIENDS TO PICK HER UP TODAY. CM SPOKE TO DR. CHRISTENSEN, RECEIVED ORDER TO FIND OUT WHAT DIALYSIS UNIT ORDERED OXYGEN FOR PT AND DETERMINE STATUS OF HOME OXYGEN. [facility], SPOKE TO NINO WHO INFORMED CM THAT HE THINKS THEY CAN ACCEPT. FRANCI OF IR CALLED AND SPOKE TO NINO [facility]. FRANCI INFORMED CM THAT NINO INFORMED THAT THEY WILL NOT DO [facility] DRAIN CARE DUE TO COSTS OF DRAIN BAGS. FRANCI SUGGESTED [facility]. CM CALLED [facility], , SPOKE TO ERNESTO WHO WILL REVIEW AND CALL CM BACK SHORTLY. CM FAXED REFERRAL TO [facility] WITH DISCHARGE INFORMATION TO [phone]. [facility], , SPOKE TO YAEL WHO INFORMED CM THAT DR. MARQUIS ORDERED THE OXYGEN TESTING AT THE DIALYSIS UNIT, THEY HAVE NOT SENT IT OFF TO ANY COMPANY TO ARRANGE THE TESTING. CM RECEIVED OXYGEN TESTING ORDERED BY DR. CHRISTENSEN, PT'S LOWEST SAT WAS 91% DURING AMBULATION. PT DOES NOT QUALIFY FOR OXYGEN. CM NOTIFIED YAEL. CM SPOKE TO PT IN ROOM, DISCUSSED NOT QUALFYING FOR OXYGEN. PT ASKED CM TO CALL [facility] [employer] [facility] TO PICK HER UP FOR DISCHARGE HOME HER FRIEND WILL NOT BE ABLE TO PICK HER UP TODAY. CM WAITING ON RETURN CALL FROM [facility] TO DETERMINE IF THEY WILL ACCEPT OR NOT FOR DRAIN CARE. CM EXPLAINED DELAY TO PT. Isaura Petit, CASE MANAGEMENT Appended by Isaura Petit on 01/10/2019 16:56 CDT: CM CALLED [facility] AT ABOUT 1630 HOURS, , ASKED ANSWERING SERVICE TO HAVE CONSUMER STUDIES PROFESSOR NURSE CALL CM CM HAS NOT RECEIVED ANY RETURN CALL REGARING ACCEPTANCE OF DECLINE OF HOME HEALTH SERVICES FOR PT TO DISCHARGE HOME TODAY. CM CALLED [facility] [facility], , IT WAS CLOSED AND CM WAS NOT ABLE TO SCHEDULE DISCHARGE TRANSPORTATION FOR PT TODAY. CM NOTIFIED PT. CM WAITING CALL FROM [facility] WITH HOME HEALTH ACCEPTANCE OR REJECTION OF PT FOR HOME HEALTH. SERGIO HODGE DCP- Discharge Planning Updated by [id number]: Isaura Petit on 01/09/19 3:[address] Patient Name: PARISH KWAN Encounter No: [id number] : 1980 Primary Insurance: WELL[employer] MEDICARE ADV Anticipated DC Date: 01-10-2019 Planned Disposition: Home DCP follow-up note: CM RECEIVED ORDER FOR DISCHARGE PLANNING AND ARRANGEMENT OF HAVING PERITENEAL DRAIN MANAGED EVERY THREE WEEKS AT [facility]. CM MET WITH PT IN ROOM, DISCUSSED ORDER AND DISCHARGE PLANNING NEEDS. PT DENIES NEEDS, STATES THE DRAIN IS SUPPOSED TO BE MANAGED BY HER AT HOME AND IF NOT, SHE DOES NOT WANT IT. PT WANTS ALSO TO TALK TO MEDICAL RECORDS REGARDING A PREVIOUS STAY HERE. PT STATES SHE NEEDS PD SUPPLIES TO USE AT HOME. CM CALLED AND SPOKE TO RENAL JUANITA ROSARIO AND ASKED ABOUT THE ORDER. JUANITA ROSARIO LATER CALLED CM BACK AND INFORMED CM THAT PT WILL BE TAUGHT TO SELF MANAGE THE DRAIN, FRANCI WILL ORDER THE DRAIN SUPPLIES FOR PT AND PT WILL CONTINUE HEMODIALYSIS FOR NOW. PT NOTIFIED. CM PROVIDED PT WITH THE PHONE NUMBER TO MEDICAL RECORDS AT HER REQUEST AND ALSO FORM TO FILL OUT TO REQUEST RECORDS THAT SHE WANTS. PT DENIES FURTHER NEEDS, DENIES NEED OF HOME HEALTH AND REPORTS A FRIEND WILL TRANSPORT HER HOME AT DISCHARGE. IMPORTANT MESSAGE FROM MEDICARE PROVIDED AND EXPLAINED. CM TO CONTINUE TO FOLLOW AND ASSIST NEEDED. SERGIO Hodge DCP- Discharge Planning Updated by [id number]: Dianne Mahoney on 01/09/19 10:[address] RECEIVED A CASEMANAGEMENT CONSULT FROM DR BAPTISTE WANTING PD SET UP Q3 WEEKS AT [facility]. I PLACED A CALL TO [employer] @ [employer]. [facility] STATED SHE WILL CALL [facility] AND WILL LET ME KNOW SOMETHING WHEN SHE GETS HERE LATER TODAY. DCP- Discharge Planning Updated by [id number]: Rima Martinez on 01/06/19 3:[address] Patient Name: PARISH KWAN Admission Status: ER Accout number: [id number] Admission Date: 01-02-2019 : 1980 Admission Diagnosis: Attending: PEBBLES BAPTISTE Current LOS: 4 Anticipated DC Date: Planned Disposition: Primary Insurance: WELL[employer] MEDICARE ADV Discharge Planning Comments: CM MET WITH PATIENT ABOUT DC PLANNING/NEEDS. [facility] PLANS TO DC TO HOME BUT WILL BE AFTER WEDNESDAY. [facility] HAS A PROCEDURE WEDNESDAY. SAYS SHE WILL NEED O2. BOAZ SIGNED FOR ANY [facility] THAT SERVICES [place]. WILL NEED WALK TEST CLOSER TO DC. DENIES NEED FOR REHAB OR HH AT THIS TIME. CM TO FOLLOW. Corporation Pilot: Rima Martinez DCPIA - Discharge Planning Initial Assessment Updated by [id number]: Isaura Petit on 01/10/19 2:58 pm * Is the patient Alert and Oriented? Yes * PCP [facility]IV[facility] * [facility] * Preadmission Environment Home with Family * ADLs Independent * Other Equipment NONE * Community resources currently utilized Other * Please name any agencies selected above. OUTPATIENT DIALYSIS, MWF, 0600AM, [facility], [facility] * Additional services required to return to the preadmission environment? No * Can the patient safely return to the preadmission environment? Yes * Has this patient been hospitalized within the prior 30 days at any hospital? No Coverage Notice Reviewer: [email or web address] Kalani Petit Notice Issued Date-Time: 01/09/2019 14:30 Notice Type: IM Discharge Notice Notice Delivered To: Patient Relationship to Patient: Rn Admit Name: Delivery Method: HAND - Hand Delivered Magda Days: Prior Verbal Notification: Recipient Understood Notice: Yes Recipient Signature: Yes Med Rec Note Co-signed by Attending: Coverage Notice Comment: Reviewer: [email or web address] Kalani Petit Notice Issued Date-Time: 01/10/2019 14:20 Notice Type: Patient Choice Letter Notice Delivered To: Patient Relationship to Patient: Rn Admit Name: Delivery Method: HAND - Hand Delivered Magda Days: Prior Verbal Notification: Recipient Understood Notice: Yes Recipient Signature: Yes Med Rec Note Co-signed by Attending: Coverage Notice Comment: [facility] OR NO PREFERENCE ON HOME HEALTH PROVIDER Last DP export: 01/11/19 7:41 Patient Name: PARISH KWAN Page [id number] at 0921 All edits/amendments must be made on the electronic document DICTATION DATE: 01/11/19920 [facility]: DIAMANTE 01/11/19920 RPT#: [id number] DC DATE: STATUS: ADM IN [facility] [address] [place] [address] END OF REPORT
--- NOTE | 2019-01-11 10:12 | NUR ---
PATIENT STATES THAT SHE HAS NO HOME MEDS PER DISCHARGE SHEET. PER [facility]ENRY MACE APN SHE STATES THAT SHE REVIEWED THESE WITH DIALYSIS YESTERDAY. I AM TO ONLY CALL THE NORVASC 2.5 MG, CELEXA 20 MG, AND THE LOPRESSOR 25 MG IN. I CALLED [facility] IN [place] AND SPOKE TO KALINA, PHARMACIST.
--- NOTE | 2019-01-11 12:31 | NUR ---
Nutrition Follow-up: Noted Pleurex cath placement yesterday. Noted plans to d/c today. Diet: Renal ADA PO intake: 50-75% Wt: 162.6# Last BM: 01/10 Labs noted: Glu 96, K+ 5.4, PO4 5.3 Meds noted: Renagel -Continue current diet as tolerated. -RD following.
--- NOTE | 2019-01-11 14:05 | NUR ---
DISCHARGE PAPERS EXPLAINED TO HER IN DETAIL AND SHE WILL GO TO DIALYSIS AT HOME DIALYSIS. SALINE LOCK D/C WITH CATH TIP INTACT NO BLEEDING NOTED. SHE OFFERS NO C/O AT THIS TIME. TOOK VIA W/C DOWN TO [facility] WAITING FOR HER. DRESSING TO ABDOMEN IS D/I
== END 2019-01-11 14:05 | disposition home health service (06) | DRG 286 ==
LOC: D.ER 16:08 → D.M2 17:36 → OBSVTIME 17:36 → D.M2 01-02 16:14
PROVIDERS: Emergency Medicine; General Practice; Internal Medicine Gastroenterology; Internal Medicine Interventional Cardiology; Internal Medicine Nephrology; Internal Medicine Pulmonary Disease; Radiology Diagnostic Radiology; ADMIT Internal Medicine Nephrology; ATTEND Internal Medicine Nephrology
PROC: 0W9G3ZZ Drainage of Peritoneal Cavity, Percutaneous Approach (ICD-10-PCS; 2019-01-02)
PROC: B2111ZZ Fluoroscopy of Multiple Coronary Arteries using Low Osmolar Contrast (ICD-10-PCS; 2019-01-06)
PROC: B2151ZZ Fluoroscopy of Left Heart using Low Osmolar Contrast (ICD-10-PCS; 2019-01-06)
PROC: 4A023N8 Measurement of Cardiac Sampling and Pressure, Bilateral, Percutaneous Approach (ICD-10-PCS; principal; 2019-01-06 11:05)
PROC: 0W9G30Z Drainage of Peritoneal Cavity with Drainage Device, Percutaneous Approach (ICD-10-PCS; 2019-01-10)
DX: I13.2 Hypertensive heart and chronic kidney disease with heart failure and with stage 5 chronic kidney disease, or end stage renal disease (principal); I33.0 Acute and subacute infective endocarditis; N18.6 End stage renal disease; I50.33 Acute on chronic diastolic (congestive) heart failure; R18.8 Other ascites; Q44.6 Cystic disease of liver; I08.3 Combined rheumatic disorders of mitral, aortic and tricuspid valves; D63.1 Anemia in chronic kidney disease; I50.82 Biventricular heart failure; I27.20 Pulmonary hypertension, unspecified; K59.00 Constipation, unspecified

== ENCOUNTER 2019-04-28 03:24 | Inpatient (IN) | payer MEDICARE, MEDICAID ==
[2019-04-28] VITALS (8 sets, daily range): BP systolic 124–169; BP diastolic 44–119; BMI 24.5
[~2019-04-28] VITALS: Ht 160 cm; Wt 77.7 kg
--- NOTE | ~2019-04-28 | HEMODYNAMI ---
PATIENT:PARISH KWAN MEDICAL RECORD: [id number] : [birth year] LOCATION:D.MS [id number] ADMISSION DATE: 04/28/19 Generatedon:05/01/201911:58 Patient name: PARISH KWAN Patient #: [id number] SSN: [id number] : 1980 Date of study: 05/01/2019 Page: Of Hemodynamic Procedure Report Patient Data Patient Demographics Procedure consent was obtained First Name: PARISH Gender: Female Last Name: AQUILES : 1980 Middle Initial: A Age: 38 year(s) Patient #: [id number] Race: SSN: [id number] Additional ID: [id number] Contact details [address]: [address] [place] [address] State: [place] City: [place] Zip code: [address] Past Medical History Allergies Allergen Reaction Date Comments Reported Stings 01/05/2019 STADOL, TORADOL, VACOMYCIN Other allergy 01/06/2019 STADOL, TORADOL, VANCOMYCIN Stadol 01/10/2019 Toradol 01/10/2019 Vancomycin 01/10/2019 Stadol 05/01/2019 Toradol 05/01/2019 Vancomycin 05/01/2019 Admission Admission Data Admission Date: 04/28/2019 Admission Time: 4:31 Room #: [id number] Height (in.): 63 BSA: 1.65 (m2) Height (cm.): 160.02 BMI: 24.45 (kg/m2) Weight (lbs.): 138 Weight (kg.): 62.6 Procedure Procedure Types Cath Procedure Peripheral Cath Diagnostic Procedure Capsule Filling Machine Operator Peripheral Procedures Miscellaneous Pleurex Remove Pleurex Peritoneal Procedure Description Procedure Date Procedure Date: 05/01/2019 Procedure Start Time: 11:24 Procedure Staff Name Function Joe Dominguez MD Performing Physician Bhumika Johnson RT Three Dimensional Map Modeler Yumiko Abraham RN Nurse Agustin Cortes RT Scrub Procedure Data Cath Procedure Fluoroscopy Diagnostic fluoroscopy Total fluoroscopy Time: 0.2 time: 0.2 min min Diagnostic fluoroscopy Total fluoroscopy dose: 11 dose: 11 mGy mGy Procedure Medications Medication Administration Route Dosage Heparin Flush Bag added to field 2 bags (1000units/500ml NS) Lidocaine 1% added to field 20 Versed I.V. 1 mg Fentanyl I.V. 50 mcg Versed I.V. 1 mg Fentanyl I.V. 50 mcg Benadryl I.V. 50 mg Versed I.V. 1 mg Fentanyl I.V. 50 mcg Hemodynamics Rest BSA: 1.65 (m2) O2 Consumption: Estimated: 195.15 (ml/min) O2 Consumption indexed : Estimated:118.27 (ml/min/m) Heart Rate: 109 (bpm) Snapshots Pre Cath Intra NCS Post Cath Vital Signs Time Heart Resp SPO2 etCO2 NIBP (mmHg) Rhythm Pain Sedation Rate (ipm) (%) (mmHg) Status Level (bpm) 11:09:23 106 13 100 1.4 160/108(132) NSR 0 (11) 10(A) , No pain 11:13:37 107 22 100 1.4 160/108(122) NSR 0 (11) 10(A) , No pain 11:17:51 106 20 100 0 149/108(124) NSR 0 (11) 10(A) , No pain 11:22:01 105 15 100 28.4 156/106(122) NSR 0 (11) 10(A) , No pain 11:26:15 107 14 100 35.1 153/103(127) NSR 0 (11) 10(A) , No pain 11:30:27 110 39 100 33.6 158/113(128) NSR 0 (11) 9(A) , No pain 11:34:41 110 19 99 19.4 155/108(128) NSR 0 (11) 9(A) , No pain 11:39:40 111 12 98 16.4 Measuring NSR 0 (11) 8(A) , No pain 11:39:50 112 12 97 18.7 152/100(127) NSR 0 (11) 8(A) , No pain 11:44:02 110 11 97 21.6 161/113(124) NSR 0 (11) 8(A) , No pain 11:48:16 113 11 97 9.7 157/100(123) NSR 0 (11) 8(A) , No pain 11:52:26 112 12 98 19.4 156/108(124) NSR 0 (11) 8(A) , No pain 11:56:40 110 11 98 14.9 155/100(121) NSR 0 (11) 8(A) , No pain Medications Time Medication Route Dose Verified Delivered Reason Notes Effe ctiveness by by 11:11:19 Heparin Flush added 2 Joe Diaz used for Bag to bags Angelica Dominguez MD procedure (1000units/500ml field NS) 11:11:31 Lidocaine 1% added 20ml Joe Diaz for local to vial Angelica Dominguez MD anesthetic field 11:28:38 Versed I.V. 1 mg oJe Calderon for Jarad Dominguez RN sedation 11:28:49 Fentanyl I.V. 50 Joe Calderon for mcg Jarad Dominguez RN sedation 11:31:20 Versed I.V. 1 mg Joe Calderon for Jarad Dominguez RN sedation 11:31:33 Fentanyl I.V. 50 Joe Calderon for mcg Jarad Dominguez RN sedation 11:34:19 Benadryl I.V. 50 mg Joe Calderon Per Jarad Dominguez RN physician 11:38:09 Versed I.V. 1 mg Joe Calderon for Jarad Dominguez RN sedation 11:38:17 Fentanyl I.V. 50 Joe Yumiko for Jarad Luo RN sedation Procedure Log Time Note 10:37:14 Patient Height : 63 inches 10:37:20 Patient Weight : 138 lbs 10:37:46 Use device set IR Diagnostic 10:53:00 Tegaderm 4 x 4 (1626W) opened to sterile field. 10:53:02 Sterile Angiographic Pack opened to sterile field. 10:53:04 Bag Decanter (2002S) opened to sterile field. 10:53:09 Time tracking: Regular hours (M-F 7:00 - 5:00) 10:53:28 Plan of Care:Hemodynamics will remain stable., Cardiac rhythm will remain stable., Comfort level will be maintained., Respiratory function will remain adequate., Patient/ family verbilizes understanding of procedure., Procedure tolerated without complication., Recovers from procedure without complications.. 10:53:38 Patient received from Med/Surg to IR Alert and oriented. Tansferred to table in Supine position. 10:53:40 Correct patient and procedure confirmed by team. 10:53:43 Signed procedure consent form obtained from patient. 10:53:49 H&P Date Dictated: 05/01/2019 Within 30 days and on chart.. 10:53:52 Pre-procedure instructions explained to patient. 10:53:52 Pre-op teaching completed and patient verbalized understanding. 10:53:56 Family unavailable. 10:53:58 Patient NPO since Midnight. 10:54:09 Patient allergic to Stadol 10:54:12 - 11:08:15 ECG and BP/O2 sat monitors applied to patient. 11:08:17 Vital chart was started 11:08:18 Baseline sample Acquired. 11:08:21 Full Disclosure recording started 11:08:21 - 11:09:04 Patient allergic to Toradol 11:09:13 Patient allergic to Vancomycin 11:09:19 - 11:11:19 Heparin Flush Bag (1000units/500ml NS) 2 bags added to field was administered by Joe Dominguez MD; used for procedure; Verbal order read back and verified. 11:11:31 Lidocaine 1% 20ml vial added to field was administered by Joe Dominguez MD; for local anesthetic; Verbal order read back and verified. 11:19:13 Patient diabetic? No. 11:19:16 - 11:19:17 ----Pre-sedation anethsthesia assessment.---- 11:19:24 Previous problem with sedation/anesthesia? No ? 11:19:27 Snore? Yes 11:19:30 Sleep apnea? No 11:19:33 Deviated septum? No 11:19:35 Opens mouth fully? Yes 11:19:38 Sticks out tongue? Yes 11:19:47 Airway obstruction? Yes CHF. 11:19:51 Dentures? No ? 11:19:54 - 11:20:02 IV patent on arrival in left hand with D5/.45%NaCl at KVO. 11:20:15 Right abdomen area was prepped with chlora-prep and draped in sterile fashion 11:20:17 - 11:20:24 Fire Safety Assessment: A--An alcohol-based skin anteseptic being used preoperatively., C--Open oxygen or nitrous oxide is being used. 11:21:10 - ::37 Physician arrived ::39 --------ALL STOP TIME OUT------ ::39 Final Timeout: patient, procedure, and site verified with staff and physician. All members of the team are in agreement. 11:24:09 Procedure started. 11:24:16 Local anesthetic to Abdominal area with Lidocaine 1% by Joe Dominguez MD.INITIAL ACCESS ONLY 11:28:38 Versed 1 mg I.V. was administered by Yumiko Abraham RN; for sedation; Verbal order read back and verified. 11:28:49 Fentanyl 50 mcg I.V. was administered by Yumiko Abraham RN; for sedation ; Verbal order read back and verified. 11:31:20 Versed 1 mg I.V. was administered by Yumiko Abraham RN; for sedation; Verbal order read back and verified. 11:31:33 Fentanyl 50 mcg I.V. was administered by Yumiko Abraham RN; for sedation ; Verbal order read back and verified. 11:34:19 Benadryl 50 mg I.V. was administered by Yumiko Abraham RN; Per physician ; Verbal order read back and verified. 11:38:09 Versed 1 mg I.V. was administered by Yumiko Abraham RN; for sedation; Verbal order read back and verified. 11:38:17 Fentanyl 50 mcg I.V. was administered by Yumiko Abraham RN; for sedation ; Verbal order read back and verified. 11:43:21 300CC'S OF FLUID DRAINED FROM ABDOMEN BEFORE REMOVAL OF PERITONEAL PLX CATH REMOVED 11:43:37 Procedure ended.(Physican Out) 11:46:52 Fluoroscopy time 00.20 minutes. 11:47:24 Fluoroscopy dose: 11 mGy 11:47:42 Flurop Dose total: 11 11:47:59 Procedure and supply charges have been captured, reviewed, submitted an d are correct. 11:49:15 Report given to Med/Surg. 11:58:33 Vital chart was stopped Device Usage Item Name Manufacture Quantity Catalog Hospital Part Current Minimal Lot# / Number Charge Number Stock Stock Serial# Code Tegaderm 4 x 3M 1 1626W [id number] 4 (1626W) Sterile Cardinal [address] [id number] 5 Angiographic Health Pack Bag Decanter Microtek 1 [id number] 5 () DrinkSendo. Signature Audit [place] Stage Time Signature Unsigned Intra-Procedure 05/01/2019 Bhumika Johnson 11:58:28 AM RT(R) [facility] [address] [place] [address]
[~2019-04-28 03:24] MED LIST changes: +CELEXA20 MG PO; +FAMOTIDINE10 MG PO; +IMODIUM2 MG PO; +LOPRESSOR25 MG PO; +NORVASC2.5 MG PO; +SYNTHROID50 MCG PO; +VELTASSA8.4 GM PO
[2019-04-28] MEDS ORDERED: GABAPENTIN300 MG PO (03:38)
[2019-04-28] MEDS ORDERED: RENVELA800 MG PO (03:39)
--- NOTE | 2019-04-28 05:18 | NUR ---
20 ML OF FLUID DRAINED FROM ABDOMINAL DRAIN FOR CULTURE PER EDP DOWNEN ORDERS. SPECIMEN SENT TO LAB.
--- NOTE | 2019-04-28 06:19 | NUR ---
PT IN BED RESTING. PT DENIES ANY NEEDS AT THIS TIME.
--- NOTE | 2019-04-28 09:44 | NUR ---
RECEIVED PATIENT FROM ER VIA WHEELCHAIR. ALERT AND ORIENTED, WALKING AROUND ROOM. C/O ABDOMINAL PAIN, DILAUDID GIVEN IN ER. NO S/S OF ACUTE DISTRESS NOTED. ABDOMEN DISTENDED, FIRM. FISTULA IN RIGHT ARM, THRILL AND BRUIT PRESENT. IV TO LEFT FOREARM, SL. SITE PATENT WITHOUT REDNESS OR SWELLING. DENIES ANY NEEDS AT THIS TIME. CALL LIGHT IN REACH. WILL CONTINUE TO MONITOR.
[2019-04-28 17:25] LABS: BASOPHILS 0.2 % (0-2); EOSINOPHILS 0.8 % (0-7); HEMATOCRIT 34.5 % (36.0-48.0); HEMOGLOBIN 10.8 g/dL (12-16); IMMATURE GRANULOCYTES 0.5 % (0-5); LYMPHOCYTES 5.8 % (15-50); MCH 29.9 pg (26.0-34.0); MCHC 31.3 g/dL (31.0-37.0); MCV 95.6 fL (80.0-100.0); MEAN PLATELET VOLUME 8.7 fL (7.4-10.4); NEUTROPHILS 87.7 % (40-80); RBC 3.61 10x6/uL (4.00-5.40); RDW 16.5 % (11.5-14.5); WBC 12.6 10x3/uL (4.8-10.8)
[2019-04-28 17:41] LABS: % SATURATION 20 % (15-55); IRON 13 ug/dl (35-150); TOTAL IRON BIND CAPACITY 63 ug/dl (260-445)
[2019-04-28 17:51] LABS: PLATELET COUNT 223 10x3/uL (130-400)
[2019-04-28 17:57] LABS: UNSAT IRON BIND CAPACITY 50 ug/dl (150-375)
[2019-04-28 18:05] LABS: ANION GAP 12.2 mmol/L (8-16); CALCIUM 8.5 mg/dL (8.5-10.1); CARBON DIOXIDE 29.7 mmol/L (21.0-32.0); CREATININE - SERUM 6.3 mg/dL (0.6-1.3); POTASSIUM - SERUM 3.9 mmol/L (3.5-5.1)
--- NOTE | 2019-04-28 18:21 | NUR ---
ALERT AND ORIENTED, RESTING IN BED WITH EYES OPEN. NO C/O PAIN. NO S/S OF ACUTE DISTRESS NOTED. DENIES ANY NEEDS AT THIS TIME. CALL LIGHT IN REACH. WILL CONTINUE TO MONITOR.
--- NOTE | 2019-04-28 22:16 | NUR ---
EYES CLOSED.RESP EVEN AND UNALBORED.NO DISTESS NOTED. IV TO LFA WITHOUT REDNESS OR EDEMA NOTED. NO COMPLAINTS VOICED AT PRESENT. CL IN REACH
[2019-04-29] VITALS: BP 168/105
--- NOTE | 2019-04-29 01:56 | NUR ---
I have reviewed this patient and I concur with the Shift Assessment completed by the Licensed Practical Nurse today this shift.
[2019-04-29 04:00] VITALS: BP 138/83
[2019-04-29 06:32] LABS: BASOPHILS 0.2 % (0-2); EOSINOPHILS 1.8 % (0-7); HEMATOCRIT 35.2 % (36.0-48.0); HEMOGLOBIN 11.1 g/dL (12-16); IMMATURE GRANULOCYTES 0.6 % (0-5); LYMPHOCYTES 7.3 % (15-50); MCH 29.8 pg (26.0-34.0); MCHC 31.5 g/dL (31.0-37.0); MCV 94.6 fL (80.0-100.0); MEAN PLATELET VOLUME 8.8 fL (7.4-10.4); NEUTROPHILS 83.1 % (40-80); PLATELET COUNT 252 10x3/uL (130-400); RBC 3.72 10x6/uL (4.00-5.40); RDW 16.8 % (11.5-14.5); WBC 11.9 10x3/uL (4.8-10.8)
[2019-04-29 07:02] LABS: ALBUMIN 1.5 g/dL (3.4-5.0); ANION GAP 16.3 mmol/L (8-16); BILIRUBIN - TOTAL 0.5 mg/dL (0.2-1.3); CALCIUM 8.8 mg/dL (8.5-10.1); CARBON DIOXIDE 27.7 mmol/L (21.0-32.0); CREATININE - SERUM 6.8 mg/dL (0.6-1.3); PROTEIN - SERUM 5.8 g/dL (6.4-8.2); TROPONIN-I 0.045 ng/mL (0.000-0.060)
[2019-04-29 08:47] VITALS: BP 150/91
[2019-04-29 14:47] VITALS: Ht 160 cm; Wt 77.7 kg
[2019-04-29 17:07] VITALS: BP 161/99
[2019-04-29 18:23] LABS: MACROPHAGES BF 20 %; NEUT - BF 77 %
[2019-04-29 20:00] VITALS: BP 135/83
--- NOTE | 2019-04-29 20:30 | NUR ---
LYING QUEITLY WITH NO COMPLAITNS VOICED. RESP UNLABORED. SL TO LFA INTACT WITHOUT REDNESS OR EDEMA NOTED. PLUREX DRAIN TO RIGHT ABD INTACT WITH DRESSING DRY. DENIES NEEDS AT THIS TIME.CL IN REACH
[2019-04-30] VITALS: BP 159/88
[2019-04-30 04:00] VITALS: BP 127/73
--- NOTE | 2019-04-30 04:34 | NUR ---
I have reviewed this patient and I concur with the Shift Assessment completed by the Licensed Practical Nurse today this shift.
--- NOTE | 2019-04-30 07:33 | NUR ---
PT IS RESTING IN BED WITH EYES OPEN. RESPIRATIONS ARE EVEN AND UNLABORED. PT IS AAO X 4. PT REPORTS PAIN 8/10 TO ABDOMINAL AREA. WILL ADDRESS. SEE EMAR. PLEURX DRAIN NOTED. DRESSING IN PLACE AND CDI. PT DENIES PRESENCE OF DYSPNEA/SOB. CONTACT ISOLATION PRECAUTIONS ARE IN PLACE. PT EDUCATED ON ISOLATION PRECAUTIONS AND PT VERBALIZES UNDERSTANDING. FISTULA TO RIGHT ARM. BRUIT/THRILL PRESENT. RIGHT ARM RESERVE SIGN IN PLACE ON PT DOOR AND ABOVE PT BED. BED IS IN THE LOWEST POSITION. CALL LIGHT AND BEDSIDE TABLE ARE WITHIN REAHC. SIDE RAILS X 2. PT DENIES FURTHER NEEDS. WILL CONT TO MONITOR.
[2019-04-30 08:12] VITALS: BP 137/86
[2019-04-30 08:32] LABS: BASOPHILS 0.2 % (0-2); EOSINOPHILS 2.1 % (0-7); HEMATOCRIT 33.4 % (36.0-48.0); HEMOGLOBIN 10.4 g/dL (12-16); IMMATURE GRANULOCYTES 0.7 % (0-5); MCH 30.1 pg (26.0-34.0); MCHC 31.1 g/dL (31.0-37.0); MEAN PLATELET VOLUME 9.1 fL (7.4-10.4); MONOCYTES 10.6 % (2-11); NEUTROPHILS 76.4 % (40-80); PLATELET COUNT 260 10x3/uL (130-400); RBC 3.45 10x6/uL (4.00-5.40); RDW 17.1 % (11.5-14.5); WBC 10.4 10x3/uL (4.8-10.8)
[2019-04-30 08:37] LABS: MCV 96.8 fL (80.0-100.0)
[2019-04-30 08:55] LABS: ANION GAP 16.1 mmol/L (8-16); CALCIUM 8.9 mg/dL (8.5-10.1); CARBON DIOXIDE 24.3 mmol/L (21.0-32.0); CREATININE - SERUM 5.5 mg/dL (0.6-1.3); POTASSIUM - SERUM 4.4 mmol/L (3.5-5.1)
--- NOTE | 2019-04-30 11:00 | NUR ---
ATTEMPT MADE TO DRAIN PLEURX. UNABLE TO COMPLETE. PLEURX CLOGGED WITH THICK MUCUS TYPE DRAINAGE IN TUBING. WILL OBTAIN DIFFERENT BOTTLE AND ATTEMPT TO DRAIN.
[2019-04-30 12:02] VITALS: BP 156/96
--- NOTE | 2019-04-30 14:55 | NUR ---
PLEURX DRAINED PER ORDER BY STERILE TECHNIQUE. 325ML OF LIGHT BROWN COLOR FLUID DRAINED. PT TOLERATED WELL. PT STATES "WE ARENT GOING TO GET 3000ML OUT. THATS ABOUT ALL ITLL GIVE". DRESSING APPLIED. FLUID SENT TO LAB FOR FURTHER TESTING. BED IS IN THE LOWEST POSITION. CALL LIGHT AND BEDSIDE TABLE ARE WITHIN REACH. SIDE RAILS X 2. PT DENIES FURTHER NEEDS. WILL CONT TO MONITOR.
[2019-04-30 20:00] VITALS: BP 160/90
--- NOTE | 2019-04-30 20:10 | NUR ---
AWAKE,ALERT.NO COMPLAINTS AT PRESENT. SL TO LFA INTACT WITHOUT REDNESS OR EDEMA NOTED. PLUREX DRAIN INTACT TO RIGHT ABD WITH DRESSING INTACT. CL IN REACH
[2019-05-01] VITALS (11 sets, daily range): BP systolic 123–182; BP diastolic 68–109
--- NOTE | 2019-05-01 02:03 | NUR ---
I have reviewed this patient and I concur with the Shift Assessment completed by the Licensed Practical Nurse today this shift.
[2019-05-01 04:50] LABS: BASOPHILS 0.2 % (0-2); EOSINOPHILS 2.9 % (0-7); HEMATOCRIT 29.8 % (36.0-48.0); HEMOGLOBIN 9.3 g/dL (12-16); IMMATURE GRANULOCYTES 1.4 % (0-5); LYMPHOCYTES 11.3 % (15-50); MCH 29.7 pg (26.0-34.0); MCHC 31.2 g/dL (31.0-37.0); MCV 95.2 fL (80.0-100.0); MEAN PLATELET VOLUME 8.7 fL (7.4-10.4); MONOCYTES 11.8 % (2-11); NEUTROPHILS 72.4 % (40-80); PLATELET COUNT 243 10x3/uL (130-400); RBC 3.13 10x6/uL (4.00-5.40); RDW 16.7 % (11.5-14.5); WBC 8.3 10x3/uL (4.8-10.8)
[2019-05-01 05:13] LABS: ANION GAP 11.3 mmol/L (8-16); CALCIUM 8.4 mg/dL (8.5-10.1); CARBON DIOXIDE 27.2 mmol/L (21.0-32.0); CREATININE - SERUM 6.6 mg/dL (0.6-1.3); POTASSIUM - SERUM 4.5 mmol/L (3.5-5.1)
[2019-05-01 05:44] LABS: INR 1.01 (0.85-1.17); PROTIME 13.3 SECONDS (11.6-15.0)
[2019-05-01 05:45] LABS: APTT 39.8 SECONDS (22.8-39.4)
--- NOTE | 2019-05-01 09:15 | NUR ---
PATIENT IV LEAKING AND RED. REMOVED WITH CATH TIP INTACT. NEW IV STARTED IN LEFT HAND X 2 STICKS. PATIENT TOLERATED WITH SMALL AMOUNT OF PAIN. CALL LIGHT WITHIN REACH.
--- NOTE | 2019-05-01 10:45 | NUR ---
PATIENT TO IR.
--- NOTE | 2019-05-01 13:41 | MORECARE ---
CASE MANAGEMENT DISCHARGE SUMMARY PATIENT: PARISH KWAN UNIT: [id number] ADM DATE: 04/28/19 AGE: 38 : 84 SEX: F ROOM/BED: D.2202 AUTHOR: JOHN,DOC PHYSICIAN: REFERRING PHYSICIAN: JIMBO NORIEGA MD DATE OF SERVICE: 05/01/19 Discharge Plan Patient Name: PARISH KWAN Facility: [facility]:[place] : 1980 Planned Disposition: Home Anticipated Discharge Date: Discharge Date: Expected LOS: Initial Reviewer: [id number] Initial Review Date: 05/01/2019 Generated: 05/01/19 2:40 pm Comments DCP- Discharge Planning Updated by [id number]: Rima Martinez on 05/01/19 12:[address] Patient Name: PARISH KWAN Admission Status: ER Accout number: [id number] Admission Date: 04-28-2019 : 1980 Admission Diagnosis: Attending: JIMBO NORIEGA Current LOS: 3 Anticipated DC Date: Planned Disposition: Home Primary Insurance: [employer] ADV Discharge Planning Comments: CM MET WITH PATIENT TO DISCUSS DC PLANNING/NEEDS AFTER OBTAINING VERBAL CONSENT. PLANS TO DC TO HOME. STATES IF NEEDS HH WITH IV INFUSION COMPANY NO PREFERENCE, [facility] FOR ANY HH AND ANY IV INFUSION COMPANY IF NEEDED. CM TO FOLLOW AND ASSIST NEEDED. Marble Cutter: Rima Martinez DCPIA - Discharge Planning Initial Assessment Updated by [id number]: Rima Martinez on 05/01/19 1:33 pm * Is the patient Alert and Oriented? Yes * PCP OLIVA * Pharmacy [facility] * Preadmission Environment Home Alone * ADLs Independent * Additional services required to return to the preadmission environment? No * Can the patient safely return to the preadmission environment? Yes * Has this patient been hospitalized within the prior 30 days at any hospital? No Coverage Notice Reviewer: [id number] - Rima Martinez Notice Issued Date-Time: 05/01/2019 13:35 Notice Type: Patient Choice Letter Notice Delivered To: Patient Relationship to Patient: Vocational Horticulture Instructor Name: Delivery Method: PHONE - Phone Magda Days: Prior Verbal Notification: Recipient Understood Notice: Yes Recipient Signature: Med Rec Note Co-signed by Attending: Coverage Notice Comment: HH ANY IV INFUSION COMPANY - ANY Patient Name: PARISH KWAN Page [phone] at 1341 All edits/amendments must be made on the electronic document DICTATION DATE: 05/01/19 1340 NON DESTRUCTIVE TESTING SUPERVISOR: DIAMANTE 05/01/19 1340 RPT#: [id number] DC DATE: STATUS: ADM IN [facility] [address] [place] [address] END OF REPORT
--- NOTE | 2019-05-01 14:40 | NUR ---
PATIENT BP 162/103. HAS BEEN HIGH SINCE HAVE BEEN BACK FROM [place]. NEW ORDERS RECIEVED FROM HENRY MACE APN.
[2019-05-02 01:26] VITALS: BP 157/89
[2019-05-02 05:29] LABS: BASOPHILS 0.2 % (0-2); EOSINOPHILS 3.2 % (0-7); HEMATOCRIT 30.2 % (36.0-48.0); HEMOGLOBIN 9.6 g/dL (12-16); IMMATURE GRANULOCYTES 1.6 % (0-5); LYMPHOCYTES 14.6 % (15-50); MCH 29.9 pg (26.0-34.0); MCHC 31.8 g/dL (31.0-37.0); MCV 94.1 fL (80.0-100.0); MEAN PLATELET VOLUME 8.9 fL (7.4-10.4); MONOCYTES 8.8 % (2-11); NEUTROPHILS 71.6 % (40-80); RBC 3.21 10x6/uL (4.00-5.40); RDW 16.3 % (11.5-14.5)
[2019-05-02 05:30] VITALS: BP 161/97
[2019-05-02 05:47] LABS: ANION GAP 15.9 mmol/L (8-16); CARBON DIOXIDE 24.1 mmol/L (21.0-32.0); PHOSPHOROUS 6.7 mg/dL (2.5-4.9)
[2019-05-02 05:51] LABS: CREATININE - SERUM 8.3 mg/dL (0.6-1.3)
[2019-05-02 05:56] LABS: PLATELET COUNT 305 10x3/uL (130-400)
--- NOTE | 2019-05-02 08:15 | NUR ---
PT REQUEST PAIN MEDICATION. NURSE ADVISED PT THAT HER HYDROMORPHONE HAS BEEN D/C BUT SHE HAS NORCO AND TRAMADOL ORDERED. PT STATES, "NO! THOSE DON'T DO ANYTHING FOR MY PAIN. YOU BETTER CALL THAT DOCTOR AND GET MY DILAUDID ORDERED." ADVISED PT NURSE WILL CONTACT MD. PT THEN STATES, "I AM NOT GONNA SIT IN THIS [facility] AND BE IN PAIN." RELAYED THIS TO CHAN RENAL PLUMBER APPRENTICE. NEW ORDER RECIEVED FOR BUPRINEX 0.3MG Q6H PRN.
[2019-05-02 09:28] VITALS: BP 161/101
--- NOTE | 2019-05-02 10:30 | NUR ---
PT SITTING UP IN BED RECIEVING DIALYSIS. NO SIGNS OF DISTRESS NOTED. BED ALARM ON, DENIES ANY NEEDS AT THIS TIME, CALL LIGHT WITHIN REACH, WILL CONT TO FOLLOW POC
[2019-05-02 12:45] VITALS: BP 133/78
--- NOTE | 2019-05-02 15:01 | NUR ---
Nutrition follow-up: Diet: Renal ADA PO intake 100% of most meals; pt not very compliant with diet Labs reviewed WT: 138# dialysis at bedside RDN following.
[2019-05-02 17:08] LABS: ACID FAST SMEAR Negative (()); AFB SPECIMEN PROCESSING Concentration (())
[2019-05-02 17:17] VITALS: BP 132/69
--- NOTE | 2019-05-02 20:55 | NUR ---
LYING IN BED. ALERT AND ORIENTED. AGITATED. C/O PAIN IN ABD 10. PAIN MEDS NOT DUE AT THIS TIME. PT CURSING SAYING "THE FUCKING BUPRINEX DOESNT DO A DAMN THING FOR ME." WAS REPORTED BY OFFGOING STAFF THAT PT SLEPT WELL AFTER RECEIVING THIS MED EARLIER TODAY. PT THREATENING TO GO HOME. ABD IS DISTENDED AND FIRM. DRSG NOTED TO ABD. PT DOES NOT VOID, HAD DIALYSIS TODAY. REQUESTING SALAD. SALINE LOCK NOTED TO LT FOREARM. RT ARM RESERVE WITH AV FISTULA. AMBULATORY. SR ELEVATED X2. CL IN REACH. CONTACT ISO PRECAUTIONS IN USE.
--- NOTE | 2019-05-02 21:40 | NUR ---
MEDICATED WITH BUPRINEX AND ZOFRAN PER REQUEST. CL IN REACH.
[2019-05-02 23:09] VITALS: BP 143/87
[2019-05-03 01:45] VITALS: BP 110/67
--- NOTE | 2019-05-03 02:47 | NUR ---
HAS SLEPT WELL SO FAR THIS SHIFT. LYING ON RT SIDE WITH EYES CLOSED. RESP EVEN AND NONLABORED. NO DISTRESS. CL IN REACH.
--- NOTE | 2019-05-03 03:50 | NUR ---
MEDICATED WITH BUPRENEX AND ZOFRAN FOR C/O PAIN IN ABD RATING 10. CL IN REACH.
[2019-05-03 05:20] VITALS: BP 134/74
[2019-05-03 05:29] LABS: BASOPHILS 0.4 % (0-2); EOSINOPHILS 2.8 % (0-7); HEMATOCRIT 31.7 % (36.0-48.0); HEMOGLOBIN 9.6 g/dL (12-16); IMMATURE GRANULOCYTES 1.5 % (0-5); LYMPHOCYTES 12.9 % (15-50); MCH 29.4 pg (26.0-34.0); MCHC 30.3 g/dL (31.0-37.0); MEAN PLATELET VOLUME 8.8 fL (7.4-10.4); MONOCYTES 9.9 % (2-11); NEUTROPHILS 72.5 % (40-80); PLATELET COUNT 305 10x3/uL (130-400); RBC 3.26 10x6/uL (4.00-5.40); RDW 16.4 % (11.5-14.5); WBC 7.8 10x3/uL (4.8-10.8)
[2019-05-03 05:43] LABS: CALCIUM 8.5 mg/dL (8.5-10.1); MAGNESIUM - SERUM 1.7 mg/dL (1.8-2.4); PHOSPHOROUS 5.2 mg/dL (2.5-4.9)
[2019-05-03 05:45] LABS: MCV 97.2 fL (80.0-100.0)
[2019-05-03 05:53] LABS: ANION GAP 7.4 mmol/L (8-16); CARBON DIOXIDE 31.6 mmol/L (21.0-32.0); CREATININE - SERUM 5.5 mg/dL (0.6-1.3)
[2019-05-03 09:04] VITALS: BP 140/95
[2019-05-03 13:10] LABS: FUNGUS STAIN Final report (())
[2019-05-03 13:41] VITALS: BP 140/91
--- NOTE | 2019-05-03 14:39 | NUR ---
PATIENT LAYING ON RIGHT SIDE. QUESTIONED WHEN HER DILAUDED WOULD BE AVAILABLE AGAIN. I RESPONDED [id number]. TRAY REMOVED FROM ROOM. CL IN REACH. NO FURTHER NEEDS AT THIS TIME. WALTER
--- NOTE | 2019-05-03 17:23 | NUR ---
IV THERAPY REMOVED FROM LEFT AC. TIP INTACT. PATIENT STATED IT WAS "BURNING"
[2019-05-03 17:51] VITALS: BP 140/98
[2019-05-03 20:00] VITALS: BP 151/83
--- NOTE | 2019-05-04 03:28 | NUR ---
IV OUT AT START OF SHIFT OFF GOING NURSE UNABLE TO GET NEW IV. tOOK 5 ATEMPTS TO RESITE 24 BENNY IN RIGHT HAND. PLACED VASCULAR ACCESS CONSULT.
[2019-05-04 04:00] VITALS: BP 149/79
[2019-05-04 06:29] LABS: BASOPHILS 0.4 % (0-2); EOSINOPHILS 2.7 % (0-7); HEMATOCRIT 29.7 % (36.0-48.0); HEMOGLOBIN 9.3 g/dL (12-16); IMMATURE GRANULOCYTES 1.9 % (0-5); LYMPHOCYTES 12.1 % (15-50); MCHC 31.3 g/dL (31.0-37.0); MCV 95.8 fL (80.0-100.0); MEAN PLATELET VOLUME 8.9 fL (7.4-10.4); MONOCYTES 7.7 % (2-11); NEUTROPHILS 75.2 % (40-80); PLATELET COUNT 316 10x3/uL (130-400); RDW 16.6 % (11.5-14.5)
[2019-05-04 06:33] LABS: WBC 10.2 10x3/uL (4.8-10.8)
[2019-05-04 06:56] LABS: CALCIUM 8.1 mg/dL (8.5-10.1); CARBON DIOXIDE 26.9 mmol/L (21.0-32.0); MAGNESIUM - SERUM 1.9 mg/dL (1.8-2.4); PHOSPHOROUS 5.1 mg/dL (2.5-4.9)
--- NOTE | 2019-05-04 06:56 | NUR ---
STOOL WAS COLLECTED YESTERDAY FOR TESTS. LAB WILL NOT TEST FOR CDT BECAUSE STOOL WAS NOT IN LIQUID FORM.
[2019-05-04 07:05] LABS: POTASSIUM - SERUM 5.9 mmol/L (3.5-5.1)
--- NOTE | 2019-05-04 07:45 | NUR ---
PATIENT LAYING ON RIGHT SIDE. NO NEEDS AT THIS TIME. CL IN REACH. WCTM
[2019-05-04 08:47] VITALS: BP 135/92
--- NOTE | 2019-05-04 10:22 | NUR ---
SPOKE WITH OSEAS RIVAS APN WITH [facility] ABOUT APPROVAL FOR MIDLINE. PATIENT HAS HAD MULTIPLE IV TRIES WITH LITTLE SUCCESS. WELL NEEDING A NEW FREQUENTLY. APPROVAL WAS GIVEN.
[2019-05-04 11:47] VITALS: BP 129/68
[2019-05-04 15:59] VITALS: BP 161/101
--- NOTE | 2019-05-04 18:52 | NUR ---
Patient requested off dialysis 15 minutres early due to headache. 3 liters (3000 mL) removed during treatment. Patient was hypertensive during treatment. MD notified and Clonidine was given by Primary RN.
[2019-05-04 20:00] VITALS: BP 110/88
[2019-05-05] VITALS: BP 127/86
[2019-05-05 05:31] LABS: ANION GAP 11.2 mmol/L (8-16); CALCIUM 8.6 mg/dL (8.5-10.1); CARBON DIOXIDE 28.8 mmol/L (21.0-32.0); CREATININE - SERUM 5.4 mg/dL (0.6-1.3); MAGNESIUM - SERUM 1.8 mg/dL (1.8-2.4); PHOSPHOROUS 4.4 mg/dL (2.5-4.9)
[2019-05-05 05:32] LABS: HEMATOCRIT 30.2 % (36.0-48.0); HEMOGLOBIN 9.2 g/dL (12-16); MCH 29.7 pg (26.0-34.0); MCHC 30.5 g/dL (31.0-37.0); MCV 97.4 fL (80.0-100.0); MEAN PLATELET VOLUME 8.7 fL (7.4-10.4); PLATELET COUNT 260 10x3/uL (130-400); WBC 8.2 10x3/uL (4.8-10.8)
[2019-05-05 08:12] LABS: BASOPHILS 1 % (0-2); EOSINOPHILS 2 % (0-7); LYMPHOCYTES 8 % (15-50); NEUTROPHILS 88 % (40-80); PLATELET ESTIMATE NORMAL
--- NOTE | 2019-05-05 08:16 | NUR ---
PATIENT REQUESTING MORE EGGS AND HAM FOR BREAKFAST. PUT IN A ONE TIME ORDER. CL IN REACH. NO FURTHER NEEDS AT THIS TIME.
--- NOTE | 2019-05-05 08:17 | NUR ---
PATIENT IS NOT HAPPY WITH PAIN MEDICATION CHANGES. WANTS ME TO CALL THE DOCTOR TO TELL HIM SHE CAN "BE AT HOME IN PAIN WITH HER BABIES" STATES "SHE WILL LEAVE." CL IN REACH. WCTM
--- NOTE | 2019-05-05 08:28 | NUR ---
NOTIFIED DR BAPTISTE'S OFFICE ABOUT PATIENTS STATEMENT. WAS TOLD BY JUANITA PATRICIO THAT PATIENT CAN LEAVE AMA IF SHE WANTS. SHE IS NOT TOUCHING THE PAIN MEDICATION BECAUSE DR CABALLERO WROTE A LONG NOTE ABOUT IT. WILL NOTIFY PATIENT.
[2019-05-05 09:48] VITALS: BP 120/76
--- NOTE | 2019-05-05 13:03 | NUR ---
PATIENT CO OF PAIN AND PRESSURE GROWING IN ABDOMEN AND CHEST CALLED TO SEE WHEN THE POSSIBLE PARACENTESIS WOULD BE. CALLED DR HUMPHREY OFFICE TO SEE IF THE PAIN IN ABD WOULD GET HER ANY INCREASE IN PAIN MEDICATION. STOOL RECEIVED AND PERSONALLY WALKED DOWN TO LAB MYSELF FOR THE CDT TEST. WAITING ON FURTHER INSTRUCTION. REQUESTED AND RECEIVED 2 PLASTIC BAGS. CL RUCHI REACH. WCTM
[2019-05-05 13:40] VITALS: BP 146/85
[2019-05-05 16:09] LABS: FUNGUS MYCOLOGY CULTURE Preliminary report (())
[2019-05-05 16:28] VITALS: BP 161/76
[2019-05-05 20:00] VITALS: BP 121/97
[2019-05-06 04:00] VITALS: BP 107/66
[2019-05-06 06:32] LABS: BASOPHILS 0.6 % (0-2); EOSINOPHILS 2.8 % (0-7); HEMATOCRIT 32.7 % (36.0-48.0); HEMOGLOBIN 9.9 g/dL (12-16); IMMATURE GRANULOCYTES 0.5 % (0-5); MCH 29.7 pg (26.0-34.0); MCHC 30.3 g/dL (31.0-37.0); MCV 98.2 fL (80.0-100.0); MEAN PLATELET VOLUME 8.9 fL (7.4-10.4); MONOCYTES 9.2 % (2-11); NEUTROPHILS 75.9 % (40-80); PLATELET COUNT 268 10x3/uL (130-400); RBC 3.33 10x6/uL (4.00-5.40); RDW 17.2 % (11.5-14.5); WBC 9.6 10x3/uL (4.8-10.8)
[2019-05-06 06:37] LABS: ANION GAP 16.8 mmol/L (8-16); CALCIUM 9.3 mg/dL (8.5-10.1); CARBON DIOXIDE 23.2 mmol/L (21.0-32.0); MAGNESIUM - SERUM 1.9 mg/dL (1.8-2.4); PHOSPHOROUS 5.3 mg/dL (2.5-4.9)
--- NOTE | 2019-05-06 07:15 | NUR ---
REPORT RECEIVED. ON CONTACT PRECAUTIONS. DIALYSIS PT T, TH, AND SAT. RESERVED RIGHT ARM. PT HAS LEFT UPPER ARM MIDLINE CATH THAT IS SALINE LOCKED. PT IS ON ROOM AIR. SHE HAS NO COMPLAINTS OR NEEDS. BED IN LOWEST POSITION. CALL LIGHT IN REACH.
[2019-05-06 08:28] VITALS: BP 191/106
--- NOTE | 2019-05-06 13:50 | NUR ---
REQUESTED AND GIVEN PAIN MEDS. ASKED FOR PAIN PILL AND THEN REFUSED HYDROCODONE PO . REQUESTED DILAUDID AND ZOFRAN. GIVEN ONE MG OF DILAUDID WITH 4MG ZOFRAN SLOW IVP FOR PAIN TO ABDOMEN LEVEL 10. WILL MONITOR. BP ELEVATED AT THIS TIME, 181/101. SHENG MACE APN NOTIFIED OF SAME. NO NEW ORDERS AT THIS TIME.
--- NOTE | 2019-05-06 15:10 | NUR ---
RESTING QUIETLY IN BED WITH EYES CLOSED. REPORTS PAIN STILL AT A7 OR 8. BP IS 156/93 AT THIS TIME. WILL CONTINUE TO MONITOR.
[2019-05-06 16:19] VITALS: BP 156/93
--- NOTE | 2019-05-06 18:42 | NUR ---
ATE ALL OF SUPPER. DENIES NEEDS. NO CHANGES NOTED.
--- NOTE | 2019-05-06 19:00 | NUR ---
PATIENT LYING DOWN IN BED. ALERT AND ORIENTED X4. NO ACUTE DISTRESS NOTED. UPPER ARM MIDLINE, SL. TELEMETRY ON. PATIENT REQUESTS SOME PAIN AND NAUSEA MEDICINE AT THIS TIME. BED IN LOW POSITION, RAILS X2. BEDSIDE TABLE AND CALL LIGHT WITHIN REACH.
[2019-05-06 23:31] VITALS: BP 178/95
[2019-05-07 03:48] VITALS: BP 194/78
[2019-05-07 04:00] VITALS: BP 172/108
[2019-05-07 06:08] LABS: BASOPHILS 0.7 % (0-2); EOSINOPHILS 3.7 % (0-7); HEMATOCRIT 33.8 % (36.0-48.0); HEMOGLOBIN 10.1 g/dL (12-16); IMMATURE GRANULOCYTES 0.5 % (0-5); LYMPHOCYTES 9.2 % (15-50); MCH 29.5 pg (26.0-34.0); MCHC 29.9 g/dL (31.0-37.0); MCV 98.8 fL (80.0-100.0); NEUTROPHILS 77.9 % (40-80); PLATELET COUNT 270 10x3/uL (130-400); RBC 3.42 10x6/uL (4.00-5.40); RDW 17.4 % (11.5-14.5); WBC 9.5 10x3/uL (4.8-10.8)
[2019-05-07 06:39] LABS: ANION GAP 15.4 mmol/L (8-16); CALCIUM 9.3 mg/dL (8.5-10.1); CARBON DIOXIDE 27.7 mmol/L (21.0-32.0); MAGNESIUM - SERUM 1.9 mg/dL (1.8-2.4); PHOSPHOROUS 5.1 mg/dL (2.5-4.9); POTASSIUM - SERUM 5.1 mmol/L (3.5-5.1)
--- NOTE | 2019-05-07 07:10 | NUR ---
PT RESTING IN BED. NO SIGNS OF DISTRESS. IV TO LEFT UPPER ARM MIDLINE PATENT NO REDNESS OR TENDERNESS. ON TELEMETRY 117 ST. ON CONTACT ISO. COMPLAINS OF PAIN. MEDICATION GIVEN. DENIES ANY FURTHER NEED AT THIS TIME. CALL LIGHT IN REACH. BED LOW POSITION. NO FAMILY AT BEDSIDE AT THIS TIME.
[2019-05-07 09:04] VITALS: BP 168/93
--- NOTE | 2019-05-07 09:40 | NUR ---
ARRIVE TO ROOM VIA WHEELCHAIR FROM MED-SURG. ALERT AND ORIENTED X4. AMBULATES TO BED GAIT STEADY. SINUS TACH ON TELEMETRY. NOTIFY HENRY RENAL ASSEMBLY STOCK SUPERVISOR OF HTN. DENIES ANY NEEDS AT THIS TIME. CONTINUE PLAN OF CARE AND SAFETY PRECAUTIONS.
[2019-05-07 12:22] VITALS: BP 153/91
--- NOTE | 2019-05-07 13:42 | NUR ---
ALERT AND ORIENTED X4. SITTING UP IN BED. CONSENTS SIGNED ON CHART FOR PROCEDURE. PAIN MANAGEMENT CONTINUED. DENIES ANY NEEDS AT THIS TIME. CONTINUE PLAN OF CARE AND SAFETY PRECAUTIONS.
[2019-05-07 17:24] VITALS: BP 157/85
--- NOTE | 2019-05-07 19:30 | NUR ---
RECEIVED REPORT, WILL ASSUME CARE OF PT, ASKING FOR ADAM, EXPLAIN SHE COULD HAVE AT 2130, ASKING FOR A FORK SO SHE COULD EAT HER SALAD,PROVIDED, BED IS LOW, SRX2, CALL LIGHT IN REACH, WILL CONTINUE PLAN OF CARE
[2019-05-07 20:00] VITALS: BP 150/82
[2019-05-08] VITALS: BP 160/83
[2019-05-08 04:00] VITALS: BP 159/91; BP 159/910
--- NOTE | 2019-05-08 04:51 | NUR ---
I have reviewed this patient and I concur with the Shift Assessment completed by the Licensed Practical Nurse today this shift.
[2019-05-08 05:32] LABS: BASOPHILS 0.4 % (0-2); HEMATOCRIT 27.5 % (36.0-48.0); HEMOGLOBIN 8.4 g/dL (12-16); IMMATURE GRANULOCYTES 0.7 % (0-5); LYMPHOCYTES 10.6 % (15-50); MCH 29.8 pg (26.0-34.0); MCHC 30.5 g/dL (31.0-37.0); MCV 97.5 fL (80.0-100.0); MEAN PLATELET VOLUME 8.3 fL (7.4-10.4); MONOCYTES 7.3 % (2-11); RBC 2.82 10x6/uL (4.00-5.40); RDW 17.3 % (11.5-14.5); WBC 7.6 10x3/uL (4.8-10.8)
[2019-05-08 05:43] LABS: PLATELET COUNT 195 10x3/uL (130-400)
[2019-05-08 05:44] LABS: APTT 28.5 SECONDS (22.8-39.4); INR 1.23 (0.85-1.17); PROTIME 15.4 SECONDS (11.6-15.0)
[2019-05-08 05:46] LABS: ANION GAP 18.2 mmol/L (8-16); CALCIUM 9.3 mg/dL (8.5-10.1); CARBON DIOXIDE 22.9 mmol/L (21.0-32.0); CREATININE - SERUM 7.2 mg/dL (0.6-1.3); MAGNESIUM - SERUM 1.9 mg/dL (1.8-2.4); PHOSPHOROUS 6.3 mg/dL (2.5-4.9)
[2019-05-08 05:51] LABS: POTASSIUM - SERUM 6.1 mmol/L (3.5-5.1)
--- NOTE | 2019-05-08 07:20 | NUR ---
RECIEVE REPORT. RESTING IN BED WITH EYES CLOSED. SINUS RYTHM 93 ON TELEMETRY. NO SIGNS OF DISTRESS. CONTINUE PLAN OF CARE AND SAFETY PRECAUTIONS.
--- NOTE | 2019-05-08 14:00 | NUR ---
RETURN TO ROOM VIA BED FROM PROCEDURE. VITALS STABLE. ONLY 200ml OFF DURING PARACENTESIS. REPORTS ABDOMINAL PAIN. CONTINUE PAIN MANAGMENT ORDERED. DENIES ANY OTHER NEEDS. CONTINUE PLAN OF CARE AND SAFETY PRECAUTIONS.
--- NOTE | 2019-05-08 17:48 | MORECARE ---
CASE MANAGEMENT DISCHARGE SUMMARY PATIENT: PARISH KWAN UNIT: [id number] ADM DATE: 04/28/19 AGE: 38 : [birth year] SEX: F ROOM/BED: D.1622 AUTHOR: JOHN,DOC PHYSICIAN: REFERRING PHYSICIAN: JIMBO NORIEGA MD DATE OF SERVICE: 05/08/19 Discharge Plan Patient Name: PARISH KWAN Facility: [facility]:[place] : 1980 Planned Disposition: Home Anticipated Discharge Date: 05/09/19 Discharge Date: Expected LOS: 11 Initial Reviewer: [id number] Initial Review Date: 05/01/2019 Generated: 05/08/19 6:48 pm Comments DCP- Discharge Planning Updated by [id number]: Kaz Petit on 05/08/19 4:[address] Patient Name: PARISH KWAN Encounter No: [id number] : 1980 Primary Insurance: [employer] [facility] ADV Anticipated DC Date: 05-09-2019 Planned Disposition: Home DCP follow-up note: CM RECEIVED ORDER FOR DISCHARGE PLANNING, MET WITH PT IN ROOM. PT REPORTS IF SHE NEEDS HOME INFUSION, SHE HAS NO PREFERENCE ON INFUSION COMPANY. PT REPORTS IF SHE NEEDS DRAIN CARE, [facility] WILL NOT SEE HER AND SHE IS NOT SURE IF ANY COMPANY WILL ACCEPT HER SHE WAS TOLD THAT NO HOME HEALTH COMPANY WILL. PT SIGNED CHOICE FOR NO INFUSION COMPANY PREFERNCE AND NO HOME HEALTH PREFERENCE IF [facility] WILL NOT ACCEPT HER. PT REPORTS SHE IS GOING HOME AT DISCHARGE, NO WHERE ELSE. PT STATES SHE IS NOT SURE HOW SHE WILL GET HOME AND WILL TRY TO CALL SOMEONE TO PICK HER UP AT DISCHARGE. CHART REVIEWED, NO NOTES INDICATING PT WILL NEED INFUSION OR THAT SHE WILL HAVE ANOTHER DRAIN PUT IN. CM DISCUSSED THIS WITH PT. IMPORTANT MESSAGE FROM MEDICARE PROVIDED AND EXPLAINED. PT REPORTS THERE ARE NO HOME HEALTH COMPANIES THAT WILL ACCEPT HER; SHE WILL NEED HOME HEALTH IF SHE NEEDS DRAIN CARE OR IF SHE NEEDS IV HOME INFUSION. PT REPORTS PLAN TO GO HOME AT DISCHARGE, STATES SHE WILL TRY TO CALL SOMEONE FOR A RIDE AT DISCHARGE. CM TO FOLLOW AND ASSIST NEEDED. KAZ PETIT, CASE MANAGEMENT DCP- Discharge Planning Updated by [id number]: Rima Martinez on 05/01/19 12:[address] Patient Name: PARISH KWAN Admission Status: ER Accout number: [id number] Admission Date: 04-28-2019 : 1980 Admission Diagnosis: Attending: JIMBO NORIEGA Current LOS: 3 Anticipated DC Date: Planned Disposition: Home Primary Insurance: [employer]ARE ADV Discharge Planning Comments: CM MET WITH PATIENT TO DISCUSS DC PLANNING/NEEDS AFTER OBTAINING VERBAL CONSENT. PLANS TO DC TO HOME. STATES IF NEEDS HH WITH IV INFUSION COMPANY NO PREFERENCE, [facility] FOR ANY HH AND ANY IV INFUSION COMPANY IF NEEDED. CM TO FOLLOW AND ASSIST NEEDED. Public Policy Mediator: Rima Martinez DCPIA - Discharge Planning Initial Assessment Updated by [id number]: Rima Martinez on 05/01/19 1:33 pm * Is the patient Alert and Oriented? Yes * PCP OLIVA * Pharmacy [facility] * Preadmission Environment Home Alone * ADLs Independent * Additional services required to return to the preadmission environment? No * Can the patient safely return to the preadmission environment? Yes * Has this patient been hospitalized within the prior 30 days at any hospital? No Coverage Notice Reviewer: [id number] - Rima Martinez Notice Issued Date-Time: 05/01/2019 13:35 Notice Type: Patient Choice Letter Notice Delivered To: Patient Relationship to Patient: Patient Account Specialist Name: Delivery Method: PHONE - Phone Magda Days: Prior Verbal Notification: Recipient Understood Notice: Yes Recipient Signature: Med Rec Note Co-signed by Attending: Coverage Notice Comment: HH ANY IV INFUSION COMPANY - ANY Reviewer: [id number] Kalani Petit Notice Issued Date-Time: 05/08/2019 17:10 Notice Type: IM Discharge Notice Notice Delivered To: Patient Relationship to Patient: Patient Account Specialist Name: Delivery Method: HAND - Hand Delivered Magda Days: Prior Verbal Notification: Recipient Understood Notice: Yes Recipient Signature: Yes Med Rec Note Co-signed by Attending: Coverage Notice Comment: Reviewer: [id number] Kalani Petit Notice Issued Date-Time: 05/08/2019 14:10 Notice Type: Patient Choice Letter Notice Delivered To: Patient Relationship to Patient: Patient Account Specialist Name: Delivery Method: HAND - Hand Delivered Magda Days: Prior Verbal Notification: Recipient Understood Notice: Yes Recipient Signature: Yes Med Rec Note Co-signed by Attending: Coverage Notice Comment: [facility] OR ANY ACCEPTING HOME HEALTH IF NEEDED FOR DRAIN CARE NO INFUSION COMPANY PREFERENCE IF NEEDING HOME INFUSION Last DP export: 05/01/19 12:41 p Patient Name: PARISH KWAN Page [phone] at 1748 All edits/amendments must be made on the electronic document DICTATION DATE: 05/08/191747 FUNERAL HOME GENERAL MANAGER: DIAMANTE 05/08/191747 RPT#: [id number] DC DATE: STATUS: ADM IN [address] [place] [address] END OF REPORT
[2019-05-08 20:00] VITALS: BP 161/93
--- NOTE | 2019-05-09 02:44 | NUR ---
RESTING WITH EYES CLOSED, RESPERATIONS EVEN, NO S/S DISTRESS NOTED.
[2019-05-09 04:00] VITALS: BP 167/93
[2019-05-09 06:03] LABS: BASOPHILS 0.3 % (0-2); EOSINOPHILS 4.4 % (0-7); HEMATOCRIT 27.5 % (36.0-48.0); HEMOGLOBIN 8.6 g/dL (12-16); IMMATURE GRANULOCYTES 0.5 % (0-5); LYMPHOCYTES 7.1 % (15-50); MCH 30.1 pg (26.0-34.0); MCHC 31.3 g/dL (31.0-37.0); MCV 96.2 fL (80.0-100.0); MEAN PLATELET VOLUME 8.3 fL (7.4-10.4); MONOCYTES 6.1 % (2-11); NEUTROPHILS 81.6 % (40-80); PLATELET COUNT 175 10x3/uL (130-400); RBC 2.86 10x6/uL (4.00-5.40); RDW 17.5 % (11.5-14.5); WBC 7.9 10x3/uL (4.8-10.8)
[2019-05-09 06:25] LABS: ALBUMIN 2.1 g/dL (3.4-5.0); ANION GAP 18.4 mmol/L (8-16); BILIRUBIN - TOTAL 0.52 mg/dL (0.2-1.3); CALCIUM 9.3 mg/dL (8.5-10.1); CARBON DIOXIDE 21.9 mmol/L (21.0-32.0); CREATININE - SERUM 8.6 mg/dL (0.6-1.3); MAGNESIUM - SERUM 1.9 mg/dL (1.8-2.4); PROTEIN - SERUM 6.5 g/dL (6.4-8.2)
[2019-05-09 06:33] LABS: POTASSIUM - SERUM 6.3 mmol/L (3.5-5.1)
--- NOTE | 2019-05-09 06:34 | NUR ---
NOTIFIED DR BAPTISTE OF PTS CRITICAL [facility]SI[facility], NO NEW ORDERS GIVEN AT THIS TIME, HE STATED PT IS GOING TO DIALYSIS TODAY.
[2019-05-09 12:00] VITALS: BP 148/89
--- NOTE | 2019-05-09 14:27 | NUR ---
Nutrition Follow-up: Eating well. Noted paracentesis done yesterday (-200 cc). HD today. Diet: Renal PO intake: 100% x 6 meals Wt: 171# (05/09); 138# (04/29); 170# (04/28) Last BM: 05/08 per chart Labs noted: Na 135, K+ 6.3, PO4 8.0, Alb 2.1 Meds noted: Renagel, Floranex, Protonix, Nephrovite -Continue current diet as tolerated. -Monitor wt; noted daily wts ordered. -RD following.
--- NOTE | 2019-05-09 19:10 | NUR ---
RECIEVED REPORT FROM DIALYSIS NURSE THAT SHE HAD JUST FINISHED PTS DIALYSIS, REMOVING 3 LITERS OF FLUID. PTS VITALS ARE STABLE, AND PT IS NOW RESTING WITH EYES CLOSED.
[2019-05-09 20:00] VITALS: BP 153/76
--- NOTE | 2019-05-09 20:44 | NUR ---
HS MEDS GIVEN WITH FRESH ICE WATER AND APPLE JUICE. NORCO 1 TAB GIVEN AT PT REQUEST. PT C/O PAIN TO ABD, RATES PAIN AT A 10 ON PAIN SCALE.
--- NOTE | 2019-05-09 22:36 | NUR ---
RESTING WITH EYES CLOSED, RESPERATIONS EVEN, NO S/S DISTRESS NOTED.
[2019-05-10] VITALS: BP 151/83
--- NOTE | 2019-05-10 00:58 | NUR ---
CL ANSWERED, PT C/O PAIN TO ABD, RATES PAIN AT A 10, NORCO 1 TAB GIVEN.
--- NOTE | 2019-05-10 02:12 | NUR ---
I have reviewed this patient and I concur with the Shift Assessment completed by the Licensed Practical Nurse today this shift.
[2019-05-10 04:00] VITALS: BP 140/87
[2019-05-10] MEDS ORDERED: ALBUTEROL SULF8.5 GM INH (04:18)
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
[2019-05-10 05:39] LABS: BASOPHILS 0.4 % (0-2); EOSINOPHILS 2.5 % (0-7); HEMATOCRIT 28.5 % (36.0-48.0); HEMOGLOBIN 8.8 g/dL (12-16); IMMATURE GRANULOCYTES 0.2 % (0-5); LYMPHOCYTES 6.3 % (15-50); MCH 29.8 pg (26.0-34.0); MCHC 30.9 g/dL (31.0-37.0); MCV 96.6 fL (80.0-100.0); MEAN PLATELET VOLUME 8.9 fL (7.4-10.4); MONOCYTES 4.7 % (2-11); NEUTROPHILS 85.9 % (40-80); PLATELET COUNT 160 10x3/uL (130-400); RBC 2.95 10x6/uL (4.00-5.40); RDW 17.5 % (11.5-14.5); WBC 8.1 10x3/uL (4.8-10.8)
[2019-05-10 06:01] LABS: ALBUMIN 2.2 g/dL (3.4-5.0); ANION GAP 17.6 mmol/L (8-16); BILIRUBIN - TOTAL 0.46 mg/dL (0.2-1.3); CALCIUM 8.9 mg/dL (8.5-10.1); CARBON DIOXIDE 24.5 mmol/L (21.0-32.0); CREATININE - SERUM 6.9 mg/dL (0.6-1.3); MAGNESIUM - SERUM 1.9 mg/dL (1.8-2.4); PHOSPHOROUS 6.5 mg/dL (2.5-4.9); PROTEIN - SERUM 6.1 g/dL (6.4-8.2)
[2019-05-10 06:29] LABS: POTASSIUM - SERUM 6.1 mmol/L (3.5-5.1)
--- NOTE | 2019-05-10 07:10 | NUR ---
REPORT RECIEVED FROM FAST FOOD ATTENDANT AND PATIENT CARE ASSUMED. PATIENT LAYING IN BED WITH EYES CLOSED AND BREATHING EVENLY. WILL CONTINUE TO [facility]. SR UP X 2 BED IN LOW POSITION AND CALL LIGHT IN REACH.
[2019-05-10 09:00] VITALS: BP 156/93
--- NOTE | 2019-05-10 10:48 | NUR ---
PATIENT UNCHANGED AND DENIES ANY NEEDS OR PAIN. WILL CONTINUE TO MONITOR. SR UP X 2 BED IN LOW POSITION AND CALL LIGHT IN REACH.
[2019-05-10 12:00] VITALS: BP 161/90
[2019-05-10] MEDS ORDERED: METOPROLOL TART50 MG PO (15:28)
[2019-05-10] MEDS ORDERED: HYDRALAZINE HCL50 MG PO (15:28)
--- NOTE | 2019-05-10 17:35 | MORECARE ---
CASE MANAGEMENT DISCHARGE SUMMARY PATIENT: PARISH KWAN UNIT: [id number] ADM DATE: 04/28/19 AGE: 38 : 84 SEX: F ROOM/BED: D.9603 AUTHOR: JOHN,DOC PHYSICIAN: REFERRING PHYSICIAN: JIMBO NORIEGA MD DATE OF SERVICE: 05/10/19 Discharge Plan Patient Name: PARISH KWAN Facility: [facility]:[place] : 1980 Planned Disposition: Home Anticipated Discharge Date: 05/09/19 Discharge Date: Expected LOS: 11 Initial Reviewer: [id number] Initial Review Date: 05/01/2019 Generated: 05/10/19 6:35 pm Comments DCP- Discharge Planning Updated by [id number]: Kaz Petit on 05/08/19 4:[address] Patient Name: PARISH KWAN Encounter No: [id number] : 1980 Primary [facility] Anticipated DC Date: 05-09-2019 Planned Disposition: Home DCP follow-up note: CM RECEIVED ORDER FOR DISCHARGE PLANNING, MET WITH PT IN ROOM. PT REPORTS IF SHE NEEDS HOME INFUSION, SHE HAS NO PREFERENCE ON INFUSION COMPANY. PT REPORTS IF SHE NEEDS DRAIN CARE, [facility] WILL NOT SEE HER AND SHE IS NOT SURE IF ANY COMPANY WILL ACCEPT HER SHE WAS TOLD THAT NO HOME HEALTH COMPANY WILL. PT SIGNED CHOICE FOR NO INFUSION COMPANY PREFERNCE AND NO HOME HEALTH PREFERENCE IF [facility] WILL NOT ACCEPT HER. PT REPORTS SHE IS GOING HOME AT DISCHARGE, NO WHERE ELSE. PT STATES SHE IS NOT SURE HOW SHE WILL GET HOME AND WILL TRY TO CALL SOMEONE TO PICK HER UP AT DISCHARGE. CHART REVIEWED, NO NOTES INDICATING PT WILL NEED INFUSION OR THAT SHE WILL HAVE ANOTHER DRAIN PUT IN. CM DISCUSSED THIS WITH PT. IMPORTANT MESSAGE FROM MEDICARE PROVIDED AND EXPLAINED. PT REPORTS THERE ARE NO HOME HEALTH COMPANIES THAT WILL ACCEPT HER; SHE WILL NEED HOME HEALTH IF SHE NEEDS DRAIN CARE OR IF SHE NEEDS IV HOME INFUSION. PT REPORTS PLAN TO GO HOME AT DISCHARGE, STATES SHE WILL TRY TO CALL SOMEONE FOR A RIDE AT DISCHARGE. CM TO FOLLOW AND ASSIST NEEDED. KAZ PETIT, CASE MANAGEMENT DCP- Discharge Planning Updated by [id number]: Rima Martinez on 05/01/19 12:[address] Patient Name: PARISH KWAN Admission Status: ER Accout number: [id number] Admission Date: 04-28-2019 : 1980 Admission Diagnosis: Attending: JIMBO NORIEGA Current LOS: 3 Anticipated DC Date: Planned Disposition: Home Primary Insurance: [facility] ADV Discharge Planning Comments: CM MET WITH PATIENT TO DISCUSS DC PLANNING/NEEDS AFTER OBTAINING VERBAL CONSENT. PLANS TO DC TO HOME. STATES IF NEEDS HH WITH IV INFUSION COMPANY NO PREFERENCE, [facility] FOR ANY HH AND ANY IV INFUSION COMPANY IF NEEDED. CM TO FOLLOW AND ASSIST NEEDED. Croze Machine Operator: Rimaisabel Martinez DCPIA - Discharge Planning Initial Assessment Updated by [id number]: Rima Martinez on 05/01/19 1:33 pm * Is the patient Alert and Oriented? Yes * PCP OLIVA * Pharmacy [facility] * Preadmission Environment Home Alone * ADLs Independent * Additional services required to return to the preadmission environment? No * Can the patient safely return to the preadmission environment? Yes * Has this patient been hospitalized within the prior 30 days at any hospital? No External Providers External Provider: [employer] Next Contact Date: Service Request Date: Service Type: Resolution: Reviewer: Comments: Coverage Notice Reviewer: [id number] - Rima Martinez Notice Issued Date-Time: 05/01/2019 13:35 Notice Type: Patient Choice Letter Notice Delivered To: Patient Relationship to Patient: Publications Designer Name: Delivery Method: PHONE - Phone Magda Days: Prior Verbal Notification: Recipient Understood Notice: Yes Recipient Signature: Med Rec Note Co-signed by Attending: Coverage Notice Comment: HH ANY IV INFUSION COMPANY - ANY Reviewer: [id number] Kalani Petit Notice Issued Date-Time: 05/08/2019 17:10 Notice Type: IM Discharge Notice Notice Delivered To: Patient Relationship to Patient: Publications Designer Name: Delivery Method: HAND - Hand Delivered Magda Days: Prior Verbal Notification: Recipient Understood Notice: Yes Recipient Signature: Yes Med Rec Note Co-signed by Attending: Coverage Notice Comment: Reviewer: [id number] Petit Notice Issued Date-Time: 05/08/2019 14:10 Notice Type: Patient Choice Letter Notice Delivered To: Patient Relationship to Patient: Publications Designer Name: Delivery Method: HAND - Hand Delivered Magda Days: Prior Verbal Notification: Recipient Understood Notice: Yes Recipient Signature: Yes Med Rec Note Co-signed by Attending: Coverage Notice Comment: [facility] OR ANY ACCEPTING HOME HEALTH IF NEEDED FOR DRAIN CARE NO INFUSION COMPANY PREFERENCE IF NEEDING HOME INFUSION Last DP export: 05/08/19 4:48 p Patient Name: PARISH KWAN Page [phone] at 1735 All edits/amendments must be made on the electronic document DICTATION DATE: 05/10/191734 RUG WEAVER: DIAMANTE 05/10/191734 RPT#: [id number] DC DATE: STATUS: ADM IN [facility] [address] [place] [address] END OF REPORT
--- NOTE | 2019-05-10 17:49 | NUR ---
ORDERS RECEIVED FOR DC. PATIENT IS STABLE AND VSS. WRITTEN AND VERBAL INSTRUCTIONS GIVEN. PATIENT VERBALIZED UNDERSTANDING AND SIGNED PAPERWORK. RT UPPER ARM MIDLINE DCD WITHOUT DIFFICULTY WITH ENTIRE CATHETER INTACT. PRESSURE DRSG APPLIED. [facility] DELIVERED OXYGEN GAVE INSTRUCTIONS AND PATIENT DEMONSTRATED OXYGEN TANK USE PROPERLY. PATIENT WAITING ON RELATIVE TO PICK HER UP. WILL CONTINUE TO MONITOR. SR UP X 2 BED IN LOW POSITION AND CALL LIGHT IN REACH.
--- NOTE | 2019-05-11 08:44 | MORECARE ---
CASE MANAGEMENT DISCHARGE SUMMARY PATIENT: PARISH KWAN UNIT: [id number] ADM DATE: 04/28/19 AGE: 38 : 84 SEX: F ROOM/BED: D.8073 AUTHOR: JOHN,DOC PHYSICIAN: REFERRING PHYSICIAN: JIMBO NORIEGA MD DATE OF SERVICE: 05/11/19 Discharge Plan Patient Name: PARISH KWAN Facility: [facility]:[place] : 1980 Planned Disposition: Home Anticipated Discharge Date: 05/09/19 Discharge Date: 05/10/2019 Expected LOS: 11 Initial Reviewer: [id number] Initial Review Date: 05/01/2019 Generated: 05/11/19 9:44 am Comments DCP- Discharge Planning Updated by [id number]: Kaz Petit on 05/08/19 4:[address] Patient Name: PARISH KWAN Encounter No: [id number] : 1980 Primary Insurance: [employer] MEDICARE ADV Anticipated DC Date: 05-09-2019 Planned Disposition: Home DCP follow-up note: CM RECEIVED ORDER FOR DISCHARGE PLANNING, MET WITH PT IN ROOM. PT REPORTS IF SHE NEEDS HOME INFUSION, SHE HAS NO PREFERENCE ON INFUSION COMPANY. PT REPORTS IF SHE NEEDS DRAIN CARE, [facility] WILL NOT SEE HER AND SHE IS NOT SURE IF ANY COMPANY WILL ACCEPT HER SHE WAS TOLD THAT NO HOME HEALTH COMPANY WILL. PT SIGNED CHOICE FOR NO INFUSION COMPANY PREFERNCE AND NO HOME HEALTH PREFERENCE IF [facility] WILL NOT ACCEPT HER. PT REPORTS SHE IS GOING HOME AT DISCHARGE, NO WHERE ELSE. PT STATES SHE IS NOT SURE HOW SHE WILL GET HOME AND WILL TRY TO CALL SOMEONE TO PICK HER UP AT DISCHARGE. CHART REVIEWED, NO NOTES INDICATING PT WILL NEED INFUSION OR THAT SHE WILL HAVE ANOTHER DRAIN PUT IN. CM DISCUSSED THIS WITH PT. IMPORTANT MESSAGE FROM MEDICARE PROVIDED AND EXPLAINED. PT REPORTS THERE ARE NO HOME HEALTH COMPANIES THAT WILL ACCEPT HER; SHE WILL NEED HOME HEALTH IF SHE NEEDS DRAIN CARE OR IF SHE NEEDS IV HOME INFUSION. PT REPORTS PLAN TO GO HOME AT DISCHARGE, STATES SHE WILL TRY TO CALL SOMEONE FOR A RIDE AT DISCHARGE. CM TO FOLLOW AND ASSIST NEEDED. KAZ PETIT, CASE MANAGEMENT DCP- Discharge Planning Updated by [id number]: Rima Martinez on 05/01/19 12:[address] Patient Name: PARISH KWAN Admission Status: ER Accout number: [id number] Admission Date: 04-28-2019 : 1980 Admission Diagnosis: Attending: JIMBO NORIEGA Current LOS: 3 Anticipated DC Date: Planned Disposition: Home Primary Insurance: [employer] MEDICARE ADV Discharge Planning Comments: CM MET WITH PATIENT TO DISCUSS DC PLANNING/NEEDS AFTER OBTAINING VERBAL CONSENT. PLANS TO DC TO HOME. STATES IF NEEDS HH WITH IV INFUSION COMPANY NO PREFERENCE, [facility] FOR ANY HH AND ANY IV INFUSION COMPANY IF NEEDED. CM TO FOLLOW AND ASSIST NEEDED. Resource Management Planner: Rima Martinez DCPIA - Discharge Planning Initial Assessment Updated by [id number]: Rima Martinez on 05/01/19 1:33 pm * Is the patient Alert and Oriented? Yes * PCP OLIVA * Pharmacy [facility] * Preadmission Environment Home Alone * ADLs Independent * Additional services required to return to the preadmission environment? No * Can the patient safely return to the preadmission environment? Yes * Has this patient been hospitalized within the prior 30 days at any hospital? No Coverage Notice Reviewer: [id number] - Rima Martinez Notice Issued Date-Time: 05/01/2019 13:35 Notice Type: Patient Choice Letter Notice Delivered To: Patient Relationship to Patient: Mold Runner Name: Delivery Method: PHONE - Phone Magda Days: Prior Verbal Notification: Recipient Understood Notice: Yes Recipient Signature: Med Rec Note Co-signed by Attending: Coverage Notice Comment: HH ANY IV INFUSION COMPANY - ANY Reviewer: [id number] Kalani Petit Notice Issued Date-Time: 05/08/2019 17:10 Notice Type: IM Discharge Notice Notice Delivered To: Patient Relationship to Patient: Mold Runner Name: Delivery Method: HAND - Hand Delivered Magda Days: Prior Verbal Notification: Recipient Understood Notice: Yes Recipient Signature: Yes Med Rec Note Co-signed by Attending: Coverage Notice Comment: Reviewer: [id number] Kalani Petit Notice Issued Date-Time: 05/08/2019 14:10 Notice Type: Patient Choice Letter Notice Delivered To: Patient Relationship to Patient: Mold Runner Name: Delivery Method: HAND - Hand Delivered Magda Days: Prior Verbal Notification: Recipient Understood Notice: Yes Recipient Signature: Yes Med Rec Note Co-signed by Attending: Coverage Notice Comment: [facility] OR ANY ACCEPTING HOME HEALTH IF NEEDED FOR DRAIN CARE NO INFUSION COMPANY PREFERENCE IF NEEDING HOME INFUSION Last DP export: 2/26/20 4:35 p Patient Name: PARISH KWAN Page [phone] at 0844 All edits/amendments must be made on the electronic document DICTATION DATE: 05/11/1944 WEAVER WIRE LOOM: DIAMANTE 05/11/1942 RPT#: [id number] DC DATE:05/10/19 STATUS: DIS IN [facility] [address] [place] [address] END OF REPORT
--- NOTE | 2019-05-11 14:42 | MORECARE ---
CASE MANAGEMENT DISCHARGE SUMMARY PATIENT: PARISH KWAN UNIT: [id number] ADM DATE: 04/28/19 AGE: 38 : 84 SEX: F ROOM/BED: D.6046 AUTHOR: JOHN,DOC PHYSICIAN: REFERRING PHYSICIAN: JIMBO NORIEGA MD DATE OF SERVICE: 05/11/19 Discharge Plan Patient Name: PARISH KWAN Facility: [facility]:[place] : 1980 Planned Disposition: Home Anticipated Discharge Date: 05/09/19 Discharge Date: 05/10/2019 Expected LOS: 11 Initial Reviewer: [id number] Initial Review Date: 05/01/2019 Generated: 05/11/19 3:42 pm Comments DCP- Discharge Planning Updated by [id number]: Kaz Petit on 05/08/19 4:[address] Patient Name: PARISH KWAN Encounter No: [id number] : 1980 Primary Insurance: [employer] MEDICARE ADV Anticipated DC Date: 05-09-2019 Planned Disposition: Home DCP follow-up note: CM RECEIVED ORDER FOR DISCHARGE PLANNING, MET WITH PT IN ROOM. PT REPORTS IF SHE NEEDS HOME INFUSION, SHE HAS NO PREFERENCE ON INFUSION COMPANY. PT REPORTS IF SHE NEEDS DRAIN CARE, [facility] WILL NOT SEE HER AND SHE IS NOT SURE IF ANY COMPANY WILL ACCEPT HER SHE WAS TOLD THAT NO HOME HEALTH COMPANY WILL. PT SIGNED CHOICE FOR NO INFUSION COMPANY PREFERNCE AND NO HOME HEALTH PREFERENCE IF [facility] WILL NOT ACCEPT HER. PT REPORTS SHE IS GOING HOME AT DISCHARGE, NO WHERE ELSE. PT STATES SHE IS NOT SURE HOW SHE WILL GET HOME AND WILL TRY TO CALL SOMEONE TO PICK HER UP AT DISCHARGE. CHART REVIEWED, NO NOTES INDICATING PT WILL NEED INFUSION OR THAT SHE WILL HAVE ANOTHER DRAIN PUT IN. CM DISCUSSED THIS WITH PT. IMPORTANT MESSAGE FROM MEDICARE PROVIDED AND EXPLAINED. PT REPORTS THERE ARE NO HOME HEALTH COMPANIES THAT WILL ACCEPT HER; SHE WILL NEED HOME HEALTH IF SHE NEEDS DRAIN CARE OR IF SHE NEEDS IV HOME INFUSION. PT REPORTS PLAN TO GO HOME AT DISCHARGE, STATES SHE WILL TRY TO CALL SOMEONE FOR A RIDE AT DISCHARGE. CM TO FOLLOW AND ASSIST NEEDED. KAZ PETIT, CASE MANAGEMENT DCP- Discharge Planning Updated by [id number]: Rima Martinez on 05/01/19 12:[address] Patient Name: PARISH KWAN Admission Status: ER Accout number: [id number] Admission Date: 04-28-2019 : 1980 Admission Diagnosis: Attending: JIMBO NORIEGA Current LOS: 3 Anticipated DC Date: Planned Disposition: Home Primary Insurance: [employer] MEDICARE ADV Discharge Planning Comments: CM MET WITH PATIENT TO DISCUSS DC PLANNING/NEEDS AFTER OBTAINING VERBAL CONSENT. PLANS TO DC TO HOME. STATES IF NEEDS HH WITH IV INFUSION COMPANY NO PREFERENCE, [facility] FOR ANY HH AND ANY IV INFUSION COMPANY IF NEEDED. CM TO FOLLOW AND ASSIST NEEDED. Food Crops Farm Hand: Rima Martinez DCPIA - Discharge Planning Initial Assessment Updated by [id number]: Rima Martinez on 05/01/19 1:33 pm * Is the patient Alert and Oriented? Yes * PCP OLIVA * Pharmacy [facility] * Preadmission Environment Home Alone * ADLs Independent * Additional services required to return to the preadmission environment? No * Can the patient safely return to the preadmission environment? Yes * Has this patient been hospitalized within the prior 30 days at any hospital? No Coverage Notice Reviewer: [id number] - Rima Martinez Notice Issued Date-Time: 05/01/2019 13:35 Notice Type: Patient Choice Letter Notice Delivered To: Patient Relationship to Patient: Marketing Project Coordinator Name: Delivery Method: PHONE - Phone Magda Days: Prior Verbal Notification: Recipient Understood Notice: Yes Recipient Signature: Med Rec Note Co-signed by Attending: Coverage Notice Comment: HH ANY IV INFUSION COMPANY - ANY Reviewer: [id number] Kalani Petit Notice Issued Date-Time: 05/08/2019 17:10 Notice Type: IM Discharge Notice Notice Delivered To: Patient Relationship to Patient: Marketing Project Coordinator Name: Delivery Method: HAND - Hand Delivered Magda Days: Prior Verbal Notification: Recipient Understood Notice: Yes Recipient Signature: Yes Med Rec Note Co-signed by Attending: Coverage Notice Comment: Reviewer: [id number] Kalani Petit Notice Issued Date-Time: 05/08/2019 14:10 Notice Type: Patient Choice Letter Notice Delivered To: Patient Relationship to Patient: Marketing Project Coordinator Name: Delivery Method: HAND - Hand Delivered Magda Days: Prior Verbal Notification: Recipient Understood Notice: Yes Recipient Signature: Yes Med Rec Note Co-signed by Attending: Coverage Notice Comment: [facility] OR ANY ACCEPTING HOME HEALTH IF NEEDED FOR DRAIN CARE NO INFUSION COMPANY PREFERENCE IF NEEDING HOME INFUSION Reviewer: [id number] Kalani Villasenor Notice Issued Date-Time: 05/10/2019 15:30 Notice Type: IM Discharge Notice Notice Delivered To: Patient Relationship to Patient: Marketing Project Coordinator Name: Delivery Method: HAND - Hand Delivered Magda Days: Prior Verbal Notification: Recipient Understood Notice: Yes Recipient Signature: Yes Med Rec Note Co-signed by Attending: Coverage Notice Comment: Last DP export: 05/11/19 7:44 a Patient Name: PARISH KWAN Page [phone] at 1442 All edits/amendments must be made on the electronic document DICTATION DATE: 05/11/19 1442 QUARRY SUPERVISOR: DIAMANTE 05/11/19 1442 RPT#: [id number] DC DATE:05/10/19 STATUS: DIS IN [facility] [address] [place] [address] END OF REPORT
--- NOTE | 2019-05-11 14:55 | MORECARE ---
CASE MANAGEMENT DISCHARGE SUMMARY PATIENT: PARISH KWAN UNIT: [id number] ADM DATE: 04/28/19 AGE: 38 : 84 SEX: F ROOM/BED: D.7209 AUTHOR: JOHNDOC PHYSICIAN: REFERRING PHYSICIAN: JIMBO NORIEGA MD DATE OF SERVICE: 05/11/19 Discharge Plan Patient Name: PARISH KWAN Facility: [facility]:[place] : 1980 Planned Disposition: Home Anticipated Discharge Date: 05/09/19 Discharge Date: 05/10/2019 Expected LOS: 11 Initial Reviewer: [id number] Initial Review Date: 05/01/2019 Generated: 05/11/19 3:54 pm Comments DCP- Discharge Planning Updated by [id number]: Julee Villasenor on 05/11/19 1:[address] Patient Name: PARISH KWAN Admission Status: ER Accout number: [id number] Admission Date: 04-28-2019 : 1980 Admission Diagnosis: Attending: JIMBO NORIEGA Current LOS: 12 Anticipated DC Date: 05-09-2019 Planned Disposition: Home Primary Insurance: [employer] MEDICARE ADV Discharge Planning Comments: DC ORDER RECIEVED. WENT IN AND PROVIDED PATIENT WITH DC IMM. DC IMM delivered, explained, signed by the patient, and placed on chart. Walk test revealed patient oxygen need for home. [facility] signed for [facility]. CM spoke with Rosa and provided referral. Maricarmen provided patient with o2. Shafting Cleaner: Julee Villasenor DCP- Discharge Planning Updated by [id number]: Kaz Petit on 05/08/19 4:[address] Patient Name: PARISH KWAN Encounter No: [id number] : 1980 Primary Insurance: [employer] MEDICARE ADV Anticipated DC Date: 05-09-2019 Planned Disposition: Home DCP follow-up note: CM RECEIVED ORDER FOR DISCHARGE PLANNING, MET WITH PT IN ROOM. PT REPORTS IF SHE NEEDS HOME INFUSION, SHE HAS NO PREFERENCE ON INFUSION COMPANY. PT REPORTS IF SHE NEEDS DRAIN CARE, [facility] WILL NOT SEE HER AND SHE IS NOT SURE IF ANY COMPANY WILL ACCEPT HER SHE WAS TOLD THAT NO HOME HEALTH COMPANY WILL. PT SIGNED CHOICE FOR NO INFUSION COMPANY PREFERNCE AND NO HOME HEALTH PREFERENCE IF [facility] WILL NOT ACCEPT HER. PT REPORTS SHE IS GOING HOME AT DISCHARGE, NO WHERE ELSE. PT STATES SHE IS NOT SURE HOW SHE WILL GET HOME AND WILL TRY TO CALL SOMEONE TO PICK HER UP AT DISCHARGE. CHART REVIEWED, NO NOTES INDICATING PT WILL NEED INFUSION OR THAT SHE WILL HAVE ANOTHER DRAIN PUT IN. CM DISCUSSED THIS WITH PT. IMPORTANT MESSAGE FROM MEDICARE PROVIDED AND EXPLAINED. PT REPORTS THERE ARE NO HOME HEALTH COMPANIES THAT WILL ACCEPT HER; SHE WILL NEED HOME HEALTH IF SHE NEEDS DRAIN CARE OR IF SHE NEEDS IV HOME INFUSION. PT REPORTS PLAN TO GO HOME AT DISCHARGE, STATES SHE WILL TRY TO CALL SOMEONE FOR A RIDE AT DISCHARGE. CM TO FOLLOW AND ASSIST NEEDED. KAZ PETIT, CASE MANAGEMENT DCP- Discharge Planning Updated by [id number]: Rima Martinez on 05/01/19 12:[address] Patient Name: PARISH KWAN Admission Status: ER Accout number: [id number] Admission Date: 04-28-2019 : 1980 Admission Diagnosis: Attending: JIMBO NORIEGA Current LOS: 3 Anticipated DC Date: Planned Disposition: Home Primary Insurance: [employer] MEDICARE ADV Discharge Planning Comments: CM MET WITH PATIENT TO DISCUSS DC PLANNING/NEEDS AFTER OBTAINING VERBAL CONSENT. PLANS TO DC TO HOME. STATES IF NEEDS HH WITH IV INFUSION COMPANY NO PREFERENCE, [facility] FOR ANY HH AND ANY IV INFUSION COMPANY IF NEEDED. CM TO FOLLOW AND ASSIST NEEDED. Shafting Cleaner: Rima Martinez DCPIA - Discharge Planning Initial Assessment Updated by [id number]: Rima Martinez on 05/01/19 1:33 pm * Is the patient Alert and Oriented? Yes * PCP OLIVA * Pharmacy [facility] * Preadmission Environment Home Alone * ADLs Independent * Additional services required to return to the preadmission environment? No * Can the patient safely return to the preadmission environment? Yes * Has this patient been hospitalized within the prior 30 days at any hospital? No Coverage Notice Reviewer: [id number] Kalani Villasenor Notice Issued Date-Time: 05/10/2019 15:00 Notice Type: Patient Choice Letter Notice Delivered To: Patient Relationship to Patient: User Interface Engineer Name: Delivery Method: HAND - Hand Delivered Magda Days: Prior Verbal Notification: Recipient Understood Notice: Yes Recipient Signature: Yes Med Rec Note Co-signed by Attending: Coverage Notice Comment: Reviewer: [id number] - Kaz Petit Notice Issued Date-Time: 05/08/2019 14:10 Notice Type: Patient Choice Letter Notice Delivered To: Patient Relationship to Patient: User Interface Engineer Name: Delivery Method: HAND - Hand Delivered Magda Days: Prior Verbal Notification: Recipient Understood Notice: Yes Recipient Signature: Yes Med Rec Note Co-signed by Attending: Coverage Notice Comment: [facility] OR ANY ACCEPTING HOME HEALTH IF NEEDED FOR DRAIN CARE NO INFUSION COMPANY PREFERENCE IF NEEDING HOME INFUSION Reviewer: [id number] Kalani Martinez Notice Issued Date-Time: 05/01/2019 13:35 Notice Type: Patient Choice Letter Notice Delivered To: Patient Relationship to Patient: User Interface Engineer Name: Delivery Method: PHONE - Phone Magda Days: Prior Verbal Notification: Recipient Understood Notice: Yes Recipient Signature: Med Rec Note Co-signed by Attending: Coverage Notice Comment: HH ANY IV INFUSION COMPANY - ANY Reviewer: [id number] Kalani Villasenor Notice Issued Date-Time: 05/10/2019 15:30 Notice Type: IM Discharge Notice Notice Delivered To: Patient Relationship to Patient: User Interface Engineer Name: Delivery Method: HAND - Hand Delivered Magda Days: Prior Verbal Notification: Recipient Understood Notice: Yes Recipient Signature: Yes Med Rec Note Co-signed by Attending: Coverage Notice Comment: Reviewer: [id number] Kalani Petit Notice Issued Date-Time: 05/08/2019 17:10 Notice Type: IM Discharge Notice Notice Delivered To: Patient Relationship to Patient: User Interface Engineer Name: Delivery Method: HAND - Hand Delivered Magda Days: Prior Verbal Notification: Recipient Understood Notice: Yes Recipient Signature: Yes Med Rec Note Co-signed by Attending: Coverage Notice Comment: Last DP export: 05/11/19 1:42 p Patient Name: PARISH KWAN Page [id number] at 1455 All edits/amendments must be made on the electronic document DICTATION DATE: 05/11/19 1454 SKILLED NURSING FACILITIES PROFESSIONAL: DIAMANTE 05/11/19 1454 RPT#: [id number] DC DATE:05/10/19 STATUS: DIS IN [facility] [address] [place] [address] END OF REPORT
== END 2019-05-10 18:36 | disposition home or self-care (01) | DRG 981 ==
LOC: D.ER 03:24 → D.M2 04:31 → D.MS 04:31 → D.M2 05-07 09:38
PROVIDERS: Family Medicine; General Practice; Internal Medicine Nephrology; Specialist; ADMIT Internal Medicine Nephrology; ATTEND Internal Medicine Nephrology
PROC: 0WPG33Z Removal of Infusion Device from Peritoneal Cavity, Percutaneous Approach (ICD-10-PCS; principal; 2019-05-01 11:15)
DX: T85.79XA Infection and inflammatory reaction due to other internal prosthetic devices, implants and grafts, initial encounter (principal); K65.2 Spontaneous bacterial peritonitis; N18.6 End stage renal disease; E43 Unspecified severe protein-calorie malnutrition; R18.8 Other ascites; F11.20 Opioid dependence, uncomplicated; Q61.3 Polycystic kidney, unspecified; I13.0 Hypertensive heart and chronic kidney disease with heart failure and stage 1 through stage 4 chronic kidney disease, or unspecified chronic kidney disease; Z99.2 Dependence on renal dialysis; D63.1 Anemia in chronic kidney disease; I50.9 Heart failure, unspecified; M79.7 Fibromyalgia; F41.9 Anxiety disorder, unspecified; Y84.9 Medical procedure, unspecified as the cause of abnormal reaction of the patient, or of later complication, without mention of misadventure at the time of the procedure

== ENCOUNTER 2019-05-18 02:46 | Observation (INO) | payer MEDICARE, MEDICAID ==
[~2019-05-18] VITALS: Ht 160 cm; Wt 79.4 kg
[2019-05-18] VITALS (7 sets, daily range): BP systolic 134–181; BP diastolic 69–100; BMI 31.0
[~2019-05-18 02:46] MED LIST changes: +ALBUTEROL SULF8.5 GM INH; +GABAPENTIN300 MG PO; +HYDRALAZINE HCL50 MG PO
[2019-05-18] MEDS ORDERED: SOMA350 MG PO (02:55)
[2019-05-18] MEDS ORDERED: PHENERGAN25 M1 PO (02:56)
[2019-05-18 03:45] LABS: BASOPHILS 0.2 % (0-2); EOSINOPHILS 0.1 % (0-7); HEMATOCRIT 25.6 % (36.0-48.0); HEMOGLOBIN 8.6 g/dL (12-16); IMMATURE GRANULOCYTES 0.6 % (0-5); LYMPHOCYTES 6.1 % (15-50); MCH 29.9 pg (26.0-34.0); MCHC 33.6 g/dL (31.0-37.0); MCV 88.9 fL (80.0-100.0); MEAN PLATELET VOLUME 9.9 fL (7.4-10.4); MONOCYTES 6.7 % (2-11); NEUTROPHILS 86.3 % (40-80); RBC 2.88 10x6/uL (4.00-5.40); RDW 17.3 % (11.5-14.5); WBC 15.6 10x3/uL (4.8-10.8)
[2019-05-18 03:49] LABS: PLATELET COUNT 106 10x3/uL (130-400)
[2019-05-18 04:01] LABS: ALBUMIN 2.5 g/dL (3.4-5.0); BILIRUBIN - TOTAL 1.5 mg/dL (0.2-1.3); CALCIUM 9.6 mg/dL (8.5-10.1); CARBON DIOXIDE 20.7 mmol/L (21.0-32.0); CREATININE - SERUM 7.9 mg/dL (0.6-1.3); MAGNESIUM - SERUM 1.9 mg/dL (1.8-2.4); PHOSPHOROUS 7.7 mg/dL (2.5-4.9); PROTEIN - SERUM 6.9 g/dL (6.4-8.2)
[2019-05-18 04:03] LABS: POTASSIUM - SERUM 6.7 mmol/L (3.5-5.1)
--- NOTE | 2019-05-18 05:21 | NUR ---
PT TO RADIOLOGY.
--- NOTE | 2019-05-18 05:47 | NUR ---
PT RETURNED FROM RADIOLOGY
--- NOTE | 2019-05-18 06:02 | NUR ---
PT'S IV CALCIUM FINISHED.
--- NOTE | 2019-05-18 08:00 | NUR ---
PT ARRIVED VIA STRECHER. DAUGHTER AT BEDSIDE. CALL LIGHT WITHIN REACH. ORIENTED TO ROOM. DIALYSIS HERE TO DIALIZE. PT PLACED IN CONTACT PRECAUTIONS PER INFECTION CONTROL. PT REQUESTING PAIN MEDICATION. RECIEVED PAIN MEDICATION IN ER AT 0607. WAS TOLD PAIN MEDICATION COULD NOT BE RECIVED UNTIL AROUND 1007. PT AGREED. APPLE JUICE RECIEVED PER REQUEST. DENIES FURTHER NEEDS AT THIS TIME. WILL CONTINUE TO MONITOR.
--- NOTE | 2019-05-18 13:51 | NUR ---
PT REQUESTED FOR ME TO CALL AND ASKED SPECIFICALLY FOR DILAUDED INSTEAD OF DEMEROL. STATED SHE WAS IN A LOT OF PAIN. SLEEPING PEACEFULLY, AROUSES EASILY TO VERBAL STIMULI. SPOKE WITH LANA RENAL JAZZ SINGER. ORDERS FOR BUPRENEX RECIEVED. WILL RECIEVE PAIN MEDICATION WHEN TIME TO ADMINISTER.
--- NOTE | 2019-05-18 14:33 | NUR ---
SPOKE WITH DR AGUSTIN ABOUT PAIN MEDICATION. STATED TO CHANGE BUPRENEX BACK TO DEMEROL. REFUSED TO GIVE DILAUDED FOR PAIN.
--- NOTE | 2019-05-18 20:17 | NUR ---
REPORT RECIEVED AND ROUNDING COMPLETE. PATIENT LATYING IN BED ON CELL PHONE, COMPLAINS OF "DAY SHIFT OR ANY FOR THAT MATTER NOT ANSWERING CALL LIGHT QUICKLY". REQUESTED APPLE JUICE, GAVE APPLE JUICE. NO OTHER NEEDS AT THIS TIME,LEFT AC PIV, NO S/SX OF INFILTRATION. CALL LIGHT WITHIN REACH BED IN LOWEST LOCKED POSITION. NO S/SX OF DISTRESS.
[2019-05-19 00:30] VITALS: BP 158/88
[2019-05-19 04:30] VITALS: BP 151/88
[2019-05-19 06:39] LABS: BASOPHILS 0.2 % (0-2); EOSINOPHILS 1.3 % (0-7); HEMATOCRIT 25.8 % (36.0-48.0); HEMOGLOBIN 8.3 g/dL (12-16); IMMATURE GRANULOCYTES 0.4 % (0-5); LYMPHOCYTES 8.8 % (15-50); MCH 29.3 pg (26.0-34.0); MCHC 32.2 g/dL (31.0-37.0); MEAN PLATELET VOLUME 9.4 fL (7.4-10.4); MONOCYTES 5.8 % (2-11); NEUTROPHILS 83.5 % (40-80); RBC 2.83 10x6/uL (4.00-5.40); RDW 16.9 % (11.5-14.5)
[2019-05-19 06:54] LABS: ALBUMIN 2.2 g/dL (3.4-5.0); BILIRUBIN - DIRECT 0.44 mg/dL (0.00-0.30); BILIRUBIN - INDIRECT 0.44 mg/dL (0.00-1.00); BILIRUBIN - TOTAL 0.88 mg/dL (0.2-1.3); CALCIUM 8.6 mg/dL (8.5-10.1); CARBON DIOXIDE 25.6 mmol/L (21.0-32.0); PHOSPHOROUS 6.6 mg/dL (2.5-4.9); POTASSIUM - SERUM 4.6 mmol/L (3.5-5.1); PROTEIN - SERUM 5.8 g/dL (6.4-8.2)
[2019-05-19 07:13] LABS: MCV 91.2 fL (80.0-100.0); PLATELET COUNT 149 10x3/uL (130-400); WBC 11.3 10x3/uL (4.8-10.8)
--- NOTE | 2019-05-19 07:30 | NUR ---
ASSESSMENT DONE. DEMNIES NEEDS
[2019-05-19 07:45] LABS: INR 1.43 (0.85-1.17); PROTIME 17.3 SECONDS (11.6-15.0)
[2019-05-19 10:46] VITALS: BP 172/97
[2019-05-19] MEDS ORDERED: ZYVOX600 MG PO (12:26)
[2019-05-19 13:24] VITALS: Ht 160 cm; Wt 79.4 kg
--- NOTE | 2019-05-19 13:36 | NUR ---
WRITTEN SCRIPTSOF NORCO 7.5 MG/325 MG QID PRN #120 WITH NO REFILLS AND ZYVOX 600 MG #20 BID WITH NO REFILLS GIVEN TO PATIENT. COPYS TO CHART.
--- NOTE | 2019-05-19 15:29 | NUR ---
DC GIVEN TO PT
--- NOTE | 2019-05-19 15:47 | NUR ---
DC HOME PER PERSONAL CAR
--- NOTE | 2019-05-19 15:51 | MORECARE ---
CASE MANAGEMENT DISCHARGE SUMMARY PATIENT: PARISH KWAN UNIT: [id number] ADM DATE: 05/18/19 AGE: 38 : 84 SEX: F ROOM/BED: D.[facility] AUTHOR: MIGUE LOPEZ PHYSICIAN: REFERRING PHYSICIAN: PIERRE AGUSTIN MD DATE OF SERVICE: 05/19/19 Discharge Plan Patient Name: PARISH KWAN Facility: [facility]:[place] : 1980 Planned Disposition: Home Anticipated Discharge Date: 05/19/19 Discharge Date: Expected LOS: 1 Initial Reviewer: [id number] Initial Review Date: 05/19/2019 Generated: 05/19/19 4:50 pm DCPIA - Discharge Planning Initial Assessment Updated by [id number]: Kaz Araya on 05/19/19 3:47 pm * Is the patient Alert and Oriented? Yes * How many steps to enter\exit or inside your home? * PCP DR. BAPTISTE * Pharmacy [facility] [place] * Preadmission Environment Home with Family * ADLs Independent * Equipment None * Other Equipment NO MEDICAL EQUIPMENT PROVIDER PREFFERNCE * List name and contact numbers for known caregivers / representatives who currently or will assist patient after discharge: GARY VÁZQUEZ, FRIEND, * Verbal permission to speak to the caregivers and representatives has been obtained from the patient. N/A * Community resources currently utilized Other * Please name any agencies selected above. [facility], [facility], MWF, 0600, [facility] * Additional services required to return to the preadmission environment? No * Can the patient safely return to the preadmission environment? Yes * Has this patient been hospitalized within the prior 30 days at any hospital? No External Providers External Provider: OTHER-OTHER Next Contact Date: Service Request Date: Service Type: Resolution: Reviewer: Comments: Coverage Notice Reviewer: [id number] - Julee Villasenor Notice Issued Date-Time: 05/18/2019 8:00 Notice Type: Medicare Outpatient Observation Notice Notice Delivered To: Patient Relationship to Patient: Furnace Feeder Name: Delivery Method: HAND - Hand Delivered Magda Days: Prior Verbal Notification: Recipient Understood Notice: Yes Recipient Signature: Yes Med Rec Note Co-signed by Attending: Coverage Notice Comment: DOW SERVED, EXPLAINED, AND SIGNED BY PATIENT. THE ORIGINAL WAS PROVIDED TO THE PATIENT AND COPY PLACED ON CHART. Patient Name: PARISH KWAN Page [phone] at 1551 All edits/amendments must be made on the electronic document DICTATION DATE: 05/19/19 1550 LABORATORY MECHANICAL TECHNICIAN: DIAMANTE 05/19/19 1550 RPT#: [id number] DC DATE: STATUS: ADM IN [facility] [address] [place] [address] END OF REPORT
--- NOTE | 2019-05-19 16:01 | MORECARE ---
CASE MANAGEMENT DISCHARGE SUMMARY PATIENT: PARISH KWAN UNIT: [id number] ADM DATE: 05/18/19 AGE: 38 : 84 SEX: F ROOM/BED: D.1022 AUTHOR: JOHN,DOC PHYSICIAN: REFERRING PHYSICIAN: PIERRE AGUSTIN MD DATE OF SERVICE: 05/19/19 Discharge Plan Patient Name: PARISH KWAN Facility: [facility]:[place] : 1980 Planned Disposition: Home Anticipated Discharge Date: 05/19/19 Discharge Date: Expected LOS: 1 Initial Reviewer: [id number] Initial Review Date: 05/19/2019 Generated: 05/19/19 5:01 pm Comments DCP- Discharge Planning Updated by [id number]: Kaz Araya on 05/19/19 2:[address] Patient Name: PARISH KWAN Encounter No: [id number] : 1980 Primary Insurance: [employer] MEDIC[employer] ADV Anticipated DC Date: 05-19-2019 Planned Disposition: Home DCP note: CM MET WITH PT IN ROOM TO DISCUSS DISCHARGE PLANNING AND NEEDS. PT REPORTS LIVING AT HOME INDEPENDENTLY WITH HER MINOR CHILDREN. PT HAS NO MEDICAL EQUIPMENT AND NO OUTSIDE SERVICES ASSISTING IN THE HOME.PT GOES TO OUTPATIENT DIALYSIS, [facility], MWF, 0600, [facility] CM DISCUSSED AVAILABILITY OF HOME HEALTH, REHAB SERVICES AND MEDICAL EQUIPMENT. PT DENIES DISCHARGE NEEDS, REPORTS HER FRIEND WILL PICK HER UP FOR DISCHARGE HOME. Kaz Araya, CASE MANAGEMENT DCPIA - Discharge Planning Initial Assessment Updated by [id number]: Kaz Araya on 05/19/19 3:47 pm * Is the patient Alert and Oriented? Yes * How many steps to enter\exit or inside your home? * PCP DR. BAPTISTE * Pharmacy [facility] IN [place] * Preadmission Environment Home with Family * ADLs Independent * Equipment None * Other Equipment NO MEDICAL EQUIPMENT PROVIDER PREFFERNCE * List name and contact numbers for known caregivers / representatives who currently or will assist patient after discharge: GARY VÁZQUEZ, FRIEND, * Verbal permission to speak to the caregivers and representatives has been obtained from the patient. N/A * Community resources currently utilized Other * Please name any agencies selected above. OUTPATIENT DIALYSIS, [facility], MWF, 0600, [facility] * Additional services required to return to the preadmission environment? No * Can the patient safely return to the preadmission environment? Yes * Has this patient been hospitalized within the prior 30 days at any hospital? No Coverage Notice Reviewer: [id number] Kalani Villasenor Notice Issued Date-Time: 05/18/2019 8:00 Notice Type: Medicare Outpatient Observation Notice Notice Delivered To: Patient Relationship to Patient: Forklift Technician Name: Delivery Method: HAND - Hand Delivered Amgda Days: Prior Verbal Notification: Recipient Understood Notice: Yes Recipient Signature: Yes Med Rec Note Co-signed by Attending: Coverage Notice Comment: DOW SERVED, EXPLAINED, AND SIGNED BY PATIENT. THE ORIGINAL WAS PROVIDED TO THE PATIENT AND COPY PLACED ON CHART. Last DP export: 05/19/19 2:51 pm Patient Name: PARISH KWAN Page [id number] at 1601 All edits/amendments must be made on the electronic document DICTATION DATE: 05/19/19 1601 BLISTER PACK OPERATOR: DIAMANTE 05/19/19 1601 RPT#: [id number] DC DATE: STATUS: ADM IN [address] [place] [address] END OF REPORT
--- NOTE | 2019-05-19 16:10 | NUR ---
I CONCUR WITH IC DESIGNER CUSTOM ASSESSMENT OF THIS PATIENT
== END 2019-05-19 15:47 | disposition home or self-care (01) ==
LOC: D.ER 02:46 → D.M2 06:45 → OBSVTIME 07:19 → D.M2 05-19 15:47
PROVIDERS: Family Medicine; ADMIT Internal Medicine Nephrology; ATTEND Internal Medicine Nephrology
DX: I12.0 Hypertensive chronic kidney disease with stage 5 chronic kidney disease or end stage renal disease (principal); N18.6 End stage renal disease; R10.9 Unspecified abdominal pain; E87.5 Hyperkalemia; K66.1 Hemoperitoneum; D63.1 Anemia in chronic kidney disease; N28.1 Cyst of kidney, acquired; Z91.19 Patient's noncompliance with other medical treatment and regimen; K65.9 Peritonitis, unspecified

== ENCOUNTER 2019-06-04 13:45 | Emergency (ER) | payer MEDICARE, MEDICAID ==
[~2019-06-04] VITALS: Ht 160 cm; Wt 65.9 kg
[~2019-06-04 13:45] MED LIST changes: +ZYVOX600 MG PO
[2019-06-04 13:47] VITALS: Ht 160 cm; Wt 65.9 kg
[2019-06-04 14:58] VITALS: BP 132/78
== END 2019-06-04 14:58 | disposition home or self-care (01) ==
LOC: D.ER 13:45
DX: R10.9 Unspecified abdominal pain (principal); D64.9 Anemia, unspecified; N18.6 End stage renal disease; Z99.2 Dependence on renal dialysis; I11.0 Hypertensive heart disease with heart failure; I50.9 Heart failure, unspecified; K21.9 Gastro-esophageal reflux disease without esophagitis

== ENCOUNTER 2019-06-11 15:55 | Inpatient (IN) | payer MEDICARE, MEDICAID ==
[~2019-06-11] VITALS: Ht 160 cm; Wt 66.9 kg
[2019-06-11 16:49] LABS: BASOPHILS 0.3 % (0-2); EOSINOPHILS 1.7 % (0-7); HEMATOCRIT 33.6 % (36.0-48.0); IMMATURE GRANULOCYTES 0.4 % (0-5); MCH 32.1 pg (26.0-34.0); MCHC 29.8 g/dL (31.0-37.0); MCV 107.7 fL (80.0-100.0); MEAN PLATELET VOLUME 9.1 fL (7.4-10.4); NEUTROPHILS 81.6 % (40-80); RBC 3.12 10x6/uL (4.00-5.40); RDW 23.7 % (11.5-14.5); WBC 12.1 10x3/uL (4.8-10.8)
[2019-06-11 16:50] LABS: PLATELET COUNT 252 10x3/uL (130-400)
[2019-06-11 17:08] LABS: APTT 26.6 SECONDS (22.8-39.4); INR 1.26 (0.85-1.17); PROTIME 15.7 SECONDS (11.6-15.0)
[2019-06-11 17:54] LABS: ALBUMIN 3.3 g/dL (3.4-5.0); ALKALINE PHOSPHATASE 231 U/L (30-120); ALT (SGPT) 41 U/L (10-68); CALC OSMOLALITY 298 mosm/kg (275-300); CALCIUM 9.5 mg/dL (8.5-10.1); CARBON DIOXIDE 21.9 mmol/L (21.0-32.0); CHLORIDE - SERUM 99 mmol/L (98-107); CKMB 36.8 U/L (0.0-3.6); CREATINE KINASE 55 UL (21-215); CREATININE - SERUM 6.5 mg/dL (0.6-1.3); GLUCOSE 109 mg/dL (74-106); PROTEIN - SERUM 7.7 g/dL (6.4-8.2); SODIUM 138 mmol/L (136-145); UREA NITROGEN 75 mg/dL (7-18); eGFR NON AFRICAN AMERICAN 8 mL/min (90-120)
[2019-06-11 17:55] LABS: PRO BNP 175268 pg/mL (0-125)
--- NOTE | 2019-06-11 17:57 | NUR ---
TROPONIN OF 0.092 AND POTASSIUM 6.2 CALLED BY LOCKSTITCH COAT JOINER AT THIS TIME. NOTIFIED EDP AND RN.
[2019-06-11 17:58] LABS: POTASSIUM - SERUM 6.2 mmol/L (3.5-5.1); TROPONIN-I 0.092 ng/mL (0.000-0.060)
[2019-06-11 19:12] VITALS: BP 192/119
--- NOTE | 2019-06-11 20:09 | NUR ---
CALCIUM GLUCONATE INFUSION COMPLETE AT THIS TIME
[2019-06-11 21:00] VITALS: BP 178/110
--- NOTE | 2019-06-11 21:00 | NUR ---
RECEIVED FROM ER, A&Ox4, HISTORY AND MEDS COMPLETE, ASKING FOR A DRINK AND SANDWICH (PROVIDED), BP 178/110, PAGED LISA GRANT, ORDER NORVASC, LOPRESSOR, APRESOLINE, AND PATIROMER CALCIUM SORBITEX, BED IS LOW, SRX2, CALL LIGHT IN REACH, WILL CONTINUE PLAN OF CARE
[2019-06-12 01:53] VITALS: BP 178/110; BMI 27.3
[2019-06-12 07:19] VITALS: BP 159/88
[2019-06-12 09:35] VITALS: Ht 160 cm; Wt 66.9 kg
--- NOTE | 2019-06-12 10:56 | NUR ---
PT TAKEN DOWN TO DIALYSIS VIA BED.
[2019-06-12 14:38] VITALS: BP 168/93
--- NOTE | 2019-06-12 14:38 | NUR ---
DIALYSIS STATES THEY TOOK OFF 3L AND PT IS READY TO COME BACK TO THE FLOOR.
--- NOTE | 2019-06-12 16:26 | NUR ---
PT DEMANDING MORPHINE BE RESTARTED BACK AND TO GET IV TAKEN OUT AND GET A NEW ONE BECAUSE THE ONE SHE HAS NOW "HURTS". I EXPLAINED TO PT DR. HEAD DC'D MORPHINE SO SHE WILL NOT RESTART IT BACK BUT I WILL CALL. CALLED AND SPOKE WITH HENRY SHANKAR AND SHE STATES SHE WILL NOT GIVE PT HER MORPHINE BACK BUT SHE CAN DISCHARGE TONIGHT IF SHE WOULD LIKE TO. SHE STATES IF PT WANTS IV TAKEN OUT THEN TO SWITCH ZOFRAN FROM IV TO PO AND TO NOT PLACE ANOTHER IV. I VERBALIZED UNDERSTANDING. PT TAKING SHOWER NOW. WILL SPEAK WITH PT WHEN SHE IS OUT OF THE SHOWER.
--- NOTE | 2019-06-12 16:40 | MORECARE ---
CASE MANAGEMENT DISCHARGE SUMMARY PATIENT: PARISH KWAN UNIT: [id number] ADM DATE: 06/11/19 AGE: 38 : 84 SEX: F ROOM/BED: D.2106 AUTHOR: MIGUE LOPEZ PHYSICIAN: REFERRING PHYSICIAN: STEVE HEAD DO DATE OF SERVICE: 06/12/19 Discharge Plan Patient Name: PARISH KWAN Facility: [facility]:[place] : 1980 Planned Disposition: Home Anticipated Discharge Date: 06/12/19 Discharge Date: Expected LOS: 1 Initial Reviewer: [email or web address] Initial Review Date: 06/12/2019 Generated: 06/12/19 5:40 pm Patient Name: PARISH KWAN Page [id number] at 1640 All edits/amendments must be made on the electronic document DICTATION DATE: 06/12/19 [facility] CARTON MARKER MACHINE: DIAMANTE 06/12/19 [facility] RPT#: [id number] DC DATE: STATUS: ADM IN [facility] [address] [place] [address] END OF REPORT
--- NOTE | 2019-06-12 16:48 | MORECARE ---
CASE MANAGEMENT DISCHARGE SUMMARY PATIENT: PARISH KWAN UNIT: [id number] ADM DATE: 06/11/19 AGE: 38 : 84 SEX: F ROOM/BED: D.2102 AUTHOR: MIGUE LOPEZ PHYSICIAN: REFERRING PHYSICIAN: STEVE HEAD DO DATE OF SERVICE: 06/12/19 Discharge Plan Patient Name: PARISH KWAN Facility: [facility]:[place] : 1980 Planned Disposition: Home Anticipated Discharge Date: 06/12/19 Discharge Date: Expected LOS: 1 Initial Reviewer: [email or web address] Initial Review Date: 06/12/2019 Generated: 06/12/19 5:48 pm DCPIA - Discharge Planning Initial Assessment Updated by [email or web address]: Kaz Araya on 06/12/19 4:44 pm * Is the patient Alert and Oriented? Yes * How many steps to enter\exit or inside your home? * PCP DR. BAPTISTE * Pharmacy [facility] IN [place] * Preadmission Environment Home with Family * ADLs Independent * Equipment None * Other Equipment NO MEDICAL EQUIPMENT PROVIDER PREFERENCE * List name and contact numbers for known caregivers / representatives who currently or will assist patient after discharge: GARY VÁZQUEZ, FRIEND, * Verbal permission to speak to the caregivers and representatives has been obtained from the patient. N/A * Community resources currently utilized Other * Please name any agencies selected above. [facility], [place], MWF, 0600, [employer] * Additional services required to return to the preadmission environment? No * Can the patient safely return to the preadmission environment? Yes * Has this patient been hospitalized within the prior 30 days at any hospital? Yes Last DP export: 06/12/19 3:40 p Patient Name: PARISH KWAN Page [phone] at 1648 All edits/amendments must be made on the electronic document DICTATION DATE: 06/12/191647 SERVICE OPERATIONS MANAGER: DIAMANTE 06/12/191647 RPT#: [id number] DC DATE: STATUS: ADM IN [facility] [address] [place] [address] END OF REPORT
--- NOTE | 2019-06-12 16:55 | MORECARE ---
CASE MANAGEMENT DISCHARGE SUMMARY PATIENT: PARISH KWAN UNIT: [id number] ADM DATE: 06/11/19 AGE: 38 : 84 SEX: F ROOM/BED: D.6855 AUTHOR: JOHN,DOC PHYSICIAN: REFERRING PHYSICIAN: STEVE HEAD DO DATE OF SERVICE: 06/12/19 Discharge Plan Patient Name: PARISH KWAN Facility: [facility]:[place] : 1980 Planned Disposition: Home Anticipated Discharge Date: 06/12/19 Discharge Date: Expected LOS: 1 Initial Reviewer: [email or web address] Initial Review Date: 06/12/2019 Generated: 06/12/19 5:55 pm Comments DCP- Discharge Planning Updated by [email or web address]: Kaz Araya on 06/12/19 3:[address] Patient Name: PARISH KWAN Admission Status: ER Accout number: [id number] Admission Date: 06-11-2019 : 1980 Admission Diagnosis: Attending: NATHANAEL Current LOS: 1 Anticipated DC Date: 06-12-2019 Planned Disposition: Home Primary Insurance: [employer] ADV Discharge Planning Comments: CM MET WITH PT IN ROOM TO DISCUSS DISCHARGE PLANNING AND NEEDS. PT REPORTS LIVING AT HOME INDEPENDENTLY WITH HER CHILDREN. PT HAS NO MEDICAL EQUIPMENT AND NO OUTSIDE SERVICES ASSISTING IN THE HOME. PT GOES TO [employer], MWF, 0600, AND HAS FRIEND WHO DRIVES HER. CM DISCUSSED AVAILABILITY OF HOME HEALTH, REHAB SERVICES AND MEDICAL EQUIPMENT. PT WANTS HOME HEALTH; CM EXPLAINED THAT PT WILL NEED AN SKILLED NEED FOR A HOME HEALTH NURSE, PT STATES SHE WANTS A DRAIN PUT IN BUT THEY WON'T DO IT. PT STATES "LOOK AT MY BELLY". CM EXPLAINED THAT CM IS NOT A DOCTOR OR NURSE AND THE MEDICAL CARE TEAM AND SPECIALISTS MAKE DECISIONS SUCH PUTTING IN A DRAIN. CM EXPLAINED THAT CM WILL ATTEMPT TO ARRANGE ANY NEEDED SERVICES WITH PHYSICIAN AGREEMENT AND ORDER, BUT AGAIN, PT WILL NEED AN IDENTIFIABLE SKILLED NEED. PT REPORTS HER FRIEND WILL PICK HER UP FOR DISCHARGE HOME PT REQUESTING HOME HEALTH FOR DISCHARGE HOME; CM WAS NOT ABLE TO IDENTIFY ANY SKILLED NEED FOR HOME HEALTH SERVICES AT THIS TIME. PT PLANS TO DISCHARGE HOME WITH HER CHILDREN, A FRIEND TO WILL TRANSPORT HER HOME. CM TO CONTINUE TO FOLLOW AND ASSIST IF NEEDED. [employer]: Kaz Araya DCPIA - Discharge Planning Initial Assessment Updated by [email or web address]: Kaz Araya on 06/12/19 4:44 pm * Is the patient Alert and Oriented? Yes * How many steps to enter\\exit or inside your home? * PCP DR. BAPTISTE * Pharmacy [facility] IN [place] * Preadmission Environment Home with Family * ADLs Independent * Equipment None * Other Equipment NO MEDICAL EQUIPMENT PROVIDER PREFERENCE * List name and contact numbers for known caregivers / representatives who currently or will assist patient after discharge: GARY VÁZQUEZ, FRIEND, * Verbal permission to speak to the caregivers and representatives has been obtained from the patient. N/A * Community resources currently utilized Other * Please name any agencies selected above. [facility], [place], MWF, 0600, [employer] * Additional services required to return to the preadmission environment? No * Can the patient safely return to the preadmission environment? Yes * Has this patient been hospitalized within the prior 30 days at any hospital? Yes Last DP export: 06/12/19 3:48 p Patient Name: PARISH KWAN Page [phone] at 1655 All edits/amendments must be made on the electronic document DICTATION DATE: 06/12/191654 SHOE COBBLER: DIAMANTE 06/12/191654 RPT#: [id number] DC DATE: STATUS: ADM IN [facility] [address] [place] [address] END OF REPORT
--- NOTE | 2019-06-12 17:30 | NUR ---
PT STATES SHE DOES NOT WANT TO GO HOME AND THAT SHE WILL KEEP IV AND WANTS NORCO AND PHENEGRAN RIGHT NOW. I VERBALIZED UNDERSTANDING.
[2019-06-12 19:39] VITALS: BP 141/57
--- NOTE | 2019-06-13 03:33 | NUR ---
I have reviewed this patient and I concur with the Shift Assessment completed by the Licensed Practical Nurse today this shift.
[2019-06-13 04:55] VITALS: BP 138/52
[2019-06-13 06:19] LABS: BASOPHILS 0.5 % (0-2); EOSINOPHILS 2.6 % (0-7); HEMATOCRIT 32.8 % (36.0-48.0); HEMOGLOBIN 9.7 g/dL (12-16); IMMATURE GRANULOCYTES 0.5 % (0-5); LYMPHOCYTES 13.1 % (15-50); MCH 31.5 pg (26.0-34.0); MCHC 29.6 g/dL (31.0-37.0); MCV 106.5 fL (80.0-100.0); MEAN PLATELET VOLUME 9.6 fL (7.4-10.4); MONOCYTES 9.9 % (2-11); NEUTROPHILS 73.4 % (40-80); RBC 3.08 10x6/uL (4.00-5.40); RDW 24.2 % (11.5-14.5)
[2019-06-13 06:25] LABS: PLATELET COUNT 183 10x3/uL (130-400); WBC 8.2 10x3/uL (4.8-10.8)
[2019-06-13 06:32] LABS: ANION GAP 18.7 mmol/L (8-16); CALCIUM 8.9 mg/dL (8.5-10.1); CARBON DIOXIDE 24.5 mmol/L (21.0-32.0); CREATININE - SERUM 5.6 mg/dL (0.6-1.3); PHOSPHOROUS 6.7 mg/dL (2.5-4.9); POTASSIUM - SERUM 5.2 mmol/L (3.5-5.1)
--- NOTE | 2019-06-13 07:30 | NUR ---
RECIVED REPORT. PATIENT IS AWAKE AND ALERT. DENIES ANY NEEDS AT THIS TIME. DR HEAD ROUNDED AND STATES THAT THE PATIENT MAY BE DISCHARGED AT THIS TIME.
[2019-06-13 08:59] VITALS: BP 121/68
--- NOTE | 2019-06-13 09:16 | NUR ---
DISCHARGING PATIENT. IV REMOVED WITH CATHETER INTACT. DISCHARGE TEACHING DONE AND PAPERS SIGNED. PATIENT IS WAITING FOR HER RIDE FROM [place].
--- NOTE | 2019-06-13 10:11 | NUR ---
PATIENT IS STILL WAITING ON HER RIDE.
--- NOTE | 2019-06-13 13:07 | NUR ---
PATIENT REPORTS THAT HER RIDE IS STILL COMING BUT HE BROKE DOWN ON THE WAY. HE IS STILL COMING, AND THAT IS HER ONLY RIDE.
--- NOTE | 2019-06-13 14:28 | NUR ---
CALLED GIOVANNY LOCK TO LET HER KNOW THAT WE ARE STILL WAITING ON THIS PATIENTS FAMILY MEMBER TO COME GET HER. THE DISCHARGE HAS BEEN DONE, BUT WE ARE WAITING FOR THE FAMILY TO COME GIVE HER A RIDE.
--- NOTE | 2019-06-13 16:12 | MORECARE ---
CASE MANAGEMENT DISCHARGE SUMMARY PATIENT: PARISH KWAN UNIT: [id number] ADM DATE: 06/11/19 AGE: 38 : 84 SEX: F ROOM/BED: D.8782 AUTHOR: JOHN,DOC PHYSICIAN: REFERRING PHYSICIAN: STEVE HEAD DO DATE OF SERVICE: 06/13/19 Discharge Plan Patient Name: PARISH KWAN Facility: [facility]:[place] : 1980 Planned Disposition: Home Anticipated Discharge Date: 06/12/19 Discharge Date: Expected LOS: 1 Initial Reviewer: [email or web address] Initial Review Date: 06/12/2019 Generated: 06/13/19 5:12 pm DCP- Discharge Planning Updated by [email or web address]: Kaz Araya on 06/12/19 3:[address] Patient Name: PARISH KWAN Admission Status: ER Accout number: [id number] Admission Date: 06-11-2019 : 1980 Admission Diagnosis: Attending: NATHANAEL Current LOS: 1 Anticipated DC Date: 06-12-2019 Planned Disposition: Home Primary Insurance: [employer] ADV Discharge Planning Comments: CM MET WITH PT IN ROOM TO DISCUSS DISCHARGE PLANNING AND NEEDS. PT REPORTS LIVING AT HOME INDEPENDENTLY WITH HER CHILDREN. PT HAS NO MEDICAL EQUIPMENT AND NO OUTSIDE SERVICES ASSISTING IN THE HOME. PT GOES TO [employer], MWF, 0600, AND HAS FRIEND WHO DRIVES HER. CM DISCUSSED AVAILABILITY OF HOME HEALTH, REHAB SERVICES AND MEDICAL EQUIPMENT. PT WANTS HOME HEALTH; CM EXPLAINED THAT PT WILL NEED AN SKILLED NEED FOR A HOME HEALTH NURSE, PT STATES SHE WANTS A DRAIN PUT IN BUT THEY WON'T DO IT. PT STATES "LOOK AT MY BELLY". CM EXPLAINED THAT CM IS NOT A DOCTOR OR NURSE AND THE MEDICAL CARE TEAM AND SPECIALISTS MAKE DECISIONS SUCH PUTTING IN A DRAIN. CM EXPLAINED THAT CM WILL ATTEMPT TO ARRANGE ANY NEEDED SERVICES WITH PHYSICIAN AGREEMENT AND ORDER, BUT AGAIN, PT WILL NEED AN IDENTIFIABLE SKILLED NEED. PT REPORTS HER FRIEND WILL PICK HER UP FOR DISCHARGE HOME PT REQUESTING HOME HEALTH FOR DISCHARGE HOME; CM WAS NOT ABLE TO IDENTIFY ANY SKILLED NEED FOR HOME HEALTH SERVICES AT THIS TIME. PT PLANS TO DISCHARGE HOME WITH HER CHILDREN, A FRIEND TO WILL TRANSPORT HER HOME. CM TO CONTINUE TO FOLLOW AND ASSIST IF NEEDED. Epidemiologist: Kaz Araya DCPIA - Discharge Planning Initial Assessment Updated by [email or web address]: Kaz Araya on 06/12/19 4:44 pm * Is the patient Alert and Oriented? Yes * How many steps to enter\\exit or inside your home? * PCP DR. BAPTISTE * Pharmacy [facility] IN [place] * Preadmission Environment Home with Family * ADLs Independent * Equipment None * Other Equipment NO MEDICAL EQUIPMENT PROVIDER PREFERENCE * List name and contact numbers for known caregivers / representatives who currently or will assist patient after discharge: GARY VÁZQUEZ, FRIEND, * Verbal permission to speak to the caregivers and representatives has been obtained from the patient. N/A * Community resources currently utilized Other * Please name any agencies selected above. [facility] [place], MWF, 0600, [employer] * Additional services required to return to the preadmission environment? No * Can the patient safely return to the preadmission environment? Yes * Has this patient been hospitalized within the prior 30 days at any hospital? Yes Last DP export: 06/12/19 3:55 p Patient Name: PARISH KWAN Page [phone] at 1612 All edits/amendments must be made on the electronic document DICTATION DATE: 06/13/191611 COMPENSATION AND BENEFITS ADMINISTRATOR: DIAMANTE 06/13/191611 RPT#: [id number] DC DATE: STATUS: ADM IN [facility] [address] [place] [address] END OF REPORT
--- NOTE | 2019-06-13 17:59 | NUR ---
PATIENT HAS BEEN DISCHARGED. ALL BELONGINGS HAVE GONE HOME WITH THE PATIENT. SHE WENT DOWNSTAIRS BY WHEELCHAIR AND WENT HOME WITH HER FAMILY.
== END 2019-06-13 18:00 | disposition home or self-care (01) | DRG 291 ==
LOC: D.ER 15:55 → D.M2 19:16
PROVIDERS: Family Medicine; ADMIT Internal Medicine; ATTEND Internal Medicine
PROC: 5A1D70Z Performance of Urinary Filtration, Intermittent, Less than 6 Hours Per Day (ICD-10-PCS; principal; 2019-06-11)
DX: I13.2 Hypertensive heart and chronic kidney disease with heart failure and with stage 5 chronic kidney disease, or end stage renal disease (principal); N18.6 End stage renal disease; R18.8 Other ascites; N25.81 Secondary hyperparathyroidism of renal origin; F11.20 Opioid dependence, uncomplicated; Z99.2 Dependence on renal dialysis; E87.5 Hyperkalemia; D63.1 Anemia in chronic kidney disease; E83.39 Other disorders of phosphorus metabolism; I50.9 Heart failure, unspecified; Z91.15 Patient's noncompliance with renal dialysis

== ENCOUNTER 2019-07-05 08:46 | Inpatient (IN) | payer MEDICARE, MEDICAID ==
[~2019-07-05] VITALS: Ht 160 cm; Wt 68.2 kg
[2019-07-05] VITALS (7 sets, daily range): BP systolic 132–179; BP diastolic 80–103; Ht 160 cm; Wt 68.2 kg
--- NOTE | ~2019-07-05 | HEMODYNAMI ---
PATIENT:PARISH KWAN MEDICAL RECORD: [id number] : 84 LOCATION:D. D.2107 ADMISSION DATE: 07/05/19 Generatedon:07/05/201913:58 Patient name: PARISH KWAN Patient #: [id number] SSN: [id number] : 1980 Date of study: 07/05/2019 Page: Of Hemodynamic Procedure Report Patient Data Patient Demographics Procedure consent was obtained First Name: PARISH Gender: Female Last Name: AQUILES : 1980 Middle Initial: A Age: 38 year(s) Patient #: [id number] Race: SSN: [id number] Additional ID: [id number] Contact details [address]: [address] [place] [address] State: [place] City: [place] Zip code: [address] Past Medical History Allergies Allergen Reaction Date Comments Reported Stings 01/05/2019 STADOL, TORADOL, VACOMYCIN Other allergy 01/06/2019 STADOL, TORADOL, VANCOMYCIN Stadol 01/10/2019 Toradol 01/10/2019 Vancomycin 01/10/2019 Stadol 05/01/2019 Toradol 05/01/2019 Vancomycin 05/01/2019 Other allergy 07/05/2019 butorphanol, vancomycin, tordol Admission Admission Data Admission Date: 07/05/2019 Admission Time: 10:30 Room #: D.2107 Procedure Procedure Types Cath Procedure Peripheral Cath Diagnostic Procedure Fistula Fistulagram Angio AV Procedure Description Procedure Date Procedure Date: 07/05/2019 Procedure Start Time: 12:50 Procedure End Time: 13:58 Procedure Staff Name Function Linda Marcano MD Performing Physician NATHALIE FAN RT Monitor Agustin Cortes RT Scrub Yumiko Abraham RN Nurse Procedure Data Cath Procedure Fluoroscopy Diagnostic fluoroscopy Total fluoroscopy Time: 6.7 time: 6.7 min min Diagnostic fluoroscopy Total fluoroscopy dose: 44 dose: 44 mGy mGy Contrast Material Contrast Material Type Amount (ml) Isovue 300 75 Entry Location Entry Primary Successful Side Size (Fr) Upsize Upsize Entry Closure S uccessful Closure Location 1 (Fr) 2 (Fr) Remarks Device Remarks Fistula Right 6 Fr Mid-Length Procedure Medications Medication Administration Route Dosage Heparin Flush Bag added to field 2 bags (1000units/500ml NS) Lidocaine 1% added to field 20 Versed I.V. 1 mg Fentanyl I.V. 50 mcg Heparin Bolus I.V. 4000 units Versed I.V. 1 mg Fentanyl I.V. 50 mcg Hydralizine I.V. 10 mg Hydralizine I.V. 10 mg Hemodynamics Rest Heart Rate: 104 (bpm) Snapshots Pre Cath Intra NCS Post Cath Vital Signs Time Heart Resp SPO2 etCO2 NIBP (mmHg) Rhythm Pain Sedation Rate (ipm) (%) (mmHg) Status Level (bpm) 12:41:40 103 12 95 35.1 117/102(105) NSR 0 (11) 10(A) , No pain 12:46:26 102 17 99 32.1 176/103(134) NSR 0 (11) 10(A) , No pain 12:50:42 100 13 97 32.8 176/99(138) NSR 0 (11) 8(A) , No pain 12:55:02 100 13 90 30.6 195/106(139) NSR 0 (11) 8(A) , No pain 13:00:01 101 22 91 32.1 Measuring NSR 0 (11) 8(A) , No pain 13:00:34 101 23 91 32.8 189/105(134) NSR 0 (11) 8(A) , No pain 13:04:56 100 19 91 31.3 179/102(132) NSR 0 (11) 8(A) , No pain 13:09:17 101 14 92 30.6 175/95(131) NSR 0 (11) 8(A) , No pain 13:13:37 102 13 95 18.6 172/96(126) NSR 0 (11) 8(A) , No pain 13:17:51 103 13 96 16.4 169/97(126) NSR 0 (11) 8(A) , No pain 13:22:07 103 13 96 5.2 180/98(127) NSR 0 (11) 8(A) , No pain 13:26:23 103 13 97 20.8 174/102(129) NSR 0 (11) 8(A) , No pain 13:30:39 103 31 95 13.4 181/104(142) NSR 0 (11) 8(A) , No pain 13:34:55 103 14 93 14.1 175/107(137) NSR 0 (11) 8(A) , No pain 13:39:15 104 17 92 11.1 196/102(142) NSR 0 (11) 8(A) , No pain 13:43:37 104 14 93 10.4 193/103(132) NSR 0 (11) 8(A) , No pain 13:45:11 104 15 92 12.6 191/101(136) NSR 0 (11) 8(A) , No pain 13:47:18 103 15 92 22.3 157/104(131) NSR 0 (11) 8(A) , No pain 13:51:32 104 14 95 14.9 174/102(138) NSR 0 (11) 8(A) , No pain 13:56:01 104 15 98 4.4 155/97(138) NSR 0 (11) 8(A) , No pain Medications Time Medication Route Dose Verified Delivered Reason Notes Ef fectiveness by by 12:42:52 Heparin Flush added 2 M J Long M J Long used for Bag to bags MD [facility] procedure (1000units/500ml field NS) 12:43:11 Lidocaine 1% added 20ml M J Long M J Long for local to vial MD [facility] anesthetic field 12:47:41 Versed I.V. 1 mg M J Long Yumiko for sedation MD Jarad RODRIGUEZ 12:47:54 Fentanyl I.V. 50 M J Long Yumiko for sedation mcg MD Jarad RODRIGUEZ 13:24:00 Heparin Bolus I.V. 4000 M J Long Yumiko Per units MD Jarad RODRIGUEZ physician 13:24:08 Versed I.V. 1 mg M J Long Yumiko for sedation MD Jarad RODRIGUEZ 13:24:14 Fentanyl I.V. 50 M J Long Yumiko for sedation mcg MD Jarad RODRIGUEZ 13:44:02 Hydralizine I.V. 10 mg M J Long Yumiko for MD Jarad RODRIGUEZ hypertension 13:49:32 Hydralizine I.V. 10 mg M J Long Yumiko for MD Jarad RODRIGUEZ hypertension Procedure Log Time Note 12:32:35 Yumiko Abraham RN sent for patient. Start room use. 12:32:36 Time tracking: Regular hours (M-F 7:00 - 5:00) 12:32:41 Plan of Care:Hemodynamics will remain stable., Cardiac rhythm will remain stable., Comfort level will be maintained., Respiratory function will remain adequate., Patient/ family verbilizes understanding of procedure., Procedure tolerated without complication., Recovers from procedure without complications.. 12:32:50 Patient received from [employer] to IR Alert and oriented. Tansferred to table in Supine position. 12:32:52 Signed procedure consent form obtained from patient. 12:32:52 Warm blankets applied, and kia hugger turned on for patient comfort. 12:32:53 Correct patient and procedure confirmed by team. 12:32:53 ECG and BP/O2 sat monitors applied to patient. 12:32:56 - 12:33:01 H&P Date Dictated: 07/05/2019 Within 30 days and on chart.. 12:33:02 Pre-procedure instructions explained to patient. 12:33:02 Pre-op teaching completed and patient verbalized understanding. 12:33:46 Patient allergic to Other allergybutorphanol, vancomycin, tordol 12:33:51 Is the patient allergic to Iodine/contrast media? No. 12:33:59 Is patient on blood thinner?No 12:35:29 Patient diabetic? No. 12:35:31 - 12:35:32 ----Pre-sedation anethsthesia assessment.---- 12:35:35 Previous problem with sedation/anesthesia? No ? 12:35:38 Snore? Yes 12:35:41 Sleep apnea? No 12:35:43 Deviated septum? No 12:35:44 Opens mouth fully? Yes 12:35:45 Sticks out tongue? Yes 12:35:48 Airway obstruction? No ? 12:35:50 Dentures? No ? 12:36:23 IV patent on arrival in left forearm with 0.9% NaCl at [facility]. 12:36:37 Right Arm area was prepped with chlora-prep and draped in sterile fashion 12:36:39 Alarms reviewed by R. N. 12:36:39 Alarms reviewed by R. N. 12:36:40 Sharps counted by scrub and verified by R.N. 12:36:41 - 12:38:58 Use device set IR Diagnostic 12:39:00 Bag Decanter (2002S) opened to sterile field. 12:39:00 Sterile Angiographic Pack opened to sterile field. 12:39:00 Tegaderm 4 x 4 (1626W) opened to sterile field. 12:39:12 MICROPUNCTURE 4FR [employer] ([id number]) opened to sterile field. 12:39:12 DOC .035 wire (T90158) opened to sterile field. 12:40:31 Vital chart was started 12:42:36 Baseline sample Acquired. 12:42:37 Full Disclosure recording started 12:42:40 - 12:42:52 Heparin Flush Bag (1000units/500ml NS) 2 bags added to field was administered by Linda Marcano MD; used for procedure; Verbal order read back and verified. 12:43:11 Lidocaine 1% 20ml vial added to field was administered by Linda Marcano MD; for local anesthetic; Verbal order read back and verified. 12:44:46 Physician arrived 12:44:46 --------ALL STOP TIME OUT------ 12:45:12 Final Timeout: patient, procedure, and site verified with staff and physician. All members of the team are in agreement. 12:45:15 Right Arm site verified by team. 12:45:18 Fire Safety Assessment: A--An alcohol-based skin anteseptic being used preoperatively., C--Open oxygen or nitrous oxide is being used. 12:45:22 5) <15 or on dialysis Very severe, or end stage kidney failure. 12:45:49 Maximum allowable contrast dose (3.7 X eGFR X 0.75)22.2 ml. 12:47:41 Versed 1 mg I.V. was administered by Yumiko Abraham RN; for sedation; Verbal order read back and verified. 12:47:54 Fentanyl 50 mcg I.V. was administered by Yumiko Abraham RN; for sedation ; Verbal order read back and verified. 12:49:45 YUCH needle opened to sterile field. 12:50:20 Procedure started. 12:50:41 Local anesthetic to Abdominal area with Lidocaine 1% by Linda Marcano MD.INITIAL ACCESS ONLY 12:55:58 [id number] 8FR CATH DRAIN TRAY opened to sterile field. 13:16:13 Local anesthetic to right arm with Lidocaine 1% by Linda Marcano MD.ADDITIONAL ACCESS 13:20:39 Access obtained with 4Fr micropunture. 13:24:00 Heparin Bolus 4000 units I.V. was administered by Yumiko Abraham RN; Per physician; Verbal order read back and verified. 13:24:08 Versed 1 mg I.V. was administered by Yumiko Abraham RN; for sedation; Verbal order read back and verified. 13:24:14 Fentanyl 50 mcg I.V. was administered by Yumiko Abraham RN; for sedation ; Verbal order read back and verified. 13:24:24 SHEATH 6FR [place] (EHG298) opened to sterile field. 13:24:25 NICOLE 260 wire (A49961) opened to sterile field. 13:24:25 INFLATOR BasixTOUCH (ZX1492) opened to sterile field. 13:28:22 GLIDE WIRE .038 180cm ANGLED (SV0854) opened to sterile field. 13:30:30 A 6 Fr Mid-Length sheath was inserted into the Right Fistula 13:34:37 GLIDE CATHETER 5FR ANGLED 65cm (CG507) opened to sterile field. 13:37:15 Inflate balloon Inflation number: 1 A EVERCROSS 7 x 4 x 135 balloon ([id number]) was prepped and advanced across the right fistula, then inflated . 13:40:49 Procedure ended.(Physican Out) 13:43:18 Fluoroscopy time 06.70 minutes. 13:43:23 Fluoroscopy dose: 44 mGy 13:43:23 Flurop Dose total: 44 13:43:28 Contrast amount:Isovue 300 75ml. 13:44:02 Hydralizine 10 mg I.V. was administered by Yumiko Abraham RN; for hypertension; Verbal order read back and verified. 13:44:59 Sharps counted by scrub and verified by R.N. 13:45:01 Insertion/operative site no bleeding no hematoma. 13:45:06 Post-op/insertion site Right Fistula dressed using a 4 x 4 and Tegaderm . 13:45:13 Post procedure instruction explained to patient.Patient verbalizes understanding. 13:45:14 Procedure and supply charges have been captured, reviewed, submitted an d are correct. 13:49:32 Hydralizine 10 mg I.V. was administered by Yumiko Abraham RN; for hypertension; Verbal order read back and verified. 13:57:52 Vital chart was stopped 13:57:54 Operative report dictated upon procedure completion. 13:57:56 See physician's report for complete and final results. 13:57:59 Report given to [facility]. 13:58:03 Patient transfered to [facility] with Bed. 13:58:05 Procedure ended. 13:58:05 Full Disclosure recording stopped Intervention Summary Intervention Notes Time ActionType Lesion and Equipment Used Action# Pressure Duration Attributes 13:37:15 Inflate Undefined1 EVERCROSS 7 x 4 1 0 00:00 balloon x 135 balloon ([id number]) Device Usage Item Name Manufacture Quantity Catalog Number Hospital Part Current M inimal Lot# / Charge Number Stock Stock Serial# Code Bag Decanter Microtek 1 2002S [id number] 64369 [id number] 5 (2001S) Medical Inc. Sterile Cardinal 1 [id number] 202264 145321 5 Angiographic Health Pack Tegaderm 4 x 4 3M 1 1626W 652579 225050 329617 5 (1626W) MICROPUNCTURE [employer] 1 U56882 621555 169863 058421 5 4FR [place] (J17758) DOC .035 wire [employer] 1 U29449 170707 416327 5 (U39842) YUCH needle [facility] 1 G58108 322553 176848 5 3886050 SHEATH 6FR Terumo 1 CGJ158 524747 064412 138928 4 0 [place] (WPM639) NICOLE 260 wire [facility] 1 L62052 062859 20895 976781 5 (O93834) INFLATOR Merit 1 WR7933 624512 640496 790560 5 [facility] (LV4985) GLIDE WIRE .038 Terumo 1 HK5090 444009 997410 5 180cm ANGLED (JA8118) GLIDE CATHETER Terumo 1 CG507 693853 175376 5 5FR ANGLED 65cm (CG507) EVERCROSS 7 x 4 Medtronic 1 [id number] 420837 399673 5 x 135 balloon ([id number]) XCCH-B-[id number] CareFusion 2 [id number] 094001 657203 5 8FR CATH DRAIN TRAY Signature Audit [place] Stage Time Signature Unsigned Intra-Procedure 07/05/2019 NATHALIE FAN RT 1:58:30 PM (R) [address] [place] [address]
--- NOTE | 2019-07-05 09:36 | NUR ---
PER PT, HAS HAD BOTH KIDNEYS REMOVED AND MAKE NO URINE. NOTIFIED [facility] TO CANCEL UA AND UDS.
[2019-07-05 09:41] LABS: BASOPHILS 0.4 % (0-2); EOSINOPHILS 2.6 % (0-7); HEMATOCRIT 38.2 % (36.0-48.0); HEMOGLOBIN 11.1 g/dL (12-16); IMMATURE GRANULOCYTES 0.2 % (0-5); LYMPHOCYTES 9.5 % (15-50); MCH 31.7 pg (26.0-34.0); MCHC 29.1 g/dL (31.0-37.0); MCV 109.1 fL (80.0-100.0); MEAN PLATELET VOLUME 9.2 fL (7.4-10.4); MONOCYTES 9.5 % (2-11); NEUTROPHILS 77.8 % (40-80); PLATELET COUNT 171 10x3/uL (130-400); RDW 19.5 % (11.5-14.5)
[2019-07-05 09:53] LABS: ANION GAP 19.5 mmol/L (8-16); CALCIUM 9.7 mg/dL (8.5-10.1); CARBON DIOXIDE 25.6 mmol/L (21.0-32.0); CREATININE - SERUM 6.5 mg/dL (0.6-1.3); POTASSIUM - SERUM 5.1 mmol/L (3.5-5.1)
[2019-07-05 10:00] LABS: ALBUMIN 3.1 g/dL (3.4-5.0); BILIRUBIN - TOTAL 0.91 mg/dL (0.2-1.3); PROTEIN - SERUM 7.6 g/dL (6.4-8.2)
[2019-07-05 11:04] LABS: APTT 27.5 SECONDS (22.8-39.4); INR 1.34 (0.85-1.17); PROTIME 16.5 SECONDS (11.6-15.0)
--- NOTE | 2019-07-05 11:48 | NUR ---
CONSENTS SIGNED BY PT AND PLACED ON CHART. PT DENIES ANY NEEDS AT THIS TIME. CALL LIGHT IN REACH, NAD NOTED, WILL CONTINUE TO MONITOR.
--- NOTE | 2019-07-05 12:29 | NUR ---
PT TO IR VIA BED.
--- NOTE | 2019-07-05 14:18 | NUR ---
RECEIVED PT BACK TO ROOM 2106. PT STILL DROWSY. VITAL SIGNS STABLE, PLACED PT ON FREQUENT VITAL SIGNS. CALL LIGHT IN REACH, BEDSIDE RAILS X2, NAD NOTED, WILL CONTINUE TO MONITOR.
--- NOTE | 2019-07-05 14:49 | NUR ---
MEDICATION GIVEN ORDERED. ALSO GAVE NORCO FOR PAIN. PT STATING THAT SHE NEED THE DILAUDID THAT SHE GOT IN THE ER BECAUSE THE NORCO DOES NOT HELP FOR THE PAIN. WANTS TO SPEAK TO DR. NORIEGA.
--- NOTE | 2019-07-05 15:00 | NUR ---
INFORMED DR. NORIEGA THAT PT WANTS TO TALK TO HIM BECAUSE HER DILAUDID WAS D/C AND PT STATES THAT THE NORCO DOES NOTHING FOR HER PAIN. DR. NORIEGA TOLD THIS NURSE THAT NORCO WAS THE ONLY PAIN MEDICATION THAT PT WAS GOING TO GET. INFORMED PT THAT PT GOT UPSET AND DEMANDING TO TALK TO DR. NORIEGA. NOTIFIED DR. NORIEGA AGAIN.
--- NOTE | 2019-07-05 15:41 | NUR ---
PATIENT TO REFUSE TO WEAR SCD'S ORDERED.
--- NOTE | 2019-07-05 17:57 | NUR ---
PT'S O2 IS 88-89% ON RA. PT REFUSES TO WEAR HER O2. PT CAN NOT KEEP HER EYES OPEN. SHE WILL OPEN THEM AND TALK TO THIS NURSE AND THEN CLOSES THEM BACK UP. EXPLAINED TO PT THE IMPORTANCE OF WEARING HER O2. PT STATED " I DON'T WANT TO WEAR IT, LEAVE ME ALONE, I HAVE INSOMIA. I WEAR O2 AT HOME BUT NOT ALL THE TIME". EXPLAINED TO PT THAT HER O2 IS LOW AND IF SHE IS GOING TO FALL ASLEEP THAT SHE NEEDS TO PUT IT ON.
--- NOTE | 2019-07-05 19:10 | NUR ---
REPORT RECEIVED, WILL CONTINUE POC. PATIENT IS RESTING WITH EYES CLOSED, NO S/S OF DISTRESS OBSERVED, RR EVEN AND UNLABORED ON 4L. CL IN REACH, BED LOCKED AND LOWERED. WILL CTM.
[2019-07-06 04:00] VITALS: BP 127/85
[2019-07-06 08:10] VITALS: BP 116/79
--- NOTE | 2019-07-06 09:51 | NUR ---
I CALLED AND SPOKE WITH LISA JOSEPH APN AND WAS GIVEN THE OKAY FOR D/C AFTER DIALYSIS.
--- NOTE | 2019-07-06 11:25 | MORECARE ---
CASE MANAGEMENT DISCHARGE SUMMARY PATIENT: PARISH KWAN UNIT: [id number] ADM DATE: 07/05/19 AGE: 38 : [birth year] SEX: F ROOM/BED: D.2107 AUTHOR: MIGUE LOPEZ PHYSICIAN: REFERRING PHYSICIAN: JIMBO NORIEGA MD DATE OF SERVICE: 07/06/19 Discharge Plan Patient Name: PARISH KWAN [facility] [facility] 1980 Planned Disposition: Home Anticipated Discharge Date: 07/06/19 Discharge Date: Expected LOS: 1 Initial Reviewer: [email or web address] Initial Review Date: 07/06/2019 Generated: 07/06/19 12:25 pm Comments DCP- Discharge Planning Updated by [email or web address]: Angela Mcrae on 07/06/19 10:[address] Patient Name: PARISH KWAN Admission Status: ER Accout number: [id number] Admission Date: 07-05-2019 : 1980 Admission Diagnosis: Attending: JIMBO NORIEGA Current LOS: 1 Anticipated DC Date: 07-06-2019 Planned Disposition: Home Primary Insurance: [employer] MEDICARE ADV Discharge Planning Comments: CM went to room to discuss discharge planning/needs. She is in dialysis at this time. From prior notes she lives with children. She dialyzes MWF at [facility] dialysis and I have notified Rebecca Alberts and Rebecca states she will notify the dialysis center of her return to MWF. Source Water Protection Specialist: Angela Mcrae Patient Name: PARISH KWAN Page 23006 at 1125 All edits/amendments must be made on the electronic document DICTATION DATE: 07/06/19 1125 KOSHER DIETARY SERVICE MANAGER: DIAMANTE 07/06/19 1125 RPT#: [id number] DC DATE: STATUS: ADM IN [facility] [address] [place] [address] END OF REPORT
--- NOTE | 2019-07-07 15:37 | MORECARE ---
CASE MANAGEMENT DISCHARGE SUMMARY PATIENT: PARISH KWAN UNIT: [id number] ADM DATE: 07/05/19 AGE: 38 : [birth year] SEX: F ROOM/BED: D.210 AUTHOR: MIGUE LOPEZ PHYSICIAN: REFERRING PHYSICIAN: JIMBO NORIEGA MD DATE OF SERVICE: 07/07/19 Discharge Plan Patient Name: PARISH KWAN Facility: [facility]:[place] : 1980 Planned Disposition: Home Anticipated Discharge Date: 07/06/19 Discharge Date: 07/06/2019 Expected LOS: 1 Initial Reviewer: [email or web address] Initial Review Date: 07/06/2019 Generated: 07/07/19 4:36 pm DCP- Discharge Planning Updated by [email or web address]: Angela Mcrae on 07/06/19 10:[address] Patient Name: PARISH KWAN Admission Status: ER Accout number: [id number] Admission Date: 07-05-2019 : 1980 Admission Diagnosis: Attending: JIMBO NORIEGA Current LOS: 1 Anticipated DC Date: 07-06-2019 Planned Disposition: Home Primary Insurance: [employer] MEDICARE ADV Discharge Planning Comments: CM went to room to discuss discharge planning/needs. She is in dialysis at this time. From prior notes she lives with children. She dialyzes MWF at [facility] dialysis and I have notified Rebecca Alberts and Rebecca states she will notify the dialysis center of her return to MWF. Jig Mill Operator: Angela Mcrae Last DP export: 07/06/19 10:25 a Patient Name: PARISH KWAN Page 68972 at 1537 All edits/amendments must be made on the electronic document DICTATION DATE: 07/07/19 1536 NON MORSE INTERCEPT TECHNICIAN: DIAMANTE 07/07/19 1536 RPT#: [id number] DC DATE:07/06/19 STATUS: DIS IN [facility] [address] [place] [address] END OF REPORT
== END 2019-07-06 17:38 | disposition home or self-care (01) | DRG 252 ==
LOC: D.ER 08:46 → D.M2 10:30
PROVIDERS: Family Medicine; Radiology Vascular & Interventional Radiology; ADMIT Internal Medicine Nephrology; ATTEND Internal Medicine Nephrology
PROC: 0W9G3ZZ Drainage of Peritoneal Cavity, Percutaneous Approach (ICD-10-PCS; 2019-07-05)
PROC: 5A1D70Z Performance of Urinary Filtration, Intermittent, Less than 6 Hours Per Day (ICD-10-PCS; 2019-07-05)
PROC: 05WY3KZ Revision of Nonautologous Tissue Substitute in Upper Vein, Percutaneous Approach (ICD-10-PCS; principal; 2019-07-05 12:30)
PROC: B51W1ZZ Fluoroscopy of Dialysis Shunt/Fistula using Low Osmolar Contrast (ICD-10-PCS; 2019-07-05 12:30)
DX: T82.590A Other mechanical complication of surgically created arteriovenous fistula, initial encounter (principal); N18.6 End stage renal disease; E43 Unspecified severe protein-calorie malnutrition; R18.8 Other ascites; I13.2 Hypertensive heart and chronic kidney disease with heart failure and with stage 5 chronic kidney disease, or end stage renal disease; N25.81 Secondary hyperparathyroidism of renal origin; Q61.3 Polycystic kidney, unspecified; Y84.9 Medical procedure, unspecified as the cause of abnormal reaction of the patient, or of later complication, without mention of misadventure at the time of the procedure; E11.22 Type 2 diabetes mellitus with diabetic chronic kidney disease; I50.9 Heart failure, unspecified; Z99.2 Dependence on renal dialysis; D63.1 Anemia in chronic kidney disease; J44.9 Chronic obstructive pulmonary disease, unspecified; F41.9 Anxiety disorder, unspecified; M79.7 Fibromyalgia; D75.89 Other specified diseases of blood and blood-forming organs

== ENCOUNTER 2019-07-09 15:37 | Inpatient (IN) | payer MEDICARE, MEDICAID ==
[~2019-07-09] VITALS: Ht 160 cm; Wt 65.8 kg
[2019-07-09 16:33] LABS: BASOPHILS 0.6 % (0-2); HEMATOCRIT 39.4 % (36.0-48.0); HEMOGLOBIN 11.5 g/dL (12-16); IMMATURE GRANULOCYTES 0.2 % (0-5); LYMPHOCYTES 8.3 % (15-50); MCH 31.9 pg (26.0-34.0); MCHC 29.2 g/dL (31.0-37.0); MCV 109.1 fL (80.0-100.0); MEAN PLATELET VOLUME 9.4 fL (7.4-10.4); MONOCYTES 7.2 % (2-11); NEUTROPHILS 80.7 % (40-80); PLATELET COUNT 184 10x3/uL (130-400); RBC 3.61 10x6/uL (4.00-5.40); RDW 18.3 % (11.5-14.5)
[2019-07-09 17:07] LABS: ANION GAP 21.5 mmol/L (8-16); BILIRUBIN - TOTAL 0.76 mg/dL (0.2-1.3); CALCIUM 9.7 mg/dL (8.5-10.1); CARBON DIOXIDE 19.6 mmol/L (21.0-32.0); CREATININE - SERUM 6.9 mg/dL (0.6-1.3); PROTEIN - SERUM 7.6 g/dL (6.4-8.2)
[2019-07-09 17:08] LABS: POTASSIUM - SERUM 6.1 mmol/L (3.5-5.1)
--- NOTE | 2019-07-09 18:55 | NUR ---
PT FROM ER AND TO BED LOW AND LOCKED VS BY STAFF PT DEMANDING FOOD AND PAIN MEDS
--- NOTE | 2019-07-09 19:42 | NUR ---
I HAVE VISITED ROOM SEVERAL TIMES PT IS TURNING ON LIGHT SOON I LEAVE ROOM I HAVE ASSISTED WITH NEEDS PT HAS FOOD, DRINK AND PRN FOR PAIN
[2019-07-09 20:00] VITALS: BP 162/107
--- NOTE | 2019-07-09 21:45 | NUR ---
PT ESCORTED TO DIALYSIS BY MYSELF VIA BED
--- NOTE | 2019-07-10 00:24 | NUR ---
PT HAS RETURNED FROM DAILYSIS ESCORTED BY ME
--- NOTE | 2019-07-10 00:29 | NUR ---
PT HAD COMPLAINED ABOUT IV HURTING OR THAT THERE WAS BLOOD UNDER THE DRSG I CHECKED TWICE AND FOUND PATIENT IV PT CALLS ME TO ROOM NOW AND SAYS LOOK PT HAS REMOVED OPSITE I DCED IV CATH INTACT
--- NOTE | 2019-07-10 01:39 | NUR ---
ASSISTED PT WITH SUPPLIES FOR A SHOWER REQUESTED
--- NOTE | 2019-07-10 03:27 | NUR ---
RESTARTEWD IV WITH 22 TO UPPER LEFT ARM
[2019-07-10 03:58] VITALS: BP 162/107; BMI 25.7
[2019-07-10 04:00] VITALS: BP 173/112
--- NOTE | 2019-07-10 05:54 | NUR ---
LATIN DANCER ASSESSMENT HAS BEEN COMPLETED. PLAN OF CARE INITIATED.
[2019-07-10 06:59] LABS: BASOPHILS 0.5 % (0-2); HEMATOCRIT 39.1 % (36.0-48.0); HEMOGLOBIN 11.5 g/dL (12-16); IMMATURE GRANULOCYTES 0.2 % (0-5); LYMPHOCYTES 8.8 % (15-50); MCH 32.4 pg (26.0-34.0); MCHC 29.4 g/dL (31.0-37.0); MCV 110.1 fL (80.0-100.0); MEAN PLATELET VOLUME 9.3 fL (7.4-10.4); MONOCYTES 5.2 % (2-11); NEUTROPHILS 81.3 % (40-80); PLATELET COUNT 171 10x3/uL (130-400); RBC 3.55 10x6/uL (4.00-5.40); RDW 18.2 % (11.5-14.5)
[2019-07-10 07:14] LABS: ANION GAP 19.7 mmol/L (8-16); BILIRUBIN - TOTAL 0.76 mg/dL (0.2-1.3); CALCIUM 10.1 mg/dL (8.5-10.1); CARBON DIOXIDE 23.3 mmol/L (21.0-32.0); CREATININE - SERUM 5.9 mg/dL (0.6-1.3); PROTEIN - SERUM 7.4 g/dL (6.4-8.2)
--- NOTE | 2019-07-10 07:30 | NUR ---
PT AWAKE AND ORIENTEDM DEMANDING PAIN MEDICATIONS RIGHT NOW, STATING SHE'S IN TERRIBLE 10/10 PAIN. WILL ADMIN WHEN AVALIABLE. PT IS RUDE AND UNCOOPERATIVE AT THIS TIME. CL IN REACH, SRX2.
--- NOTE | 2019-07-10 09:05 | NUR ---
ADMINISTERED PAIN MEDICATIONS, PT REQUESTED I WRITE ON THE BOARD WHEN HER NEXT DOSE WAS
--- NOTE | 2019-07-10 09:47 | NUR ---
PT ESCORTED DOWN TO DIALYSIS VIA BED.
[2019-07-10 10:14] VITALS: BP 180/118
--- NOTE | 2019-07-10 11:30 | NUR ---
PT HAD DIALYSIS NURSE CALL AND INFORM ME SHE NEED HER PAIN MEDICATION, ZOFRAN, AND BYNADRYL. PREFERABLY ALL AT ONCE. WILL ADMINISTER PER MD ORDER. NEEDS THE BENADRYL FOR ITCHING.
--- NOTE | 2019-07-10 11:55 | NUR ---
SAW PT IN DIAYLISIS. INFORMED PT SHE WOULD BE DISCHARGING AFTER DIAYLSIS. PT WAS COMPLIABLE. CL IN REACH, SRX2.
[2019-07-10 13:11] VITALS: Ht 160 cm; Wt 65.8 kg
--- NOTE | 2019-07-10 13:29 | NUR ---
PT BACK FROM [facility], LUNCH PROVIDED.
--- NOTE | 2019-07-10 13:42 | MORECARE ---
CASE MANAGEMENT DISCHARGE SUMMARY PATIENT: PARISH KWAN UNIT: [id number] ADM DATE: 07/09/19 AGE: 38 : 84 SEX: F ROOM/BED: D.2138 AUTHOR: MIGUE LOPEZ PHYSICIAN: REFERRING PHYSICIAN: JIMBO NORIEGA MD DATE OF SERVICE: 07/10/19 Discharge Plan Patient Name: PARISH KWAN Facility: [facility]:[place] : 1980 Planned Disposition: Home Anticipated Discharge Date: 07/10/19 Discharge Date: Expected LOS: 1 Initial Reviewer: [email or web address] Initial Review Date: 07/09/2019 Generated: 07/10/19 2:42 pm Patient Name: PARISH KWAN Page 86458 at 1342 All edits/amendments must be made on the electronic document DICTATION DATE: 07/10/19 1342 BUTTON SPINDLER: DIAMANTE 07/10/19 1342 RPT#: [id number] DC DATE: STATUS: ADM IN [facility] [address] [place] [address] END OF REPORT
--- NOTE | 2019-07-10 13:57 | MORECARE ---
CASE MANAGEMENT DISCHARGE SUMMARY PATIENT: PARISH KWAN UNIT: [id number] ADM DATE: 07/09/19 AGE: 38 : [birth year] SEX: F ROOM/BED: D.4685 AUTHOR: MIGUE LOPEZ PHYSICIAN: REFERRING PHYSICIAN: JIMBO NORIEGA MD DATE OF SERVICE: 07/10/19 Discharge Plan Patient Name: PARISH KWAN Facility: [facility]:[place] : 1980 Planned Disposition: Home Anticipated Discharge Date: 07/10/19 Discharge Date: Expected LOS: 1 Initial Reviewer: [email or web address] Initial Review Date: 07/09/2019 Generated: 07/10/19 2:57 pm Comments DCP- Discharge Planning Updated by [email or web address]: Angela Mcrae on 07/10/19 12:[address] Patient Name: PARISH KWAN Admission Status: ER Accout number: [id number] Admission Date: 07-09-2019 : 1980 Admission Diagnosis: Attending: JIMBO NORIEGA Current LOS: 1 Anticipated DC Date: 07-10-2019 Planned Disposition: Home Primary Insurance: [employer] MEDICARE ADV Discharge Planning Comments: CM met with patient to complete initial dc planning assessment. CM educated patient on the CM role and verbal consent given by patient to complete assessment. Patient lives at home with her 3 children, ages 12, 10 and 8. . At discharge patient plans to return and feels this is a safe discharge. CM discussed availability of home health, rehab services, and medical equipment. Patient denied known discharge needs at this time. She states a friend will pick her up for discharge. She is unsure of who her DME company is for oxygen. I gave her a list with numbers of local drug abuse centers. She denies she has a drug abuse problem, but accepts the list. CM will continue to follow and will assist as needed with dc plans/needs. Float Tender: Angela Mcrae DCPIA - Discharge Planning Initial Assessment Updated by [email or web address]: Angela Mcrae on 07/10/19 1:51 pm * Is the patient Alert and Oriented? Yes * PCP Dr. Alvarado * Pharmacy [facility] in [place] * Preadmission Environment Home with Family * ADLs Independent * Equipment Other Oxygen * Other Equipment Portable oxygen * List name and contact numbers for known caregivers / representatives who currently or will assist patient after discharge: Juan Haynes - [place] - [phone] * Verbal permission to speak to the caregivers and representatives has been obtained from the patient. Yes * Community resources currently utilized None * Additional services required to return to the preadmission environment? No * Can the patient safely return to the preadmission environment? Yes * Has this patient been hospitalized within the prior 30 days at any hospital? No Last DP export: 07/10/19 12:42 p Patient Name: PARISH KWAN Page [phone] at 1357 All edits/amendments must be made on the electronic document DICTATION DATE: 07/10/19 1356 [employer] FORCES COMMUNICATIONS SERGEANT: DIAMANTE 07/10/19 1356 RPT#: [id number] DC DATE: STATUS: ADM IN [facility] [address] [place] [address] END OF REPORT
--- NOTE | 2019-07-10 14:15 | NUR ---
pt escorted out via wheelchiar, all PERSONAL ITEMS TAKEN WITH HER. FRIEND DRIVING POV.
[2019-07-11 09:09] LABS: HEPATITIS C ANTIBODY <0.1 S/CO RAT (0.0-0.9)
--- NOTE | 2019-07-11 09:15 | MORECARE ---
CASE MANAGEMENT DISCHARGE SUMMARY PATIENT: PARISH KWAN UNIT: [id number] ADM DATE: 07/09/19 AGE: 38 : 84 SEX: F ROOM/BED: D.2772 AUTHOR: MIGUE LOPEZ PHYSICIAN: REFERRING PHYSICIAN: JIMBO NORIEGA MD DATE OF SERVICE: 07/11/19 Discharge Plan Patient Name: PARISH KWAN Facility: [facility]:[place] : 1980 Planned Disposition: Home Anticipated Discharge Date: 07/10/19 Discharge Date: 07/10/2019 Expected LOS: 1 Initial Reviewer: [email or web address] Initial Review Date: 07/09/2019 Generated: 07/11/19 10:14 am Comments DCP- Discharge Planning Updated by [email or web address]: Angela Mcrae on 07/10/19 12:[address] Patient Name: PARISH KWAN Admission Status: ER Accout number: [id number] Admission Date: 07-09-2019 : 1980 Admission Diagnosis: Attending: JIMBO NORIEGA Current LOS: 1 Anticipated DC Date: 07-10-2019 Planned Disposition: Home Primary Insurance: [employer] MEDICARE ADV Discharge Planning Comments: CM met with patient to complete initial dc planning assessment. CM educated patient on the CM role and verbal consent given by patient to complete assessment. Patient lives at home with her 3 children, ages 12, 10 and 8. . At discharge patient plans to return and feels this is a safe discharge. CM discussed availability of home health, rehab services, and medical equipment. Patient denied known discharge needs at this time. She states a friend will pick her up for discharge. She is unsure of who her DME company is for oxygen. I gave her a list with numbers of local drug abuse centers. She denies she has a drug abuse problem, but accepts the list. CM will continue to follow and will assist as needed with dc plans/needs. Chief Executive: Angela Mcrae DCPIA - Discharge Planning Initial Assessment Updated by [email or web address]: Angela Mcrae on 07/10/19 1:51 pm * Is the patient Alert and Oriented? Yes * PCP Dr. Alvarado * Pharmacy [facility] in [place] * Preadmission Environment Home with Family * ADLs Independent * Equipment Other Oxygen * Other Equipment Portable oxygen * List name and contact numbers for known caregivers / representatives who currently or will assist patient after discharge: Juan Haynes [facility] - [phone] * Verbal permission to speak to the caregivers and representatives has been obtained from the patient. Yes * Community resources currently utilized None * Additional services required to return to the preadmission environment? No * Can the patient safely return to the preadmission environment? Yes * Has this patient been hospitalized within the prior 30 days at any hospital? No Last DP export: 07/10/19 12:57 p Patient Name: PARISH KWAN Page 42880 at 0915 All edits/amendments must be made on the electronic document DICTATION DATE: 07/11/19913 LABORATORY TECHNICIAN: DIAMANTE 07/11/19913 RPT#: [id number] DC DATE:07/10/19 STATUS: DIS IN [facility] [address] [place] [address] END OF REPORT
[2019-07-13 04:07] LABS: HEPATITIS BE ANTIGEN Negative (Negative)
[2019-07-13 13:09] LABS: HEPATITIS BE ANTIBODY Negative (Negative)
== END 2019-07-10 14:16 | disposition home or self-care (01) | DRG 947 ==
LOC: D.ER 15:37 → D.M2 17:53
PROVIDERS: Emergency Medicine; Internal Medicine Nephrology; ADMIT Internal Medicine Nephrology; ATTEND Internal Medicine Nephrology
PROC: 5A1D70Z Performance of Urinary Filtration, Intermittent, Less than 6 Hours Per Day (ICD-10-PCS; principal; 2019-07-09)
DX: R18.8 Other ascites (principal); N18.6 End stage renal disease; E43 Unspecified severe protein-calorie malnutrition; I13.2 Hypertensive heart and chronic kidney disease with heart failure and with stage 5 chronic kidney disease, or end stage renal disease; N25.81 Secondary hyperparathyroidism of renal origin; K76.89 Other specified diseases of liver; D75.89 Other specified diseases of blood and blood-forming organs; I50.9 Heart failure, unspecified; Z68.25 Body mass index [BMI] 25.0-25.9, adult; F41.8 Other specified anxiety disorders; M79.7 Fibromyalgia; D63.1 Anemia in chronic kidney disease; F11.10 Opioid abuse, uncomplicated; J44.9 Chronic obstructive pulmonary disease, unspecified; E87.5 Hyperkalemia

== ENCOUNTER 2019-07-18 10:04 | Outpatient (CLI) | payer MEDICARE, MEDICAID ==
[~2019-07-18] VITALS: Ht 160 cm; Wt 64.1 kg
[2019-07-18 10:44] LABS: APTT 28.4 SECONDS (22.8-39.4); INR 1.44 (0.85-1.17); PROTIME 17.4 SECONDS (11.6-15.0)
[2019-07-18 11:02] VITALS: BP 153/102; Ht 160 cm; Wt 64.1 kg
[2019-07-18 11:12] LABS: ALBUMIN 2.9 g/dL (3.4-5.0); ANION GAP 13.4 mmol/L (8-16); BILIRUBIN - TOTAL 0.99 mg/dL (0.2-1.3); CALCIUM 9.5 mg/dL (8.5-10.1); CARBON DIOXIDE 26.8 mmol/L (21.0-32.0); CREATININE - SERUM 6.5 mg/dL (0.6-1.3); POTASSIUM - SERUM 4.2 mmol/L (3.5-5.1); PROTEIN - SERUM 6.7 g/dL (6.4-8.2)
[2019-07-18 12:22] LABS: BASOPHILS 0.6 % (0-2); EOSINOPHILS 5.4 % (0-7); HEMATOCRIT 39.3 % (36.0-48.0); HEMOGLOBIN 11.8 g/dL (12-16); IMMATURE GRANULOCYTES 0.3 % (0-5); LYMPHOCYTES 15.4 % (15-50); MCH 32.8 pg (26.0-34.0); MCV 109.2 fL (80.0-100.0); MEAN PLATELET VOLUME 9.2 fL (7.4-10.4); MONOCYTES 10.2 % (2-11); NEUTROPHILS 68.1 % (40-80); PLATELET COUNT 191 10x3/uL (130-400); RDW 17.5 % (11.5-14.5); WBC 7.3 10x3/uL (4.8-10.8)
--- NOTE | 2019-07-18 18:55 | NUR ---
PATIENT'S DC TRANSPORTATION HAS ARRIVED, A FRIEND. PATIENT DISCHARGED VIA WHEELCHAIR TO PRIVATE VEHICLE WITH FRIEND
== END 2019-07-18 18:55 | disposition home or self-care (01) ==
LOC: D.CT 10:04
PROVIDERS: Specialist; ATTEND Internal Medicine Nephrology
DX: I12.0 Hypertensive chronic kidney disease with stage 5 chronic kidney disease or end stage renal disease (principal); N18.6 End stage renal disease; K76.9 Liver disease, unspecified; R18.8 Other ascites; R06.02 Shortness of breath; R10.9 Unspecified abdominal pain; Z99.2 Dependence on renal dialysis; I50.9 Heart failure, unspecified; Z99.81 Dependence on supplemental oxygen; F11.20 Opioid dependence, uncomplicated; D64.9 Anemia, unspecified

== ENCOUNTER 2019-07-30 08:49 | Observation (INO) | payer MEDICARE, MEDICAID ==
[~2019-07-30] VITALS: Ht 160 cm; Wt 74.8 kg
[2019-07-30 09:32] LABS: APTT 29.9 SECONDS (22.8-39.4); INR 1.54 (0.85-1.17); PROTIME 18.3 SECONDS (11.6-15.0)
[2019-07-30 09:33] LABS: CALC OSMOLALITY 292 mosm/kg (275-300); CALCIUM 10.8 mg/dL (8.5-10.1); CARBON DIOXIDE 24.3 mmol/L (21.0-32.0); CHLORIDE - SERUM 96 mmol/L (98-107); CREATININE - SERUM 6.7 mg/dL (0.6-1.3); GLUCOSE 92 mg/dL (74-106); POTASSIUM - SERUM 5.7 mmol/L (3.5-5.1); SODIUM 135 mmol/L (136-145); UREA NITROGEN 77 mg/dL (7-18); eGFR NON AFRICAN AMERICAN 7 mL/min (90-120)
[2019-07-30 09:44] LABS: BASOPHILS 0.9 % (0-2); EOSINOPHILS 2.2 % (0-7); HEMATOCRIT 44.2 % (36.0-48.0); HEMOGLOBIN 13.6 g/dL (12-16); IMMATURE GRANULOCYTES 0.5 % (0-5); LYMPHOCYTES 13.2 % (15-50); MCH 32.1 pg (26.0-34.0); MCHC 30.8 g/dL (31.0-37.0); MCV 104.2 fL (80.0-100.0); MEAN PLATELET VOLUME 9.4 fL (7.4-10.4); NEUTROPHILS 76.2 % (40-80); PLATELET COUNT 257 10x3/uL (130-400); RBC 4.24 10x6/uL (4.00-5.40); RDW 15.6 % (11.5-14.5); WBC 8.7 10x3/uL (4.8-10.8)
[2019-07-30 09:54] LABS: ALBUMIN 3.6 g/dL (3.4-5.0); ALKALINE PHOSPHATASE 159 U/L (30-120); ALT (SGPT) 16 U/L (10-68); BILIRUBIN - TOTAL 1.75 mg/dL (0.2-1.3); CREATINE KINASE 61 UL (21-215); LIPASE 127 U/L (73-393); MAGNESIUM - SERUM 2.4 mg/dL (1.8-2.4); PROTEIN - SERUM 8.7 g/dL (6.4-8.2)
[2019-07-30 09:55] LABS: TROPONIN-I 0.128 ng/mL (0.000-0.060)
--- NOTE | 2019-07-30 09:55 | NUR ---
CRITICAL TROPONIN CALLED BY [employer] PROCESSOR AT THIS TIME 0.128. NOTIFIED EDP
[2019-07-30 10:15] VITALS: BP 165/98
--- NOTE | 2019-07-30 11:10 | NUR ---
PT ARRIVED FROM ER VIA BED AND AMBULATED WITH NO NEEDED ASSISTANCE TO THE OTHER BED. PT IS AUDIBLY MOANING, STATES PAIN IS A 10/10 IN ABDOMEN. MAR STATES PT HAS ALREADY RECIEVED PAIN MEDICATION IN THE ER AND IT IS NOT TIME YET. STATES SHE WANTS TO TAKE A SHOWER BECAUSE SHE IS ITCHING. EXPPLAINED THAT I NEEDED TO DO MY ADMISSION ASSSESSMENTS FIRST AND SHE VERBALIZED AGREEMENT. ABDOMEN IS DISTENDED AND FIRM. DENIES FURTHER NEEDS AT THIS TIME. ORIENTED TO ROOM. CALL LIGHT WITHIN REACH. BED IN LOWEST POSITION. WILL CONTINUE TO MONITOR.
--- NOTE | 2019-07-30 13:38 | NUR ---
PT TO SHOWER PER REQUEST. GOWN CHANGED. DRINK, FAN, AND LOTION RECIEVED PER REQUEST. CALL LIGHT WITHIN REACH. BED IN LOWEST POSITION. WILL CONTINUE TO MONITOR.
--- NOTE | 2019-07-30 14:00 | NUR ---
PT STATES 10/10 PAIN SHE DRIFTED IN AND OUT OF REST PERIODS IN THE MIDDLE OF HER SENTENCE. EFFORTLESS RISE AND FALL OF CHEST. WILL CONTINUE TO MONITOR.
[2019-07-30 15:26] VITALS: BP 179/106; BMI 29.2
[2019-07-30 16:45] LABS: ANION GAP 21.2 mmol/L (8-16); CALCIUM 10.6 mg/dL (8.5-10.1); CARBON DIOXIDE 23.1 mmol/L (21.0-32.0); POTASSIUM - SERUM 5.3 mmol/L (3.5-5.1)
--- NOTE | 2019-07-30 16:45 | NUR ---
BLOOD PRESSURE 171/111. NO PRN ORDERS FOR BLOOD PRESSURE. PT IS ALSO VOMITING CLEAR AND FOOD PARTICLES. NOT TIME FOR ZOFRAN AT THIS TIME. ALSO REQUESTING BENADRYL FOR ITCHING. SPOKE WITH JUANITA FIGUEROA. ORDERS RECIEVED. WILL CONTINUE TO MONITOR.
[2019-07-30 16:49] LABS: TROPONIN-I 0.117 ng/mL (0.000-0.060)
[2019-07-30 18:11] VITALS: BP 171/111
[2019-07-30 20:00] VITALS: BP 179/104
--- NOTE | 2019-07-31 00:05 | NUR ---
PT IS IN ROOM PICKING AT HER SKIN WITH TWEEZERS STATING SHE IS ITCHY. PICKING AT HER FISTULA DESPITE BEING MEDICATED AND TOLD TO STOP BY MULTIPLE NURSES.
--- NOTE | 2019-07-31 04:25 | NUR ---
PIV D/C FROM LEFT WRIST, CATHETER TIP INTACT. NEW 22G TO LEFT FA X1 ATTEMPT. PT TOLERATED WELL. PT HAS BEEN NPO SINCE MIDNIGHT, NO N/V NOTED. WILL CTM.
[2019-07-31 04:31] VITALS: BP 164/106
[2019-07-31 07:02] LABS: ALBUMIN 3.2 g/dL (3.4-5.0); ANION GAP 23.6 mmol/L (8-16); BILIRUBIN - TOTAL 1.36 mg/dL (0.2-1.3); CALCIUM 10.4 mg/dL (8.5-10.1); CARBON DIOXIDE 21.2 mmol/L (21.0-32.0); CREATININE - SERUM 7.4 mg/dL (0.6-1.3); MAGNESIUM - SERUM 2.4 mg/dL (1.8-2.4); POTASSIUM - SERUM 4.8 mmol/L (3.5-5.1); PROTEIN - SERUM 7.8 g/dL (6.4-8.2)
[2019-07-31 07:03] LABS: TROPONIN-I 0.164 ng/mL (0.000-0.060)
[2019-07-31 08:31] LABS: BASOPHILS 1.3 % (0-2); EOSINOPHILS 4.9 % (0-7); HEMATOCRIT 42.5 % (36.0-48.0); IMMATURE GRANULOCYTES 0.7 % (0-5); LYMPHOCYTES 10.1 % (15-50); MCH 31.7 pg (26.0-34.0); MCHC 30.6 g/dL (31.0-37.0); MCV 103.7 fL (80.0-100.0); MEAN PLATELET VOLUME 9.1 fL (7.4-10.4); MONOCYTES 7.6 % (2-11); NEUTROPHILS 75.4 % (40-80); PLATELET COUNT 233 10x3/uL (130-400); RDW 15.7 % (11.5-14.5); WBC 8.9 10x3/uL (4.8-10.8)
--- NOTE | 2019-07-31 08:43 | NUR ---
PATIENT ITCHING SELF WITH FORK AND A PAIR OF TWEEZERS. EDUCATED PATIENT THAT ITCHING THE SKIN WITH A FORK CAN CAUSE INFECTION AND ELONGATE HER STAY IN THE HOSPITAL
[2019-07-31 09:46] VITALS: BP 148/99
[2019-07-31 12:28] VITALS: Ht 160 cm; Wt 74.8 kg
[2019-07-31 14:26] LABS: EOS BF 3 %; MACROPHAGES BF 8 %; NEUT - BF 19 %
== END 2019-07-31 16:24 | disposition home or self-care (01) ==
LOC: D.ER 08:49 → D.M2 10:23 → OBSVTIME 10:23 → D.M2 10:23
PROVIDERS: Family Medicine; ADMIT Internal Medicine Nephrology; ATTEND Internal Medicine Nephrology
DX: I12.0 Hypertensive chronic kidney disease with stage 5 chronic kidney disease or end stage renal disease (principal); R11.2 Nausea with vomiting, unspecified; R10.9 Unspecified abdominal pain; R18.8 Other ascites; E87.5 Hyperkalemia; N17.9 Acute kidney failure, unspecified; Z91.14 Patient's other noncompliance with medication regimen; R07.9 Chest pain, unspecified

== ENCOUNTER 2019-08-03 16:32 | Inpatient (IN) | payer MEDICARE, MEDICAID ==
[~2019-08-03] VITALS: Ht 160 cm; Wt 77.1 kg
[2019-08-03] VITALS (7 sets, daily range): BP systolic 136–164; BP diastolic 91–112
[2019-08-03] MEDS ORDERED: SYMBICORT 80-10.2 GM INH (16:47)
--- NOTE | 2019-08-03 19:05 | NUR ---
REPORT TO MICHAEL MITCHELL
[2019-08-03 19:58] LABS: BASOPHILS 0.3 % (0-2); EOSINOPHILS 0.4 % (0-7); HEMATOCRIT 37.2 % (36.0-48.0); HEMOGLOBIN 11.1 g/dL (12-16); IMMATURE GRANULOCYTES 0.3 % (0-5); LYMPHOCYTES 6.8 % (15-50); MCH 31.6 pg (26.0-34.0); MCHC 29.8 g/dL (31.0-37.0); MEAN PLATELET VOLUME 8.9 fL (7.4-10.4); MONOCYTES 4.9 % (2-11); NEUTROPHILS 87.3 % (40-80); RBC 3.51 10x6/uL (4.00-5.40); RDW 16.4 % (11.5-14.5); WBC 11.6 10x3/uL (4.8-10.8)
[2019-08-03 20:06] LABS: PLATELET COUNT 134 10x3/uL (130-400)
--- NOTE | 2019-08-03 20:32 | NUR ---
PT LYING IN BED RESTING, BREATHS EVEN. PT RESPONDS TO VERBAL STIMULI. PT DENIES ANY COMPLAINTS AT THIS TIME.
[2019-08-03 20:46] LABS: ALBUMIN 3.1 g/dL (3.4-5.0); ALKALINE PHOSPHATASE 114 U/L (30-120); ALT (SGPT) 17 U/L (10-68); CALC OSMOLALITY 288 mosm/kg (275-300); CALCIUM 9.8 mg/dL (8.5-10.1); CARBON DIOXIDE 22.4 mmol/L (21.0-32.0); CHLORIDE - SERUM 103 mmol/L (98-107); CKMB 1.1 U/L (0.0-3.6); CREATINE KINASE 66 UL (21-215); CREATININE - SERUM 5.4 mg/dL (0.6-1.3); GLUCOSE 109 mg/dL (74-106); MAGNESIUM - SERUM 2.1 mg/dL (1.8-2.4); PROTEIN - SERUM 7.1 g/dL (6.4-8.2); SODIUM 137 mmol/L (136-145); UREA NITROGEN 53 mg/dL (7-18); eGFR NON AFRICAN AMERICAN 9 mL/min (90-120)
[2019-08-03 20:51] LABS: POTASSIUM - SERUM 6.4 mmol/L (3.5-5.1)
[2019-08-04] VITALS (8 sets, daily range): BP systolic 145–184; BP diastolic 103–118; Ht 160 cm; Wt 77.1 kg
[2019-08-04 03:46] LABS: BASOPHILS 0.2 % (0-2); EOSINOPHILS 1.3 % (0-7); HEMATOCRIT 39.6 % (36.0-48.0); HEMOGLOBIN 11.9 g/dL (12-16); IMMATURE GRANULOCYTES 0.3 % (0-5); LYMPHOCYTES 6.2 % (15-50); MCH 31.4 pg (26.0-34.0); MCHC 30.1 g/dL (31.0-37.0); MCV 104.5 fL (80.0-100.0); MONOCYTES 5.4 % (2-11); NEUTROPHILS 86.6 % (40-80); PLATELET COUNT 151 10x3/uL (130-400); RBC 3.79 10x6/uL (4.00-5.40); RDW 16.3 % (11.5-14.5); WBC 12.1 10x3/uL (4.8-10.8)
[2019-08-04 04:04] LABS: APTT 28.2 SECONDS (22.8-39.4); INR 1.3 (0.85-1.17); PROTIME 16.1 SECONDS (11.6-15.0)
[2019-08-04 04:21] LABS: CREATININE - SERUM 4.2 mg/dL (0.6-1.3); PHOSPHOROUS 3.4 mg/dL (2.5-4.9); THYROID STIMULATING HORMONE 1.3 uIU/mL (0.36-3.74)
--- NOTE | 2019-08-04 07:51 | NUR ---
DR. AGUSTIN AT BEDSIDE, NEW ORDERS RECIVED,
--- NOTE | 2019-08-04 08:22 | NUR ---
PT HAS HAD 2 LOOSE STOOLS ON BSC. HAS EATEN BREAKFAST AND WANTED MORE. PAIN MEDICATION GIVEN FOR BACK PAIN. STATES IT HASN'T STARTED HELPING. WILL CONTINUE TO MONITOR.
--- NOTE | 2019-08-04 09:15 | NUR ---
WANTS TO CALL EMERGENCY CONTACT IN REGARDS TO HER KIDS. NOT LISTED IN COMPUTER.
--- NOTE | 2019-08-04 16:30 | NUR ---
PT RIGHT FA PIC DC'D AT THIS TIME CATH INTACT, PT TOLERATED WELL
--- NOTE | 2019-08-04 17:28 | NUR ---
PT DC'D AT THIS TIME VIA WHEELCHAIR
== END 2019-08-04 17:28 | disposition home or self-care (01) | DRG 917 ==
LOC: D.ER 16:32 → D.ICU 19:16
PROVIDERS: Family Medicine; ADMIT Internal Medicine Nephrology; ATTEND Internal Medicine Nephrology
DX: T50.901A Poisoning by unspecified drugs, medicaments and biological substances, accidental (unintentional), initial encounter (principal); G93.41 Metabolic encephalopathy; N18.6 End stage renal disease; I13.2 Hypertensive heart and chronic kidney disease with heart failure and with stage 5 chronic kidney disease, or end stage renal disease; I50.22 Chronic systolic (congestive) heart failure; Z99.2 Dependence on renal dialysis; M79.7 Fibromyalgia; J45.909 Unspecified asthma, uncomplicated; F41.8 Other specified anxiety disorders; G89.4 Chronic pain syndrome; E87.5 Hyperkalemia

== ENCOUNTER 2019-08-17 10:59 | Inpatient (IN) | payer MEDICARE, MEDICAID ==
[~2019-08-17] VITALS: Ht 160 cm; Wt 66.1 kg
[2019-08-18 07:51] VITALS: Ht 160 cm; Wt 66.1 kg
[2019-08-19 09:44] VITALS: BP 133/86
== END 2019-08-19 17:02 | disposition home or self-care (01) | DRG 91 ==
LOC: D.SP 10:59 → D.ICU 10:59 → D.SP 13:00 → D.ICU 16:33 → D.SP 19:17 → D.ICU 19:17 → D.M2 19:17
PROVIDERS: ADMIT Family Medicine; ATTEND Family Medicine
PROC: 0W9G3ZZ Drainage of Peritoneal Cavity, Percutaneous Approach (ICD-10-PCS; principal; 2019-08-17)
PROC: 5A1D70Z Performance of Urinary Filtration, Intermittent, Less than 6 Hours Per Day (ICD-10-PCS; 2019-08-17)
PROC: 5A09357 Assistance with Respiratory Ventilation, Less than 24 Consecutive Hours, Continuous Positive Airway Pressure (ICD-10-PCS; 2019-08-18)
DX: G92 Toxic encephalopathy (principal); N18.6 End stage renal disease; J96.21 Acute and chronic respiratory failure with hypoxia; I50.33 Acute on chronic diastolic (congestive) heart failure; Q44.6 Cystic disease of liver; R18.8 Other ascites; I13.2 Hypertensive heart and chronic kidney disease with heart failure and with stage 5 chronic kidney disease, or end stage renal disease; N25.81 Secondary hyperparathyroidism of renal origin; T40.2X5A Adverse effect of other opioids, initial encounter; G89.4 Chronic pain syndrome; F41.8 Other specified anxiety disorders; J45.909 Unspecified asthma, uncomplicated; D63.1 Anemia in chronic kidney disease; D50.9 Iron deficiency anemia, unspecified; K59.09 Other constipation